=== PATIENT | male | born 1935 | race Caucasian/White ===

== ENCOUNTER 2016-10-26 09:30 | Inpatient (IN) | payer MEDICARE, OTHER ==
[~2016-10-26] VITALS: Ht 162.6 cm; Wt 92.2 kg
[2016-10-26 09:38] VITALS: BP 152/65; PULSE 76; RESP 17; TEMP 98.2; O2SAT 96
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
[2016-10-26] MEDS ORDERED: METF1000 PO (10:23)
[2016-10-26] MEDS ORDERED: LOSA100T PO (10:23)
[2016-10-26] MEDS ORDERED: PANT20TA2 PO (10:23)
[2016-10-26] MEDS ORDERED: TRAZ100T5 PO (10:23)
[2016-10-26] MEDS ORDERED: COUM3TAB PO (10:23)
[2016-10-26] MEDS ORDERED: SPIR25TA PO (10:23)
[2016-10-26] MEDS ORDERED: ISOS60TA PO (10:23)
[2016-10-26] MEDS ORDERED: THERTAB17 PO (10:23)
[2016-10-26] MEDS ORDERED: SIMV20TA PO (10:23)
[2016-10-26] MEDS ORDERED: FURO20TA PO (10:38)
[2016-10-26] MEDS ORDERED: [UNRECOGNIZED DRUG - CODE] TOPICAL (10:38)
[2016-10-26] MEDS ORDERED: FLOR250C PO (10:38)
[2016-10-26] MEDS ORDERED: SILV1CRE80 TOPICAL (10:38)
[2016-10-26 10:46] LABS: AUTOMATED NEUTROPHIL # 6.5 TH/MM3 (1.8-7.7); BASOPHIL # 0.1 TH/MM3 (0-0.2); BASOPHIL % 0.8 % (0.0-2.0); EOSINOPHIL # 0.4 TH/MM3 (0-0.4); EOSINOPHIL % 4.3 % (0.0-4.0); HEMATOCRIT 32.4 % (39.0-51.0); HEMO FLAGS DIFF FINAL; LYMPHOCYTE # 0.7 TH/MM3 (1.0-4.8); MEAN CELL VOLUME 87.7 FL (80.0-100.0); MEAN CORPUSCULAR HEMOGLOBIN 30.2 PG (27.0-34.0); MEAN CORPUSCULAR HGB CONC 34.5 % (32.0-36.0); MONO % 9.6 % (0.0-8.0); NEUT % 77.3 % (16.0-70.0); PLATELET COUNT 357 TH/MM3 (150-450); RED BLOOD COUNT 3.69 MIL/MM3 (4.50-5.90); RED CELL DISTRIBUTION WIDTH 14.8 % (11.6-17.2); WHITE BLOOD COUNT 8.5 TH/MM3 (4.0-11.0)
[2016-10-26 10:56] LABS: INTERNATIONAL NORMALIZED RATIO 1.9 RATIO; PROTHROMBIN TIME - PATIENT 21.9 SEC (9.8-11.6)
[2016-10-26 11:13] LABS: ANION GAP 7 MEQ/L (5-15); AST (GOT) 16 U/L (15-37); BICARBONATE 29.9 MEQ/L (21.0-32.0); BLOOD UREA NITROGEN 29 MG/DL (7-18); CHLORIDE 101 MEQ/L (98-107); GLOMERULAR FILTRATION RATE 65 ML/MIN (>89); POTASSIUM 4.3 MEQ/L (3.5-5.1); SODIUM (NA) 138 MEQ/L (136-145)
[2016-10-26 11:20] LABS: ALKALINE PHOSPHATASE 111 U/L (45-117); ALT (GPT) 16 U/L (12-78); TOTAL BILIRUBIN ADULT 0.7 MG/DL (0.2-1.0)
[2016-10-26] MEDS ORDERED: MAGNESIUM HYDROXIDE SUSP 30 ML CUP PO PRN (15:00)
[2016-10-26] MEDS ORDERED: ALUMINUM/MAGNESIUM/SIMETH 30 ML CUP PO PRN (15:00)
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
[2016-10-26] MEDS: INSULIN ASPART SUPPLEMENTAL SCALE SQ SCH ×2 (16:00→20:29)
[2016-10-26] MEDS: WARFARIN SOD 3 MG TAB PO SCH (16:00)
[2016-10-26 16:08] VITALS: BP 144/72; PULSE 53; RESP 16; TEMP 97.8; O2SAT 99
[2016-10-26] MEDS: FUROSEMIDE 20 MG TAB PO SCH (20:29)
[2016-10-26] MEDS: SPIRONOLACTONE 25 MG TAB PO SCH (20:29)
[2016-10-26] MEDS: traZODone HCL 50 MG TAB PO SCH (20:29)
[2016-10-26 20:31] VITALS: RESP 16
[2016-10-26] MEDS ORDERED: NON-FORMULARY DRUG (Saccharomyces Boulardii (Florastor) 250 MG) PO SCH (21:00)
[2016-10-26] MEDS: SILVER SULFADIAZINE 1% CR 50 GM JAR TOPICAL SCH (21:00)
[2016-10-26] MEDS ORDERED: [UNRECOGNIZED DRUG - MIXTURE] TOPICAL SCH (21:00)
[2016-10-27 05:33] VITALS: BP 140/61; PULSE 76; RESP 18; TEMP 98
[2016-10-27] MEDS: INSULIN ASPART SUPPLEMENTAL SCALE SQ SCH ×4 (06:18→21:00)
[2016-10-27] MEDS: FUROSEMIDE 20 MG TAB PO SCH ×2 (09:15→20:58)
[2016-10-27] MEDS: PANTOPRAZOLE SOD 20 MG DELAYED RELEASE TAB PO SCH (09:15)
[2016-10-27] MEDS: MULTIVITAMINS/MINERALS THERAPEUTIC TAB PO SCH (09:15)
[2016-10-27] MEDS: ISOSORBIDE MONONITRATE 60 MG TAB PO SCH (09:15)
[2016-10-27] MEDS: metFORMIN HCL 500 MG TAB PO SCH (09:15)
[2016-10-27] MEDS: SPIRONOLACTONE 25 MG TAB PO SCH ×2 (09:15→20:58)
[2016-10-27] MEDS: PRAVASTATIN SOD 40 MG TAB PO SCH (09:15)
[2016-10-27] MEDS: LOSARTAN 50 MG TAB PO SCH (09:16)
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
[2016-10-27] MEDS: WARFARIN SOD 3 MG TAB PO SCH (16:00)
--- NOTE | 2016-10-27 16:41 | HHI.PYPN ---
Subjective Remarks Patient seen in day room with nurse Lacho, patient continues somewhat intense silly and intrusive. Continues markedly refuse all 4 spheres. We'll add Seroquel 25 mg noon and 6 PM and this time Review of Systems Except as stated in HPI: all other systems reviewed are Neg Objective Alert: Yes [place]: Person Mood: Calm Affect: Euthymic, Labile Memory Intact: Comment Hallucinations: Other (denies) Delusions: No Delusion Type: Other (vigilant) Suicidal: Ideation (denies) Homicidal: Ideation (denial) Insight/Judgment Very poor Vitals/IOs Vital Signs Date Time Temp Pulse Resp B/P Pulse Ox O2 Delivery O2 Flow Rate FiO2 10/27/16 05:33 98.0 76 18 140/61 10/26/16 16:08 99 Intake and Output 10/26/16 10/26/16 10/27/16 08:00 16:00 00:00 Intake Total 240 ml Balance 240 ml Assessment & Plan Problem List: (1) Dementia of Alzheimer's type with behavioral disturbance ICD Code: G30.8 Assessment & Plan Estimated LOS: days patient continues demented confused while no significant prevertebral problems at this time after he very his behavior related to this hospitalization we will add Seroquel as mentioned above Justification for Cont. Inpt. At this time patient decompensate placed in a lower level of care Discharge Planning To be determined Request HC Surrog/Guard Advoc?: Yes Problem Qualifiers (1) Dementia of Alzheimer's type with behavioral disturbance: Qualified Code: G30.8 - Alzheimer's dementia with behavioral disturbance, unspecified timing of dementia onset Kam Ferrer MD October 27, 2016 16:41
[2016-10-27] MEDS: QUEtiapine FUMARATE 25 MG TAB PO SCH (17:50)
[2016-10-27 19:44] VITALS: BP 124/58; PULSE 80; RESP 18; TEMP 97; O2SAT 95
[2016-10-27] MEDS: traZODone HCL 50 MG TAB PO SCH (20:57)
[2016-10-27] MEDS: SILVER SULFADIAZINE 1% CR 50 GM JAR TOPICAL SCH (21:00)
[2016-10-28 05:15] VITALS: BP 140/65; PULSE 62; RESP 16; TEMP 98.9; O2SAT 85
[2016-10-28] MEDS: INSULIN ASPART SUPPLEMENTAL SCALE SQ SCH ×4 (06:35→21:00)
[2016-10-28 06:59] LABS: INTERNATIONAL NORMALIZED RATIO 1.7 RATIO; PROTHROMBIN TIME - PATIENT 19.8 SEC (9.8-11.6)
[2016-10-28] MEDS: MULTIVITAMINS/MINERALS THERAPEUTIC TAB PO SCH (08:41)
[2016-10-28] MEDS: metFORMIN HCL 500 MG TAB PO SCH (08:41)
[2016-10-28] MEDS: PANTOPRAZOLE SOD 20 MG DELAYED RELEASE TAB PO SCH (08:41)
[2016-10-28] MEDS: SPIRONOLACTONE 25 MG TAB PO SCH ×2 (08:41→21:12)
[2016-10-28] MEDS: LOSARTAN 50 MG TAB PO SCH (08:42)
[2016-10-28] MEDS: FUROSEMIDE 20 MG TAB PO SCH ×2 (08:42→21:11)
[2016-10-28] MEDS: PRAVASTATIN SOD 40 MG TAB PO SCH (08:42)
[2016-10-28] MEDS: ISOSORBIDE MONONITRATE 60 MG TAB PO SCH (08:42)
[2016-10-28] MEDS: QUEtiapine FUMARATE 25 MG TAB PO SCH ×2 (12:54→16:52)
--- NOTE | 2016-10-28 14:02 | HHI.PYPN ---
Subjective Remarks Patient seen in day room with floor staff, patient continues confused disoriented speaking Barbadian. Is somewhat intense with his affect. Though no significant behavioral problems. Compliant medications Review of Systems Except as stated in HPI: all other systems reviewed are Neg Objective Alert: Yes [place]: Person Mood: Calm Affect: Euthymic, Labile Memory Intact: Comment Hallucinations: Other (denies) Delusions: No Delusion Type: Other (vigilant) Suicidal: Ideation (denies) Homicidal: Ideation (denial) Insight/Judgment Poor Labs Test 10/28/16 06:12 Prothrombin Time 19.8 SEC Prothromb Time International 1.7 RATIO Ratio Vitals/IOs Vital Signs Date Time Temp Pulse Resp B/P Pulse Ox O2 Delivery O2 Flow Rate FiO2 10/28/16 05:15 98.9 62 16 140/65 85 Intake and Output 10/27/16 10/27/16 10/27/16 07:59 15:59 23:59 Intake Total 480 ml 2400 ml Balance 480 ml 2400 ml Assessment & Plan Problem List: (1) Dementia of Alzheimer's type with behavioral disturbance ICD Code: G30.8 Assessment & Plan Estimated LOS: days patient demented confused speaking in Barbadian. Compliant medication. For now continue treatment Justification for Cont. Inpt. At this time patient will decompensate the placed a lower level of care Discharge Planning To be determined Request HC Surrog/Guard Advoc?: Yes Problem Qualifiers (1) Dementia of Alzheimer's type with behavioral disturbance: Qualified Code: G30.8 - Alzheimer's dementia with behavioral disturbance, unspecified timing of dementia onset Kam Ferrer MD October 28, 2016 14:02
[2016-10-28] MEDS: WARFARIN SOD 3 MG TAB PO SCH (16:00)
[2016-10-28] MEDS ORDERED: WARFARIN SOD 1 MG TAB PO SCH (16:00)
[2016-10-28 19:37] VITALS: BP 86/51; PULSE 57; TEMP 96.8; O2SAT 99
[2016-10-28] MEDS: SILVER SULFADIAZINE 1% CR 50 GM JAR TOPICAL SCH (21:00)
[2016-10-28] MEDS: traZODone HCL 50 MG TAB PO SCH (21:11)
[2016-10-29 05:40] VITALS: BP 162/72; PULSE 62; RESP 16; TEMP 99; O2SAT 98
[2016-10-29] MEDS: INSULIN ASPART SUPPLEMENTAL SCALE SQ SCH ×4 (06:41→21:00)
[2016-10-29] MEDS: PANTOPRAZOLE SOD 20 MG DELAYED RELEASE TAB PO SCH (09:00)
[2016-10-29] MEDS: metFORMIN HCL 500 MG TAB PO SCH (09:51)
[2016-10-29] MEDS: FUROSEMIDE 20 MG TAB PO SCH ×2 (09:51→21:08)
[2016-10-29] MEDS: ISOSORBIDE MONONITRATE 60 MG TAB PO SCH (09:51)
[2016-10-29] MEDS: LOSARTAN 50 MG TAB PO SCH (09:52)
[2016-10-29] MEDS: MULTIVITAMINS/MINERALS THERAPEUTIC TAB PO SCH (09:52)
[2016-10-29] MEDS: PRAVASTATIN SOD 40 MG TAB PO SCH (09:52)
[2016-10-29] MEDS: SPIRONOLACTONE 25 MG TAB PO SCH ×2 (09:53→21:07)
--- NOTE | 2016-10-29 10:32 | HHI.PYPN ---
Subjective Remarks Patient seen in day room with floor staff, chart reviewed, patient calm pleasant with me continues diffusely confused, did not recognize me from yesterday. Compliant medication. No behavioral problems noted Review of Systems Except as stated in HPI: all other systems reviewed are Neg Objective Alert: Yes [place]: Person Mood: Calm Affect: Euthymic, Labile Memory Intact: Comment Hallucinations: Other (denies) Delusions: No Delusion Type: Other (vigilant) Suicidal: Ideation (denies) Homicidal: Ideation (denial) Insight/Judgment Very poor Vitals/IOs Vital Signs Date Time Temp Pulse Resp B/P Pulse Ox O2 Delivery O2 Flow Rate FiO2 10/29/16 05:40 99.0 62 16 162/72 98 Intake and Output 10/28/16 10/28/16 10/29/16 08:00 16:00 00:00 Intake Total 1080 ml Balance 1080 ml Assessment & Plan Problem List: (1) Dementia of Alzheimer's type with behavioral disturbance ICD Code: G30.8 Assessment & Plan Estimated LOS: days patient continues demented confused, his compliant medications. So far no significant behavioral problems noted Justification for Cont. Inpt. At this time patient decompensate placed on lower level of care Discharge Planning To be determined Request HC Surrog/Guard Advoc?: Yes Problem Qualifiers (1) Dementia of Alzheimer's type with behavioral disturbance: Qualified Code: G30.8 - Alzheimer's dementia with behavioral disturbance, unspecified timing of dementia onset Kam Ferrer MD October 29, 2016 10:32
[2016-10-29 11:22] LABS: INTERNATIONAL NORMALIZED RATIO 1.6 RATIO; PROTHROMBIN TIME - PATIENT 18.1 SEC (9.8-11.6)
[2016-10-29] MEDS: QUEtiapine FUMARATE 25 MG TAB PO SCH ×2 (13:24→17:10)
[2016-10-29 16:00] VITALS: BP 113/57; PULSE 55; RESP 16; TEMP 96.8; O2SAT 100
[2016-10-29] MEDS ORDERED: WARFARIN SOD 3 MG TAB PO SCH (16:00)
[2016-10-29] MEDS: WARFARIN SOD 3 MG TAB PO SCH (17:07)
[2016-10-29] MEDS: SILVER SULFADIAZINE 1% CR 50 GM JAR TOPICAL SCH (21:00)
[2016-10-29] MEDS: traZODone HCL 50 MG TAB PO SCH (21:07)
[2016-10-30 05:32] VITALS: BP 133/65; PULSE 63; RESP 18; TEMP 98.2
[2016-10-30] MEDS: INSULIN ASPART SUPPLEMENTAL SCALE SQ SCH ×4 (06:24→20:47)
[2016-10-30 07:22] LABS: INTERNATIONAL NORMALIZED RATIO 1.6 RATIO; PROTHROMBIN TIME - PATIENT 18.3 SEC (9.8-11.6)
[2016-10-30] MEDS: PRAVASTATIN SOD 40 MG TAB PO SCH (09:02)
[2016-10-30] MEDS: metFORMIN HCL 500 MG TAB PO SCH (09:02)
[2016-10-30] MEDS: LOSARTAN 50 MG TAB PO SCH (09:02)
[2016-10-30] MEDS: MULTIVITAMINS/MINERALS THERAPEUTIC TAB PO SCH (09:03)
[2016-10-30] MEDS: ISOSORBIDE MONONITRATE 60 MG TAB PO SCH (09:03)
[2016-10-30] MEDS: FUROSEMIDE 20 MG TAB PO SCH ×2 (09:03→20:42)
[2016-10-30] MEDS: SPIRONOLACTONE 25 MG TAB PO SCH ×2 (09:03→20:42)
[2016-10-30] MEDS: PANTOPRAZOLE SOD 20 MG DELAYED RELEASE TAB PO SCH (09:03)
--- NOTE | 2016-10-30 12:28 | HHI.PYPN ---
Subjective Remarks Patient seen in [place] retained by Yield Engineer Simin the daughter to be guardian advocate. Patient sat there quietly showing no behavioral issues. Continues confused and demented. Above this been no significant behavioral problems on the unit compliant medications Review of Systems Except as stated in HPI: all other systems reviewed are Neg Objective Alert: Yes [place]: Person Mood: Calm Affect: Euthymic, Labile Memory Intact: Comment Hallucinations: Other (denies) Delusions: No Delusion Type: Other (vigilant) Suicidal: Ideation (denies) Homicidal: Ideation (denial) Insight/Judgment Poor Labs Test 10/30/16 06:47 Prothrombin Time 18.3 SEC Prothromb Time International 1.6 RATIO Ratio Vitals/IOs Vital Signs Date Time Temp Pulse Resp B/P Pulse Ox O2 Delivery O2 Flow Rate FiO2 10/30/16 05:32 98.2 63 18 133/65 10/29/16 16:00 100 Intake and Output 10/29/16 10/29/16 10/30/16 08:00 16:00 00:00 Intake Total 360 ml Balance 360 ml Assessment & Plan Problem List: (1) Dementia of Alzheimer's type with behavioral disturbance ICD Code: G30.8 Assessment & Plan Estimated LOS: days patient continues demented and confused, no behavior problems at this time, compliant medications Justification for Cont. Inpt. At this time patient decompensate with placed a lower level of care Discharge Planning To be determined Request HC Surrog/Guard Advoc?: Yes Problem Qualifiers (1) Dementia of Alzheimer's type with behavioral disturbance: Qualified Code: G30.8 - Alzheimer's dementia with behavioral disturbance, unspecified timing of dementia onset Kam Ferrer MD October 30, 2016 12:28
[2016-10-30] MEDS: QUEtiapine FUMARATE 25 MG TAB PO SCH ×2 (12:59→18:14)
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
[2016-10-30] MEDS ORDERED: WARFARIN SOD 4 MG TAB PO SCH (16:00)
[2016-10-30 17:47] VITALS: BP 111/56; PULSE 62; RESP 18; TEMP 97; O2SAT 97
[2016-10-30] MEDS: WARFARIN SOD 3 MG TAB PO SCH (17:50)
[2016-10-30] MEDS: traZODone HCL 50 MG TAB PO SCH (20:42)
[2016-10-30] MEDS: SILVER SULFADIAZINE 1% CR 50 GM JAR TOPICAL SCH (20:52)
[2016-10-31 05:43] VITALS: BP 143/68; PULSE 55; RESP 16; TEMP 98.8; O2SAT 95
[2016-10-31] MEDS: INSULIN ASPART SUPPLEMENTAL SCALE SQ SCH ×4 (06:36→21:00)
[2016-10-31] MEDS: FUROSEMIDE 20 MG TAB PO SCH ×2 (10:13→21:00)
[2016-10-31] MEDS: metFORMIN HCL 500 MG TAB PO SCH (10:13)
[2016-10-31] MEDS: LOSARTAN 50 MG TAB PO SCH (10:13)
[2016-10-31] MEDS: MULTIVITAMINS/MINERALS THERAPEUTIC TAB PO SCH (10:15)
[2016-10-31] MEDS: SPIRONOLACTONE 25 MG TAB PO SCH ×2 (10:16→21:00)
[2016-10-31] MEDS: PRAVASTATIN SOD 40 MG TAB PO SCH (10:16)
[2016-10-31] MEDS: PANTOPRAZOLE SOD 20 MG DELAYED RELEASE TAB PO SCH (10:16)
--- NOTE | 2016-10-31 10:25 | HHI.PYPN ---
Subjective Remarks Patient day room with nurse Kelly, patient continues calm cooperative needing minimal redirections at this time. It is diffusely confused disoriented while speaking primarily Serbian appears to understand some Cypriot. Compliant medications. For now continue treatment Review of Systems Except as stated in HPI: all other systems reviewed are Neg Objective Alert: Yes [place]: Person Mood: Calm Affect: Euthymic, Labile Memory Intact: Comment Hallucinations: Other (denies) Delusions: No Delusion Type: Other (vigilant) Suicidal: Ideation (denies) Homicidal: Ideation (denial) Insight/Judgment Very poor Vitals/IOs Vital Signs Date Time Temp Pulse Resp B/P Pulse Ox O2 Delivery O2 Flow Rate FiO2 10/31/16 05:43 98.8 55 16 143/68 95 Intake and Output 10/30/16 10/30/16 10/31/16 08:00 16:00 00:00 Intake Total 240 ml 2760 ml Balance 240 ml 2760 ml Assessment & Plan Problem List: (1) Dementia of Alzheimer's type with behavioral disturbance ICD Code: G30.8 Assessment & Plan Estimated LOS: days patient continues confused demented, though no significant behavioral problems. For now continue treatment Justification for Cont. Inpt. This time patient will decompensate if placed in a lower level of care Discharge Planning To be determined Request HC Surrog/Guard Advoc?: Yes Problem Qualifiers (1) Dementia of Alzheimer's type with behavioral disturbance: Qualified Code: G30.8 - Alzheimer's dementia with behavioral disturbance, unspecified timing of dementia onset Kam Ferrer MD October 31, 2016 10:25
[2016-10-31 12:24] LABS: INTERNATIONAL NORMALIZED RATIO 1.9 RATIO; PROTHROMBIN TIME - PATIENT 21.4 SEC (9.8-11.6)
[2016-10-31] MEDS: ISOSORBIDE MONONITRATE 60 MG TAB PO SCH (13:38)
[2016-10-31] MEDS: QUEtiapine FUMARATE 25 MG TAB PO SCH ×2 (13:38→18:00)
[2016-10-31] MEDS: WARFARIN SOD 3 MG TAB PO SCH (16:29)
[2016-10-31 17:44] VITALS: BP 114/56; PULSE 68; RESP 16; TEMP 97.6; O2SAT 98
[2016-10-31] MEDS: traZODone HCL 50 MG TAB PO SCH (21:00)
[2016-10-31] MEDS: SILVER SULFADIAZINE 1% CR 50 GM JAR TOPICAL SCH (21:00)
[2016-11-01 05:26] VITALS: BP 137/63; PULSE 57; RESP 16; TEMP 98.4; O2SAT 96
[2016-11-01] MEDS: INSULIN ASPART SUPPLEMENTAL SCALE SQ SCH ×4 (06:39→20:20)
[2016-11-01 08:29] LABS: INTERNATIONAL NORMALIZED RATIO 2.1 RATIO; PROTHROMBIN TIME - PATIENT 23.5 SEC (9.8-11.6)
[2016-11-01] MEDS: PANTOPRAZOLE SOD 20 MG DELAYED RELEASE TAB PO SCH (09:05)
[2016-11-01] MEDS: ISOSORBIDE MONONITRATE 60 MG TAB PO SCH (09:05)
[2016-11-01] MEDS: LOSARTAN 50 MG TAB PO SCH (09:05)
[2016-11-01] MEDS: MULTIVITAMINS/MINERALS THERAPEUTIC TAB PO SCH (09:05)
[2016-11-01] MEDS: PRAVASTATIN SOD 40 MG TAB PO SCH (09:05)
[2016-11-01] MEDS: FUROSEMIDE 20 MG TAB PO SCH ×2 (09:05→21:02)
[2016-11-01] MEDS: SPIRONOLACTONE 25 MG TAB PO SCH ×2 (09:05→21:02)
[2016-11-01] MEDS: metFORMIN HCL 500 MG TAB PO SCH (09:05)
--- NOTE | 2016-11-01 11:42 | HHI.PYPN ---
Subjective Remarks A she was seen and case discussed with nursing. Patient is pleasant and cooperative with exam. He is behaving well on the unit and has not had any outbursts. He is alert and oriented 2. Able to speak Botswanan and Moroccan. Getting along with others and is compliant with his medications. Denies auditory visual hallucinations. Objective Alert: Yes [place]: Person, Place Mood: Calm Affect: Euthymic Memory Intact: Comment Hallucinations: Other (denies) Delusions: No Delusion Type: Other (vigilant) Suicidal: Ideation (denies) Homicidal: Ideation (denial) Insight/Judgment Poor Labs Test 10/31/16 11/01/16 12:02 07:11 Prothrombin Time 21.4 SEC 23.5 SEC Prothromb Time International 1.9 RATIO 2.1 RATIO Ratio Vitals/IOs Vital Signs Date Time Temp Pulse Resp B/P Pulse Ox O2 Delivery O2 Flow Rate FiO2 11/01/16 05:26 98.4 57 16 137/63 96 Intake and Output 10/31/16 10/31/16 11/01/16 08:00 16:00 00:00 Intake Total 360 ml 720 ml 1200 ml Balance 360 ml 720 ml 1200 ml Assessment & Plan Problem List: (1) Dementia of Alzheimer's type with behavioral disturbance ICD Code: G30.8 Assessment & Plan Continue current treatment plan Justification for Cont. Inpt. Patient will decompensate in a less restrictive setting Request HC Surrog/Guard Advoc?: Yes Problem Qualifiers (1) Dementia of Alzheimer's type with behavioral disturbance: Qualified Code: G30.8 - Alzheimer's dementia with behavioral disturbance, unspecified timing of dementia onset Ayad Garcia DO November 01, 2016 11:42
[2016-11-01] MEDS: QUEtiapine FUMARATE 25 MG TAB PO SCH ×2 (12:23→16:35)
[2016-11-01] MEDS: WARFARIN SOD 3 MG TAB PO SCH (16:35)
[2016-11-01 18:00] VITALS: BP 98/55; PULSE 63; TEMP 97.9; O2SAT 97
[2016-11-01] MEDS: traZODone HCL 50 MG TAB PO SCH (21:02)
[2016-11-01] MEDS: SILVER SULFADIAZINE 1% CR 50 GM JAR TOPICAL SCH (21:13)
[2016-11-02 05:56] VITALS: BP 144/65; PULSE 62; RESP 16; TEMP 97.8; O2SAT 97
[2016-11-02] MEDS: INSULIN ASPART SUPPLEMENTAL SCALE SQ SCH ×4 (06:42→21:00)
[2016-11-02] MEDS: MULTIVITAMINS/MINERALS THERAPEUTIC TAB PO SCH (09:02)
[2016-11-02] MEDS: PANTOPRAZOLE SOD 20 MG DELAYED RELEASE TAB PO SCH (09:02)
[2016-11-02] MEDS: ISOSORBIDE MONONITRATE 60 MG TAB PO SCH (09:02)
[2016-11-02] MEDS: SPIRONOLACTONE 25 MG TAB PO SCH ×2 (09:02→21:51)
[2016-11-02] MEDS: PRAVASTATIN SOD 40 MG TAB PO SCH (09:02)
[2016-11-02] MEDS: metFORMIN HCL 500 MG TAB PO SCH (09:02)
[2016-11-02] MEDS: FUROSEMIDE 20 MG TAB PO SCH ×2 (09:02→21:51)
[2016-11-02] MEDS: LOSARTAN 50 MG TAB PO SCH (09:02)
--- NOTE | 2016-11-02 12:03 | HHI.PYPN ---
Subjective Remarks Patient was seen and case discussed with nursing. Patient is pleasant and cooperative with exam. Behaving well on the unit per nursing. Productive visit from his family yesterday. We notice a bilateral rash on his legs patient says his been there for a year. Objective Alert: Yes [place]: Person, Place Mood: Calm Affect: Restricted Memory Intact: Comment (not assessed) Hallucinations: Other (denies) Delusions: No Delusion Type: Other (none elicited) Suicidal: Ideation (denies) Homicidal: Ideation (denial) Insight/Judgment Fair Vitals/IOs Vital Signs Date Time Temp Pulse Resp B/P Pulse Ox O2 Delivery O2 Flow Rate FiO2 11/02/16 05:56 97.8 62 16 144/65 97 Intake and Output 11/01/16 11/01/16 11/02/16 08:00 16:00 00:00 Intake Total 600 ml 600 ml Balance 600 ml 600 ml Assessment & Plan Problem List: (1) Dementia of Alzheimer's type with behavioral disturbance ICD Code: G30.8 Assessment & Plan Consult hospitalist to evaluate rash Justification for Cont. Inpt. Patient will decompensate in a less restrictive setting Request HC Surrog/Guard Advoc?: Yes Problem Qualifiers (1) Dementia of Alzheimer's type with behavioral disturbance: Qualified Code: G30.8 - Alzheimer's dementia with behavioral disturbance, unspecified timing of dementia onset Ayad Garcia DO November 02, 2016 12:03
[2016-11-02] MEDS: QUEtiapine FUMARATE 25 MG TAB PO SCH ×2 (12:14→17:31)
[2016-11-02] MEDS: CLINDAMYCIN 150 MG CAP PO SCH (17:31)
[2016-11-02] MEDS: WARFARIN SOD 3 MG TAB PO SCH (17:31)
--- NOTE | 2016-11-02 18:21 | HHI.PR ---
Subjective Remarks reconsulted for rash in legs Patient denies fevers or chills denies cp/sob states right leg is slightly tender to palpation vital signs are stable Objective Vitals Vital Signs Date Time Temp Pulse Resp B/P Pulse Ox O2 Delivery O2 Flow Rate FiO2 11/02/16 05:56 97.8 62 16 144/65 97 I/O 11/01/16 11/01/16 11/01/16 11/02/16 11/02/16 11/02/16 07:00 15:00 23:00 07:00 15:00 23:00 Intake Total 360 ml 240 ml 600 ml 0 ml 720 ml Balance 360 ml 240 ml 600 ml 0 ml 720 ml Intake Oral 360 ml 240 ml 600 ml 0 ml 720 ml # Voids 1 2 1 1 # Bowel Movements 0 Objective Remarks GENERAL: This is a well-nourished, well-developed [place] patient, in no apparent distress. SKIN: No rashes, ecchymoses. Cool and dry. Chronic venous stasis noted on lower extremities. HEAD: Atraumatic. Normocephalic. No temporal or scalp tenderness. EYES: Pupils equal round and reactive. Extraocular motions intact. No scleral icterus. No injection or drainage. ENT: Nose without bleeding, purulent drainage or septal hematoma. Throat without erythema, tonsillar hypertrophy or exudate. Uvula midline. Airway patent. NECK: Trachea midline. No JVD or lymphadenopathy. Supple, nontender, no meningeal signs. CARDIOVASCULAR: Regular rate and rhythm without murmurs, gallops, or rubs. RESPIRATORY: Clear to auscultation. Breath sounds equal bilaterally. No wheezes , rales, or rhonchi. GASTROINTESTINAL: Abdomen soft, non-tender, nondistended. No hepato-splenomegaly , or palpable masses. No guarding. MUSCULOSKELETAL: Extremities without clubbing, cyanosis. Bilateral, 1+ edema noted on his lower extremities. No joint tenderness or effusion noted. No calf tenderness. Negative Homans sign bilaterally. Lower extremities are dry and have a dark and erythematous discoloration especially in the right lower extremity which is also tender to palpation. NEUROLOGICAL: Awake and alert, oriented to self yet personal medical history was denied yet review of medication list indicated pt did not know his medical conditions. Cranial nerves II through XII intact. Motor and sensory grossly within normal limits. Five out of 5 muscle strength in all muscle groups. Speech was clear and fluent. Procedures None. Medications and IVs Current Medications Medications (Trade) Dose Ordered Sig/Siva Route Start Time Stop Time Status Last Admin (Benadryl) 50 mg HS PRN PO 10/26/16 15:00 (Tylenol) 650 mg Q4H PRN PO 10/26/16 15:00 (Milk Of Magnesia Liq) 30 ml DAILY PRN PO 10/26/16 15:00 (Mag-Al Plus Susp Liq) 30 ml Q6H PRN PO 10/26/16 15:00 (Atarax) 50 mg Q6H PRN PO 10/26/16 15:00 (Lasix) 20 mg BID PO 10/26/16 21:00 11/02/16 09:02 (Imdur) 60 mg DAILY PO 10/27/16 09:00 11/02/16 09:02 (Cozaar) 100 mg DAILY PO 10/27/16 09:00 11/02/16 09:02 (Glucophage) 1,000 mg DAILY PO 10/27/16 09:00 11/02/16 09:02 (Theragran M Tab) 1 tab DAILY PO 10/27/16 09:00 11/02/16 09:02 (Protonix) 20 mg DAILY PO 10/27/16 09:00 11/02/16 09:02 (Silvadene 1% Cream (50 Gm)) 1 applic HS TOPICAL 10/26/16 21:00 11/01/16 21:13 (Aldactone) 12.5 mg BID PO 10/26/16 21:00 11/02/16 09:02 (Coumadin) 3 mg DAILY@16 PO 10/26/16 16:00 11/02/16 17:31 (Pravachol) 40 mg DAILY PO 10/27/16 09:00 11/02/16 09:02 Trazodone HCl 50 mg 50 mg HS PO 10/26/16 21:00 11/01/16 21:02 (Coumadin Consult Pharmacy) 0 ml @ 0 mls/hr UNSCH OTHER 10/26/16 16:00 (Catapres) 0.1 mg Q6H PRN PO 10/26/16 16:00 (SEROquel) 25 mg DAILY@12,18 PO 10/27/16 18:00 11/02/16 17:31 (Aristocort 0.1% Oint) 1 applic Q12HR TOPICAL 11/02/16 21:00 (Cleocin) 300 mg Q6HR PO 11/02/16 18:00 11/02/16 17:31 Urinary Catheter: No A/P Problem List: (1) Dementia of Alzheimer's type with behavioral disturbance ICD Code: G30.8 Status: Acute (2) Diabetes mellitus type II, controlled, with no complications ICD Code: E11.9 Status: Chronic (3) Hypertension ICD Code: I10 Status: Chronic (4) GERD (gastroesophageal reflux disease) ICD Code: K21.9 Status: Chronic (5) Hyperlipidemia ICD Code: E78.5 Status: Chronic Assessment and Plan Dementia of Alzheimer's type with disturbance of behavior: To be addressed by psychiatric care team. Diabetes Mellitus: Labs personally reviewed, blood glucose is within reasonable range without significant elevations noted per fingersticks done upon unit. Continue metformin 1000 mg Daily. Continue sliding scale Atrial Fibrillation/Hypertension/Hyperlipidemia/Angina Continue home regimen of Imdur 60 mg daily, Cozaar 100 mg daily, Lasix 20 mg twice daily, Spironolactone 12.5 mg twice daily, Warfarin 3 mg daily, and Pravachol 40 mg daily. INR therapeutic at a level of 2.1 at 11/01. Pharmacy consulted to manage Warfarin. Continue clonidine PRN for elevated systolic BP greater than 160. Blood pressure seems to be stable. Bilateral lower extremity rash -Likely due to chronic venous stasis dermatitis with possible superimposed cellulitis. I will start the patient on steroid cream and oral clindamycin to be given for 7 days. Will monitor for clinical response. DVT prophylaxis: Pt is on Warfarin. Problem Qualifiers (1) Dementia of Alzheimer's type with behavioral disturbance: Qualified Code: G30.8 - Alzheimer's dementia with behavioral disturbance, unspecified timing of dementia onset (2) Diabetes mellitus type II, controlled, with no complications: Qualified Code: E11.9 - Controlled type 2 diabetes mellitus without complication, without long-term current use of insulin (3) Hypertension: Qualified Code: I10 - Essential hypertension (4) GERD (gastroesophageal reflux disease): Qualified Code: K21.9 - Gastroesophageal reflux disease, esophagitis presence not specified (5) Hyperlipidemia: Qualified Code: E78.5 - Hyperlipidemia, unspecified hyperlipidemia type Kiser Bender,Babak MD November 02, 2016 18:21
[2016-11-02 20:08] VITALS: BP 125/55; PULSE 56; RESP 18; TEMP 97; O2SAT 98
[2016-11-02] MEDS: TRIAMCINOLONE ACETONIDE 0.1% OINT 15 GM TUBE TOPICAL SCH (21:00)
[2016-11-02] MEDS: traZODone HCL 50 MG TAB PO SCH (21:51)
[2016-11-02] MEDS: SILVER SULFADIAZINE 1% CR 50 GM JAR TOPICAL SCH (21:52)
[2016-11-03] MEDS: CLINDAMYCIN 150 MG CAP PO SCH ×5 (05:41→22:29)
[2016-11-03] MEDS: INSULIN ASPART SUPPLEMENTAL SCALE SQ SCH ×4 (06:28→21:00)
[2016-11-03 06:40] VITALS: BP 142/69; PULSE 77; RESP 20; TEMP 98.1; O2SAT 98
[2016-11-03 08:10] LABS: INTERNATIONAL NORMALIZED RATIO 2.1 RATIO; PROTHROMBIN TIME - PATIENT 24.3 SEC (9.8-11.6)
[2016-11-03] MEDS: MULTIVITAMINS/MINERALS THERAPEUTIC TAB PO SCH (09:56)
[2016-11-03] MEDS: PRAVASTATIN SOD 40 MG TAB PO SCH (09:56)
[2016-11-03] MEDS: LOSARTAN 50 MG TAB PO SCH (09:57)
[2016-11-03] MEDS: FUROSEMIDE 20 MG TAB PO SCH ×2 (09:57→22:19)
[2016-11-03] MEDS: metFORMIN HCL 500 MG TAB PO SCH (09:57)
[2016-11-03] MEDS: SPIRONOLACTONE 25 MG TAB PO SCH ×2 (09:58→22:19)
[2016-11-03] MEDS: TRIAMCINOLONE ACETONIDE 0.1% OINT 15 GM TUBE TOPICAL SCH ×2 (09:59→22:19)
[2016-11-03] MEDS: PANTOPRAZOLE SOD 20 MG DELAYED RELEASE TAB PO SCH (10:00)
[2016-11-03] MEDS: ISOSORBIDE MONONITRATE 60 MG TAB PO SCH (10:02)
--- NOTE | 2016-11-03 12:42 | HHI.PYPN ---
Subjective Remarks Patient seen in day room with nurse Divina, chart reviewed. Patient calmly confused and pleasant. He shown no behavioral problems. Compliant medication. For now continue treatment Review of Systems Except as stated in HPI: all other systems reviewed are Neg Objective Alert: Yes [place]: Person, Place Mood: Calm Affect: Restricted Memory Intact: Comment (not assessed) Hallucinations: Other (denies) Delusions: No Delusion Type: Other (none elicited) Suicidal: Ideation (denies) Homicidal: Ideation (denial) Insight/Judgment Very poor Labs Test 11/03/16 07:44 Prothrombin Time 24.3 SEC Prothromb Time International 2.1 RATIO Ratio Vitals/IOs Vital Signs Date Time Temp Pulse Resp B/P Pulse Ox O2 Delivery O2 Flow Rate FiO2 11/03/16 06:40 98.1 77 20 142/69 98 Intake and Output 11/02/16 11/02/16 11/02/16 07:59 15:59 23:59 Intake Total 0 ml 720 ml 480 ml Balance 0 ml 720 ml 480 ml Assessment & Plan Problem List: (1) Dementia of Alzheimer's type with behavioral disturbance ICD Code: G30.8 Assessment & Plan Estimated LOS: days patient continues demented and psychotic, though no behavior problems. Compliant medications Justification for Cont. Inpt. At this time patient will decompensate the placed in a lower level of care Discharge Planning To be determined Request HC Surrog/Guard Advoc?: Yes Problem Qualifiers (1) Dementia of Alzheimer's type with behavioral disturbance: Qualified Code: G30.8 - Alzheimer's dementia with behavioral disturbance, unspecified timing of dementia onset Kam Ferrer MD November 03, 2016 12:41
[2016-11-03] MEDS: QUEtiapine FUMARATE 25 MG TAB PO SCH ×2 (13:26→17:26)
[2016-11-03 17:00] VITALS: BP 113/58; PULSE 52; RESP 18; TEMP 97.2
[2016-11-03] MEDS: WARFARIN SOD 3 MG TAB PO SCH (17:26)
--- NOTE | 2016-11-03 19:21 | HHI.PR ---
Subjective Remarks no complaints denies cp/sob denies rash, diarrhea denies nausea denies fevers or chills Objective Vitals Vital Signs Date Time Temp Pulse Resp B/P Pulse Ox O2 Delivery O2 Flow Rate FiO2 11/03/16 17:00 97.2 52 18 113/58 11/03/16 06:40 98.1 77 20 142/69 98 11/02/16 20:08 97.0 56 18 125/55 98 I/O 11/02/16 11/02/16 11/02/16 11/03/16 11/03/16 11/03/16 06:59 14:59 22:59 06:59 14:59 22:59 Intake Total 0 ml 720 ml 480 ml 840 ml 1080 ml Balance 0 ml 720 ml 480 ml 840 ml 1080 ml Intake Oral 0 ml 720 ml 480 ml 840 ml 1080 ml # Voids 1 1 3 3 Objective Remarks GENERAL: This is a well-nourished, well-developed [place] patient, in no apparent distress. SKIN: No rashes, ecchymoses. Cool and dry. Chronic venous stasis noted on lower extremities. HEAD: Atraumatic. Normocephalic. No temporal or scalp tenderness. EYES: Pupils equal round and reactive. Extraocular motions intact. No scleral icterus. No injection or drainage. ENT: Nose without bleeding, purulent drainage or septal hematoma. Throat without erythema, tonsillar hypertrophy or exudate. Uvula midline. Airway patent. NECK: Trachea midline. No JVD or lymphadenopathy. Supple, nontender, no meningeal signs. CARDIOVASCULAR: Regular rate and rhythm without murmurs, gallops, or rubs. RESPIRATORY: Clear to auscultation. Breath sounds equal bilaterally. No wheezes , rales, or rhonchi. GASTROINTESTINAL: Abdomen soft, non-tender, nondistended. No hepato-splenomegaly , or palpable masses. No guarding. MUSCULOSKELETAL: Extremities without clubbing, cyanosis. Bilateral, 1+ edema noted on his lower extremities. No joint tenderness or effusion noted. No calf tenderness. Negative Homans sign bilaterally. Lower extremities are dry and have a dark and erythematous discoloration especially in the right lower extremity which is also tender to palpation - seems improved from previous day. NEUROLOGICAL: Awake and alert, oriented to self yet personal medical history was denied yet review of medication list indicated pt did not know his medical conditions. Cranial nerves II through XII intact. Motor and sensory grossly within normal limits. Five out of 5 muscle strength in all muscle groups. Speech was clear and fluent. Procedures None. Medications and IVs Current Medications Medications (Trade) Dose Ordered Sig/Siva Route Start Time Stop Time Status Last Admin (Benadryl) 50 mg HS PRN PO 10/26/16 15:00 (Tylenol) 650 mg Q4H PRN PO 10/26/16 15:00 (Milk Of Magnesia Liq) 30 ml DAILY PRN PO 10/26/16 15:00 (Mag-Al Plus Susp Liq) 30 ml Q6H PRN PO 10/26/16 15:00 (Atarax) 50 mg Q6H PRN PO 10/26/16 15:00 (Lasix) 20 mg BID PO 10/26/16 21:00 11/03/16 09:57 (Imdur) 60 mg DAILY PO 10/27/16 09:00 11/03/16 10:02 (Cozaar) 100 mg DAILY PO 10/27/16 09:00 11/03/16 09:57 (Glucophage) 1,000 mg DAILY PO 10/27/16 09:00 11/03/16 09:57 (Theragran M Tab) 1 tab DAILY PO 10/27/16 09:00 11/03/16 09:56 (Protonix) 20 mg DAILY PO 10/27/16 09:00 11/03/16 10:00 (Silvadene 1% Cream (50 Gm)) 1 applic HS TOPICAL 10/26/16 21:00 11/02/16 21:52 (Aldactone) 12.5 mg BID PO 10/26/16 21:00 11/03/16 09:58 (Coumadin) 3 mg DAILY@16 PO 10/26/16 16:00 11/03/16 17:26 (Pravachol) 40 mg DAILY PO 10/27/16 09:00 11/03/16 09:56 Trazodone HCl 50 mg 50 mg HS PO 10/26/16 21:00 11/02/16 21:51 (Coumadin Consult Pharmacy) 0 ml @ 0 mls/hr UNSCH OTHER 10/26/16 16:00 (Catapres) 0.1 mg Q6H PRN PO 10/26/16 16:00 (SEROquel) 25 mg DAILY@12,18 PO 10/27/16 18:00 11/03/16 17:26 (Aristocort 0.1% Oint) 1 applic Q12HR TOPICAL 11/02/16 21:00 11/03/16 09:59 (Cleocin) 300 mg Q6HR PO 11/02/16 18:00 11/03/16 17:26 Urinary Catheter: No Vascular Central Line Catheter: No A/P Problem List: (1) Dementia of Alzheimer's type with behavioral disturbance ICD Code: G30.8 Status: Acute (2) Diabetes mellitus type II, controlled, with no complications ICD Code: E11.9 Status: Chronic (3) Hypertension ICD Code: I10 Status: Chronic (4) GERD (gastroesophageal reflux disease) ICD Code: K21.9 Status: Chronic (5) Hyperlipidemia ICD Code: E78.5 Status: Chronic Assessment and Plan Dementia of Alzheimer's type with disturbance of behavior: To be addressed by psychiatric care team. Diabetes Mellitus: Labs personally reviewed, blood glucose is within reasonable range without significant elevations noted per fingersticks done upon unit. Continue metformin 1000 mg Daily. Continue sliding scale Atrial Fibrillation/Hypertension/Hyperlipidemia/Angina Continue home regimen of Imdur 60 mg daily, Cozaar 100 mg daily, Lasix 20 mg twice daily, Spironolactone 12.5 mg twice daily, Warfarin 3 mg daily, and Pravachol 40 mg daily. INR therapeutic at a level of 2.1 at 11/01. Pharmacy consulted to manage Warfarin. Continue clonidine PRN for elevated systolic BP greater than 160. Blood pressure seems to be stable. Bilateral lower extremity rash -Likely due to chronic venous stasis dermatitis with possible superimposed cellulitis. - Seems to be improving - continue steroid cream bid and PO Clindamycin x 7 days. DVT prophylaxis: Pt is on Warfarin. Problem Qualifiers (1) Dementia of Alzheimer's type with behavioral disturbance: Qualified Code: G30.8 - Alzheimer's dementia with behavioral disturbance, unspecified timing of dementia onset (2) Diabetes mellitus type II, controlled, with no complications: Qualified Code: E11.9 - Controlled type 2 diabetes mellitus without complication, without long-term current use of insulin (3) Hypertension: Qualified Code: I10 - Essential hypertension (4) GERD (gastroesophageal reflux disease): Qualified Code: K21.9 - Gastroesophageal reflux disease, esophagitis presence not specified (5) Hyperlipidemia: Qualified Code: E78.5 - Hyperlipidemia, unspecified hyperlipidemia type Babak Banerjee MD November 03, 2016 19:21
[2016-11-03] MEDS: traZODone HCL 50 MG TAB PO SCH (22:19)
[2016-11-03] MEDS: SILVER SULFADIAZINE 1% CR 50 GM JAR TOPICAL SCH (22:21)
[2016-11-04] MEDS: CLINDAMYCIN 150 MG CAP PO SCH ×3 (05:21→17:28)
[2016-11-04] MEDS: INSULIN ASPART SUPPLEMENTAL SCALE SQ SCH ×4 (05:21→21:00)
[2016-11-04 06:00] VITALS: BP 121/50; PULSE 50; RESP 18; TEMP 98.1; O2SAT 97
[2016-11-04] MEDS: PRAVASTATIN SOD 40 MG TAB PO SCH (09:53)
[2016-11-04] MEDS: MULTIVITAMINS/MINERALS THERAPEUTIC TAB PO SCH (09:54)
[2016-11-04] MEDS: metFORMIN HCL 500 MG TAB PO SCH (09:54)
[2016-11-04] MEDS: SPIRONOLACTONE 25 MG TAB PO SCH ×2 (09:54→21:34)
[2016-11-04] MEDS: PANTOPRAZOLE SOD 20 MG DELAYED RELEASE TAB PO SCH (09:54)
[2016-11-04] MEDS: ISOSORBIDE MONONITRATE 60 MG TAB PO SCH (09:54)
[2016-11-04] MEDS: FUROSEMIDE 20 MG TAB PO SCH ×2 (09:55→21:34)
[2016-11-04] MEDS: LOSARTAN 50 MG TAB PO SCH (09:55)
[2016-11-04] MEDS: TRIAMCINOLONE ACETONIDE 0.1% OINT 15 GM TUBE TOPICAL SCH ×2 (10:25→21:39)
[2016-11-04] MEDS: QUEtiapine FUMARATE 25 MG TAB PO SCH ×2 (12:59→17:29)
[2016-11-04] MEDS: WARFARIN SOD 3 MG TAB PO SCH (16:00)
--- NOTE | 2016-11-04 16:16 | HHI.PYPN ---
Subjective Remarks Patient seen in day room with nurse Will, chart reviewed. Patient sitting calmly a table in day room he continues to [place] confused though he has been no behavioral problems. Compliant medications Review of Systems Except as stated in HPI: all other systems reviewed are Neg Objective Alert: Yes [place]: Person, Place Mood: Calm Affect: Restricted Memory Intact: Comment (not assessed) Hallucinations: Other (denies) Delusions: No Delusion Type: Other (none elicited) Suicidal: Ideation (denies) Homicidal: Ideation (denial) Insight/Judgment Poor Vitals/IOs Vital Signs Date Time Temp Pulse Resp B/P Pulse Ox O2 Delivery O2 Flow Rate FiO2 11/04/16 06:00 98.1 50 18 121/50 97 Intake and Output 11/03/16 11/03/16 11/03/16 07:59 15:59 23:59 Intake Total 1920 ml 420 ml Balance 1920 ml 420 ml Assessment & Plan Problem List: (1) Dementia of Alzheimer's type with behavioral disturbance ICD Code: G30.8 Assessment & Plan Estimated LOS: days patient continues dementia confused though no behavioral problems, compliant medication Justification for Cont. Inpt. At this time patient will decompensate placed in a lower level of care Discharge Planning To be determined Request HC Surrog/Guard Advoc?: Yes Problem Qualifiers (1) Dementia of Alzheimer's type with behavioral disturbance: Qualified Code: G30.8 - Alzheimer's dementia with behavioral disturbance, unspecified timing of dementia onset Kam Ferrer MD November 04, 2016 16:16
[2016-11-04 18:20] VITALS: BP 100/58; PULSE 71; RESP 16; TEMP 98.3; O2SAT 97
[2016-11-04] MEDS: SILVER SULFADIAZINE 1% CR 50 GM JAR TOPICAL SCH (21:00)
[2016-11-04] MEDS: traZODone HCL 50 MG TAB PO SCH (21:34)
[2016-11-05] MEDS: CLINDAMYCIN 150 MG CAP PO SCH ×5 (00:04→23:16)
[2016-11-05 05:31] VITALS: BP 135/60; PULSE 54; RESP 16; TEMP 99.1; O2SAT 92
[2016-11-05] MEDS: INSULIN ASPART SUPPLEMENTAL SCALE SQ SCH ×4 (06:00→21:00)
[2016-11-05 07:46] LABS: INTERNATIONAL NORMALIZED RATIO 2.4 RATIO; PROTHROMBIN TIME - PATIENT 27.4 SEC (9.8-11.6)
[2016-11-05] MEDS: ISOSORBIDE MONONITRATE 60 MG TAB PO SCH (08:47)
[2016-11-05] MEDS: metFORMIN HCL 500 MG TAB PO SCH (08:47)
[2016-11-05] MEDS: MULTIVITAMINS/MINERALS THERAPEUTIC TAB PO SCH (08:48)
[2016-11-05] MEDS: FUROSEMIDE 20 MG TAB PO SCH ×2 (08:48→21:39)
[2016-11-05] MEDS: PANTOPRAZOLE SOD 20 MG DELAYED RELEASE TAB PO SCH (08:48)
[2016-11-05] MEDS: SPIRONOLACTONE 25 MG TAB PO SCH ×2 (08:48→21:39)
[2016-11-05] MEDS: LOSARTAN 50 MG TAB PO SCH (08:48)
[2016-11-05] MEDS: TRIAMCINOLONE ACETONIDE 0.1% OINT 15 GM TUBE TOPICAL SCH ×2 (08:49→21:00)
[2016-11-05] MEDS: PRAVASTATIN SOD 40 MG TAB PO SCH (09:00)
--- NOTE | 2016-11-05 09:45 | HHI.PYPN ---
Subjective Remarks Patient seen in day room with nurse Marilu, chart reviewed. Patient calm pleasant. Continues confused and demented though no behavior problems but at this time. We'll discontinue Silvadene ointment Review of Systems Except as stated in HPI: all other systems reviewed are Neg Objective Alert: Yes [place]: Person, Place Mood: Calm Affect: Restricted Memory Intact: Comment (not assessed) Hallucinations: Other (denies) Delusions: No Delusion Type: Other (none elicited) Suicidal: Ideation (denies) Homicidal: Ideation (denial) Insight/Judgment Very poor Labs Test 11/05/16 06:45 Prothrombin Time 27.4 SEC Prothromb Time International 2.4 RATIO Ratio Vitals/IOs Vital Signs Date Time Temp Pulse Resp B/P Pulse Ox O2 Delivery O2 Flow Rate FiO2 11/05/16 05:31 99.1 54 16 135/60 92 Intake and Output 11/04/16 11/04/16 11/04/16 07:59 15:59 23:59 Intake Total 2400 ml 480 ml Balance 2400 ml 480 ml Assessment & Plan Problem List: (1) Dementia of Alzheimer's type with behavioral disturbance ICD Code: G30.8 Assessment & Plan Estimated LOS: days patient continues confused and demented, compliant medications, no significant behavioral problems at this time Justification for Cont. Inpt. At this time patient decompensate if placed in a lower level of care Discharge Planning To be determined Request HC Surrog/Guard Advoc?: Yes Problem Qualifiers (1) Dementia of Alzheimer's type with behavioral disturbance: Qualified Code: G30.8 - Alzheimer's dementia with behavioral disturbance, unspecified timing of dementia onset Kam Ferrer MD November 05, 2016 09:44
[2016-11-05] MEDS: QUEtiapine FUMARATE 25 MG TAB PO SCH ×2 (12:30→17:11)
[2016-11-05 16:00] VITALS: BP 103/60; PULSE 53; RESP 17; TEMP 97.4; O2SAT 98
[2016-11-05] MEDS: WARFARIN SOD 3 MG TAB PO SCH (17:11)
[2016-11-05] MEDS: traZODone HCL 50 MG TAB PO SCH (21:39)
[2016-11-06 05:30] VITALS: BP 109/54; PULSE 83; RESP 16; TEMP 98.4
[2016-11-06] MEDS: CLINDAMYCIN 150 MG CAP PO SCH ×4 (05:35→23:11)
[2016-11-06] MEDS: INSULIN ASPART SUPPLEMENTAL SCALE SQ SCH ×4 (06:10→21:00)
[2016-11-06] MEDS: PANTOPRAZOLE SOD 20 MG DELAYED RELEASE TAB PO SCH (08:40)
[2016-11-06] MEDS: metFORMIN HCL 500 MG TAB PO SCH (08:40)
[2016-11-06] MEDS: ISOSORBIDE MONONITRATE 60 MG TAB PO SCH (08:40)
[2016-11-06] MEDS: LOSARTAN 50 MG TAB PO SCH (08:41)
[2016-11-06] MEDS: MULTIVITAMINS/MINERALS THERAPEUTIC TAB PO SCH (08:41)
[2016-11-06] MEDS: FUROSEMIDE 20 MG TAB PO SCH ×2 (08:41→21:13)
[2016-11-06] MEDS: SPIRONOLACTONE 25 MG TAB PO SCH ×2 (08:41→21:13)
[2016-11-06] MEDS: TRIAMCINOLONE ACETONIDE 0.1% OINT 15 GM TUBE TOPICAL SCH ×3 (09:00→23:11)
[2016-11-06] MEDS: PRAVASTATIN SOD 40 MG TAB PO SCH (09:00)
[2016-11-06] MEDS: QUEtiapine FUMARATE 25 MG TAB PO SCH ×2 (13:23→17:34)
--- NOTE | 2016-11-06 15:19 | HHI.PYPN ---
Subjective Remarks Patient seen in day room with nurse Marilu, patient calm pleasant, continues pleasantly confused, patient showing no behavioral problems. Compliant medications Review of Systems Except as stated in HPI: all other systems reviewed are Neg Objective Alert: Yes [place]: Person, Place Mood: Calm Affect: Restricted Memory Intact: Comment (not assessed) Hallucinations: Other (denies) Delusions: No Delusion Type: Other (none elicited) Suicidal: Ideation (denies) Homicidal: Ideation (denial) Insight/Judgment Very poor Vitals/IOs Vital Signs Date Time Temp Pulse Resp B/P Pulse Ox O2 Delivery O2 Flow Rate FiO2 11/06/16 05:30 98.4 83 16 109/54 11/05/16 16:00 98 Intake and Output 11/05/16 11/05/16 11/06/16 08:00 16:00 00:00 Intake Total 480 ml 1440 ml 1470 ml Balance 480 ml 1440 ml 1470 ml Assessment & Plan Problem List: (1) Dementia of Alzheimer's type with behavioral disturbance ICD Code: G30.8 Assessment & Plan Estimated LOS: days patient continues T[place] and confused though no significant behavioral problems compliant medications. Justification for Cont. Inpt. At this time patient will decompensate and placed in a lower level of care Discharge Planning To be determined Request HC Surrog/Guard Advoc?: Yes Problem Qualifiers (1) Dementia of Alzheimer's type with behavioral disturbance: Qualified Code: G30.8 - Alzheimer's dementia with behavioral disturbance, unspecified timing of dementia onset Kam Ferrer MD November 06, 2016 15:19
[2016-11-06 17:34] VITALS: BP 101/57; PULSE 50; RESP 18; TEMP 98.3; O2SAT 100
[2016-11-06] MEDS: WARFARIN SOD 3 MG TAB PO SCH (17:34)
[2016-11-06] MEDS: ACETAMINOPHEN 325 MG TAB PO PRN (17:41)
[2016-11-06] MEDS: traZODone HCL 50 MG TAB PO SCH (21:13)
[2016-11-07] MEDS: CLINDAMYCIN 150 MG CAP PO SCH ×3 (05:35→18:00)
[2016-11-07] MEDS: INSULIN ASPART SUPPLEMENTAL SCALE SQ SCH ×4 (06:18→20:37)
[2016-11-07 06:42] VITALS: BP 137/61; PULSE 42; RESP 16; TEMP 97.8; O2SAT 99
[2016-11-07] MEDS: ISOSORBIDE MONONITRATE 60 MG TAB PO SCH (09:46)
[2016-11-07] MEDS: PRAVASTATIN SOD 40 MG TAB PO SCH (09:46)
[2016-11-07] MEDS: SPIRONOLACTONE 25 MG TAB PO SCH ×2 (09:47→20:36)
[2016-11-07] MEDS: LOSARTAN 50 MG TAB PO SCH (09:47)
[2016-11-07] MEDS: PANTOPRAZOLE SOD 20 MG DELAYED RELEASE TAB PO SCH (09:47)
[2016-11-07] MEDS: MULTIVITAMINS/MINERALS THERAPEUTIC TAB PO SCH (09:47)
[2016-11-07] MEDS: metFORMIN HCL 500 MG TAB PO SCH (09:47)
[2016-11-07] MEDS: FUROSEMIDE 20 MG TAB PO SCH ×2 (09:50→20:36)
[2016-11-07 11:08] LABS: INTERNATIONAL NORMALIZED RATIO 2.1 RATIO; PROTHROMBIN TIME - PATIENT 24.1 SEC (9.8-11.6)
[2016-11-07] MEDS: QUEtiapine FUMARATE 25 MG TAB PO SCH ×2 (12:00→18:00)
--- NOTE | 2016-11-07 12:39 | HHI.PYPN ---
Subjective Remarks Patient is seen in day room with nurse Sarah, patient calm pleasant. He continues markedly confused and demented. The most significant behavioral problems. Compliant medication Review of Systems Except as stated in HPI: all other systems reviewed are Neg Objective Alert: Yes [place]: Person, Place Mood: Calm Affect: Restricted Memory Intact: Comment (not assessed) Hallucinations: Other (denies) Delusions: No Delusion Type: Other (none elicited) Suicidal: Ideation (denies) Homicidal: Ideation (denial) Insight/Judgment Very poor Labs Test 11/07/16 10:02 Prothrombin Time 24.1 SEC Prothromb Time International 2.1 RATIO Ratio Vitals/IOs Vital Signs Date Time Temp Pulse Resp B/P Pulse Ox O2 Delivery O2 Flow Rate FiO2 11/07/16 06:42 97.8 42 16 137/61 99 Intake and Output 11/06/16 11/06/16 11/07/16 08:00 16:00 00:00 Intake Total 600 ml Balance 600 ml Assessment & Plan Problem List: (1) Dementia of Alzheimer's type with behavioral disturbance ICD Code: G30.8 Assessment & Plan Estimated LOS: days patient continues demented and confused, though no significant behavioral problems. Compliant medications. For now continue treatment Justification for Cont. Inpt. At this time patient will decompensate the placed in a lower level of care Discharge Planning To be determined Request HC Surrog/Guard Advoc?: Yes Problem Qualifiers (1) Dementia of Alzheimer's type with behavioral disturbance: Qualified Code: G30.8 - Alzheimer's dementia with behavioral disturbance, unspecified timing of dementia onset Kam Ferrer MD November 07, 2016 12:39
[2016-11-07] MEDS: WARFARIN SOD 3 MG TAB PO SCH (16:00)
[2016-11-07 17:47] VITALS: BP 108/56; PULSE 62; RESP 18; TEMP 97.1; O2SAT 100
[2016-11-07] MEDS: traZODone HCL 50 MG TAB PO SCH (20:36)
[2016-11-07] MEDS: TRIAMCINOLONE ACETONIDE 0.1% OINT 15 GM TUBE TOPICAL SCH (20:37)
[2016-11-08] MEDS: CLINDAMYCIN 150 MG CAP PO SCH ×4 (00:13→17:21)
[2016-11-08] MEDS: INSULIN ASPART SUPPLEMENTAL SCALE SQ SCH ×4 (05:59→21:00)
[2016-11-08 06:00] VITALS: BP 124/59; PULSE 88; RESP 16; TEMP 97.8
[2016-11-08] MEDS: ISOSORBIDE MONONITRATE 60 MG TAB PO SCH (08:49)
[2016-11-08] MEDS: MULTIVITAMINS/MINERALS THERAPEUTIC TAB PO SCH (08:50)
[2016-11-08] MEDS: SPIRONOLACTONE 25 MG TAB PO SCH ×2 (08:50→20:55)
[2016-11-08] MEDS: FUROSEMIDE 20 MG TAB PO SCH ×2 (08:50→20:55)
[2016-11-08] MEDS: PRAVASTATIN SOD 40 MG TAB PO SCH (08:50)
[2016-11-08] MEDS: LOSARTAN 50 MG TAB PO SCH (08:50)
[2016-11-08] MEDS: PANTOPRAZOLE SOD 20 MG DELAYED RELEASE TAB PO SCH (08:50)
[2016-11-08] MEDS: TRIAMCINOLONE ACETONIDE 0.1% OINT 15 GM TUBE TOPICAL SCH ×2 (08:51→20:56)
[2016-11-08] MEDS: metFORMIN HCL 500 MG TAB PO SCH (08:51)
[2016-11-08] MEDS: QUEtiapine FUMARATE 25 MG TAB PO SCH ×2 (10:48→17:21)
--- NOTE | 2016-11-08 11:30 | HHI.PYPN ---
Subjective Remarks Pt seen and discussed [facility] staff. He has been compliant with care. No medication side effects. He exhibits severe cognitive impairment. No agitation today. Objective Alert: Yes [place]: Person Mood: Calm Affect: Restricted Memory Intact: Comment (impaired) Hallucinations: Other (denies) Delusions: No Delusion Type: Other (none elicited) Suicidal: Ideation (denies) Homicidal: Ideation (denial) Insight/Judgment poor Vitals/IOs Vital Signs Date Time Temp Pulse Resp B/P Pulse Ox O2 Delivery O2 Flow Rate FiO2 11/08/16 06:00 97.8 88 16 124/59 11/07/16 17:47 100 Intake and Output 11/07/16 11/07/16 11/07/16 07:59 15:59 23:59 Intake Total 0 ml 720 ml 1080 ml Balance 0 ml 720 ml 1080 ml Assessment & Plan Problem List: (1) Dementia of Alzheimer's type with behavioral disturbance ICD Code: G30.8 Assessment & Plan Continue current tx plan. Estimated LOS: days Justification for Cont. Inpt. impairments in self care Request HC Surrog/Guard Advoc?: Yes Problem Qualifiers (1) Dementia of Alzheimer's type with behavioral disturbance: Qualified Code: G30.8 - Alzheimer's dementia with behavioral disturbance, unspecified timing of dementia onset Onelia Vergara MD November 08, 2016 11:30
[2016-11-08] MEDS: WARFARIN SOD 3 MG TAB PO SCH (17:22)
[2016-11-08 18:00] VITALS: BP 101/55; PULSE 55; RESP 16; TEMP 97.9; O2SAT 100
[2016-11-08] MEDS: traZODone HCL 50 MG TAB PO SCH (20:55)
[2016-11-09] MEDS: CLINDAMYCIN 150 MG CAP PO SCH ×3 (00:22→13:10)
[2016-11-09 06:08] VITALS: BP 120/62; PULSE 50; RESP 16; TEMP 97.6; O2SAT 96
[2016-11-09] MEDS: INSULIN ASPART SUPPLEMENTAL SCALE SQ SCH ×5 (06:12→20:56)
[2016-11-09] MEDS: PRAVASTATIN SOD 40 MG TAB PO SCH (09:00)
[2016-11-09] MEDS: SPIRONOLACTONE 25 MG TAB PO SCH ×2 (09:55→21:04)
[2016-11-09] MEDS: ISOSORBIDE MONONITRATE 60 MG TAB PO SCH (09:55)
[2016-11-09] MEDS: LOSARTAN 50 MG TAB PO SCH (09:55)
[2016-11-09] MEDS: MULTIVITAMINS/MINERALS THERAPEUTIC TAB PO SCH (09:56)
[2016-11-09] MEDS: metFORMIN HCL 500 MG TAB PO SCH (09:56)
[2016-11-09] MEDS: PANTOPRAZOLE SOD 20 MG DELAYED RELEASE TAB PO SCH (09:57)
[2016-11-09] MEDS: FUROSEMIDE 20 MG TAB PO SCH ×2 (09:57→21:04)
[2016-11-09] MEDS: TRIAMCINOLONE ACETONIDE 0.1% OINT 15 GM TUBE TOPICAL SCH ×2 (10:09→21:05)
[2016-11-09] MEDS: QUEtiapine FUMARATE 25 MG TAB PO SCH ×2 (12:00→18:04)
--- NOTE | 2016-11-09 13:16 | HHI.PYPN ---
Subjective Remarks Pt seen and discussed with staff. No behavioral problems on unit. Compliant with medications, but has been refusing labs. No medication side effects. He denies pain or discomfort. Objective Alert: Yes [place]: Person Mood: Calm Affect: Restricted Memory Intact: Comment (impaired) Hallucinations: Other (denies) Delusions: No Delusion Type: Other (none elicited) Suicidal: Ideation (none) Homicidal: Ideation (none) Insight/Judgment poor Vitals/IOs Vital Signs Date Time Temp Pulse Resp B/P Pulse Ox O2 Delivery O2 Flow Rate FiO2 11/09/16 06:08 97.6 50 16 120/62 96 Intake and Output 11/08/16 11/08/16 11/09/16 08:00 16:00 00:00 Intake Total 240 ml 120 ml 480 ml Balance 240 ml 120 ml 480 ml Assessment & Plan Problem List: (1) Dementia of Alzheimer's type with behavioral disturbance ICD Code: G30.8 Assessment & Plan Continue current tx plan. Estimated LOS: days Justification for Cont. Inpt. risk of decompensation Request HC Surrog/Guard Advoc?: Yes Problem Qualifiers (1) Dementia of Alzheimer's type with behavioral disturbance: Qualified Code: G30.8 - Alzheimer's dementia with behavioral disturbance, unspecified timing of dementia onset Onelia Vergara MD November 09, 2016 1:16 pm
[2016-11-09] MEDS: WARFARIN SOD 3 MG TAB PO SCH (15:46)
[2016-11-09 20:00] VITALS: BP 119/59; PULSE 53; RESP 18; TEMP 97; O2SAT 98
[2016-11-09] MEDS: traZODone HCL 50 MG TAB PO SCH (21:04)
[2016-11-10 05:40] VITALS: BP 132/65; PULSE 56; RESP 18; TEMP 98.3; O2SAT 95
[2016-11-10] MEDS: INSULIN ASPART SUPPLEMENTAL SCALE SQ SCH ×4 (06:32→21:00)
[2016-11-10 07:52] LABS: INTERNATIONAL NORMALIZED RATIO 2.3 RATIO; PROTHROMBIN TIME - PATIENT 26.8 SEC (9.8-11.6)
[2016-11-10] MEDS: FUROSEMIDE 20 MG TAB PO SCH ×2 (08:35→21:44)
[2016-11-10] MEDS: ISOSORBIDE MONONITRATE 60 MG TAB PO SCH (08:35)
[2016-11-10] MEDS: metFORMIN HCL 500 MG TAB PO SCH (08:35)
[2016-11-10] MEDS: MULTIVITAMINS/MINERALS THERAPEUTIC TAB PO SCH (08:35)
[2016-11-10] MEDS: SPIRONOLACTONE 25 MG TAB PO SCH ×2 (08:35→21:44)
[2016-11-10] MEDS: PANTOPRAZOLE SOD 20 MG DELAYED RELEASE TAB PO SCH (08:35)
[2016-11-10] MEDS: PRAVASTATIN SOD 40 MG TAB PO SCH (08:36)
[2016-11-10] MEDS: LOSARTAN 50 MG TAB PO SCH (08:36)
[2016-11-10] MEDS: TRIAMCINOLONE ACETONIDE 0.1% OINT 15 GM TUBE TOPICAL SCH ×2 (08:38→21:45)
--- NOTE | 2016-11-10 09:11 | HHI.PYPN ---
Subjective Remarks Patient seen in his room with floor staff. Chart review, Patient continues calm cooperative confused demented. However there is been no behavioral problems. Patient compliant with medication. For now continue treatment Review of Systems Except as stated in HPI: all other systems reviewed are Neg Objective Alert: Yes [place]: Person Mood: Calm Affect: Restricted Memory Intact: Comment (impaired) Hallucinations: Other (denies) Delusions: No Delusion Type: Other (none elicited) Suicidal: Ideation (none) Homicidal: Ideation (none) Insight/Judgment Poor Labs Test 11/10/16 06:43 Prothrombin Time 26.8 SEC Prothromb Time International 2.3 RATIO Ratio Vitals/IOs Vital Signs Date Time Temp Pulse Resp B/P Pulse Ox O2 Delivery O2 Flow Rate FiO2 11/10/16 05:40 98.3 56 18 132/65 95 Intake and Output 11/09/16 11/09/16 11/10/16 08:00 16:00 00:00 Intake Total 240 ml 840 ml 240 ml Balance 240 ml 840 ml 240 ml Assessment & Plan Problem List: (1) Dementia of Alzheimer's type with behavioral disturbance ICD Code: G30.8 Assessment & Plan Estimated LOS: days patient is demented and confused, though behavioral problems. Compliant medications. For now continue treatment Justification for Cont. Inpt. This time patient will decompensate if placed in a lower level of care Discharge Planning To be determined Request HC Surrog/Guard Advoc?: Yes Problem Qualifiers (1) Dementia of Alzheimer's type with behavioral disturbance: Qualified Code: G30.8 - Alzheimer's dementia with behavioral disturbance, unspecified timing of dementia onset Kam Ferrer MD November 10, 2016 09:11
[2016-11-10] MEDS: QUEtiapine FUMARATE 25 MG TAB PO SCH ×2 (12:00→17:04)
[2016-11-10] MEDS: WARFARIN SOD 3 MG TAB PO SCH (16:00)
[2016-11-10 18:18] VITALS: BP 132/73; PULSE 61; RESP 18; TEMP 97.7; O2SAT 97
[2016-11-10] MEDS: traZODone HCL 50 MG TAB PO SCH (21:43)
[2016-11-11 06:10] VITALS: BP 120/60; PULSE 52; RESP 18; TEMP 98.3; O2SAT 95
[2016-11-11] MEDS: INSULIN ASPART SUPPLEMENTAL SCALE SQ SCH ×4 (06:50→21:00)
[2016-11-11] MEDS: FUROSEMIDE 20 MG TAB PO SCH ×2 (08:42→21:57)
[2016-11-11] MEDS: SPIRONOLACTONE 25 MG TAB PO SCH ×2 (08:42→21:57)
[2016-11-11] MEDS: ISOSORBIDE MONONITRATE 60 MG TAB PO SCH (08:42)
[2016-11-11] MEDS: PANTOPRAZOLE SOD 20 MG DELAYED RELEASE TAB PO SCH (08:42)
[2016-11-11] MEDS: MULTIVITAMINS/MINERALS THERAPEUTIC TAB PO SCH (08:42)
[2016-11-11] MEDS: LOSARTAN 50 MG TAB PO SCH (08:43)
[2016-11-11] MEDS: PRAVASTATIN SOD 40 MG TAB PO SCH (08:43)
[2016-11-11] MEDS: metFORMIN HCL 500 MG TAB PO SCH (08:43)
[2016-11-11] MEDS: TRIAMCINOLONE ACETONIDE 0.1% OINT 15 GM TUBE TOPICAL SCH ×2 (09:00→21:00)
[2016-11-11] MEDS: QUEtiapine FUMARATE 25 MG TAB PO SCH ×2 (12:00→18:40)
--- NOTE | 2016-11-11 14:42 | HHI.PYPN ---
Subjective Remarks Patient seen in dayroom with floor staff, patient continues possibly confused, continues no significant behavioral problems. Compliant medications. For now continue treatment no change Review of Systems Except as stated in HPI: all other systems reviewed are Neg Objective Alert: Yes [place]: Person Mood: Calm Affect: Restricted Memory Intact: Comment (impaired) Hallucinations: Other (denies) Delusions: No Delusion Type: Other (none elicited) Suicidal: Ideation (none) Homicidal: Ideation (none) Insight/Judgment Very poor Vitals/IOs Vital Signs Date Time Temp Pulse Resp B/P Pulse Ox O2 Delivery O2 Flow Rate FiO2 11/11/16 06:10 98.3 52 18 120/60 95 Intake and Output 11/10/16 11/10/16 11/11/16 08:00 16:00 00:00 Intake Total 1080 ml 1230 ml Balance 1080 ml 1230 ml Assessment & Plan Problem List: (1) Dementia of Alzheimer's type with behavioral disturbance ICD Code: G30.8 Assessment & Plan Estimated LOS: days patient continues to mention confused pleasant on the unit , with no behavior problems noted. For now continue treatment Justification for Cont. Inpt. At this time patient will decompensate the placed in the lower level of care Discharge Planning To be determined Request HC Surrog/Guard Advoc?: Yes Problem Qualifiers (1) Dementia of Alzheimer's type with behavioral disturbance: Qualified Code: G30.8 - Alzheimer's dementia with behavioral disturbance, unspecified timing of dementia onset aKm Ferrer MD November 11, 2016 14:42
[2016-11-11] MEDS: WARFARIN SOD 3 MG TAB PO SCH (16:14)
[2016-11-11 17:18] VITALS: BP 110/53; PULSE 45; RESP 16; TEMP 96.5
[2016-11-11] MEDS: traZODone HCL 50 MG TAB PO SCH (21:57)
[2016-11-12 05:51] VITALS: BP 128/63; PULSE 45; RESP 18; TEMP 97.9; O2SAT 99
[2016-11-12] MEDS: INSULIN ASPART SUPPLEMENTAL SCALE SQ SCH ×4 (06:06→21:00)
[2016-11-12] MEDS: PRAVASTATIN SOD 40 MG TAB PO SCH (09:00)
[2016-11-12] MEDS: TRIAMCINOLONE ACETONIDE 0.1% OINT 15 GM TUBE TOPICAL SCH ×2 (09:00→21:00)
[2016-11-12] MEDS: ISOSORBIDE MONONITRATE 60 MG TAB PO SCH (09:34)
[2016-11-12] MEDS: PANTOPRAZOLE SOD 20 MG DELAYED RELEASE TAB PO SCH (09:35)
[2016-11-12] MEDS: MULTIVITAMINS/MINERALS THERAPEUTIC TAB PO SCH (09:35)
[2016-11-12] MEDS: LOSARTAN 50 MG TAB PO SCH (09:35)
[2016-11-12] MEDS: metFORMIN HCL 500 MG TAB PO SCH (09:35)
[2016-11-12] MEDS: SPIRONOLACTONE 25 MG TAB PO SCH ×2 (09:35→20:16)
[2016-11-12] MEDS: FUROSEMIDE 20 MG TAB PO SCH ×2 (09:35→20:16)
[2016-11-12] MEDS: QUEtiapine FUMARATE 25 MG TAB PO SCH ×2 (13:36→17:49)
--- NOTE | 2016-11-12 16:24 | HHI.PYPN ---
Subjective Remarks Patient seen in dayroom with floor staff, patient continues calm pleasant with me. Continues pleasantly confused and demented though no behavioral issues noted. Compliant medication Review of Systems Except as stated in HPI: all other systems reviewed are Neg Objective Alert: Yes [place]: Person Mood: Calm Affect: Restricted Memory Intact: Comment (impaired) Hallucinations: Other (denies) Delusions: No Delusion Type: Other (none elicited) Suicidal: Ideation (none) Homicidal: Ideation (none) Insight/Judgment Very poor Labs Test 11/12/16 07:33 Prothrombin Time 23.0 SEC Prothromb Time International 2.0 RATIO Ratio Vitals/IOs Vital Signs Date Time Temp Pulse Resp B/P Pulse Ox O2 Delivery O2 Flow Rate FiO2 11/12/16 05:51 97.9 45 18 128/63 99 Intake and Output 11/11/16 11/11/16 11/12/16 08:00 16:00 00:00 Intake Total 480 ml Balance 480 ml Assessment & Plan Problem List: (1) Dementia of Alzheimer's type with behavioral disturbance ICD Code: G30.8 Assessment & Plan Estimated LOS: days patient continues confused and demented, though no behavioral problems. For now continue treatment Justification for Cont. Inpt. At this time patient will decompensate if placed in the lower level of care Discharge Planning To be determined Request HC Surrog/Guard Advoc?: Yes Problem Qualifiers (1) Dementia of Alzheimer's type with behavioral disturbance: Qualified Code: G30.8 - Alzheimer's dementia with behavioral disturbance, unspecified timing of dementia onset Kam Ferrer MD November 12, 2016 16:24
[2016-11-12] MEDS: WARFARIN SOD 3 MG TAB PO SCH (16:38)
[2016-11-12 20:00] VITALS: BP 137/65; PULSE 54; RESP 18; TEMP 96.8
[2016-11-12] MEDS: traZODone HCL 50 MG TAB PO SCH (20:17)
[2016-11-13 05:14] VITALS: BP 168/68; PULSE 60; RESP 18; TEMP 97.9; O2SAT 98
[2016-11-13 08:01] LABS: INTERNATIONAL NORMALIZED RATIO 1.9 RATIO; PROTHROMBIN TIME - PATIENT 21.3 SEC (9.8-11.6)
--- NOTE | 2016-11-13 08:46 | HHI.PYPN ---
Subjective Remarks Patient seen in day room with floor staff, patient continues calm cooperative diffusely confused and disoriented. No behavioral problems have been noted. For now continue treatment Review of Systems Except as stated in HPI: all other systems reviewed are Neg Objective Alert: Yes [place]: Person Mood: Calm Affect: Restricted Memory Intact: Comment (impaired) Hallucinations: Other (denies) Delusions: No Delusion Type: Other (none elicited) Suicidal: Ideation (none) Homicidal: Ideation (none) Insight/Judgment Poor Labs Test 11/13/16 06:02 Prothrombin Time 21.3 SEC Prothromb Time International 1.9 RATIO Ratio Vitals/IOs Vital Signs Date Time Temp Pulse Resp B/P Pulse Ox O2 Delivery O2 Flow Rate FiO2 11/13/16 05:14 97.9 60 18 168/68 98 Intake and Output 11/12/16 11/12/16 11/12/16 07:59 15:59 23:59 Intake Total 1320 ml 1320 ml Balance 1320 ml 1320 ml Assessment & Plan Problem List: (1) Dementia of Alzheimer's type with behavioral disturbance ICD Code: G30.8 Assessment & Plan Estimated LOS: days patient continues confused and demented, though no behavioral problems. For now continue treatment Justification for Cont. Inpt. At this time patient will decompensate placed in the lower level of care Discharge Planning To be determined Request HC Surrog/Guard Advoc?: Yes Problem Qualifiers (1) Dementia of Alzheimer's type with behavioral disturbance: Qualified Code: G30.8 - Alzheimer's dementia with behavioral disturbance, unspecified timing of dementia onset Kam Ferrer MD Nov 13, 2016 08:46
[2016-11-13] MEDS: LOSARTAN 50 MG TAB PO SCH (09:56)
[2016-11-13] MEDS: PANTOPRAZOLE SOD 20 MG DELAYED RELEASE TAB PO SCH (09:56)
[2016-11-13] MEDS: PRAVASTATIN SOD 40 MG TAB PO SCH (09:56)
[2016-11-13] MEDS: ISOSORBIDE MONONITRATE 60 MG TAB PO SCH (09:56)
[2016-11-13] MEDS: SPIRONOLACTONE 25 MG TAB PO SCH ×2 (09:57→21:12)
[2016-11-13] MEDS: metFORMIN HCL 500 MG TAB PO SCH (09:57)
[2016-11-13] MEDS: FUROSEMIDE 20 MG TAB PO SCH ×2 (09:57→21:13)
[2016-11-13] MEDS: MULTIVITAMINS/MINERALS THERAPEUTIC TAB PO SCH (09:57)
[2016-11-13] MEDS: TRIAMCINOLONE ACETONIDE 0.1% OINT 15 GM TUBE TOPICAL SCH ×2 (09:58→21:13)
[2016-11-13] MEDS: INSULIN ASPART SUPPLEMENTAL SCALE SQ SCH ×3 (11:00→21:00)
[2016-11-13] MEDS: QUEtiapine FUMARATE 25 MG TAB PO SCH ×2 (13:28→16:59)
[2016-11-13] MEDS ORDERED: WARFARIN SOD 1 MG TAB PO SCH (16:00)
[2016-11-13] MEDS ORDERED: WARFARIN SOD 3 MG TAB PO SCH (16:00)
[2016-11-13] MEDS: WARFARIN SOD 3 MG TAB PO SCH (16:59)
[2016-11-13 18:00] VITALS: BP 139/64; PULSE 60; RESP 17; TEMP 96.6; O2SAT 98
[2016-11-13] MEDS: traZODone HCL 50 MG TAB PO SCH (21:13)
[2016-11-14 06:00] VITALS: BP 131/60; PULSE 45; RESP 16; TEMP 98.3
[2016-11-14] MEDS: INSULIN ASPART SUPPLEMENTAL SCALE SQ SCH ×4 (06:16→20:28)
[2016-11-14] MEDS: TRIAMCINOLONE ACETONIDE 0.1% OINT 15 GM TUBE TOPICAL SCH ×2 (09:00→21:53)
[2016-11-14] MEDS: MULTIVITAMINS/MINERALS THERAPEUTIC TAB PO SCH (09:38)
[2016-11-14] MEDS: FUROSEMIDE 20 MG TAB PO SCH ×2 (09:38→21:47)
[2016-11-14] MEDS: LOSARTAN 50 MG TAB PO SCH (09:38)
[2016-11-14] MEDS: metFORMIN HCL 500 MG TAB PO SCH (09:38)
[2016-11-14] MEDS: ISOSORBIDE MONONITRATE 60 MG TAB PO SCH (09:39)
[2016-11-14] MEDS: PANTOPRAZOLE SOD 20 MG DELAYED RELEASE TAB PO SCH (09:39)
[2016-11-14] MEDS: SPIRONOLACTONE 25 MG TAB PO SCH ×2 (09:39→21:47)
[2016-11-14] MEDS: PRAVASTATIN SOD 40 MG TAB PO SCH (09:39)
[2016-11-14] MEDS: QUEtiapine FUMARATE 25 MG TAB PO SCH ×2 (12:49→16:55)
--- NOTE | 2016-11-14 13:38 | HHI.PYPN ---
Subjective Remarks Patient seen in day room with floor staff, chart reviewed, patient compliant medications. Patient continues confused and demented, continue occasional redirection. But showing no behavioral issues. For now continue treatment Review of Systems Except as stated in HPI: all other systems reviewed are Neg Objective Alert: Yes [place]: Person Mood: Calm Affect: Restricted Memory Intact: Comment (impaired) Hallucinations: Other (denies) Delusions: No Delusion Type: Other (none elicited) Suicidal: Ideation (none) Homicidal: Ideation (none) Insight/Judgment Poor Vitals/IOs Vital Signs Date Time Temp Pulse Resp B/P Pulse Ox O2 Delivery O2 Flow Rate FiO2 11/14/16 06:00 98.3 45 16 131/60 11/13/16 18:00 98 Intake and Output 11/13/16 11/13/16 11/14/16 08:00 16:00 00:00 Intake Total 600 ml 1080 ml 960 ml Balance 600 ml 1080 ml 960 ml Assessment & Plan Problem List: (1) Dementia of Alzheimer's type with behavioral disturbance ICD Code: G30.8 Assessment & Plan Estimated LOS: days patient continues diffusely confused and demented, though no behavioral problems noted. Compliant medications. For now continue treatment Justification for Cont. Inpt. At this time patient will decompensate if placed in a lower level of care Discharge Planning To be determined Request HC Surrog/Guard Advoc?: Yes Problem Qualifiers (1) Dementia of Alzheimer's type with behavioral disturbance: Qualified Code: G30.8 - Alzheimer's dementia with behavioral disturbance, unspecified timing of dementia onset Kam Ferrer MD Nov 14, 2016 13:37
[2016-11-14] MEDS: WARFARIN SOD 3 MG TAB PO SCH (16:55)
[2016-11-14 19:29] VITALS: BP 96/50; PULSE 59; RESP 16; TEMP 97.1; O2SAT 98
[2016-11-14] MEDS: traZODone HCL 50 MG TAB PO SCH (21:47)
[2016-11-15 05:39] VITALS: BP 131/63; PULSE 51; RESP 18; TEMP 98; O2SAT 95
[2016-11-15] MEDS: INSULIN ASPART SUPPLEMENTAL SCALE SQ SCH ×4 (06:05→21:00)
[2016-11-15] MEDS: ISOSORBIDE MONONITRATE 60 MG TAB PO SCH (08:48)
[2016-11-15] MEDS: metFORMIN HCL 500 MG TAB PO SCH (08:48)
[2016-11-15] MEDS: LOSARTAN 50 MG TAB PO SCH (08:49)
[2016-11-15] MEDS: PRAVASTATIN SOD 40 MG TAB PO SCH (08:49)
[2016-11-15] MEDS: SPIRONOLACTONE 25 MG TAB PO SCH ×2 (08:49→21:09)
[2016-11-15] MEDS: PANTOPRAZOLE SOD 20 MG DELAYED RELEASE TAB PO SCH (08:49)
[2016-11-15] MEDS: MULTIVITAMINS/MINERALS THERAPEUTIC TAB PO SCH (08:49)
[2016-11-15] MEDS: TRIAMCINOLONE ACETONIDE 0.1% OINT 15 GM TUBE TOPICAL SCH ×2 (08:50→21:09)
[2016-11-15] MEDS: FUROSEMIDE 20 MG TAB PO SCH ×2 (08:50→21:09)
[2016-11-15 09:13] LABS: INTERNATIONAL NORMALIZED RATIO 1.9 RATIO; PROTHROMBIN TIME - PATIENT 21.2 SEC (9.8-11.6)
[2016-11-15] MEDS: QUEtiapine FUMARATE 25 MG TAB PO SCH ×2 (12:00→18:00)
--- NOTE | 2016-11-15 13:54 | HHI.PYPN ---
Subjective Remarks Pt seen and discussed with staff. He has been compliant and cooperative. No agitation or behavioral disturbance. He remains confused but is cooperative with redirection. No SI/HI Objective Alert: Yes [place]: Person Mood: Calm Affect: Restricted Memory Intact: Comment (impaired) Hallucinations: Other (denies) Delusions: No Delusion Type: Other (none elicited) Suicidal: Ideation (none) Homicidal: Ideation (none) Insight/Judgment poor Labs Test 11/15/16 08:15 Prothrombin Time 21.2 SEC Prothromb Time International 1.9 RATIO Ratio Vitals/IOs Vital Signs Date Time Temp Pulse Resp B/P Pulse Ox O2 Delivery O2 Flow Rate FiO2 11/15/16 05:39 98.0 51 18 131/63 95 Intake and Output 11/14/16 11/14/16 11/15/16 08:00 16:00 00:00 Intake Total 480 ml Balance 480 ml Assessment & Plan Problem List: (1) Dementia of Alzheimer's type with behavioral disturbance ICD Code: G30.8 Assessment & Plan continue current tx plan. Estimated LOS: days Justification for Cont. Inpt. risk of decompensation Request HC Surrog/Guard Advoc?: Yes Problem Qualifiers (1) Dementia of Alzheimer's type with behavioral disturbance: Qualified Code: G30.8 - Alzheimer's dementia with behavioral disturbance, unspecified timing of dementia onset Onelia Vergara MD Nov 15, 2016 13:54
[2016-11-15] MEDS ORDERED: WARFARIN SOD 4 MG TAB PO ONE (16:00)
[2016-11-15 18:00] VITALS: BP 135/63; PULSE 64; RESP 18; TEMP 96.9; O2SAT 96
[2016-11-15] MEDS: traZODone HCL 50 MG TAB PO SCH (21:09)
[2016-11-16 05:56] VITALS: BP 118/56; PULSE 45; RESP 19; TEMP 97.9; O2SAT 97
[2016-11-16] MEDS: INSULIN ASPART SUPPLEMENTAL SCALE SQ SCH ×4 (06:19→21:00)
[2016-11-16] MEDS: TRIAMCINOLONE ACETONIDE 0.1% OINT 15 GM TUBE TOPICAL SCH ×2 (09:00→21:51)
[2016-11-16] MEDS: PRAVASTATIN SOD 40 MG TAB PO SCH (09:34)
[2016-11-16] MEDS: FUROSEMIDE 20 MG TAB PO SCH ×2 (09:34→21:50)
[2016-11-16] MEDS: MULTIVITAMINS/MINERALS THERAPEUTIC TAB PO SCH (09:34)
[2016-11-16] MEDS: PANTOPRAZOLE SOD 20 MG DELAYED RELEASE TAB PO SCH (09:34)
[2016-11-16] MEDS: metFORMIN HCL 500 MG TAB PO SCH (09:34)
[2016-11-16] MEDS: SPIRONOLACTONE 25 MG TAB PO SCH ×2 (09:34→21:50)
[2016-11-16] MEDS: LOSARTAN 50 MG TAB PO SCH (09:35)
[2016-11-16] MEDS: ISOSORBIDE MONONITRATE 60 MG TAB PO SCH (10:53)
--- NOTE | 2016-11-16 12:04 | HHI.PYPN ---
Subjective Remarks Pt seen and discussed with staff. He refused afternoon blood glucose check but otherwise has been cooperative. Compliant with medications. No disruptive behavior. Objective Alert: Yes [place]: Person Mood: Calm Affect: Restricted Memory Intact: Comment (impaired) Hallucinations: Other (denies) Delusions: No Delusion Type: Other (none elicited) Suicidal: Ideation (none) Homicidal: Ideation (none) Insight/Judgment poor Vitals/IOs Vital Signs Date Time Temp Pulse Resp B/P Pulse Ox O2 Delivery O2 Flow Rate FiO2 11/16/16 05:56 97.9 45 19 118/56 97 Intake and Output 11/15/16 11/15/16 11/16/16 08:00 16:00 00:00 Intake Total 0 ml 720 ml 1350 ml Balance 0 ml 720 ml 1350 ml Assessment & Plan Problem List: (1) Dementia of Alzheimer's type with behavioral disturbance ICD Code: G30.8 Assessment & Plan Continue current tx plan. Estimated LOS: days Justification for Cont. Inpt. risk of decompensation Request HC Surrog/Guard Advoc?: Yes Problem Qualifiers (1) Dementia of Alzheimer's type with behavioral disturbance: Qualified Code: G30.8 - Alzheimer's dementia with behavioral disturbance, unspecified timing of dementia onset Onelia Vergara MD Nov 16, 2016 12:04
[2016-11-16] MEDS: QUEtiapine FUMARATE 25 MG TAB PO SCH ×2 (12:38→18:22)
[2016-11-16] MEDS: WARFARIN SOD 3 MG TAB PO SCH (16:00)
[2016-11-16 18:55] VITALS: BP 105/53; PULSE 46; RESP 17; TEMP 97.6
[2016-11-16] MEDS ORDERED: WARFARIN SOD 3 MG TAB PO ONE (21:00)
[2016-11-16] MEDS: traZODone HCL 50 MG TAB PO SCH (21:50)
[2016-11-17 06:03] VITALS: BP 159/71; PULSE 52; RESP 18; TEMP 97.9; O2SAT 98
[2016-11-17] MEDS: INSULIN ASPART SUPPLEMENTAL SCALE SQ SCH ×4 (07:00→21:00)
[2016-11-17] MEDS: ISOSORBIDE MONONITRATE 60 MG TAB PO SCH (09:58)
[2016-11-17] MEDS: MULTIVITAMINS/MINERALS THERAPEUTIC TAB PO SCH (09:58)
[2016-11-17] MEDS: PANTOPRAZOLE SOD 20 MG DELAYED RELEASE TAB PO SCH (09:58)
[2016-11-17] MEDS: LOSARTAN 50 MG TAB PO SCH (09:59)
[2016-11-17] MEDS: metFORMIN HCL 500 MG TAB PO SCH (09:59)
[2016-11-17] MEDS: FUROSEMIDE 20 MG TAB PO SCH ×2 (09:59→20:57)
[2016-11-17] MEDS: PRAVASTATIN SOD 40 MG TAB PO SCH (09:59)
[2016-11-17] MEDS: SPIRONOLACTONE 25 MG TAB PO SCH ×2 (10:00→20:58)
[2016-11-17] MEDS: TRIAMCINOLONE ACETONIDE 0.1% OINT 15 GM TUBE TOPICAL SCH ×2 (10:00→21:00)
[2016-11-17] MEDS: QUEtiapine FUMARATE 25 MG TAB PO SCH ×2 (12:33→18:17)
--- NOTE | 2016-11-17 15:30 | HHI.PYPN ---
Subjective Remarks Patient discussed with treatment team, patient seen on unit, chart reviewed. Patient compliant medication. Patient continues confused disoriented though no significant behavioral problems. At times today was somewhat flirty with a female staff but redirectable Review of Systems Except as stated in HPI: all other systems reviewed are Neg Objective Alert: Yes [place]: Person Mood: Calm Affect: Restricted Memory Intact: Comment (impaired) Hallucinations: Other (denies) Delusions: No Delusion Type: Other (none elicited) Suicidal: Ideation (none) Homicidal: Ideation (none) Insight/Judgment Very poor Vitals/IOs Vital Signs Date Time Temp Pulse Resp B/P Pulse Ox O2 Delivery O2 Flow Rate FiO2 11/17/16 06:03 97.9 52 18 159/71 98 Intake and Output 11/16/16 11/16/16 11/16/16 07:59 15:59 23:59 Intake Total 0 ml 1320 ml 480 ml Balance 0 ml 1320 ml 480 ml Assessment & Plan Problem List: (1) Dementia of Alzheimer's type with behavioral disturbance ICD Code: G30.8 Assessment & Plan Estimated LOS: days patient continues confused disoriented at times any some redirection but overall no behavioral problem Justification for Cont. Inpt. At this time patient decompensate if placed in a lower level of care Discharge Planning To be determined Request HC Surrog/Guard Advoc?: Yes Problem Qualifiers (1) Dementia of Alzheimer's type with behavioral disturbance: Qualified Code: G30.8 - Alzheimer's dementia with behavioral disturbance, unspecified timing of dementia onset Kam Ferrer MD Nov 17, 2016 15:30
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
[2016-11-17 18:00] VITALS: BP 126/61; PULSE 61; RESP 18; TEMP 96.7; O2SAT 98
[2016-11-17] MEDS: WARFARIN SOD 3 MG TAB PO SCH (18:53)
[2016-11-17] MEDS: traZODone HCL 50 MG TAB PO SCH (20:58)
[2016-11-18 05:46] VITALS: BP 105/56; PULSE 61; RESP 18; TEMP 98.2; O2SAT 98
[2016-11-18] MEDS: INSULIN ASPART SUPPLEMENTAL SCALE SQ SCH ×4 (06:55→20:18)
[2016-11-18 07:53] LABS: INTERNATIONAL NORMALIZED RATIO 2.1 RATIO; PROTHROMBIN TIME - PATIENT 23.5 SEC (9.8-11.6)
[2016-11-18] MEDS: SPIRONOLACTONE 25 MG TAB PO SCH ×2 (09:00→20:12)
[2016-11-18] MEDS: LOSARTAN 50 MG TAB PO SCH (09:00)
[2016-11-18] MEDS: ISOSORBIDE MONONITRATE 60 MG TAB PO SCH (09:00)
[2016-11-18] MEDS: FUROSEMIDE 20 MG TAB PO SCH ×2 (09:00→20:13)
[2016-11-18 09:34] VITALS: BP 113/54; PULSE 52
[2016-11-18] MEDS: metFORMIN HCL 500 MG TAB PO SCH (10:20)
[2016-11-18] MEDS: PRAVASTATIN SOD 40 MG TAB PO SCH (10:20)
[2016-11-18] MEDS: PANTOPRAZOLE SOD 20 MG DELAYED RELEASE TAB PO SCH (10:21)
[2016-11-18] MEDS: TRIAMCINOLONE ACETONIDE 0.1% OINT 15 GM TUBE TOPICAL SCH ×2 (10:21→20:13)
[2016-11-18] MEDS: MULTIVITAMINS/MINERALS THERAPEUTIC TAB PO SCH (10:21)
[2016-11-18] MEDS: QUEtiapine FUMARATE 25 MG TAB PO SCH ×2 (12:38→18:15)
--- NOTE | 2016-11-18 13:24 | HHI.PYPN ---
Subjective Remarks Patient seen in day room with nurse Will, chart reviewed, patient compliant medication. Patient continues no significant behavioral problems, compliant medications, is pleasant with me. There are times remains somewhat slurred she with female staff and clients but easily redirectable Review of Systems Except as stated in HPI: all other systems reviewed are Neg Objective Alert: Yes [place]: Person Mood: Calm Affect: Restricted Memory Intact: Comment (impaired) Hallucinations: Other (denies) Delusions: No Delusion Type: Other (none elicited) Suicidal: Ideation (none) Homicidal: Ideation (none) Insight/Judgment Very poor Labs Test 11/18/16 06:39 Prothrombin Time 23.5 SEC Prothromb Time International 2.1 RATIO Ratio Vitals/IOs Vital Signs Date Time Temp Pulse Resp B/P Pulse Ox O2 Delivery O2 Flow Rate FiO2 11/18/16 09:34 52 113/54 11/18/16 05:46 98.2 18 98 Intake and Output 11/17/16 11/17/16 11/18/16 08:00 16:00 00:00 Intake Total 0 ml 1080 ml 720 ml Balance 0 ml 1080 ml 720 ml Assessment & Plan Problem List: (1) Dementia of Alzheimer's type with behavioral disturbance ICD Code: G30.8 Assessment & Plan Estimated LOS: days patient continues demented confused but with no significant behavioral problems, compliant medications Justification for Cont. Inpt. At this time patient will decompensate in place to the lower level of care Discharge Planning To be determined Request HC Surrog/Guard Advoc?: Yes Problem Qualifiers (1) Dementia of Alzheimer's type with behavioral disturbance: Qualified Code: G30.8 - Alzheimer's dementia with behavioral disturbance, unspecified timing of dementia onset Kam Ferrer MD Nov 18, 2016 13:24
[2016-11-18] MEDS: WARFARIN SOD 3 MG TAB PO SCH (16:31)
[2016-11-18 18:00] VITALS: BP 122/53; PULSE 51; RESP 18; TEMP 98.2; O2SAT 99
[2016-11-18] MEDS: traZODone HCL 50 MG TAB PO SCH (20:13)
[2016-11-19 05:28] VITALS: BP 147/61; PULSE 81; RESP 18; TEMP 97.7; O2SAT 98
[2016-11-19] MEDS: INSULIN ASPART SUPPLEMENTAL SCALE SQ SCH ×4 (06:38→20:42)
[2016-11-19 08:58] LABS: INTERNATIONAL NORMALIZED RATIO 2.1 RATIO; PROTHROMBIN TIME - PATIENT 23.5 SEC (9.8-11.6)
[2016-11-19] MEDS: FUROSEMIDE 20 MG TAB PO SCH ×2 (09:00→20:41)
[2016-11-19] MEDS: MULTIVITAMINS/MINERALS THERAPEUTIC TAB PO SCH (09:00)
[2016-11-19] MEDS: PANTOPRAZOLE SOD 20 MG DELAYED RELEASE TAB PO SCH (09:00)
[2016-11-19] MEDS: metFORMIN HCL 500 MG TAB PO SCH (09:00)
[2016-11-19] MEDS: LOSARTAN 50 MG TAB PO SCH (09:00)
[2016-11-19] MEDS: ISOSORBIDE MONONITRATE 60 MG TAB PO SCH (09:00)
[2016-11-19] MEDS: TRIAMCINOLONE ACETONIDE 0.1% OINT 15 GM TUBE TOPICAL SCH ×2 (09:00→20:42)
[2016-11-19] MEDS: SPIRONOLACTONE 25 MG TAB PO SCH ×2 (09:00→20:42)
[2016-11-19] MEDS: PRAVASTATIN SOD 40 MG TAB PO SCH (09:00)
--- NOTE | 2016-11-19 09:42 | HHI.PYPN ---
Subjective Remarks Patient seen in day room with floor staff, chart review, patient compliant medication. Patient continues calm, pleasantly confused, with no behavioral problems. For now continue treatment Review of Systems Except as stated in HPI: all other systems reviewed are Neg Objective Alert: Yes [place]: Person Mood: Calm Affect: Restricted Memory Intact: Comment (impaired) Hallucinations: Other (denies) Delusions: No Delusion Type: Other (none elicited) Suicidal: Ideation (none) Homicidal: Ideation (none) Insight/Judgment Very poor Labs Test 11/19/16 07:50 Prothrombin Time 23.5 SEC Prothromb Time International 2.1 RATIO Ratio Vitals/IOs Vital Signs Date Time Temp Pulse Resp B/P Pulse Ox O2 Delivery O2 Flow Rate FiO2 11/19/16 05:28 97.7 81 18 147/61 98 Intake and Output 11/18/16 11/18/16 11/18/16 07:59 15:59 23:59 Intake Total 240 ml Balance 240 ml Assessment & Plan Problem List: (1) Dementia of Alzheimer's type with behavioral disturbance ICD Code: G30.8 Assessment & Plan Estimated LOS: days patient is demented confused, though no behavioral problems. Now continue treatment Justification for Cont. Inpt. At this time patient will decompensate with placed in the lower level of care Discharge Planning To be determined Request HC Surrog/Guard Advoc?: Yes Problem Qualifiers (1) Dementia of Alzheimer's type with behavioral disturbance: Qualified Code: G30.8 - Alzheimer's dementia with behavioral disturbance, unspecified timing of dementia onset Kam Ferrer MD Nov 19, 2016 09:42
[2016-11-19] MEDS: QUEtiapine FUMARATE 25 MG TAB PO SCH ×2 (13:06→18:25)
[2016-11-19] MEDS: WARFARIN SOD 3 MG TAB PO SCH (17:08)
[2016-11-19 19:44] VITALS: BP 96/53; PULSE 58; RESP 17; TEMP 98.1
[2016-11-19] MEDS: traZODone HCL 50 MG TAB PO SCH (20:41)
[2016-11-20 05:00] VITALS: BP 126/60; PULSE 49; RESP 16; TEMP 97.9
[2016-11-20] MEDS: INSULIN ASPART SUPPLEMENTAL SCALE SQ SCH ×4 (06:22→21:00)
[2016-11-20] MEDS: SPIRONOLACTONE 25 MG TAB PO SCH ×2 (09:00→21:00)
[2016-11-20] MEDS: ISOSORBIDE MONONITRATE 60 MG TAB PO SCH (09:04)
[2016-11-20] MEDS: FUROSEMIDE 20 MG TAB PO SCH ×2 (09:05→21:00)
[2016-11-20] MEDS: PRAVASTATIN SOD 40 MG TAB PO SCH (09:05)
[2016-11-20] MEDS: PANTOPRAZOLE SOD 20 MG DELAYED RELEASE TAB PO SCH (09:05)
[2016-11-20] MEDS: LOSARTAN 50 MG TAB PO SCH (09:05)
[2016-11-20] MEDS: MULTIVITAMINS/MINERALS THERAPEUTIC TAB PO SCH (09:06)
[2016-11-20] MEDS: metFORMIN HCL 500 MG TAB PO SCH (09:06)
[2016-11-20] MEDS: TRIAMCINOLONE ACETONIDE 0.1% OINT 15 GM TUBE TOPICAL SCH ×2 (09:08→21:00)
--- NOTE | 2016-11-20 11:09 | HHI.PYPN ---
Subjective Remarks Patient seen in day room with nurse Noni, chart reviewed, patient compliant medications. Patient calm pleasantly confused with me initial no significant behavioral issues. For now continue treatment Review of Systems Except as stated in HPI: all other systems reviewed are Neg Objective Alert: Yes [place]: Person Mood: Calm Affect: Restricted Memory Intact: Comment (impaired) Hallucinations: Other (denies) Delusions: No Delusion Type: Other (none elicited) Suicidal: Ideation (none) Homicidal: Ideation (none) Insight/Judgment Very poor Vitals/IOs Vital Signs Date Time Temp Pulse Resp B/P Pulse Ox O2 Delivery O2 Flow Rate FiO2 11/20/16 05:00 97.9 49 16 126/60 11/19/16 05:28 98 Intake and Output 11/19/16 11/19/16 11/20/16 08:00 16:00 00:00 Intake Total 960 ml 870 ml Balance 960 ml 870 ml Assessment & Plan Problem List: (1) Dementia of Alzheimer's type with behavioral disturbance ICD Code: G30.8 Assessment & Plan Estimated LOS: days patient is confused and demented, though no significant behavioral problems, compliant medication Justification for Cont. Inpt. At this time patient will decompensate if place to the lower level of care Discharge Planning To be determined Request HC Surrog/Guard Advoc?: Yes Problem Qualifiers (1) Dementia of Alzheimer's type with behavioral disturbance: Qualified Code: G30.8 - Alzheimer's dementia with behavioral disturbance, unspecified timing of dementia onset Kam Ferrer MD Nov 20, 2016 11:09
[2016-11-20] MEDS: QUEtiapine FUMARATE 25 MG TAB PO SCH ×2 (12:00→17:10)
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
[2016-11-20] MEDS: WARFARIN SOD 3 MG TAB PO SCH (16:00)
[2016-11-20 18:00] VITALS: BP 102/51; PULSE 50; RESP 16; TEMP 88; O2SAT 96
[2016-11-20] MEDS: traZODone HCL 50 MG TAB PO SCH (21:00)
[2016-11-21 05:00] VITALS: BP 168/67; PULSE 47; RESP 16; TEMP 97.1; O2SAT 98
[2016-11-21] MEDS: INSULIN ASPART SUPPLEMENTAL SCALE SQ SCH ×4 (06:02→21:00)
[2016-11-21 08:30] VITALS: PULSE 88
[2016-11-21] MEDS: ISOSORBIDE MONONITRATE 60 MG TAB PO SCH (08:54)
[2016-11-21] MEDS: LOSARTAN 50 MG TAB PO SCH (08:54)
[2016-11-21] MEDS: metFORMIN HCL 500 MG TAB PO SCH (08:54)
[2016-11-21] MEDS: PRAVASTATIN SOD 40 MG TAB PO SCH (08:55)
[2016-11-21] MEDS: SPIRONOLACTONE 25 MG TAB PO SCH ×2 (08:55→20:51)
[2016-11-21] MEDS: FUROSEMIDE 20 MG TAB PO SCH ×2 (08:55→20:50)
[2016-11-21] MEDS: PANTOPRAZOLE SOD 20 MG DELAYED RELEASE TAB PO SCH (08:55)
[2016-11-21] MEDS: MULTIVITAMINS/MINERALS THERAPEUTIC TAB PO SCH (08:55)
[2016-11-21] MEDS: TRIAMCINOLONE ACETONIDE 0.1% OINT 15 GM TUBE TOPICAL SCH ×2 (09:00→21:00)
[2016-11-21 09:56] LABS: PROTHROMBIN TIME - PATIENT 23.1 SEC (9.8-11.6)
--- NOTE | 2016-11-21 11:23 | HHI.PYPN ---
Subjective Remarks Patient seen in day room with nurse Thomas, patient sitting quietly at table is calm pleasant with me continues diffusely confused and disoriented. Patient has shown no significant behavioral issues. Staff has noted that patient patient having some odiferous urine. Stating also appears somewhat concentrated. We'll get UA to with CandS if indicated Review of Systems Except as stated in HPI: all other systems reviewed are Neg Objective Alert: Yes [place]: Person Mood: Calm Affect: Restricted Memory Intact: Comment (impaired) Hallucinations: Other (denies) Delusions: No Delusion Type: Other (none elicited) Suicidal: Ideation (none) Homicidal: Ideation (none) Insight/Judgment Very poor Labs Test 11/21/16 09:23 Prothrombin Time 23.1 SEC Prothromb Time International 2.0 RATIO Ratio Vitals/IOs Vital Signs Date Time Temp Pulse Resp B/P Pulse Ox O2 Delivery O2 Flow Rate FiO2 11/21/16 08:30 88 11/21/16 05:00 97.1 16 168/67 98 Intake and Output 11/20/16 11/20/16 11/21/16 08:00 16:00 00:00 Intake Total 480 ml 1160 ml 1190 ml Balance 480 ml 1160 ml 1190 ml Assessment & Plan Problem List: (1) Dementia of Alzheimer's type with behavioral disturbance ICD Code: G30.8 Assessment & Plan Estimated LOS: days patient continues demented and confused, though no significant behavioral problems, staff is noted some change in his urine, it being more odiferous and dark-colored. Will get urine with c/s if indicated Justification for Cont. Inpt. At this time patient will decompensate and placed in the lower level of care Discharge Planning To be determined Request HC Surrog/Guard Advoc?: Yes Problem Qualifiers (1) Dementia of Alzheimer's type with behavioral disturbance: Qualified Code: G30.8 - Alzheimer's dementia with behavioral disturbance, unspecified timing of dementia onset Kam Ferrer MD Nov 21, 2016 11:23
[2016-11-21] MEDS: QUEtiapine FUMARATE 25 MG TAB PO SCH ×2 (12:46→17:51)
[2016-11-21] MEDS: WARFARIN SOD 3 MG TAB PO SCH (16:19)
[2016-11-21 18:00] VITALS: BP 100/47; PULSE 50; RESP 18; TEMP 98; O2SAT 95
[2016-11-21] MEDS: diphenhydrAMINE HCL 50 MG CAP PO PRN (20:50)
[2016-11-21] MEDS: traZODone HCL 50 MG TAB PO SCH (20:50)
[2016-11-22 05:42] VITALS: BP 128/61; PULSE 53; RESP 16; TEMP 97.8; O2SAT 98
[2016-11-22] MEDS: INSULIN ASPART SUPPLEMENTAL SCALE SQ SCH ×4 (06:31→21:00)
[2016-11-22 08:24] LABS: PROTHROMBIN TIME - PATIENT 23.1 SEC (9.8-11.6)
[2016-11-22] MEDS: metFORMIN HCL 500 MG TAB PO SCH (09:42)
[2016-11-22] MEDS: LOSARTAN 50 MG TAB PO SCH (09:42)
[2016-11-22] MEDS: SPIRONOLACTONE 25 MG TAB PO SCH ×2 (09:43→20:18)
[2016-11-22] MEDS: MULTIVITAMINS/MINERALS THERAPEUTIC TAB PO SCH (09:43)
[2016-11-22] MEDS: PANTOPRAZOLE SOD 20 MG DELAYED RELEASE TAB PO SCH (09:44)
[2016-11-22] MEDS: FUROSEMIDE 20 MG TAB PO SCH ×2 (09:44→20:18)
[2016-11-22] MEDS: ISOSORBIDE MONONITRATE 60 MG TAB PO SCH (09:45)
[2016-11-22] MEDS: PRAVASTATIN SOD 40 MG TAB PO SCH (09:46)
[2016-11-22] MEDS: TRIAMCINOLONE ACETONIDE 0.1% OINT 15 GM TUBE TOPICAL SCH ×2 (09:47→21:00)
[2016-11-22] MEDS: QUEtiapine FUMARATE 25 MG TAB PO SCH ×2 (12:40→17:20)
--- NOTE | 2016-11-22 13:47 | HHI.PYPN ---
Subjective Remarks Patient was seen and case discussed with nursing. Patient is pleasant and cooperative with exam. Alert and oriented 1. Patient is making jokes when he cannot tell me who the president is today's date. Sexually inappropriate at times doing a dance when he is thrusting earlier in the day and flirting with the young techs. Compliant with his medications and behaving well on the unit Objective Alert: Yes [place]: Person Mood: Calm Affect: Blunted Memory Intact: Comment (impaired) Hallucinations: Other (denies) Delusions: No Delusion Type: Other (none elicited) Suicidal: Ideation (none) Homicidal: Ideation (none) Insight/Judgment Poor Labs Test 11/22/16 07:52 Prothrombin Time 23.1 SEC Prothromb Time International 2.0 RATIO Ratio Vitals/IOs Vital Signs Date Time Temp Pulse Resp B/P Pulse Ox O2 Delivery O2 Flow Rate FiO2 11/22/16 05:42 97.8 53 16 128/61 98 Intake and Output 11/21/16 11/21/16 11/22/16 08:00 16:00 00:00 Intake Total 480 ml 1440 ml 1560 ml Balance 480 ml 1440 ml 1560 ml Assessment & Plan Problem List: (1) Dementia of Alzheimer's type with behavioral disturbance ICD Code: G30.8 Assessment & Plan Continue current treatment plan Justification for Cont. Inpt. Patient will decompensate in a less restrictive setting Request HC Surrog/Guard Advoc?: Yes Problem Qualifiers (1) Dementia of Alzheimer's type with behavioral disturbance: Qualified Code: G30.8 - Alzheimer's dementia with behavioral disturbance, unspecified timing of dementia onset Ayad Garcia DO Nov 22, 2016 13:47
[2016-11-22] MEDS: WARFARIN SOD 3 MG TAB PO SCH (16:29)
[2016-11-22 18:00] VITALS: BP 125/58; PULSE 57; RESP 16; TEMP 97.5; O2SAT 98
[2016-11-22] MEDS: traZODone HCL 50 MG TAB PO SCH (20:18)
[2016-11-23 06:32] VITALS: BP 129/58; PULSE 50; RESP 16; TEMP 97.3; O2SAT 96
[2016-11-23] MEDS: INSULIN ASPART SUPPLEMENTAL SCALE SQ SCH ×4 (07:00→21:00)
[2016-11-23] MEDS: LOSARTAN 50 MG TAB PO SCH (09:00)
[2016-11-23] MEDS: SPIRONOLACTONE 25 MG TAB PO SCH (09:00)
[2016-11-23] MEDS: FUROSEMIDE 20 MG TAB PO SCH (09:00)
[2016-11-23] MEDS: ISOSORBIDE MONONITRATE 60 MG TAB PO SCH (09:00)
[2016-11-23] MEDS: PANTOPRAZOLE SOD 20 MG DELAYED RELEASE TAB PO SCH (10:17)
[2016-11-23] MEDS: MULTIVITAMINS/MINERALS THERAPEUTIC TAB PO SCH (10:18)
[2016-11-23] MEDS: metFORMIN HCL 500 MG TAB PO SCH (10:18)
[2016-11-23] MEDS: PRAVASTATIN SOD 40 MG TAB PO SCH (10:18)
[2016-11-23] MEDS: TRIAMCINOLONE ACETONIDE 0.1% OINT 15 GM TUBE TOPICAL SCH ×2 (10:20→21:00)
--- NOTE | 2016-11-23 12:36 | HHI.PYPN ---
Subjective Remarks Patient was seen and case discussed with nursing. Patient is pleasant and cooperative with exam. Alert and oriented 1. Behaving well on the unit. Nursing notices bradycardia on doing vitals and held his blood pressure medication. We will do vitals every 6 hours and getting EKG Objective Alert: Yes [place]: Person Mood: Calm Affect: Restricted Memory Intact: Comment (impaired) Hallucinations: Other (denies) Delusions: No Delusion Type: Other (none elicited) Suicidal: Ideation (none) Homicidal: Ideation (none) Insight/Judgment Poor Vitals/IOs Vital Signs Date Time Temp Pulse Resp B/P Pulse Ox O2 Delivery O2 Flow Rate FiO2 11/23/16 06:32 97.3 50 16 129/58 96 Intake and Output 11/22/16 11/22/16 11/23/16 08:00 16:00 00:00 Intake Total 0 ml 240 ml 1080 ml Balance 0 ml 240 ml 1080 ml Assessment & Plan Problem List: (1) Dementia of Alzheimer's type with behavioral disturbance ICD Code: G30.8 Assessment & Plan Continue current treatment plan Justification for Cont. Inpt. Patient will decompensate in a less restrictive setting Request HC Surrog/Guard Advoc?: Yes Problem Qualifiers (1) Dementia of Alzheimer's type with behavioral disturbance: Qualified Code: G30.8 - Alzheimer's dementia with behavioral disturbance, unspecified timing of dementia onset Ayad Garcia DO Nov 23, 2016 12:36
[2016-11-23 12:57] VITALS: BP 124/58; PULSE 50
[2016-11-23] MEDS: QUEtiapine FUMARATE 25 MG TAB PO SCH ×2 (12:59→17:53)
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
[2016-11-23 17:40] LABS: AUTOMATED NEUTROPHIL # 6.1 TH/MM3 (1.8-7.7); BASOPHIL # 0.1 TH/MM3 (0-0.2); BASOPHIL % 0.7 % (0.0-2.0); EOSINOPHIL # 0.4 TH/MM3 (0-0.4); HEMATOCRIT 32.9 % (39.0-51.0); HEMO FLAGS DIFF FINAL; LYMPH % 9.8 % (9.0-44.0); LYMPHOCYTE # 0.8 TH/MM3 (1.0-4.8); MEAN CELL VOLUME 89.6 FL (80.0-100.0); MEAN CORPUSCULAR HEMOGLOBIN 29.1 PG (27.0-34.0); MEAN CORPUSCULAR HGB CONC 32.5 % (32.0-36.0); MONO % 9.5 % (0.0-8.0); PLATELET COUNT 341 TH/MM3 (150-450); RED BLOOD COUNT 3.67 MIL/MM3 (4.50-5.90); WHITE BLOOD COUNT 8.1 TH/MM3 (4.0-11.0)
[2016-11-23 17:52] LABS: INTERNATIONAL NORMALIZED RATIO 1.8 RATIO; PROTHROMBIN TIME - PATIENT 20.1 SEC (9.8-11.6)
[2016-11-23 18:13] LABS: ANION GAP 7 MEQ/L (5-15); AST (GOT) 20 U/L (15-37); BLOOD UREA NITROGEN 43 MG/DL (7-18); CHLORIDE 97 MEQ/L (98-107); GLOMERULAR FILTRATION RATE 51 ML/MIN (>89); POTASSIUM 4.5 MEQ/L (3.5-5.1); SODIUM (NA) 134 MEQ/L (136-145)
[2016-11-23 18:14] LABS: ALT (GPT) 29 U/L (12-78)
[2016-11-23 18:16] LABS: ALKALINE PHOSPHATASE 113 U/L (45-117); TOTAL BILIRUBIN ADULT 0.5 MG/DL (0.2-1.0)
[2016-11-23] MEDS: WARFARIN SOD 3 MG TAB PO SCH (18:19)
[2016-11-23 19:29] LABS: MAGNESIUM 2.2 MG/DL (1.5-2.5)
[2016-11-23 20:00] VITALS: BP 141/65; PULSE 44; RESP 17; TEMP 97.8
[2016-11-23] MEDS: traZODone HCL 50 MG TAB PO SCH (21:00)
[2016-11-24 05:54] VITALS: BP 146/65; PULSE 45; RESP 16; TEMP 97.5; O2SAT 99
[2016-11-24] MEDS: INSULIN ASPART SUPPLEMENTAL SCALE SQ SCH ×4 (07:00→21:00)
[2016-11-24 07:30] LABS: INTERNATIONAL NORMALIZED RATIO 1.7 RATIO; PROTHROMBIN TIME - PATIENT 19.4 SEC (9.8-11.6)
[2016-11-24] MEDS: metFORMIN HCL 500 MG TAB PO SCH (09:00)
[2016-11-24] MEDS: PRAVASTATIN SOD 40 MG TAB PO SCH (09:00)
[2016-11-24] MEDS: PANTOPRAZOLE SOD 20 MG DELAYED RELEASE TAB PO SCH (09:10)
[2016-11-24] MEDS: MULTIVITAMINS/MINERALS THERAPEUTIC TAB PO SCH (09:10)
[2016-11-24] MEDS: TRIAMCINOLONE ACETONIDE 0.1% OINT 15 GM TUBE TOPICAL SCH ×2 (09:11→21:40)
--- NOTE | 2016-11-24 11:16 | EKG ---
Date Performed: 11/23/2016 Time Performed: 14:02:26 PTAGE: 81 years EKG: ATRIAL FIBRILLATION WITH SLOW VENTRICULAR RESPONSE MINIMAL ST DEPRESSION ABNORMAL RHYTHM EC G NO PREVIOUS TRACING DOCTOR: Sridhar Villa Interpretating Date/Time 11/24/2016 11:14:20
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
[2016-11-24] MEDS: QUEtiapine FUMARATE 25 MG TAB PO SCH ×2 (12:34→18:30)
--- NOTE | 2016-11-24 14:00 | HHI.PYPN ---
Subjective Remarks Patient seen in day room with nurse Aburto, chart reviewed, medicine services assessment of patient's cardiac status reviewed and agreed with and appreciated. Patient sitting in day room calm cooperative diffusely confused but no behavioral issues. Patient no complaints of chest pain palpitations shortness of breath. For now Continue treatment no change Review of Systems Except as stated in HPI: all other systems reviewed are Neg Objective Alert: Yes [place]: Person Mood: Calm Affect: Restricted Memory Intact: Comment (impaired) Hallucinations: Other (denies) Delusions: No Delusion Type: Other (none elicited) Suicidal: Ideation (none) Homicidal: Ideation (none) Insight/Judgment Very poor Labs Test 11/23/16 11/24/16 16:57 06:56 White Blood Count 8.1 TH/MM3 Red Blood Count 3.67 MIL/MM3 Hemoglobin 10.7 GM/DL Hematocrit 32.9 % Mean Corpuscular Volume 89.6 FL Mean Corpuscular Hemoglobin 29.1 PG Mean Corpuscular Hemoglobin 32.5 % Concent Red Cell Distribution Width 15.0 % Platelet Count 341 TH/MM3 Mean Platelet Volume 8.0 FL Neutrophils (%) (Auto) 75.0 % Lymphocytes (%) (Auto) 9.8 % Monocytes (%) (Auto) 9.5 % Eosinophils (%) (Auto) 5.0 % Basophils (%) (Auto) 0.7 % Neutrophils # (Auto) 6.1 TH/MM3 Lymphocytes # (Auto) 0.8 TH/MM3 Monocytes # (Auto) 0.8 TH/MM3 Eosinophils # (Auto) 0.4 TH/MM3 Basophils # (Auto) 0.1 TH/MM3 CBC Comment DIFF FINAL Differential Comment Prothrombin Time 20.1 SEC 19.4 SEC Prothromb Time International 1.8 RATIO 1.7 RATIO Ratio Sodium Level 134 MEQ/L Potassium Level 4.5 MEQ/L Chloride Level 97 MEQ/L Carbon Dioxide Level 30.0 MEQ/L Anion Gap 7 MEQ/L Blood Urea Nitrogen 43 MG/DL Creatinine 1.34 MG/DL Estimat Glomerular Filtration 51 ML/MIN Rate Random Glucose 98 MG/DL Calcium Level 8.6 MG/DL Magnesium Level 2.2 MG/DL Total Bilirubin 0.5 MG/DL Aspartate Amino Transf 20 U/L (AST/SGOT) Alanine Aminotransferase 29 U/L (ALT/SGPT) Alkaline Phosphatase 113 U/L Total Protein 7.8 GM/DL Albumin 3.3 GM/DL Vitals/IOs Vital Signs Date Time Temp Pulse Resp B/P Pulse Ox O2 Delivery O2 Flow Rate FiO2 11/24/16 05:54 97.5 45 16 146/65 99 Intake and Output 11/23/16 11/23/16 11/24/16 08:00 16:00 00:00 Intake Total 1920 ml 1080 ml Balance 1920 ml 1080 ml Assessment & Plan Problem List: (1) Dementia of Alzheimer's type with behavioral disturbance ICD Code: G30.8 Assessment & Plan Estimated LOS: days patient continues demented confused, though no behavioral problems. Compliant medications. Justification for Cont. Inpt. At this time patient will decompensate if placed in a lower level of care Discharge Planning To be determined Request HC Surrog/Guard Advoc?: Yes Problem Qualifiers (1) Dementia of Alzheimer's type with behavioral disturbance: Qualified Code: G30.8 - Alzheimer's dementia with behavioral disturbance, unspecified timing of dementia onset Kam Ferrer MD Nov 24, 2016 14:00
[2016-11-24] MEDS: WARFARIN SOD 3 MG TAB PO SCH (15:59)
[2016-11-24] MEDS ORDERED: WARFARIN SOD 1 MG TAB PO SCH (16:00)
[2016-11-24 18:10] VITALS: BP 144/70; PULSE 49; RESP 16; TEMP 97.6; O2SAT 98
[2016-11-24] MEDS: traZODone HCL 50 MG TAB PO SCH (21:40)
[2016-11-25 01:45] VITALS: BP 155/68; PULSE 42; RESP 18; TEMP 97.9; O2SAT 99
[2016-11-25 06:13] VITALS: BP 145/67; PULSE 46; RESP 16; TEMP 97.7; O2SAT 98
[2016-11-25] MEDS: INSULIN ASPART SUPPLEMENTAL SCALE SQ SCH ×4 (06:40→20:28)
[2016-11-25] MEDS: MULTIVITAMINS/MINERALS THERAPEUTIC TAB PO SCH (08:27)
[2016-11-25] MEDS: TRIAMCINOLONE ACETONIDE 0.1% OINT 15 GM TUBE TOPICAL SCH ×2 (08:28→20:28)
[2016-11-25] MEDS: metFORMIN HCL 500 MG TAB PO SCH (08:28)
[2016-11-25] MEDS: PRAVASTATIN SOD 40 MG TAB PO SCH (08:28)
[2016-11-25] MEDS: PANTOPRAZOLE SOD 20 MG DELAYED RELEASE TAB PO SCH (08:28)
[2016-11-25] MEDS: QUEtiapine FUMARATE 25 MG TAB PO SCH ×2 (12:02→17:09)
[2016-11-25 12:54] VITALS: BP 121/60; PULSE 51; RESP 16; TEMP 98.4; O2SAT 96
--- NOTE | 2016-11-25 14:26 | EKG ---
Date Performed: 11/24/2016 Time Performed: 09:25:38 PTAGE: 81 years EKG: ATRIAL FIBRILLATION WITH SLOW VENTRICULAR RESPONSE MODERATE ST DEPRESSION ABNORMAL ECG Comp ared to prior tracing no significant change PREVIOUS TRACING : 11/23/2016 14.02 DOCTOR: Sridhar Villa Interpretating Date/Time 11/25/2016 14:25:18
--- NOTE | 2016-11-25 14:35 | HHI.PYPN ---
Subjective Remarks Patient seen in day room with nurse Stephy, patient calm pleasantly confused no somatic complaints at this time. Hospitalist also seeing patient at this time we'll continue to monitor cardiac status Review of Systems Except as stated in HPI: all other systems reviewed are Neg Objective Alert: Yes [place]: Person Mood: Calm Affect: Restricted Memory Intact: Comment (impaired) Hallucinations: Other (denies) Delusions: No Delusion Type: Other (none elicited) Suicidal: Ideation (none) Homicidal: Ideation (none) Insight/Judgment Poor Vitals/IOs Vital Signs Date Time Temp Pulse Resp B/P Pulse Ox O2 Delivery O2 Flow Rate FiO2 11/25/16 12:54 98.4 51 16 121/60 96 Intake and Output 11/24/16 11/24/16 11/24/16 07:59 15:59 23:59 Intake Total 240 ml 1110 ml Balance 240 ml 1110 ml Assessment & Plan Problem List: (1) Dementia of Alzheimer's type with behavioral disturbance ICD Code: G30.8 Assessment & Plan Estimated LOS: days patient continues demented, but pleasant, no behavioral problems noted Justification for Cont. Inpt. At this time patient will decompensate if placed in a lower level of care Discharge Planning To be determined Request HC Surrog/Guard Advoc?: Yes Problem Qualifiers (1) Dementia of Alzheimer's type with behavioral disturbance: Qualified Code: G30.8 - Alzheimer's dementia with behavioral disturbance, unspecified timing of dementia onset Kam Ferrer MD Nov 25, 2016 14:35
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
[2016-11-25] MEDS: WARFARIN SOD 3 MG TAB PO SCH (17:09)
[2016-11-25 17:35] VITALS: BP 141/64; PULSE 40; RESP 16; TEMP 97.9; O2SAT 98
[2016-11-25] MEDS: traZODone HCL 50 MG TAB PO SCH (20:28)
[2016-11-25 22:14] LABS: BLOOD, URINE NEG (NEG); GLUCOSE,URINE NEG (NEG); KETONE, URINE NEG (NEG); MUCUS URINE FEW /lpf (OCC); NITRITE,URINE NEG (NEG); URINE COLOR YELLOW (YELLW/STRAW)
[2016-11-25 22:16] LABS: COMMENT (UR) CULT NOT INDICATED; CULTURE IF INDICATED CULT NOT INDICATED
--- NOTE | 2016-11-25 22:41 | RADRPT ---
EXAM DATE/TIME: 11/25/2016 22:02 [facility] COMPARISON: No previous studies available for comparison. INDICATIONS : Bilateral leg swelling. MEDICAL HISTORY : Gastroesophageal reflux disease. Chronic obstructive pulmonary disease. Congestive heart failure. Dem entia. Coronary artery disease. Hyperlipidemia. Afib. . Diabetes. SURGICAL HISTORY : None. ENCOUNTER: Initial ACUITY: 1 day PAIN SCORE: 3/10 LOCATION: Bilateral legs. TECHNIQUE: Venous ultrasound of the left and right leg was performed from the inguinal ligament to the proximal calf. Real-time, color Doppler and spectral tracing, compression and augmentation techniques were us ed. FINDINGS: RIGHT LEG: There is normal compressibility of the deep venous system from the inguinal region to the proximal ca lf. No echogenic clot is seen in the lumen of the common femoral, femoral, popliteal, and posterior tibial veins. There is a normal response of the venous system to proximal and distal augmentation an d respiration. LEFT LEG: There is normal compressibility of the deep venous system from the inguinal region to the proximal ca lf. No echogenic clot is seen in the lumen of the common femoral, femoral, popliteal, and posterior tibial veins. There is a normal response of the venous system to proximal and distal augmentation an d respiration. CONCLUSION: No DVT of either lower extremity. Kam Loving MD on November 25, 2016 at 22:39 Board Certified Radiologist. This report was verified electronically.
[2016-11-26 01:00] VITALS: BP 176/74; PULSE 50; RESP 18; TEMP 98.1; O2SAT 97
[2016-11-26 05:16] VITALS: BP 139/66; PULSE 50; RESP 16; TEMP 99; O2SAT 97
[2016-11-26] MEDS: INSULIN ASPART SUPPLEMENTAL SCALE SQ SCH ×4 (06:00→20:20)
[2016-11-26 08:23] VITALS: PULSE 64
[2016-11-26] MEDS: metFORMIN HCL 500 MG TAB PO SCH (08:47)
[2016-11-26] MEDS: PANTOPRAZOLE SOD 20 MG DELAYED RELEASE TAB PO SCH (08:47)
[2016-11-26] MEDS: MULTIVITAMINS/MINERALS THERAPEUTIC TAB PO SCH (08:47)
[2016-11-26] MEDS: PRAVASTATIN SOD 40 MG TAB PO SCH (08:47)
[2016-11-26] MEDS: TRIAMCINOLONE ACETONIDE 0.1% OINT 15 GM TUBE TOPICAL SCH ×2 (08:47→20:22)
[2016-11-26 11:40] LABS: INTERNATIONAL NORMALIZED RATIO 1.8 RATIO; PROTHROMBIN TIME - PATIENT 20.1 SEC (9.8-11.6)
[2016-11-26] MEDS: QUEtiapine FUMARATE 25 MG TAB PO SCH ×2 (11:54→16:53)
[2016-11-26] MEDS: WARFARIN SOD 3 MG TAB PO SCH (16:00)
[2016-11-26] MEDS ORDERED: WARFARIN SOD 2 MG TAB PO SCH (16:00)
--- NOTE | 2016-11-26 16:06 | HHI.PYPN ---
Subjective Remarks Patient seen in dayroom with floor staff. Chart reviewed., patient calm cooperative continues pleasantly confused and disoriented continue treatment Review of Systems Except as stated in HPI: all other systems reviewed are Neg Objective Alert: Yes [place]: Person Mood: Calm Affect: Restricted Memory Intact: Comment (impaired) Hallucinations: Other (denies) Delusions: No Delusion Type: Other (none elicited) Suicidal: Ideation (none) Homicidal: Ideation (none) Insight/Judgment Very poor Labs Test 11/25/16 11/26/16 21:00 10:46 Urine Color YELLOW Urine Turbidity CLEAR Urine pH 5.0 Urine Specific [place] 1.020 Urine Protein NEG mg/dL Urine Glucose (UA) NEG mg/dL Urine Ketones NEG mg/dL Urine Occult Blood NEG Urine Nitrite NEG Urine Bilirubin NEG Urine Urobilinogen LESS THAN 2.0 MG/DL Urine Leukocyte Esterase NEG Urine RBC 1 /hpf Urine WBC 1 /hpf Urine Mucus FEW /lpf Microscopic Urinalysis Comment CULT NOT INDICATED Prothrombin Time 20.1 SEC Prothromb Time International 1.8 RATIO Ratio Vitals/IOs Vital Signs Date Time Temp Pulse Resp B/P Pulse Ox O2 Delivery O2 Flow Rate FiO2 11/26/16 08:23 64 11/26/16 05:16 99.0 16 139/66 97 Intake and Output 11/25/16 11/25/16 11/26/16 08:00 16:00 00:00 Intake Total 1830 ml Balance 1830 ml Assessment & Plan Problem List: (1) Dementia of Alzheimer's type with behavioral disturbance ICD Code: G30.8 Assessment & Plan Estimated LOS: days patient continues confused and demented, though no behavioral problems. For now continue treatment Justification for Cont. Inpt. At this time patient will decompensate if placed in a lower level of care Discharge Planning To be determined Request HC Surrog/Guard Advoc?: Yes Problem Qualifiers (1) Dementia of Alzheimer's type with behavioral disturbance: Qualified Code: G30.8 - Alzheimer's dementia with behavioral disturbance, unspecified timing of dementia onset Kam Ferrer MD Nov 26, 2016 16:06
[2016-11-26 18:00] VITALS: BP 135/62; PULSE 55; RESP 17; TEMP 99.3; O2SAT 98
[2016-11-26] MEDS: traZODone HCL 50 MG TAB PO SCH (20:19)
[2016-11-26 21:00] VITALS: PULSE 56
[2016-11-27 05:51] VITALS: BP 174/72; PULSE 43; RESP 16; TEMP 98.5; O2SAT 98
[2016-11-27] MEDS: INSULIN ASPART SUPPLEMENTAL SCALE SQ SCH ×4 (06:45→21:00)
[2016-11-27 06:48] VITALS: PULSE 52
[2016-11-27 08:53] VITALS: PULSE 56
[2016-11-27] MEDS: metFORMIN HCL 500 MG TAB PO SCH (08:54)
[2016-11-27] MEDS: MULTIVITAMINS/MINERALS THERAPEUTIC TAB PO SCH (08:54)
[2016-11-27] MEDS: PANTOPRAZOLE SOD 20 MG DELAYED RELEASE TAB PO SCH (08:54)
[2016-11-27] MEDS: PRAVASTATIN SOD 40 MG TAB PO SCH (08:54)
[2016-11-27] MEDS: TRIAMCINOLONE ACETONIDE 0.1% OINT 15 GM TUBE TOPICAL SCH ×2 (08:56→21:00)
[2016-11-27 11:14] LABS: INTERNATIONAL NORMALIZED RATIO 5.6 RATIO; PROTHROMBIN TIME - PATIENT 66.4 SEC (9.8-11.6)
[2016-11-27] MEDS: QUEtiapine FUMARATE 25 MG TAB PO SCH ×2 (12:18→17:56)
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
[2016-11-27 14:24] VITALS: BP 112/54; PULSE 47; RESP 20; O2SAT 100
--- NOTE | 2016-11-27 15:38 | HHI.PYPN ---
Subjective Remarks Patient seen in day room with nurse Noni, chart review, patient compliant medications. Patient continues calm pleasantly confused and disoriented, there are no behavioral problems noted. For now continue treatment Review of Systems Except as stated in HPI: all other systems reviewed are Neg Objective Alert: Yes [place]: Person Mood: Calm Affect: Restricted Memory Intact: Comment (impaired) Hallucinations: Other (denies) Delusions: No Delusion Type: Other (none elicited) Suicidal: Ideation (none) Homicidal: Ideation (none) Insight/Judgment Very poor Labs Test 11/27/16 10:04 Prothrombin Time 66.4 SEC Prothromb Time International 5.6 RATIO Ratio Vitals/IOs Vital Signs Date Time Temp Pulse Resp B/P Pulse Ox O2 Delivery O2 Flow Rate FiO2 11/27/16 14:24 47 20 112/54 100 11/27/16 05:51 98.5 Intake and Output 11/26/16 11/26/16 11/27/16 08:00 16:00 00:00 Intake Total 360 ml 360 ml 1200 ml Balance 360 ml 360 ml 1200 ml Assessment & Plan Problem List: (1) Dementia of Alzheimer's type with behavioral disturbance ICD Code: G30.8 Assessment & Plan Estimated LOS: days patient continues demented and confused the no behavioral problems. Compliant medication. Justification for Cont. Inpt. At this time patient will decompensate placed in a lower level of care Discharge Planning To be determined Request HC Surrog/Guard Advoc?: Yes Problem Qualifiers (1) Dementia of Alzheimer's type with behavioral disturbance: Qualified Code: G30.8 - Alzheimer's dementia with behavioral disturbance, unspecified timing of dementia onset Kam Ferrer MD Nov 27, 2016 15:38
[2016-11-27 20:00] VITALS: BP 166/70; PULSE 49; RESP 20; TEMP 97.2; O2SAT 98
[2016-11-27] MEDS: traZODone HCL 50 MG TAB PO SCH (21:00)
[2016-11-28 05:45] VITALS: BP 120/64; PULSE 53; RESP 15; TEMP 98.7; O2SAT 97
[2016-11-28] MEDS: INSULIN ASPART SUPPLEMENTAL SCALE SQ SCH ×4 (07:00→21:00)
[2016-11-28] MEDS: PANTOPRAZOLE SOD 20 MG DELAYED RELEASE TAB PO SCH (09:07)
[2016-11-28] MEDS: metFORMIN HCL 500 MG TAB PO SCH (09:07)
[2016-11-28] MEDS: MULTIVITAMINS/MINERALS THERAPEUTIC TAB PO SCH (09:07)
[2016-11-28] MEDS: PRAVASTATIN SOD 40 MG TAB PO SCH (09:07)
[2016-11-28 10:15] LABS: INTERNATIONAL NORMALIZED RATIO 2.1 RATIO; PROTHROMBIN TIME - PATIENT 24.3 SEC (9.8-11.6)
[2016-11-28] MEDS: TRIAMCINOLONE ACETONIDE 0.1% OINT 15 GM TUBE TOPICAL SCH ×2 (10:58→21:08)
[2016-11-28] MEDS: QUEtiapine FUMARATE 25 MG TAB PO SCH ×2 (12:52→17:28)
--- NOTE | 2016-11-28 14:31 | HHI.PYPN ---
Subjective Remarks Patient seen in day room with floor staff nurse Rosa Maria, patient sitting quietly watching TV. Is calm cooperative continues diffusely confused. Patient showing no behavioral problems at this time Review of Systems Except as stated in HPI: all other systems reviewed are Neg Objective Alert: Yes [place]: Person Mood: Calm Affect: Restricted Memory Intact: Comment (impaired) Hallucinations: Other (denies) Delusions: No Delusion Type: Other (none elicited) Suicidal: Ideation (none) Homicidal: Ideation (none) Insight/Judgment Very poor Labs Test 11/28/16 08:09 Prothrombin Time 24.3 SEC Prothromb Time International 2.1 RATIO Ratio Vitals/IOs Vital Signs Date Time Temp Pulse Resp B/P Pulse Ox O2 Delivery O2 Flow Rate FiO2 11/28/16 05:45 98.7 53 15 120/64 97 Intake and Output 11/27/16 11/27/16 11/28/16 08:00 16:00 00:00 Intake Total 240 ml 120 ml 720 ml Balance 240 ml 120 ml 720 ml Assessment & Plan Problem List: (1) Dementia of Alzheimer's type with behavioral disturbance ICD Code: G30.8 Assessment & Plan Estimated LOS: days patient continues confused and demented, though this been no behavioral problems, compliant medications. For now continue treatment Justification for Cont. Inpt. At this time patient will decompensate to place to the lower level of care Discharge Planning To be determined Request HC Surrog/Guard Advoc?: Yes Problem Qualifiers (1) Dementia of Alzheimer's type with behavioral disturbance: Qualified Code: G30.8 - Alzheimer's dementia with behavioral disturbance, unspecified timing of dementia onset Kam Ferrer MD Nov 28, 2016 14:31
[2016-11-28] MEDS: WARFARIN SOD 2 MG TAB PO SCH (16:00)
[2016-11-28 18:05] VITALS: BP 146/63; PULSE 48; RESP 18; TEMP 97.7; O2SAT 95
[2016-11-28] MEDS: traZODone HCL 50 MG TAB PO SCH (21:08)
[2016-11-29 05:54] VITALS: BP 170/71; PULSE 52; RESP 16; TEMP 97.4; O2SAT 96
[2016-11-29] MEDS: INSULIN ASPART SUPPLEMENTAL SCALE SQ SCH ×4 (06:16→21:00)
[2016-11-29] MEDS: MULTIVITAMINS/MINERALS THERAPEUTIC TAB PO SCH (08:48)
[2016-11-29] MEDS: PRAVASTATIN SOD 40 MG TAB PO SCH (08:48)
[2016-11-29] MEDS: PANTOPRAZOLE SOD 20 MG DELAYED RELEASE TAB PO SCH (08:48)
[2016-11-29] MEDS: metFORMIN HCL 500 MG TAB PO SCH (08:49)
[2016-11-29] MEDS: TRIAMCINOLONE ACETONIDE 0.1% OINT 15 GM TUBE TOPICAL SCH ×2 (09:00→21:13)
[2016-11-29 09:36] LABS: INTERNATIONAL NORMALIZED RATIO 1.7 RATIO; PROTHROMBIN TIME - PATIENT 19.4 SEC (9.8-11.6)
[2016-11-29] MEDS: QUEtiapine FUMARATE 25 MG TAB PO SCH ×2 (12:00→18:00)
--- NOTE | 2016-11-29 13:19 | HHI.PYPN ---
Subjective Remarks Patient was seen and case discussed with nursing. Patient is pleasant and cooperative with exam. His behaving well on the unit. Continues to have poor insight into his mental health. He is bright and cheerful and is joking throughout the interview. Alert and oriented 2. Compliant with medications Objective Alert: Yes [place]: Person, Place Mood: Calm Affect: Euthymic Memory Intact: Comment (impaired) Hallucinations: Other (denies) Delusions: No Delusion Type: Other (none elicited) Suicidal: Ideation (none) Homicidal: Ideation (none) Insight/Judgment Improving Labs Test 11/29/16 08:55 Prothrombin Time 19.4 SEC Prothromb Time International 1.7 RATIO Ratio Vitals/IOs Vital Signs Date Time Temp Pulse Resp B/P Pulse Ox O2 Delivery O2 Flow Rate FiO2 11/29/16 05:54 97.4 52 16 170/71 96 Intake and Output 11/28/16 11/28/16 11/29/16 08:00 16:00 00:00 Intake Total 1200 ml 720 ml Balance 1200 ml 720 ml Assessment & Plan Problem List: (1) Dementia of Alzheimer's type with behavioral disturbance ICD Code: G30.8 Assessment & Plan Continue current treatment plan Justification for Cont. Inpt. Patient will decompensate in a less restrictive setting Request HC Surrog/Guard Advoc?: Yes Problem Qualifiers (1) Dementia of Alzheimer's type with behavioral disturbance: Qualified Code: G30.8 - Alzheimer's dementia with behavioral disturbance, unspecified timing of dementia onset Ayad Garcia DO Nov 29, 2016 13:19
[2016-11-29] MEDS: WARFARIN SOD 2 MG TAB PO SCH (16:00)
[2016-11-29] MEDS ORDERED: WARFARIN SOD 1 MG TAB PO ONE (16:00)
[2016-11-29 18:09] VITALS: BP 131/60; PULSE 55; RESP 16; TEMP 97.4; O2SAT 97
[2016-11-29] MEDS: traZODone HCL 50 MG TAB PO SCH (21:13)
[2016-11-30] MEDS: INSULIN ASPART SUPPLEMENTAL SCALE SQ SCH ×4 (06:00→21:00)
[2016-11-30 06:40] VITALS: BP 158/70; PULSE 61; RESP 16; TEMP 97.8; O2SAT 97
[2016-11-30] MEDS: PRAVASTATIN SOD 40 MG TAB PO SCH (08:32)
[2016-11-30] MEDS: MULTIVITAMINS/MINERALS THERAPEUTIC TAB PO SCH (08:32)
[2016-11-30] MEDS: PANTOPRAZOLE SOD 20 MG DELAYED RELEASE TAB PO SCH (08:33)
[2016-11-30] MEDS: metFORMIN HCL 500 MG TAB PO SCH (08:33)
[2016-11-30] MEDS: TRIAMCINOLONE ACETONIDE 0.1% OINT 15 GM TUBE TOPICAL SCH ×2 (08:33→21:12)
[2016-11-30 10:38] LABS: INTERNATIONAL NORMALIZED RATIO 1.5 RATIO; PROTHROMBIN TIME - PATIENT 16.9 SEC (9.8-11.6)
[2016-11-30 10:54] LABS: BICARBONATE 25.8 MEQ/L (21.0-32.0); POTASSIUM 4.1 MEQ/L (3.5-5.1)
[2016-11-30] MEDS: QUEtiapine FUMARATE 25 MG TAB PO SCH ×2 (12:00→17:00)
--- NOTE | 2016-11-30 13:16 | HHI.PYPN ---
Subjective Remarks This was seen and case discussed with nursing. Patient is alert and oriented 2. Pleasant and cooperative with exam. Compliant with his medications. Tells me that he is in [place]. Able to converse in German and Togolese. Joking during the interview Objective Alert: Yes [place]: Person, Place Mood: Calm Affect: Euthymic Memory Intact: Comment (impaired) Hallucinations: Other (denies) Delusions: No Delusion Type: Other (none elicited) Suicidal: Ideation (none) Homicidal: Ideation (none) Insight/Judgment Fair Labs Test 11/30/16 11/30/16 10:00 10:02 Sodium Level 139 MEQ/L Potassium Level 4.1 MEQ/L Chloride Level 103 MEQ/L Carbon Dioxide Level 25.8 MEQ/L Anion Gap 10 MEQ/L Blood Urea Nitrogen 30 MG/DL Creatinine 1.00 MG/DL Estimat Glomerular Filtration 72 ML/MIN Rate Random Glucose 83 MG/DL Calcium Level 9.0 MG/DL Prothrombin Time 16.9 SEC Prothromb Time International 1.5 RATIO Ratio Vitals/IOs Vital Signs Date Time Temp Pulse Resp B/P Pulse Ox O2 Delivery O2 Flow Rate FiO2 11/30/16 06:40 97.8 61 16 158/70 97 Intake and Output 11/29/16 11/29/16 11/30/16 08:00 16:00 00:00 Intake Total 360 ml 960 ml Balance 360 ml 960 ml Assessment & Plan Problem List: (1) Dementia of Alzheimer's type with behavioral disturbance ICD Code: G30.8 Assessment & Plan Continue current treatment plan Justification for Cont. Inpt. Pt would decompensate in a less restrictive setting Request HC Surrog/Guard Advoc?: Yes Problem Qualifiers (1) Dementia of Alzheimer's type with behavioral disturbance: Qualified Code: G30.8 - Alzheimer's dementia with behavioral disturbance, unspecified timing of dementia onset Ayad Garcia DO Nov 30, 2016 13:16
[2016-11-30] MEDS ORDERED: WARFARIN SOD 1 MG TAB PO ONE (16:00)
[2016-11-30] MEDS ORDERED: WARFARIN SOD 2.5 MG TAB PO ONE (16:00)
[2016-11-30 18:00] VITALS: BP 154/69; PULSE 55; RESP 18; TEMP 97.1; O2SAT 100
[2016-11-30] MEDS: traZODone HCL 50 MG TAB PO SCH (21:11)
[2016-12-01] MEDS: cloNIDine HCL 0.1 MG TAB PO PRN (05:34)
[2016-12-01] MEDS: INSULIN ASPART SUPPLEMENTAL SCALE SQ SCH ×4 (06:00→20:53)
[2016-12-01 06:14] VITALS: BP 187/83; PULSE 54; RESP 16; TEMP 96.8; O2SAT 97
[2016-12-01 06:34] VITALS: BP 130/57; PULSE 42; RESP 16
[2016-12-01 07:32] LABS: INTERNATIONAL NORMALIZED RATIO 1.6 RATIO; PROTHROMBIN TIME - PATIENT 18.1 SEC (9.8-11.6)
[2016-12-01] MEDS: PANTOPRAZOLE SOD 20 MG DELAYED RELEASE TAB PO SCH (08:59)
[2016-12-01] MEDS: metFORMIN HCL 500 MG TAB PO SCH (08:59)
[2016-12-01] MEDS: TRIAMCINOLONE ACETONIDE 0.1% OINT 15 GM TUBE TOPICAL SCH ×2 (09:00→20:54)
[2016-12-01] MEDS: PRAVASTATIN SOD 40 MG TAB PO SCH (09:00)
[2016-12-01] MEDS: MULTIVITAMINS/MINERALS THERAPEUTIC TAB PO SCH (09:00)
--- NOTE | 2016-12-01 10:51 | PD.TTN ---
Present for Treatment Team Treatment Team Staff: Provider (Dr. Ferrer), Nurse (Will), Psych Therapist ( Shila Avila), Occupational Therapist (Maribel) Patient Problems 1. Discharge planning 2. Medication compliance 3. Knowledge deficit 4. Lack of coping skills Progress Toward Goals Provider Input: Dr. Ferrer inquired regarding the patient's placement status. Nurse Input: Will reported the patient remains compliant with medications, treatment, and is in good behavioral control. Psych Therapist Input: Counselor reported the patient continues to be denied placement due to reports of aggressive behaviors at his previous nursing facility. Counsleor will continue to work to find appropriate placement. Patient continues to lack insight into his mental illness and is unable to recall the events leading up to this admission. Occupational Therapist Input: Patient does participate in therapeutic groups and activities. Documentation Scribe: NIRMAL Couch Date Resolved: Dec 01, 2016 Shila AvilaJocelyn Dec 01, 2016 10:51
[2016-12-01] MEDS: QUEtiapine FUMARATE 25 MG TAB PO SCH ×2 (11:18→17:21)
[2016-12-01 14:19] VITALS: BP 123/56; PULSE 40; O2SAT 99
[2016-12-01] MEDS ORDERED: WARFARIN SOD 1 MG TAB PO SCH (16:00)
[2016-12-01] MEDS: WARFARIN SOD 3 MG TAB PO SCH (16:34)
--- NOTE | 2016-12-01 16:48 | HHI.PYPN ---
Subjective Remarks Patient seen in day room with medical student Samy, chart review, patient compliant medications. Patient remains calm pleasantly confused. Patient showing no significant behavioral problems. For now continue treatment Review of Systems Except as stated in HPI: all other systems reviewed are Neg Objective Alert: Yes [place]: Person, Place Mood: Calm Affect: Euthymic Memory Intact: Comment (impaired) Hallucinations: Other (denies) Delusions: No Delusion Type: Other (none elicited) Suicidal: Ideation (none) Homicidal: Ideation (none) Insight/Judgment Very poor Labs Test 12/01/16 06:26 Prothrombin Time 18.1 SEC Prothromb Time International 1.6 RATIO Ratio Vitals/IOs Vital Signs Date Time Temp Pulse Resp B/P Pulse Ox O2 Delivery O2 Flow Rate FiO2 12/01/16 14:19 40 123/56 99 12/01/16 06:34 16 12/01/16 06:14 96.8 Intake and Output 11/30/16 11/30/16 12/01/16 08:00 16:00 00:00 Intake Total 2040 ml 870 ml Output Total 2 ml Balance 2038 ml 870 ml Assessment & Plan Problem List: (1) Dementia of Alzheimer's type with behavioral disturbance ICD Code: G30.8 Assessment & Plan Estimated LOS: days patient continues diffusely confused disoriented though no behavioral problem Justification for Cont. Inpt. At this time patient will decompensate and placed in a lower level of care Discharge Planning To be determined Request HC Surrog/Guard Advoc?: Yes Problem Qualifiers (1) Dementia of Alzheimer's type with behavioral disturbance: Qualified Code: G30.8 - Alzheimer's dementia with behavioral disturbance, unspecified timing of dementia onset Kam Ferrer MD Dec 01, 2016 16:48
[2016-12-01 19:00] VITALS: BP 151/70; PULSE 51; RESP 16; TEMP 97.2; O2SAT 97
[2016-12-01] MEDS: traZODone HCL 50 MG TAB PO SCH (20:53)
[2016-12-02] VITALS: BP 154/65; PULSE 43; RESP 20; TEMP 97.5; O2SAT 99
[2016-12-02 06:00] VITALS: BP 175/71; PULSE 50; RESP 18; TEMP 97
[2016-12-02] MEDS: INSULIN ASPART SUPPLEMENTAL SCALE SQ SCH ×4 (06:28→20:38)
[2016-12-02] MEDS: PANTOPRAZOLE SOD 20 MG DELAYED RELEASE TAB PO SCH (08:37)
[2016-12-02] MEDS: MULTIVITAMINS/MINERALS THERAPEUTIC TAB PO SCH (08:38)
[2016-12-02] MEDS: PRAVASTATIN SOD 40 MG TAB PO SCH (08:38)
[2016-12-02] MEDS: TRIAMCINOLONE ACETONIDE 0.1% OINT 15 GM TUBE TOPICAL SCH ×2 (08:38→23:00)
[2016-12-02] MEDS: metFORMIN HCL 500 MG TAB PO SCH (08:38)
[2016-12-02 10:05] LABS: INTERNATIONAL NORMALIZED RATIO 1.7 RATIO; PROTHROMBIN TIME - PATIENT 19.7 SEC (9.8-11.6)
[2016-12-02] MEDS: QUEtiapine FUMARATE 25 MG TAB PO SCH ×2 (12:12→17:12)
--- NOTE | 2016-12-02 14:47 | HHI.PYPN ---
Subjective Remarks Patient seen in day room with nurse Will and medical student Samy. Patient compliant medications no significant behavioral problems. Remains quite confused and disoriented needing occasional redirection and intervention Review of Systems Except as stated in HPI: all other systems reviewed are Neg Objective Alert: Yes [place]: Person, Place Mood: Calm Affect: Euthymic Memory Intact: Comment (impaired) Hallucinations: Other (denies) Delusions: No Delusion Type: Other (none elicited) Suicidal: Ideation (none) Homicidal: Ideation (none) Insight/Judgment Poor Labs Test 12/02/16 08:28 Prothrombin Time 19.7 SEC Prothromb Time International 1.7 RATIO Ratio Vitals/IOs Vital Signs Date Time Temp Pulse Resp B/P Pulse Ox O2 Delivery O2 Flow Rate FiO2 12/02/16 06:00 97.0 50 18 175/71 12/02/16 00:00 99 Intake and Output 12/01/16 12/01/16 12/02/16 08:00 16:00 00:00 Intake Total 1210 ml Balance 1210 ml Assessment & Plan Problem List: (1) Dementia of Alzheimer's type with behavioral disturbance ICD Code: G30.8 Assessment & Plan Patient continues confused disoriented though no significant behavioral problems. Compliant medication Justification for Cont. Inpt. At this time patient will decompensate place to the lower level of care Discharge Planning To be determined Request HC Surrog/Guard Advoc?: Yes Problem Qualifiers (1) Dementia of Alzheimer's type with behavioral disturbance: Qualified Code: G30.8 - Alzheimer's dementia with behavioral disturbance, unspecified timing of dementia onset Kam Ferrer MD Dec 02, 2016 14:47
[2016-12-02] MEDS: WARFARIN SOD 3 MG TAB PO SCH (16:00)
[2016-12-02] MEDS ORDERED: WARFARIN SOD 1 MG TAB PO SCH (16:00)
[2016-12-02 19:43] VITALS: BP 128/60; PULSE 46; RESP 20; TEMP 97.1
[2016-12-02] MEDS: traZODone HCL 50 MG TAB PO SCH (20:36)
[2016-12-03 05:54] VITALS: BP 184/78; PULSE 55; RESP 18; TEMP 97.6
[2016-12-03] MEDS: INSULIN ASPART SUPPLEMENTAL SCALE SQ SCH ×4 (06:25→22:31)
[2016-12-03] MEDS: cloNIDine HCL 0.1 MG TAB PO PRN (06:34)
[2016-12-03 07:46] VITALS: BP 150/68; PULSE 45
[2016-12-03 08:54] LABS: INTERNATIONAL NORMALIZED RATIO 1.9 RATIO; PROTHROMBIN TIME - PATIENT 21.4 SEC (9.8-11.6)
[2016-12-03] MEDS: TRIAMCINOLONE ACETONIDE 0.1% OINT 15 GM TUBE TOPICAL SCH ×2 (09:00→22:12)
[2016-12-03] MEDS: PRAVASTATIN SOD 40 MG TAB PO SCH (09:06)
[2016-12-03] MEDS: PANTOPRAZOLE SOD 20 MG DELAYED RELEASE TAB PO SCH (09:07)
[2016-12-03] MEDS: MULTIVITAMINS/MINERALS THERAPEUTIC TAB PO SCH (09:07)
[2016-12-03] MEDS: metFORMIN HCL 500 MG TAB PO SCH (09:07)
[2016-12-03] MEDS: QUEtiapine FUMARATE 25 MG TAB PO SCH ×2 (12:50→17:16)
--- NOTE | 2016-12-03 16:01 | HHI.PYPN ---
Subjective Remarks Patient seen in the day room the floor staff, chart review, patient compliant medication. Continues to show no significant behavioral problems on the unit. He has occasionally made some inappropriate sexual gestures though is easily redirectable and he is not intimidating in any way Review of Systems Except as stated in HPI: all other systems reviewed are Neg Objective Alert: Yes [place]: Person, Place Mood: Calm Affect: Euthymic Memory Intact: Comment (impaired) Hallucinations: Other (denies) Delusions: No Delusion Type: Other (none elicited) Suicidal: Ideation (none) Homicidal: Ideation (none) Insight/Judgment Very poor Labs Test 12/03/16 07:03 Prothrombin Time 21.4 SEC Prothromb Time International 1.9 RATIO Ratio Vitals/IOs Vital Signs Date Time Temp Pulse Resp B/P Pulse Ox O2 Delivery O2 Flow Rate FiO2 12/03/16 07:46 45 150/68 12/03/16 05:54 97.6 18 12/02/16 00:00 99 Intake and Output 12/02/16 12/02/16 12/03/16 08:00 16:00 00:00 Intake Total 240 ml Balance 240 ml Assessment & Plan Problem List: (1) Dementia of Alzheimer's type with behavioral disturbance ICD Code: G30.8 Assessment & Plan Estimated LOS: days patient continues to mentate confused though no significant behavior problems, compliant medication, for now continue treatment Justification for Cont. Inpt. With this time patient will decompensate if placed in a lower level of care Discharge Planning To be determined Request HC Surrog/Guard Advoc?: Yes Problem Qualifiers (1) Dementia of Alzheimer's type with behavioral disturbance: Qualified Code: G30.8 - Alzheimer's dementia with behavioral disturbance, unspecified timing of dementia onset Kam Ferrer MD Dec 03, 2016 16:01
[2016-12-03] MEDS: WARFARIN SOD 3 MG TAB PO SCH (17:16)
[2016-12-03 18:00] VITALS: BP 120/57; PULSE 51; RESP 16; TEMP 97.1; O2SAT 100
[2016-12-03] MEDS: traZODone HCL 50 MG TAB PO SCH (22:12)
[2016-12-04 05:11] VITALS: BP 136/64; PULSE 60; RESP 18; TEMP 99.9
[2016-12-04] MEDS: INSULIN ASPART SUPPLEMENTAL SCALE SQ SCH ×4 (06:35→20:51)
[2016-12-04 08:38] LABS: INTERNATIONAL NORMALIZED RATIO 2.1 RATIO; PROTHROMBIN TIME - PATIENT 23.9 SEC (9.8-11.6)
[2016-12-04] MEDS: TRIAMCINOLONE ACETONIDE 0.1% OINT 15 GM TUBE TOPICAL SCH ×2 (09:00→21:06)
[2016-12-04] MEDS: MULTIVITAMINS/MINERALS THERAPEUTIC TAB PO SCH (09:24)
[2016-12-04] MEDS: metFORMIN HCL 500 MG TAB PO SCH (09:24)
[2016-12-04] MEDS: PRAVASTATIN SOD 40 MG TAB PO SCH (09:25)
[2016-12-04] MEDS: PANTOPRAZOLE SOD 20 MG DELAYED RELEASE TAB PO SCH (09:25)
--- NOTE | 2016-12-04 10:57 | HHI.PYPN ---
Subjective Remarks Patient seen in day room with nurse Bertha and medical student Samy chart review, patient quite medication. Patient continues pleasantly confused though no behavioral problems except for some occasional mildly sexually inappropriate gestures Review of Systems Except as stated in HPI: all other systems reviewed are Neg Objective Alert: Yes [place]: Person, Place Mood: Calm Affect: Euthymic Memory Intact: Comment (impaired) Hallucinations: Other (denies) Delusions: No Delusion Type: Other (none elicited) Suicidal: Ideation (none) Homicidal: Ideation (none) Insight/Judgment Very poor Labs Test 12/04/16 08:03 Prothrombin Time 23.9 SEC Prothromb Time International 2.1 RATIO Ratio Vitals/IOs Vital Signs Date Time Temp Pulse Resp B/P Pulse Ox O2 Delivery O2 Flow Rate FiO2 12/04/16 05:11 99.9 60 18 136/64 12/03/16 18:00 100 Intake and Output 12/03/16 12/03/16 12/04/16 08:00 16:00 00:00 Intake Total 1200 ml 1320 ml Balance 1200 ml 1320 ml Assessment & Plan Problem List: (1) Dementia of Alzheimer's type with behavioral disturbance ICD Code: G30.8 Assessment & Plan Estimated LOS: days patient continues demented confused but no significant behavioral problems, compliant medications, for now continue treatment Justification for Cont. Inpt. At this time patient will decompensate if placed in the lower level of care Discharge Planning To be determined Request HC Surrog/Guard Advoc?: Yes Problem Qualifiers (1) Dementia of Alzheimer's type with behavioral disturbance: Qualified Code: G30.8 - Alzheimer's dementia with behavioral disturbance, unspecified timing of dementia onset Kam Ferrer MD Dec 04, 2016 10:57
[2016-12-04] MEDS: QUEtiapine FUMARATE 25 MG TAB PO SCH ×2 (12:21→17:17)
[2016-12-04] MEDS: WARFARIN SOD 3 MG TAB PO SCH (17:17)
[2016-12-04 18:00] VITALS: BP 134/65; PULSE 45; RESP 16; TEMP 98.1; O2SAT 99
[2016-12-04] MEDS: traZODone HCL 50 MG TAB PO SCH (21:06)
[2016-12-05 06:18] VITALS: BP 158/65; PULSE 62; RESP 16; TEMP 97.8; O2SAT 95
[2016-12-05] MEDS: INSULIN ASPART SUPPLEMENTAL SCALE SQ SCH ×4 (06:28→20:46)
[2016-12-05] MEDS: MULTIVITAMINS/MINERALS THERAPEUTIC TAB PO SCH (08:54)
[2016-12-05] MEDS: metFORMIN HCL 500 MG TAB PO SCH (08:55)
[2016-12-05] MEDS: TRIAMCINOLONE ACETONIDE 0.1% OINT 15 GM TUBE TOPICAL SCH ×2 (08:55→22:17)
[2016-12-05] MEDS: PANTOPRAZOLE SOD 20 MG DELAYED RELEASE TAB PO SCH (08:55)
[2016-12-05] MEDS: PRAVASTATIN SOD 40 MG TAB PO SCH (08:55)
[2016-12-05 09:20] LABS: PROTHROMBIN TIME - PATIENT 22.3 SEC (9.8-11.6)
--- NOTE | 2016-12-05 10:41 | HHI.PYPN ---
Subjective Remarks Patient seen in the day room with nurse Lacho and medical student Samy, chart reviewed, patient compliant medications. Patient continues confused disoriented with no significant behavior problems. At times somewhat inappropriate sexual gestures but easily redirectable Review of Systems Except as stated in HPI: all other systems reviewed are Neg Objective Alert: Yes [place]: Person, Place Mood: Calm Affect: Euthymic Memory Intact: Comment (impaired) Hallucinations: Other (denies) Delusions: No Delusion Type: Other (none elicited) Suicidal: Ideation (none) Homicidal: Ideation (none) Insight/Judgment Poor Labs Test 12/05/16 08:07 Prothrombin Time 22.3 SEC Prothromb Time International 2.0 RATIO Ratio Vitals/IOs Vital Signs Date Time Temp Pulse Resp B/P Pulse Ox O2 Delivery O2 Flow Rate FiO2 12/05/16 06:18 97.8 62 16 158/65 95 Intake and Output 12/04/16 12/04/16 12/05/16 08:00 16:00 00:00 Intake Total 820 ml 360 ml Balance 820 ml 360 ml Assessment & Plan Problem List: (1) Dementia of Alzheimer's type with behavioral disturbance ICD Code: G30.8 Assessment & Plan Estimated LOS: days she continues confused demented though no significant pain for problems. Compliant medications. Justification for Cont. Inpt. At this time patient will decompensate if placed in a lower level of care Discharge Planning To be determined Request HC Surrog/Guard Advoc?: Yes Problem Qualifiers (1) Dementia of Alzheimer's type with behavioral disturbance: Qualified Code: G30.8 - Alzheimer's dementia with behavioral disturbance, unspecified timing of dementia onset Kam Ferrer MD Dec 05, 2016 10:41
[2016-12-05] MEDS: QUEtiapine FUMARATE 25 MG TAB PO SCH ×2 (12:20→18:26)
[2016-12-05] MEDS: WARFARIN SOD 3 MG TAB PO SCH (16:10)
[2016-12-05 17:01] VITALS: BP 123/72; PULSE 76; RESP 17; TEMP 96.5; O2SAT 97
[2016-12-05] MEDS: traZODone HCL 50 MG TAB PO SCH (22:16)
[2016-12-06 06:00] VITALS: BP_SYST 128; BP_SYST 166; BP_DIAS 46; BP_DIAS 60; PULSE 47; PULSE 70; RESP 16; RESP 17; TEMP 96.5; TEMP 98.1; O2SAT 97
[2016-12-06] MEDS: INSULIN ASPART SUPPLEMENTAL SCALE SQ SCH ×4 (06:28→21:00)
[2016-12-06] MEDS: PANTOPRAZOLE SOD 20 MG DELAYED RELEASE TAB PO SCH (09:45)
[2016-12-06] MEDS: PRAVASTATIN SOD 40 MG TAB PO SCH (09:45)
[2016-12-06] MEDS: metFORMIN HCL 500 MG TAB PO SCH (09:45)
[2016-12-06] MEDS: MULTIVITAMINS/MINERALS THERAPEUTIC TAB PO SCH (09:45)
[2016-12-06] MEDS: TRIAMCINOLONE ACETONIDE 0.1% OINT 15 GM TUBE TOPICAL SCH ×2 (09:46→21:00)
[2016-12-06 10:38] LABS: INTERNATIONAL NORMALIZED RATIO 2.3 RATIO; PROTHROMBIN TIME - PATIENT 26.1 SEC (9.8-11.6)
[2016-12-06] MEDS: QUEtiapine FUMARATE 25 MG TAB PO SCH ×2 (12:26→18:19)
--- NOTE | 2016-12-06 12:42 | HHI.PYPN ---
Subjective Remarks Pt seen and discussed with staff. No aggressive or inappropriate behavior on unit today. Cooperative with medications and care. No SI/HI Objective Alert: Yes [place]: Person, Place Mood: Calm Affect: Euthymic Memory Intact: Comment (impaired) Hallucinations: Other (denies) Delusions: No Delusion Type: Other (none elicited) Suicidal: Ideation (none) Homicidal: Ideation (none) Insight/Judgment poor Labs Test 12/06/16 09:09 Prothrombin Time 26.1 SEC Prothromb Time International 2.3 RATIO Ratio Vitals/IOs Vital Signs Date Time Temp Pulse Resp B/P Pulse Ox O2 Delivery O2 Flow Rate FiO2 12/06/16 06:00 98.1 70 17 166/60 97 Intake and Output 12/05/16 12/05/16 12/06/16 08:00 16:00 00:00 Intake Total 480 ml 3040 ml Balance 480 ml 3040 ml Assessment & Plan Problem List: (1) Dementia of Alzheimer's type with behavioral disturbance ICD Code: G30.8 Assessment & Plan Continue current tx plan. Estimated LOS: days Justification for Cont. Inpt. risk of decompensation Request HC Surrog/Guard Advoc?: Yes Problem Qualifiers (1) Dementia of Alzheimer's type with behavioral disturbance: Qualified Code: G30.8 - Alzheimer's dementia with behavioral disturbance, unspecified timing of dementia onset Onelia Vergara MD Dec 06, 2016 12:42
[2016-12-06] MEDS: WARFARIN SOD 3 MG TAB PO SCH (16:41)
[2016-12-06 18:00] VITALS: BP 127/72; PULSE 64; TEMP 98; O2SAT 96
[2016-12-06] MEDS: traZODone HCL 50 MG TAB PO SCH (21:19)
[2016-12-06] MEDS: hydrOXYzine HCL 50 MG TAB PO PRN (21:19)
[2016-12-06] MEDS: diphenhydrAMINE HCL 50 MG CAP PO PRN (21:19)
[2016-12-07 05:39] VITALS: BP 175/79; PULSE 64; RESP 18; TEMP 97.9
[2016-12-07] MEDS: INSULIN ASPART SUPPLEMENTAL SCALE SQ SCH ×4 (06:52→21:00)
[2016-12-07] MEDS: TRIAMCINOLONE ACETONIDE 0.1% OINT 15 GM TUBE TOPICAL SCH ×2 (09:00→21:18)
[2016-12-07] MEDS: PRAVASTATIN SOD 40 MG TAB PO SCH (09:20)
[2016-12-07] MEDS: metFORMIN HCL 500 MG TAB PO SCH (09:20)
[2016-12-07] MEDS: PANTOPRAZOLE SOD 20 MG DELAYED RELEASE TAB PO SCH (09:20)
[2016-12-07] MEDS: MULTIVITAMINS/MINERALS THERAPEUTIC TAB PO SCH (09:20)
--- NOTE | 2016-12-07 11:23 | HHI.PYPN ---
Subjective Remarks Pt seen and discussed with staff. He has been quiet and seclusive to his room. No inappropriate behavior on unit. No SI/HI. He has spent most of morning napping. No SI/HI. Objective Alert: Yes [place]: Person, Place Mood: Calm Affect: Euthymic Memory Intact: Comment (impaired) Hallucinations: Other (denies) Delusions: No Delusion Type: Other (none elicited) Suicidal: Ideation (none) Homicidal: Ideation (none) Insight/Judgment poor Vitals/IOs Vital Signs Date Time Temp Pulse Resp B/P Pulse Ox O2 Delivery O2 Flow Rate FiO2 12/07/16 05:39 97.9 64 18 175/79 12/06/16 18:00 96 Intake and Output 12/06/16 12/06/16 12/07/16 08:00 16:00 00:00 Intake Total 360 ml 240 ml 1080 ml Balance 360 ml 240 ml 1080 ml Assessment & Plan Problem List: (1) Dementia of Alzheimer's type with behavioral disturbance ICD Code: G30.8 Assessment & Plan Continue current tx plan. Estimated LOS: days Justification for Cont. Inpt. risk of decompensation Request HC Surrog/Guard Advoc?: Yes Problem Qualifiers (1) Dementia of Alzheimer's type with behavioral disturbance: Qualified Code: G30.8 - Alzheimer's dementia with behavioral disturbance, unspecified timing of dementia onset Onelia Vergara MD Dec 07, 2016 11:23
[2016-12-07] MEDS: QUEtiapine FUMARATE 25 MG TAB PO SCH ×2 (12:46→17:35)
[2016-12-07] MEDS ORDERED: FUROSEMIDE 40 MG TAB PO ONE (16:00)
[2016-12-07 16:20] LABS: INTERNATIONAL NORMALIZED RATIO 2.6 RATIO
[2016-12-07 16:21] LABS: AUTOMATED NEUTROPHIL # 5.7 TH/MM3 (1.8-7.7); BASOPHIL % 0.5 % (0.0-2.0); EOSINOPHIL # 0.3 TH/MM3 (0-0.4); EOSINOPHIL % 4.1 % (0.0-4.0); HEMATOCRIT 29.4 % (39.0-51.0); HEMO FLAGS DIFF FINAL; LYMPH % 8.8 % (9.0-44.0); LYMPHOCYTE # 0.7 TH/MM3 (1.0-4.8); MEAN CELL VOLUME 89.4 FL (80.0-100.0); MEAN CORPUSCULAR HEMOGLOBIN 29.4 PG (27.0-34.0); MEAN CORPUSCULAR HGB CONC 32.9 % (32.0-36.0); MONO % 11.4 % (0.0-8.0); NEUT % 75.2 % (16.0-70.0); PLATELET COUNT 276 TH/MM3 (150-450); RED BLOOD COUNT 3.29 MIL/MM3 (4.50-5.90); RED CELL DISTRIBUTION WIDTH 15.5 % (11.6-17.2); WHITE BLOOD COUNT 7.6 TH/MM3 (4.0-11.0)
[2016-12-07] MEDS: WARFARIN SOD 3 MG TAB PO SCH (16:22)
--- NOTE | 2016-12-07 16:22 | HHI.PR ---
Subjective Remarks Reconsult for cellulitis right lower extremity. Patient seen and examined today. Patient complains of increased pain and swelling in the right leg. Reports the pain is not so bad that he needs to take any medication for it. He also has noticed increased redness. Denies any fever or chills. Denies any chest pain or shortness of breath. No N/V or abdominal pain. The pt didn't have any acute complaints. He did not like his legs being examined. Discussed with nursing. Objective Vitals Vital Signs Date Time Temp Pulse Resp B/P Pulse Ox O2 Delivery O2 Flow Rate FiO2 12/07/16 05:39 97.9 64 18 175/79 12/06/16 18:00 98.0 64 127/72 96 I/O 12/06/16 12/06/16 12/06/16 12/07/16 12/07/16 12/07/16 07:00 15:00 23:00 07:00 15:00 23:00 Intake Total 600 ml 1080 ml 840 ml Balance 600 ml 1080 ml 840 ml Intake Oral 360 ml 1080 ml 840 ml Oral Supplement 240 ml # Voids 2 2 2 2 # Bowel Movements 1 Imaging Last Impressions Lower Extremity Ultrasound 11/25/16 0000 Signed Impressions: Service Date/Time: Friday, November 25, 2016 22:02 - CONCLUSION: No DVT of either lower extremity. Kam Loving MD Objective Remarks GENERAL: Well-nourished, well-developed patient in NAD. Awake and alert. Sitting in the community room. SKIN: Warm and dry. (+)edema and erythema bilateral extremities right greater than left. Right lower leg tender to palpation. Several scattered oozing open sores noted with flaking off the skin/scabs. HEENT: Normocephalic. Atraumatic. EOMI. MMM. CARDIOVASCULAR: Regular rate and rhythm. S1, S2 noted. No murmur appreciated. RESPIRATORY: Clear to auscultation. Breath sounds equal bilaterally. GASTROINTESTINAL: Abdomen soft, non-tender, nondistended. Normoactive bowel sounds x4. MUSCULOSKELETAL: No obvious deformities. Extremities without clubbing, cyanosis , or edema. NEUROLOGICAL: Awake and alert. Able to move all extremities. Normal speech. PSYCHIATRIC: Appropriate mood and affect. Calm and cooperative. Resting in a chair. Breathing comfortably. Bilateral lower extremity edema, R > L. Venous stasis changes noted. Tender to palpation. Fluid blisters noted. Skin sloughing off. Mood is calm Procedures None. Medications and IVs Current Medications Medications (Trade) Dose Ordered Sig/Siva Route Start Time Stop Time Status Last Admin (Benadryl) 50 mg HS PRN PO 10/26/16 15:00 11/21/16 20:50 (Tylenol) 650 mg Q4H PRN PO 10/26/16 15:00 11/06/16 17:41 (Milk Of Magnesia Liq) 30 ml DAILY PRN PO 10/26/16 15:00 (Mag-Al Plus Susp Liq) 30 ml Q6H PRN PO 10/26/16 15:00 (Atarax) 50 mg Q6H PRN PO 10/26/16 15:00 12/06/16 21:19 (Lasix) 20 mg BID PO 10/26/16 21:00 Hold 11/22/16 20:18 (Imdur) 60 mg DAILY PO 10/27/16 09:00 Hold 11/22/16 09:45 (Cozaar) 100 mg DAILY PO 10/27/16 09:00 Hold 11/22/16 09:42 (Glucophage) 1,000 mg DAILY PO 10/27/16 09:00 12/07/16 09:20 (Theragran M Tab) 1 tab DAILY PO 10/27/16 09:00 12/07/16 09:20 (Protonix) 20 mg DAILY PO 10/27/16 09:00 12/07/16 09:20 (Aldactone) 12.5 mg BID PO 10/26/16 21:00 Hold 11/22/16 20:18 (Pravachol) 40 mg DAILY PO 10/27/16 09:00 12/07/16 09:20 Trazodone HCl 50 mg 50 mg HS PO 10/26/16 21:00 12/06/16 21:19 (Coumadin Consult Pharmacy) 0 ml @ 0 mls/hr UNSCH OTHER 10/26/16 16:00 (Catapres) 0.1 mg Q6H PRN PO 10/26/16 16:00 12/03/16 06:34 (SEROquel) 25 mg DAILY@12,18 PO 10/27/16 18:00 12/07/16 12:46 (Aristocort 0.1% Oint) 1 applic Q12HR TOPICAL 11/02/16 21:00 12/07/16 09:00 (Coumadin) 3 mg DAILY@1600 PO 12/01/16 16:00 12/06/16 16:41 (Lasix) 40 mg DAILY PO 12/08/16 09:00 A/P Problem List: (1) Dementia of Alzheimer's type with behavioral disturbance ICD Code: G30.8 Status: Acute (2) Diabetes mellitus type II, controlled, with no complications ICD Code: E11.9 Status: Chronic (3) Hypertension ICD Code: I10 Status: Chronic (4) GERD (gastroesophageal reflux disease) ICD Code: K21.9 Status: Chronic (5) Hyperlipidemia ICD Code: E78.5 Status: Chronic Assessment and Plan 81-year-old [place] male admitted to psychiatric unit with dementia. Hospitalist services reconsulted for concern for cellulitis in the right lower extremity. Dementia of Alzheimer's type with disturbance of behavior - Management per psychiatric team Bilateral lower extremity stasis R>L - Recently completed a course of clindamycin - Obtain CBC - Wound cultures and Gram stain - Bilateral lower extremity duplex scans to rule out DVT - Suspect some component of fluid overload given Lasix currently on hold. Resume Lasix at 40 mg by mouth QD - Follow-up on studies ordered and monitor for improvement Suspect erythema is s/t venous stasis. Legs are not symmetrical. Repeat LE US. Lasix. Keep legs elevated. Hold off on antibiotics for now. Atrial Fibrillation Hypertension Hyperlipidemia Angina - On Imdur 60 mg daily, Cozaar 100 mg daily, Lasix 20 mg twice daily, Spironolactone 12.5 mg twice daily -on hold for episode of bradycardia - Continue pravastatin - INR 2.3, on Coumadin. Today's labs pending. Pharmacy to dose. - HR 64 DVT prophylaxis - Patient on Coumadin Discussed with nursing staff, patient and Dr. Sage Attending Statement The exam, history, and the medical decision-making described in the above note were completed with the assistance of the mid-level provider. I reviewed and agree with the findings presented. I attest that I had a [id number] encounter with the patient on the same day, and personally performed and documented my assessment and findings in the medical record. Problem Qualifiers (1) Dementia of Alzheimer's type with behavioral disturbance: Qualified Code: G30.8 - Alzheimer's dementia with behavioral disturbance, unspecified timing of dementia onset (2) Diabetes mellitus type II, controlled, with no complications: Qualified Code: E11.9 - Controlled type 2 diabetes mellitus without complication, without long-term current use of insulin (3) Hypertension: Qualified Code: I10 - Essential hypertension (4) GERD (gastroesophageal reflux disease): Qualified Code: K21.9 - Gastroesophageal reflux disease, esophagitis presence not specified (5) Hyperlipidemia: Qualified Code: E78.5 - Hyperlipidemia, unspecified hyperlipidemia type Tish Hassan Dec 07, 2016 16:22 Jacinto Sage DO Dec 07, 2016 17:08
[2016-12-07] MEDS: hydrOXYzine HCL 50 MG TAB PO PRN (21:18)
[2016-12-07] MEDS: traZODone HCL 50 MG TAB PO SCH (21:18)
--- NOTE | 2016-12-08 00:22 | RADRPT ---
EXAM DATE/TIME: 12/07/2016 23:00 [facility] COMPARISON: US LEG BILATERAL VENOUS DOPPLER, November 25, 2016, 22:02. INDICATIONS : Bilateral leg swelling and redness. MEDICAL HISTORY : Dementia. CHF. CAD. Hyperlipidemia. Afib. COPD. GERD. Diabetic. SURGICAL HISTORY : None. ENCOUNTER: Subsequent ACUITY: 1 week PAIN SCORE: 6/10 LOCATION: Bilateral leg. TECHNIQUE: Venous ultrasound of the left and right leg was performed from the inguinal ligament to the proximal calf. Real-time, color Doppler and spectral tracing, compression and augmentation techniques were us ed. FINDINGS: RIGHT LEG: There is normal compressibility of the deep venous system from the inguinal region to the proximal ca lf. No echogenic clot is seen in the lumen of the common femoral, femoral, popliteal, and posterior tibial veins. There is a normal response of the venous system to proximal and distal augmentation an d respiration. LEFT LEG: There is normal compressibility of the deep venous system from the inguinal region to the proximal ca lf. No echogenic clot is seen in the lumen of the common femoral, femoral, popliteal, and posterior tibial veins. There is a normal response of the venous system to proximal and distal augmentation an d respiration. CONCLUSION: The study is negative for deep venous thrombosis bilateral lower extremity. Aníbal Vaughan MD on December 08, 2016 at 0:20 Board Certified Radiologist. This report was verified electronically.
[2016-12-08 05:27] VITALS: BP 185/94; PULSE 79; RESP 16; TEMP 97.8; O2SAT 97
[2016-12-08] MEDS: INSULIN ASPART SUPPLEMENTAL SCALE SQ SCH ×4 (06:18→21:00)
--- NOTE | 2016-12-08 08:41 | HHI.PYPN ---
Subjective Remarks Patient seen in day room with nurse Ale, chart reviewed. Patient no significant behavioral problems continues calm pleasant and confused. Medical progress note assessing peripheral edema right lower leg noted and appreciated and agreed with. Compliant medications Review of Systems Except as stated in HPI: all other systems reviewed are Neg Objective Alert: Yes [place]: Person, Place Mood: Calm Affect: Euthymic Memory Intact: Comment (impaired) Hallucinations: Other (denies) Delusions: No Delusion Type: Other (none elicited) Suicidal: Ideation (none) Homicidal: Ideation (none) Insight/Judgment Very poor Labs Test 12/07/16 15:53 White Blood Count 7.6 TH/MM3 Red Blood Count 3.29 MIL/MM3 Hemoglobin 9.7 GM/DL Hematocrit 29.4 % Mean Corpuscular Volume 89.4 FL Mean Corpuscular Hemoglobin 29.4 PG Mean Corpuscular Hemoglobin 32.9 % Concent Red Cell Distribution Width 15.5 % Platelet Count 276 TH/MM3 Mean Platelet Volume 7.8 FL Neutrophils (%) (Auto) 75.2 % Lymphocytes (%) (Auto) 8.8 % Monocytes (%) (Auto) 11.4 % Eosinophils (%) (Auto) 4.1 % Basophils (%) (Auto) 0.5 % Neutrophils # (Auto) 5.7 TH/MM3 Lymphocytes # (Auto) 0.7 TH/MM3 Monocytes # (Auto) 0.9 TH/MM3 Eosinophils # (Auto) 0.3 TH/MM3 Basophils # (Auto) 0.0 TH/MM3 CBC Comment DIFF FINAL Differential Comment Prothrombin Time 30.0 SEC Prothromb Time International 2.6 RATIO Ratio Date/Time Procedure Status Source Growth 12/07/16 23:30 Gram Stain Received Wound Leg Pending 12/07/16 23:30 Wound Culture Received Wound Leg Pending Vitals/IOs Vital Signs Date Time Temp Pulse Resp B/P Pulse Ox O2 Delivery O2 Flow Rate FiO2 12/08/16 05:27 97.8 79 16 185/94 97 Intake and Output 12/07/16 12/07/16 12/08/16 08:00 16:00 00:00 Intake Total 840 ml 720 ml Balance 840 ml 720 ml Assessment & Plan Problem List: (1) Dementia of Alzheimer's type with behavioral disturbance ICD Code: G30.8 Assessment & Plan Estimated LOS: days patient continues confused and demented, but no significant behavioral problems. Also medicine continues examination assessment of peripheral edema right lower leg. For now continue treatment Justification for Cont. Inpt. At this time patient will decompensate if placed in a lower level of care Discharge Planning To be determined Request HC Surrog/Guard Advoc?: Yes Problem Qualifiers (1) Dementia of Alzheimer's type with behavioral disturbance: Qualified Code: G30.8 - Alzheimer's dementia with behavioral disturbance, unspecified timing of dementia onset Kam Ferrer MD Dec 08, 2016 08:41
[2016-12-08] MEDS: TRIAMCINOLONE ACETONIDE 0.1% OINT 15 GM TUBE TOPICAL SCH (09:00)
[2016-12-08 09:18] LABS: INTERNATIONAL NORMALIZED RATIO 2.6 RATIO; PROTHROMBIN TIME - PATIENT 30.2 SEC (9.8-11.6)
[2016-12-08] MEDS: PANTOPRAZOLE SOD 20 MG DELAYED RELEASE TAB PO SCH (09:20)
[2016-12-08] MEDS: PRAVASTATIN SOD 40 MG TAB PO SCH (09:20)
[2016-12-08] MEDS: metFORMIN HCL 500 MG TAB PO SCH (09:20)
[2016-12-08] MEDS: MULTIVITAMINS/MINERALS THERAPEUTIC TAB PO SCH (09:20)
[2016-12-08] MEDS: FUROSEMIDE 40 MG TAB PO SCH (09:20)
[2016-12-08] MEDS: QUEtiapine FUMARATE 25 MG TAB PO SCH ×2 (11:47→17:30)
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
--- NOTE | 2016-12-08 12:45 | HHI.PR ---
Subjective Remarks Reconsult for cellulitis right lower extremity. Patient seen and examined today. Patient reports his right leg is feeling better. He denies any other complaints at this time. He denies any fever or chills. No nausea or vomiting. No chest pain or shortness of breath. Objective Vitals Vital Signs Date Time Temp Pulse Resp B/P Pulse Ox O2 Delivery O2 Flow Rate FiO2 12/08/16 05:27 97.8 79 16 185/94 97 I/O 12/07/16 12/07/16 12/07/16 12/08/16 12/08/16 12/08/16 07:00 15:00 23:00 07:00 15:00 23:00 Intake Total 1560 ml 0 ml 960 ml Balance 1560 ml 0 ml 960 ml Intake Oral 1560 ml 0 ml 960 ml # Voids 2 4 1 # Bowel Movements 0 0 Result Diagram: 12/07/16 1553 Imaging Last Impressions Lower Extremity Ultrasound 12/07/16 0000 Signed Impressions: Service Date/Time: Wednesday, December 07, 2016 23:00 - CONCLUSION: The study is negative for deep venous thrombosis bilateral lower extremity. Aníbal Vaughan MD Objective Remarks GENERAL: Well-nourished, well-developed patient in NAD. Awake and alert. Ambulating in the dayroom. SKIN: Warm and dry. (+)edema and erythema bilateral extremities right greater than left, edema in RLE appears slightly improved. Right lower leg tender to palpation. Several scattered oozing open sores noted with flaking off the skin/ scabs. HEENT: Normocephalic. Atraumatic. EOMI. MMM. CARDIOVASCULAR: Regular rate and rhythm. S1, S2 noted. No murmur appreciated. RESPIRATORY: Clear to auscultation. Breath sounds equal bilaterally. GASTROINTESTINAL: Abdomen soft, non-tender, nondistended. Normoactive bowel sounds x4. MUSCULOSKELETAL: No obvious deformities. Extremities without clubbing, cyanosis , or edema. NEUROLOGICAL: Awake and alert. Able to move all extremities. Normal speech. Procedures None. Medications and IVs Current Medications Medications (Trade) Dose Ordered Sig/Siva Route Start Time Stop Time Status Last Admin (Benadryl) 50 mg HS PRN PO 10/26/16 15:00 11/21/16 20:50 (Tylenol) 650 mg Q4H PRN PO 5/14/17 15:00 11/06/16 17:41 (Milk Of Magnesia Liq) 30 ml DAILY PRN PO 10/26/16 15:00 (Mag-Al Plus Susp Liq) 30 ml Q6H PRN PO 10/26/16 15:00 (Atarax) 50 mg Q6H PRN PO 10/26/16 15:00 12/07/16 21:18 (Imdur) 60 mg DAILY PO 10/27/16 09:00 Hold 11/22/16 09:45 (Cozaar) 100 mg DAILY PO 10/27/16 09:00 Hold 11/22/16 09:42 (Glucophage) 1,000 mg DAILY PO 10/27/16 09:00 12/08/16 09:20 (Theragran M Tab) 1 tab DAILY PO 10/27/16 09:00 12/08/16 09:20 (Protonix) 20 mg DAILY PO 10/27/16 09:00 12/08/16 09:20 (Aldactone) 12.5 mg BID PO 10/26/16 21:00 Hold 11/22/16 20:18 (Pravachol) 40 mg DAILY PO 10/27/16 09:00 12/08/16 09:20 Trazodone HCl 50 mg 50 mg HS PO 10/26/16 21:00 12/07/16 21:18 (Coumadin Consult Pharmacy) 0 ml @ 0 mls/hr UNSCH OTHER 10/26/16 16:00 (Catapres) 0.1 mg Q6H PRN PO 10/26/16 16:00 12/03/16 06:34 (SEROquel) 25 mg DAILY@12,18 PO 10/27/16 18:00 12/08/16 11:47 (Aristocort 0.1% Oint) 1 applic Q12HR TOPICAL 11/02/16 21:00 12/08/16 09:00 (Coumadin) 3 mg DAILY@1600 PO 12/01/16 16:00 12/07/16 16:22 (Lasix) 40 mg DAILY PO 12/08/16 09:00 12/08/16 09:20 A/P Problem List: (1) Dementia of Alzheimer's type with behavioral disturbance ICD Code: G30.8 Status: Acute (2) Diabetes mellitus type II, controlled, with no complications ICD Code: E11.9 Status: Chronic (3) Hypertension ICD Code: I10 Status: Chronic (4) GERD (gastroesophageal reflux disease) ICD Code: K21.9 Status: Chronic (5) Hyperlipidemia ICD Code: E78.5 Status: Chronic Assessment and Plan 81-year-old [place] male admitted to psychiatric unit with dementia. Hospitalist services reconsulted for concern for cellulitis in the right lower extremity. Dementia of Alzheimer's type with disturbance of behavior - Management per psychiatric team Bilateral lower extremity stasis R>L - Recently completed a course of clindamycin - white count normal - Wound cultures and Gram stain show heavy growth immature gram positive jr. D/C steroid. Start Mupirocin BID. - Bilateral lower extremity duplex scans negative for DVT - Continue Lasix at 40 mg by mouth QD. Check BMP in am to monitor electrolytes. Atrial Fibrillation, rate controlled Hypertension Hyperlipidemia Angina - On Imdur 60 mg daily, Cozaar 100 mg daily, Lasix 20 mg twice daily, Spironolactone 12.5 mg twice daily -on hold for episode of bradycardia - BP elevated, resume Cozaar - Continue pravastatin - INR 2.6, on Coumadin. Pharmacy to dose. Normochromic normocytic anemia - iron studies, B12, folate ordered - stool for hemoccult - Monitor DVT prophylaxis - Patient on Coumadin Discussed with nursing staff, patient and Dr. Sage Problem Qualifiers (1) Dementia of Alzheimer's type with behavioral disturbance: Qualified Code: G30.8 - Alzheimer's dementia with behavioral disturbance, unspecified timing of dementia onset (2) Diabetes mellitus type II, controlled, with no complications: Qualified Code: E11.9 - Controlled type 2 diabetes mellitus without complication, without long-term current use of insulin (3) Hypertension: Qualified Code: I10 - Essential hypertension (4) GERD (gastroesophageal reflux disease): Qualified Code: K21.9 - Gastroesophageal reflux disease, esophagitis presence not specified (5) Hyperlipidemia: Qualified Code: E78.5 - Hyperlipidemia, unspecified hyperlipidemia type Tish Hassan Dec 08, 2016 12:45
[2016-12-08] MEDS: MUPIROCIN 2% OINT 22 GM TUBE TOPICAL SCH ×2 (13:00→22:03)
[2016-12-08] MEDS: WARFARIN SOD 3 MG TAB PO SCH (15:48)
[2016-12-08 15:57] VITALS: BP 132/62; PULSE 54
[2016-12-08 18:00] VITALS: BP 152/67; PULSE 54; RESP 18; TEMP 99; O2SAT 98
[2016-12-08] MEDS: ACETAMINOPHEN 325 MG TAB PO PRN (22:03)
[2016-12-08] MEDS: traZODone HCL 50 MG TAB PO SCH (22:03)
[2016-12-09 01:00] VITALS: BP 157/72; PULSE 61; RESP 18; TEMP 97.6; O2SAT 95
[2016-12-09 06:00] VITALS: BP 166/74; PULSE 53; RESP 18; O2SAT 95
[2016-12-09] MEDS: INSULIN ASPART SUPPLEMENTAL SCALE SQ SCH ×4 (06:14→20:47)
[2016-12-09] MEDS: PRAVASTATIN SOD 40 MG TAB PO SCH (09:00)
[2016-12-09] MEDS: MUPIROCIN 2% OINT 22 GM TUBE TOPICAL SCH ×2 (09:00→20:55)
[2016-12-09] MEDS: FUROSEMIDE 40 MG TAB PO SCH (09:00)
[2016-12-09] MEDS: metFORMIN HCL 500 MG TAB PO SCH (09:00)
[2016-12-09] MEDS: LOSARTAN 50 MG TAB PO SCH (09:00)
[2016-12-09] MEDS: MULTIVITAMINS/MINERALS THERAPEUTIC TAB PO SCH (09:00)
[2016-12-09] MEDS: PANTOPRAZOLE SOD 20 MG DELAYED RELEASE TAB PO SCH (09:00)
[2016-12-09 09:09] LABS: INTERNATIONAL NORMALIZED RATIO 2.8 RATIO; PROTHROMBIN TIME - PATIENT 32.7 SEC (9.8-11.6)
[2016-12-09 09:56] LABS: BICARBONATE 32.2 MEQ/L (21.0-32.0)
[2016-12-09 10:11] LABS: FERRITIN 233 NG/ML (26-388); TRANSFERRIN IRON PROFILE 171 MG/DL (200-360)
[2016-12-09] MEDS: QUEtiapine FUMARATE 25 MG TAB PO SCH ×2 (12:00→16:49)
--- NOTE | 2016-12-09 12:15 | HHI.PYPN ---
Subjective Remarks Patient seen initially in dayroom with nurse Marilu, patient calm cooperative continues diffusely confused. However culture has returned from his right lower leg showing MRSA patient placed in isolation will await hospitalist recommendation for this gentleman compliant medications Review of Systems Except as stated in HPI: all other systems reviewed are Neg Objective Alert: Yes [place]: Person, Place Mood: Calm Affect: Euthymic Memory Intact: Comment (impaired) Hallucinations: Other (denies) Delusions: No Delusion Type: Other (none elicited) Suicidal: Ideation (none) Homicidal: Ideation (none) Insight/Judgment Very poor Labs Test 12/09/16 06:24 Prothrombin Time 32.7 SEC Prothromb Time International 2.8 RATIO Ratio Sodium Level 141 MEQ/L Potassium Level 4.0 MEQ/L Chloride Level 101 MEQ/L Carbon Dioxide Level 32.2 MEQ/L Anion Gap 8 MEQ/L Blood Urea Nitrogen 22 MG/DL Creatinine 1.17 MG/DL Estimat Glomerular Filtration 60 ML/MIN Rate Random Glucose 78 MG/DL Calcium Level 8.6 MG/DL Iron Level 53 MCG/DL Total Iron Binding Capacity 239 MCG/DL Percent Iron Saturation 22.1 % Ferritin 233 NG/ML Vitamin B12 Level 564 PG/ML Folate GREATER THAN 20.0 NG/ML Date/Time Procedure Status Source Growth 12/07/16 23:30 Gram Stain - Final Resulted Wound Leg 12/07/16 23:30 Wound Culture - Preliminary Resulted S. Aureus Mrsa Vitals/IOs Vital Signs Date Time Temp Pulse Resp B/P Pulse Ox O2 Delivery O2 Flow Rate FiO2 12/09/16 06:00 53 18 166/74 95 12/09/16 01:00 97.6 Intake and Output 12/08/16 12/08/16 12/09/16 08:00 16:00 00:00 Intake Total 0 ml 960 ml 1730 ml Output Total 3 ml Balance 0 ml 960 ml 1727 ml Assessment & Plan Problem List: (1) Dementia of Alzheimer's type with behavioral disturbance ICD Code: G30.8 Assessment & Plan Estimated LOS: days patient continues confused and demented, however now is cultured MRSA positive from his right lower leg swelling and drainage. Will defer to medicine for this patient placed in isolation Justification for Cont. Inpt. At this time patient will decompensate then placed in a lower level of care Discharge Planning To be determined Request HC Surrog/Guard Advoc?: Yes Problem Qualifiers (1) Dementia of Alzheimer's type with behavioral disturbance: Qualified Code: G30.8 - Alzheimer's dementia with behavioral disturbance, unspecified timing of dementia onset Kam Ferrer MD Dec 09, 2016 12:15
[2016-12-09] MEDS: WARFARIN SOD 2 MG TAB PO SCH (16:00)
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
[2016-12-09] MEDS: DOXYCYCLINE HYCLATE 100 MG CAP PO SCH (20:55)
[2016-12-09] MEDS: traZODone HCL 50 MG TAB PO SCH (20:55)
[2016-12-10 06:29] VITALS: BP 165/72; PULSE 75; RESP 18; TEMP 98.8; O2SAT 94
[2016-12-10] MEDS: INSULIN ASPART SUPPLEMENTAL SCALE SQ SCH ×4 (07:00→20:30)
[2016-12-10 08:59] LABS: INTERNATIONAL NORMALIZED RATIO 2.6 RATIO; PROTHROMBIN TIME - PATIENT 30.1 SEC (9.8-11.6)
[2016-12-10] MEDS: MUPIROCIN 2% OINT 22 GM TUBE TOPICAL SCH ×2 (09:00→20:27)
[2016-12-10] MEDS: FUROSEMIDE 40 MG TAB PO SCH (09:14)
[2016-12-10] MEDS: DOXYCYCLINE HYCLATE 100 MG CAP PO SCH ×2 (09:14→20:27)
[2016-12-10] MEDS: MULTIVITAMINS/MINERALS THERAPEUTIC TAB PO SCH (09:14)
[2016-12-10] MEDS: PANTOPRAZOLE SOD 20 MG DELAYED RELEASE TAB PO SCH (09:14)
[2016-12-10] MEDS: LOSARTAN 50 MG TAB PO SCH (09:14)
[2016-12-10] MEDS: PRAVASTATIN SOD 40 MG TAB PO SCH (09:14)
[2016-12-10] MEDS: amLODIPine BESYLATE 5 MG TAB PO SCH (09:15)
[2016-12-10] MEDS: metFORMIN HCL 500 MG TAB PO SCH (09:15)
[2016-12-10] MEDS: QUEtiapine FUMARATE 25 MG TAB PO SCH ×2 (11:10→17:57)
--- NOTE | 2016-12-10 11:22 | HHI.PYPN ---
Subjective Remarks Patient seen in his room with floor staff, patient coping with isolation related to his MRSA infection. Continues diffusely confused disoriented but pleasant, compliant medications Review of Systems Except as stated in HPI: all other systems reviewed are Neg Objective Alert: Yes [place]: Person, Place Mood: Calm Affect: Euthymic Memory Intact: Comment (impaired) Hallucinations: Other (denies) Delusions: No Delusion Type: Other (none elicited) Suicidal: Ideation (none) Homicidal: Ideation (none) Insight/Judgment Poor Labs Test 12/10/16 06:28 Prothrombin Time 30.1 SEC Prothromb Time International 2.6 RATIO Ratio Date/Time Procedure Status Source Growth 12/07/16 23:30 Gram Stain - Final Complete Wound Leg 12/07/16 23:30 Wound Culture - Final Complete S. Aureus Mrsa Vitals/IOs Vital Signs Date Time Temp Pulse Resp B/P Pulse Ox O2 Delivery O2 Flow Rate FiO2 12/10/16 06:29 98.8 75 18 165/72 94 Intake and Output 12/09/16 12/09/16 12/10/16 08:00 16:00 00:00 Intake Total 1200 ml 1800 ml Balance 1200 ml 1800 ml Assessment & Plan Problem List: (1) Dementia of Alzheimer's type with behavioral disturbance ICD Code: G30.8 Assessment & Plan Estimated LOS: days patient continues confused and demented the no behavior problems, coping with isolation related to his MRSA infection Justification for Cont. Inpt. At this time patient will decompensate if placed in a lower level of care Discharge Planning To be determined Request HC Surrog/Guard Advoc?: Yes Problem Qualifiers (1) Dementia of Alzheimer's type with behavioral disturbance: Qualified Code: G30.8 - Alzheimer's dementia with behavioral disturbance, unspecified timing of dementia onset Kam Ferrer MD Dec 10, 2016 11:22
[2016-12-10 13:00] VITALS: BP 125/58; PULSE 60; RESP 17; TEMP 97.6
[2016-12-10] MEDS: WARFARIN SOD 2 MG TAB PO SCH (16:26)
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
[2016-12-10 18:00] VITALS: BP 122/60; PULSE 57; RESP 17; TEMP 92.7; O2SAT 96
[2016-12-10] MEDS: traZODone HCL 50 MG TAB PO SCH (20:27)
[2016-12-10 21:26] LABS: HEMOGLOBIN A1a 1.2 %; HEMOGLOBIN A1b 0.9 %; HEMOGLOBIN Ao 83.4 %; HEMOGLOBIN F 1.5 %; HEMOGLOBIN P3 5.7 %
[2016-12-11] MEDS: INSULIN ASPART SUPPLEMENTAL SCALE SQ SCH ×4 (06:01→21:00)
[2016-12-11 06:06] VITALS: BP 132/57; PULSE 58; RESP 18; TEMP 98.5; O2SAT 98
[2016-12-11] MEDS: metFORMIN HCL 500 MG TAB PO SCH (09:59)
[2016-12-11] MEDS: amLODIPine BESYLATE 5 MG TAB PO SCH (09:59)
[2016-12-11] MEDS: LOSARTAN 50 MG TAB PO SCH (09:59)
[2016-12-11] MEDS: PRAVASTATIN SOD 40 MG TAB PO SCH (09:59)
[2016-12-11] MEDS: FUROSEMIDE 40 MG TAB PO SCH (09:59)
[2016-12-11] MEDS: DOXYCYCLINE HYCLATE 100 MG CAP PO SCH ×2 (09:59→21:36)
[2016-12-11] MEDS: MULTIVITAMINS/MINERALS THERAPEUTIC TAB PO SCH (09:59)
[2016-12-11] MEDS: PANTOPRAZOLE SOD 20 MG DELAYED RELEASE TAB PO SCH (09:59)
[2016-12-11] MEDS: MUPIROCIN 2% OINT 22 GM TUBE TOPICAL SCH ×2 (10:00→21:36)
--- NOTE | 2016-12-11 10:22 | HHI.PYPN ---
Subjective Remarks Patient seen in his room with medical student Samy, patient coping well with the isolation secondary to his MRSA infection. He continues calm pleasantly confused no behavioral issues. Compliant medication Review of Systems Except as stated in HPI: all other systems reviewed are Neg Objective Alert: Yes [place]: Person, Place Mood: Calm Affect: Euthymic Memory Intact: Comment (impaired) Hallucinations: Other (denies) Delusions: No Delusion Type: Other (none elicited) Suicidal: Ideation (none) Homicidal: Ideation (none) Insight/Judgment Very poor Labs Date/Time Procedure Status Source Growth 12/07/16 23:30 Gram Stain - Final Complete Wound Leg 12/07/16 23:30 Wound Culture - Final Complete S. Aureus Mrsa Vitals/IOs Vital Signs Date Time Temp Pulse Resp B/P Pulse Ox O2 Delivery O2 Flow Rate FiO2 12/11/16 06:06 98.5 58 18 132/57 98 Intake and Output 12/10/16 12/10/16 12/11/16 08:00 16:00 00:00 Intake Total 360 ml 360 ml 960 ml Balance 360 ml 360 ml 960 ml Assessment & Plan Problem List: (1) Dementia of Alzheimer's type with behavioral disturbance ICD Code: G30.8 Assessment & Plan Estimated LOS: days patient continues calm cooperative, pleasantly confused. Coping well with isolation secondary to MRSA Justification for Cont. Inpt. At this time patient will decompensate if placed in a lower level of care Discharge Planning To be determined Request HC Surrog/Guard Advoc?: Yes Problem Qualifiers (1) Dementia of Alzheimer's type with behavioral disturbance: Qualified Code: G30.8 - Alzheimer's dementia with behavioral disturbance, unspecified timing of dementia onset Kam Ferrer MD Dec 11, 2016 10:22
[2016-12-11 12:26] LABS: INTERNATIONAL NORMALIZED RATIO 2.2 RATIO; PROTHROMBIN TIME - PATIENT 25.2 SEC (9.8-11.6)
[2016-12-11] MEDS: QUEtiapine FUMARATE 25 MG TAB PO SCH ×2 (12:48→18:00)
[2016-12-11] MEDS: WARFARIN SOD 2 MG TAB PO SCH (16:57)
[2016-12-11 20:52] VITALS: BP 101/48; PULSE 64; RESP 20; TEMP 99.2; O2SAT 96
[2016-12-11] MEDS: traZODone HCL 50 MG TAB PO SCH (21:36)
[2016-12-12 04:43] VITALS: BP 139/66; PULSE 60; RESP 18; TEMP 97.9; O2SAT 95
[2016-12-12 06:10] VITALS: BP 139/66; PULSE 60; RESP 18; TEMP 97.9; O2SAT 95
[2016-12-12] MEDS: INSULIN ASPART SUPPLEMENTAL SCALE SQ SCH ×4 (06:26→20:51)
[2016-12-12] MEDS: CHLORHEXIDINE GLUCONATE 4% SOLN 120 ML BTL TOPICAL SCH (09:00)
[2016-12-12] MEDS: MUPIROCIN 2% OINT 22 GM TUBE TOPICAL SCH ×2 (09:00→22:44)
[2016-12-12] MEDS: DOXYCYCLINE HYCLATE 100 MG CAP PO SCH ×2 (09:31→22:44)
[2016-12-12] MEDS: FUROSEMIDE 40 MG TAB PO SCH (09:31)
[2016-12-12] MEDS: MULTIVITAMINS/MINERALS THERAPEUTIC TAB PO SCH (09:32)
[2016-12-12] MEDS: metFORMIN HCL 500 MG TAB PO SCH (09:32)
[2016-12-12] MEDS: amLODIPine BESYLATE 5 MG TAB PO SCH (09:32)
[2016-12-12] MEDS: PRAVASTATIN SOD 40 MG TAB PO SCH (09:32)
[2016-12-12] MEDS: PANTOPRAZOLE SOD 20 MG DELAYED RELEASE TAB PO SCH (09:32)
[2016-12-12] MEDS: LOSARTAN 50 MG TAB PO SCH (09:32)
[2016-12-12 11:27] LABS: HEMATOCRIT 27.8 % (39.0-51.0); MEAN CELL VOLUME 88.6 FL (80.0-100.0); MEAN CORPUSCULAR HGB CONC 32.8 % (32.0-36.0); PLATELET COUNT 277 TH/MM3 (150-450); RED BLOOD COUNT 3.13 MIL/MM3 (4.50-5.90); RED CELL DISTRIBUTION WIDTH 15.2 % (11.6-17.2); REVIEW FLAG FINAL; WHITE BLOOD COUNT 7.4 TH/MM3 (4.0-11.0)
[2016-12-12 11:35] LABS: INTERNATIONAL NORMALIZED RATIO 2.2 RATIO; PROTHROMBIN TIME - PATIENT 25.1 SEC (9.8-11.6)
[2016-12-12 11:46] LABS: BICARBONATE 27.6 MEQ/L (21.0-32.0); POTASSIUM 3.9 MEQ/L (3.5-5.1)
[2016-12-12] MEDS: QUEtiapine FUMARATE 25 MG TAB PO SCH ×2 (12:00→17:01)
--- NOTE | 2016-12-12 12:09 | HHI.PYPN ---
Subjective Remarks Patient seen in his room with nurse Della and medical student Samy. Patient is calm diffusely confused with no behavioral problems, coping well with the isolation related to MRSA. For now continue treatment Review of Systems Except as stated in HPI: all other systems reviewed are Neg Objective Alert: Yes [place]: Person, Place Mood: Calm Affect: Euthymic Memory Intact: Comment (impaired) Hallucinations: Other (denies) Delusions: No Delusion Type: Other (none elicited) Suicidal: Ideation (none) Homicidal: Ideation (none) Insight/Judgment Poor Labs Test 12/12/16 09:40 White Blood Count 7.4 TH/MM3 Red Blood Count 3.13 MIL/MM3 Hemoglobin 9.1 GM/DL Hematocrit 27.8 % Mean Corpuscular Volume 88.6 FL Mean Corpuscular Hemoglobin 29.0 PG Mean Corpuscular Hemoglobin 32.8 % Concent Red Cell Distribution Width 15.2 % Platelet Count 277 TH/MM3 Mean Platelet Volume 8.1 FL Prothrombin Time 25.1 SEC Prothromb Time International 2.2 RATIO Ratio Sodium Level 141 MEQ/L Potassium Level 3.9 MEQ/L Chloride Level 105 MEQ/L Carbon Dioxide Level 27.6 MEQ/L Anion Gap 8 MEQ/L Blood Urea Nitrogen 25 MG/DL Creatinine 1.12 MG/DL Estimat Glomerular Filtration 63 ML/MIN Rate Random Glucose 144 MG/DL Calcium Level 8.4 MG/DL Date/Time Procedure Status Source Growth 12/07/16 23:30 Gram Stain - Final Complete Wound Leg 12/07/16 23:30 Wound Culture - Final Complete S. Aureus Mrsa Vitals/IOs Vital Signs Date Time Temp Pulse Resp B/P Pulse Ox O2 Delivery O2 Flow Rate FiO2 12/12/16 06:10 97.9 60 18 139/66 95 Intake and Output 12/11/16 12/11/16 12/12/16 08:00 16:00 00:00 Intake Total 240 ml 360 ml 720 ml Balance 240 ml 360 ml 720 ml Assessment & Plan Problem List: (1) Dementia of Alzheimer's type with behavioral disturbance ICD Code: G30.8 Assessment & Plan Estimated LOS: days patient continues markedly diffusely confused, demented, compliant medications. Coping well with isolation secondary to his MRSA Justification for Cont. Inpt. At this time patient will decompensate if placed in the lower level of care Discharge Planning To be determined Request HC Surrog/Guard Advoc?: Yes Problem Qualifiers (1) Dementia of Alzheimer's type with behavioral disturbance: Qualified Code: G30.8 - Alzheimer's dementia with behavioral disturbance, unspecified timing of dementia onset Kam Ferrer MD Dec 12, 2016 12:09
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
[2016-12-12] MEDS: WARFARIN SOD 2 MG TAB PO SCH (16:00)
[2016-12-12 17:54] VITALS: BP 132/61; PULSE 52; RESP 16; TEMP 98.2; O2SAT 97
[2016-12-12] MEDS: traZODone HCL 50 MG TAB PO SCH (22:44)
[2016-12-13 05:57] VITALS: BP 155/69; PULSE 56; RESP 18; TEMP 97.7; O2SAT 96
[2016-12-13] MEDS: INSULIN ASPART SUPPLEMENTAL SCALE SQ SCH ×4 (06:14→20:15)
[2016-12-13] MEDS: PANTOPRAZOLE SOD 20 MG DELAYED RELEASE TAB PO SCH (09:00)
[2016-12-13] MEDS: CHLORHEXIDINE GLUCONATE 4% SOLN 120 ML BTL TOPICAL SCH (09:00)
[2016-12-13] MEDS: DOXYCYCLINE HYCLATE 100 MG CAP PO SCH ×2 (10:19→22:06)
[2016-12-13] MEDS: metFORMIN HCL 500 MG TAB PO SCH (10:20)
[2016-12-13] MEDS: MULTIVITAMINS/MINERALS THERAPEUTIC TAB PO SCH (10:20)
[2016-12-13] MEDS: LOSARTAN 50 MG TAB PO SCH (10:20)
[2016-12-13] MEDS: PRAVASTATIN SOD 40 MG TAB PO SCH (10:20)
[2016-12-13] MEDS: amLODIPine BESYLATE 5 MG TAB PO SCH (10:20)
[2016-12-13] MEDS: FUROSEMIDE 40 MG TAB PO SCH (10:20)
[2016-12-13] MEDS: MUPIROCIN 2% OINT 22 GM TUBE TOPICAL SCH ×2 (10:21→22:06)
--- NOTE | 2016-12-13 12:49 | HHI.PYPN ---
Subjective Remarks Patient was seen and case discussed with nursing. Patient is alert and oriented 2. Does not know the president or today's date. He remains in good spirits, joking throughout the interview. Was mildly confused earlier per nursing asking for breakfast 2 hours after he had it. Compliant with medications and tolerating it well Objective Alert: Yes [place]: Person, Place Mood: Calm Affect: Euthymic Memory Intact: Comment (impaired) Hallucinations: Other (denies) Delusions: No Delusion Type: Other (none elicited) Suicidal: Ideation (none) Homicidal: Ideation (none) Insight/Judgment Poor Vitals/IOs Vital Signs Date Time Temp Pulse Resp B/P Pulse Ox O2 Delivery O2 Flow Rate FiO2 12/13/16 05:57 97.7 56 18 155/69 96 Intake and Output 12/12/16 12/12/16 12/13/16 08:00 16:00 00:00 Intake Total 2160 ml 840 ml Balance 2160 ml 840 ml Assessment & Plan Problem List: (1) Dementia of Alzheimer's type with behavioral disturbance ICD Code: G30.8 Assessment & Plan Continue current treatment plan Justification for Cont. Inpt. Patient will decompensate in a less restrictive setting Request HC Surrog/Guard Advoc?: Yes Problem Qualifiers (1) Dementia of Alzheimer's type with behavioral disturbance: Qualified Code: G30.8 - Alzheimer's dementia with behavioral disturbance, unspecified timing of dementia onset Ayad Garcia DO Dec 13, 2016 12:49
[2016-12-13] MEDS: QUEtiapine FUMARATE 25 MG TAB PO SCH ×2 (13:06→17:18)
[2016-12-13] MEDS: WARFARIN SOD 2 MG TAB PO SCH (16:00)
[2016-12-13 18:30] VITALS: BP 134/58; PULSE 41; RESP 16; TEMP 97.1
[2016-12-13] MEDS: traZODone HCL 50 MG TAB PO SCH (22:06)
[2016-12-14 06:17] VITALS: BP 154/79; PULSE 54; RESP 16; TEMP 97.4; O2SAT 97
[2016-12-14] MEDS: INSULIN ASPART SUPPLEMENTAL SCALE SQ SCH ×4 (06:30→21:00)
[2016-12-14] MEDS: amLODIPine BESYLATE 5 MG TAB PO SCH (08:51)
[2016-12-14] MEDS: FUROSEMIDE 40 MG TAB PO SCH (08:51)
[2016-12-14] MEDS: metFORMIN HCL 500 MG TAB PO SCH (08:51)
[2016-12-14] MEDS: PANTOPRAZOLE SOD 20 MG DELAYED RELEASE TAB PO SCH (08:51)
[2016-12-14] MEDS: PRAVASTATIN SOD 40 MG TAB PO SCH (08:51)
[2016-12-14] MEDS: MULTIVITAMINS/MINERALS THERAPEUTIC TAB PO SCH (08:51)
[2016-12-14] MEDS: DOXYCYCLINE HYCLATE 100 MG CAP PO SCH ×2 (08:51→21:00)
[2016-12-14] MEDS: LOSARTAN 50 MG TAB PO SCH (08:51)
[2016-12-14] MEDS: MUPIROCIN 2% OINT 22 GM TUBE TOPICAL SCH ×2 (08:52→21:00)
[2016-12-14] MEDS: CHLORHEXIDINE GLUCONATE 4% SOLN 120 ML BTL TOPICAL SCH (08:52)
[2016-12-14 10:54] LABS: INTERNATIONAL NORMALIZED RATIO 1.7 RATIO; PROTHROMBIN TIME - PATIENT 19.4 SEC (9.8-11.6)
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
--- NOTE | 2016-12-14 12:52 | HHI.PYPN ---
Subjective Remarks Patient was seen and case discussed with nursing. Patient continues to be followed by the medical team for cellulitis. Patient is pleasant and cooperative with exam. Alert and oriented 2. Remains bright and cheerful. Compliant with his medications. No complaints today. Denies suicidal ideation intent or plan Objective Alert: Yes [place]: Person, Place Mood: Calm Affect: Euthymic Memory Intact: Comment (impaired) Hallucinations: Other (denies) Delusions: No Delusion Type: Other (none elicited) Suicidal: Ideation (none) Homicidal: Ideation (none) Insight/Judgment Fair Labs Test 12/14/16 10:13 Prothrombin Time 19.4 SEC Prothromb Time International 1.7 RATIO Ratio Vitals/IOs Vital Signs Date Time Temp Pulse Resp B/P Pulse Ox O2 Delivery O2 Flow Rate FiO2 12/14/16 06:17 97.4 54 16 154/79 97 Intake and Output 12/13/16 12/13/16 12/14/16 08:00 16:00 00:00 Intake Total 480 ml 960 ml Balance 480 ml 960 ml Assessment & Plan Problem List: (1) Dementia of Alzheimer's type with behavioral disturbance ICD Code: G30.8 Assessment & Plan Continue current treatment plan Justification for Cont. Inpt. Patient will decompensate in a less restrictive setting Request HC Surrog/Guard Advoc?: Yes Problem Qualifiers (1) Dementia of Alzheimer's type with behavioral disturbance: Qualified Code: G30.8 - Alzheimer's dementia with behavioral disturbance, unspecified timing of dementia onset Ayad Garcia DO Dec 14, 2016 12:52
[2016-12-14] MEDS: QUEtiapine FUMARATE 25 MG TAB PO SCH ×2 (13:38→17:19)
[2016-12-14] MEDS ORDERED: WARFARIN SOD 4 MG TAB PO ONE (16:00)
[2016-12-14 18:19] VITALS: BP 141/70; PULSE 60; RESP 17; TEMP 97.1; O2SAT 98
[2016-12-14] MEDS: traZODone HCL 50 MG TAB PO SCH (21:00)
[2016-12-14] MEDS: hydrOXYzine HCL 50 MG TAB PO PRN (22:00)
[2016-12-15 05:41] VITALS: BP 158/66; PULSE 60; RESP 18; TEMP 98; O2SAT 94
[2016-12-15] MEDS: INSULIN ASPART SUPPLEMENTAL SCALE SQ SCH ×4 (06:34→20:42)
[2016-12-15 08:25] LABS: INTERNATIONAL NORMALIZED RATIO 1.5 RATIO; PROTHROMBIN TIME - PATIENT 17.4 SEC (9.8-11.6)
--- NOTE | 2016-12-15 08:29 | HHI.PYPN ---
Subjective Remarks Patient seen in his room with nurse Divina, chart review, compliant medications. Patient coping well with isolation secondary to his MRSA infection. Medicine note noted and appreciated. Patient continues confused demented though coping well. For now continue treatment Review of Systems Except as stated in HPI: all other systems reviewed are Neg Objective Alert: Yes [place]: Person, Place Mood: Calm Affect: Euthymic Memory Intact: Comment (impaired) Hallucinations: Other (denies) Delusions: No Delusion Type: Other (none elicited) Suicidal: Ideation (none) Homicidal: Ideation (none) Insight/Judgment Very poor Labs Test 12/14/16 10:13 Prothrombin Time 19.4 SEC Prothromb Time International 1.7 RATIO Ratio Vitals/IOs Vital Signs Date Time Temp Pulse Resp B/P Pulse Ox O2 Delivery O2 Flow Rate FiO2 12/15/16 05:41 98.0 60 18 158/66 94 Intake and Output 12/14/16 12/14/16 12/15/16 08:00 16:00 00:00 Intake Total 0 ml 1800 ml Balance 0 ml 1800 ml Assessment & Plan Problem List: (1) Dementia of Alzheimer's type with behavioral disturbance ICD Code: G30.8 Assessment & Plan Estimated LOS: days patient continues on antibiotic for his MRSA, she is compliant with that and with his other medications. There are no behavior problems at this time. He remains confused and demented. For now continue treatment Justification for Cont. Inpt. This time patient will decompensate if placed in a lower level of care Discharge Planning To be determined Request HC Surrog/Guard Advoc?: Yes Problem Qualifiers (1) Dementia of Alzheimer's type with behavioral disturbance: Qualified Code: G30.8 - Alzheimer's dementia with behavioral disturbance, unspecified timing of dementia onset Kam Ferrer MD Dec 15, 2016 08:29
[2016-12-15] MEDS: CHLORHEXIDINE GLUCONATE 4% SOLN 120 ML BTL TOPICAL SCH (09:00)
[2016-12-15] MEDS: MULTIVITAMINS/MINERALS THERAPEUTIC TAB PO SCH (09:43)
[2016-12-15] MEDS: amLODIPine BESYLATE 5 MG TAB PO SCH (09:43)
[2016-12-15] MEDS: PANTOPRAZOLE SOD 20 MG DELAYED RELEASE TAB PO SCH (09:43)
[2016-12-15] MEDS: metFORMIN HCL 500 MG TAB PO SCH (09:43)
[2016-12-15] MEDS: DOXYCYCLINE HYCLATE 100 MG CAP PO SCH ×2 (09:43→20:45)
[2016-12-15] MEDS: FUROSEMIDE 40 MG TAB PO SCH (09:43)
[2016-12-15] MEDS: LOSARTAN 50 MG TAB PO SCH (09:43)
[2016-12-15] MEDS: PRAVASTATIN SOD 40 MG TAB PO SCH (09:44)
[2016-12-15] MEDS: QUEtiapine FUMARATE 25 MG TAB PO SCH ×2 (13:11→17:01)
[2016-12-15] MEDS ORDERED: WARFARIN SOD 2 MG TAB PO SCH (16:00)
[2016-12-15] MEDS: WARFARIN SOD 3 MG TAB PO SCH (17:01)
[2016-12-15] MEDS: MUPIROCIN 2% OINT 22 GM TUBE TOPICAL SCH ×2 (18:28→20:44)
[2016-12-15] MEDS: traZODone HCL 50 MG TAB PO SCH (20:44)
[2016-12-15 21:30] VITALS: BP 88/51; PULSE 60; RESP 14; O2SAT 97
[2016-12-16 05:49] VITALS: BP 151/67; PULSE 75; RESP 18; O2SAT 95
[2016-12-16] MEDS: INSULIN ASPART SUPPLEMENTAL SCALE SQ SCH ×4 (06:06→21:00)
[2016-12-16 07:05] LABS: INTERNATIONAL NORMALIZED RATIO 1.7 RATIO; PROTHROMBIN TIME - PATIENT 19.8 SEC (9.8-11.6)
--- NOTE | 2016-12-16 08:40 | HHI.PYPN ---
Subjective Remarks Patient seen in his room with nurse Divina and medical student Samy, patient compliant medications. Chart reviewed. Patient coping well with the isolation secondary to his MRSA infection. However we will order radioed to help entertain him somewhat also have activity staff supply him with that using's were games her other distractions Review of Systems Except as stated in HPI: all other systems reviewed are Neg Objective Alert: Yes [place]: Person, Place Mood: Calm Affect: Euthymic Memory Intact: Comment (impaired) Hallucinations: Other (denies) Delusions: No Delusion Type: Other (none elicited) Suicidal: Ideation (none) Homicidal: Ideation (none) Insight/Judgment Poor Labs Test 12/16/16 06:14 Prothrombin Time 19.8 SEC Prothromb Time International 1.7 RATIO Ratio Vitals/IOs Vital Signs Date Time Temp Pulse Resp B/P Pulse Ox O2 Delivery O2 Flow Rate FiO2 12/16/16 05:49 75 18 151/67 95 12/15/16 05:41 98.0 Intake and Output 12/15/16 12/15/16 12/16/16 08:00 16:00 00:00 Intake Total 480 ml 3120 ml Balance 480 ml 3120 ml Assessment & Plan Problem List: (1) Dementia of Alzheimer's type with behavioral disturbance ICD Code: G30.8 Assessment & Plan Estimated LOS: days patient continues to [place] confused the no behavior problems, coping well with the isolation. Will see if we can get him radio for some entertainment [employer] her word games Justification for Cont. Inpt. At this time patient will decompensate the placed in a lower level of care Discharge Planning To be determined Request HC Surrog/Guard Advoc?: Yes Problem Qualifiers (1) Dementia of Alzheimer's type with behavioral disturbance: Qualified Code: G30.8 - Alzheimer's dementia with behavioral disturbance, unspecified timing of dementia onset Kam Ferrer MD Dec 16, 2016 08:40
[2016-12-16] MEDS: CHLORHEXIDINE GLUCONATE 4% SOLN 120 ML BTL TOPICAL SCH (09:00)
[2016-12-16] MEDS: PRAVASTATIN SOD 40 MG TAB PO SCH (09:51)
[2016-12-16] MEDS: LOSARTAN 50 MG TAB PO SCH (09:51)
[2016-12-16] MEDS: PANTOPRAZOLE SOD 20 MG DELAYED RELEASE TAB PO SCH (09:51)
[2016-12-16] MEDS: metFORMIN HCL 500 MG TAB PO SCH (09:51)
[2016-12-16] MEDS: DOXYCYCLINE HYCLATE 100 MG CAP PO SCH ×2 (09:51→21:11)
[2016-12-16] MEDS: amLODIPine BESYLATE 5 MG TAB PO SCH (09:51)
[2016-12-16] MEDS: FUROSEMIDE 40 MG TAB PO SCH (09:52)
[2016-12-16] MEDS: MULTIVITAMINS/MINERALS THERAPEUTIC TAB PO SCH (09:52)
[2016-12-16] MEDS: MUPIROCIN 2% OINT 22 GM TUBE TOPICAL SCH ×2 (10:06→21:00)
[2016-12-16] MEDS: QUEtiapine FUMARATE 25 MG TAB PO SCH ×2 (13:44→18:00)
[2016-12-16] MEDS: WARFARIN SOD 3 MG TAB PO SCH (16:39)
[2016-12-16] MEDS: traZODone HCL 50 MG TAB PO SCH (21:11)
[2016-12-17 04:54] VITALS: BP 133/63; PULSE 51; RESP 17; TEMP 97.8; O2SAT 95
[2016-12-17] MEDS: INSULIN ASPART SUPPLEMENTAL SCALE SQ SCH (06:56)
[2016-12-17] MEDS: amLODIPine BESYLATE 5 MG TAB PO SCH (09:00)
[2016-12-17] MEDS: metFORMIN HCL 500 MG TAB PO SCH (09:00)
[2016-12-17] MEDS: LOSARTAN 50 MG TAB PO SCH (09:00)
[2016-12-17] MEDS: PRAVASTATIN SOD 40 MG TAB PO SCH (09:00)
[2016-12-17] MEDS: FUROSEMIDE 40 MG TAB PO SCH (09:00)
[2016-12-17] MEDS: CHLORHEXIDINE GLUCONATE 4% SOLN 120 ML BTL TOPICAL SCH (09:00)
[2016-12-17] MEDS: PANTOPRAZOLE SOD 20 MG DELAYED RELEASE TAB PO SCH (09:00)
[2016-12-17] MEDS: MULTIVITAMINS/MINERALS THERAPEUTIC TAB PO SCH (09:00)
[2016-12-17] MEDS: DOXYCYCLINE HYCLATE 100 MG CAP PO SCH ×2 (09:00→22:32)
[2016-12-17] MEDS: MUPIROCIN 2% OINT 22 GM TUBE TOPICAL SCH ×2 (09:00→22:32)
--- NOTE | 2016-12-17 10:23 | HHI.PYPN ---
Subjective Remarks Patient seen in his room, continues isolation related to his MRSA. Patient calm cooperative and pleasant related to this, continues pleasantly confused. For now continue treatment Review of Systems Except as stated in HPI: all other systems reviewed are Neg Objective Alert: Yes [place]: Person, Place Mood: Calm Affect: Euthymic Memory Intact: Comment (impaired) Hallucinations: Other (denies) Delusions: No Delusion Type: Other (none elicited) Suicidal: Ideation (none) Homicidal: Ideation (none) Insight/Judgment Very poor Vitals/IOs Vital Signs Date Time Temp Pulse Resp B/P Pulse Ox O2 Delivery O2 Flow Rate FiO2 12/17/16 04:54 97.8 51 17 133/63 95 Intake and Output 12/16/16 12/16/16 12/17/16 08:00 16:00 00:00 Intake Total 240 ml 1440 ml Balance 240 ml 1440 ml Assessment & Plan Problem List: (1) Dementia of Alzheimer's type with behavioral disturbance ICD Code: G30.8 Assessment & Plan Estimated LOS: days patient continues confused demented no behavioral problems , continues to cope well with MRSA isolation Justification for Cont. Inpt. At this time patient will decompensate placed in the lower level of care Discharge Planning To be determined Request HC Surrog/Guard Advoc?: Yes Problem Qualifiers (1) Dementia of Alzheimer's type with behavioral disturbance: Qualified Code: G30.8 - Alzheimer's dementia with behavioral disturbance, unspecified timing of dementia onset Kam Ferrer MD Dec 17, 2016 10:23
[2016-12-17] MEDS: hydrOXYzine HCL 50 MG TAB PO PRN (10:42)
[2016-12-17] MEDS: QUEtiapine FUMARATE 25 MG TAB PO SCH ×2 (12:00→18:00)
[2016-12-17] MEDS: WARFARIN SOD 3 MG TAB PO SCH (16:00)
[2016-12-17 18:00] VITALS: BP 150/65; PULSE 44; RESP 19; TEMP 97.5; O2SAT 92
[2016-12-17] MEDS: traZODone HCL 50 MG TAB PO SCH (22:32)
[2016-12-18 06:25] VITALS: BP 126/60; PULSE 69; RESP 18; TEMP 98; O2SAT 96
[2016-12-18] MEDS: MUPIROCIN 2% OINT 22 GM TUBE TOPICAL SCH ×2 (09:00→21:00)
[2016-12-18] MEDS: CHLORHEXIDINE GLUCONATE 4% SOLN 120 ML BTL TOPICAL SCH (09:00)
[2016-12-18] MEDS: DOXYCYCLINE HYCLATE 100 MG CAP PO SCH ×2 (09:13→21:46)
[2016-12-18] MEDS: metFORMIN HCL 500 MG TAB PO SCH (09:13)
[2016-12-18] MEDS: MULTIVITAMINS/MINERALS THERAPEUTIC TAB PO SCH (09:13)
[2016-12-18] MEDS: FUROSEMIDE 40 MG TAB PO SCH (09:14)
[2016-12-18] MEDS: LOSARTAN 50 MG TAB PO SCH (09:14)
[2016-12-18] MEDS: amLODIPine BESYLATE 5 MG TAB PO SCH (09:14)
[2016-12-18] MEDS: PRAVASTATIN SOD 40 MG TAB PO SCH (09:14)
[2016-12-18] MEDS: PANTOPRAZOLE SOD 20 MG DELAYED RELEASE TAB PO SCH (09:16)
[2016-12-18 09:25] LABS: INTERNATIONAL NORMALIZED RATIO 2.5 RATIO; PROTHROMBIN TIME - PATIENT 28.7 SEC (9.8-11.6)
--- NOTE | 2016-12-18 10:51 | HHI.PYPN ---
Subjective Remarks Patient seen in his room with nurse Gabe and medical student Samy, chart reviewed, patient compliant medications. She continues to cope well with isolation restrictions. However staff up notes it appears to be some bloodstains around his urethral meatus in his underwear. Patient is not complaining of anything. Will check UA with C&S if indicated. Otherwise continue treatment Review of Systems Except as stated in HPI: all other systems reviewed are Neg Objective Alert: Yes [place]: Person, Place Mood: Calm Affect: Euthymic Memory Intact: Comment (impaired) Hallucinations: Other (denies) Delusions: No Delusion Type: Other (none elicited) Suicidal: Ideation (none) Homicidal: Ideation (none) Insight/Judgment Poor Labs Test 12/18/16 08:49 Prothrombin Time 28.7 SEC Prothromb Time International 2.5 RATIO Ratio Vitals/IOs Vital Signs Date Time Temp Pulse Resp B/P Pulse Ox O2 Delivery O2 Flow Rate FiO2 12/18/16 06:25 98.0 69 18 126/60 96 Intake and Output 12/17/16 12/17/16 12/18/16 08:00 16:00 00:00 Intake Total 480 ml 840 ml Balance 480 ml 840 ml Assessment & Plan Problem List: (1) Dementia of Alzheimer's type with behavioral disturbance ICD Code: G30.8 Assessment & Plan Estimated LOS: days patient continues confused and demented, no behavioral problems. Staff has noted some blood stains in his underwear will recheck a urinalysis on him also Justification for Cont. Inpt. At this time patient will decompensate then placed in a lower level of care Discharge Planning To be determined Request HC Surrog/Guard Advoc?: Yes Problem Qualifiers (1) Dementia of Alzheimer's type with behavioral disturbance: Qualified Code: G30.8 - Alzheimer's dementia with behavioral disturbance, unspecified timing of dementia onset Kam Ferrer MD Dec 18, 2016 10:51
[2016-12-18] MEDS: QUEtiapine FUMARATE 25 MG TAB PO SCH ×2 (13:15→18:26)
[2016-12-18 13:16] VITALS: BP 102/65; PULSE 65; RESP 20; O2SAT 95
[2016-12-18] MEDS ORDERED: WARFARIN SOD 3 MG TAB PO SCH (16:00)
[2016-12-18 16:22] LABS: BLOOD, URINE NEG (NEG); COMMENT (UR) CULT NOT INDICATED; CULTURE IF INDICATED CULT NOT INDICATED; GLUCOSE,URINE NEG (NEG); HYALINE CAST, URINE 5 /lpf (RARE); KETONE, URINE NEG (NEG); MUCUS URINE FEW /lpf (OCC); NITRITE,URINE NEG (NEG); URINE COLOR YELLOW (YELLW/STRAW)
[2016-12-18 19:36] VITALS: BP 123/63; PULSE 54; RESP 19; TEMP 97.9; O2SAT 99
[2016-12-18] MEDS: traZODone HCL 50 MG TAB PO SCH (21:00)
[2016-12-19 04:00] VITALS: BP 172/72; PULSE 55; RESP 18; TEMP 98.7; O2SAT 96
[2016-12-19] MEDS: LOSARTAN 50 MG TAB PO SCH (08:36)
[2016-12-19] MEDS: metFORMIN HCL 500 MG TAB PO SCH (08:36)
[2016-12-19] MEDS: amLODIPine BESYLATE 5 MG TAB PO SCH (08:37)
[2016-12-19] MEDS: PANTOPRAZOLE SOD 20 MG DELAYED RELEASE TAB PO SCH (08:37)
[2016-12-19] MEDS: CHLORHEXIDINE GLUCONATE 4% SOLN 120 ML BTL TOPICAL SCH (08:37)
[2016-12-19] MEDS: FUROSEMIDE 40 MG TAB PO SCH (08:37)
[2016-12-19] MEDS: MUPIROCIN 2% OINT 22 GM TUBE TOPICAL SCH ×2 (08:37→21:40)
[2016-12-19] MEDS: DOXYCYCLINE HYCLATE 100 MG CAP PO SCH (08:37)
[2016-12-19] MEDS: MULTIVITAMINS/MINERALS THERAPEUTIC TAB PO SCH (08:37)
[2016-12-19] MEDS: PRAVASTATIN SOD 40 MG TAB PO SCH (08:37)
[2016-12-19] MEDS: QUEtiapine FUMARATE 25 MG TAB PO SCH ×2 (11:10→16:43)
[2016-12-19] MEDS ORDERED: WARFARIN SOD 3 MG TAB PO ONE (16:00)
--- NOTE | 2016-12-19 16:01 | HHI.PYPN ---
Subjective Remarks Patient seen in his room with nurse Isatu, chart review, patient compliant medications. Patient continues to cope with the isolation due to his MRSA infection. Continues confused disoriented to the no behavioral issues Review of Systems Except as stated in HPI: all other systems reviewed are Neg Objective Alert: Yes [place]: Person, Place Mood: Calm Affect: Euthymic Memory Intact: Comment (impaired) Hallucinations: Other (denies) Delusions: No Delusion Type: Other (none elicited) Suicidal: Ideation (none) Homicidal: Ideation (none) Insight/Judgment Very poor Vitals/IOs Vital Signs Date Time Temp Pulse Resp B/P Pulse Ox O2 Delivery O2 Flow Rate FiO2 12/19/16 04:00 98.7 55 18 172/72 96 Intake and Output 12/18/16 12/18/16 12/19/16 08:00 16:00 00:00 Intake Total 720 ml 720 ml Balance 720 ml 720 ml Assessment & Plan Problem List: (1) Dementia of Alzheimer's type with behavioral disturbance ICD Code: G30.8 Assessment & Plan Estimated LOS: days patient continues demented and confused, though no behavior problems. Compliant medication. Justification for Cont. Inpt. At this time patient will decompensate the placed in a lower level of care Discharge Planning To be determined Request HC Surrog/Guard Advoc?: Yes Problem Qualifiers (1) Dementia of Alzheimer's type with behavioral disturbance: Qualified Code: G30.8 - Alzheimer's dementia with behavioral disturbance, unspecified timing of dementia onset Kam Ferrer MD Dec 19, 2016 16:01
[2016-12-19 16:28] VITALS: BP 113/55; PULSE 42; RESP 18; TEMP 97.4; O2SAT 96
[2016-12-19] MEDS: traZODone HCL 50 MG TAB PO SCH (21:41)
[2016-12-20 04:00] VITALS: BP 136/80; PULSE 69; RESP 18; TEMP 98.9; O2SAT 93
[2016-12-20 08:17] LABS: INTERNATIONAL NORMALIZED RATIO 2.6 RATIO; PROTHROMBIN TIME - PATIENT 30.5 SEC (9.8-11.6)
[2016-12-20] MEDS: metFORMIN HCL 500 MG TAB PO SCH (08:59)
[2016-12-20] MEDS: FUROSEMIDE 40 MG TAB PO SCH (08:59)
[2016-12-20] MEDS: amLODIPine BESYLATE 5 MG TAB PO SCH (08:59)
[2016-12-20] MEDS: PRAVASTATIN SOD 40 MG TAB PO SCH (08:59)
[2016-12-20] MEDS: CHLORHEXIDINE GLUCONATE 4% SOLN 120 ML BTL TOPICAL SCH (09:00)
[2016-12-20] MEDS: MUPIROCIN 2% OINT 22 GM TUBE TOPICAL SCH ×2 (09:00→21:38)
[2016-12-20] MEDS: MULTIVITAMINS/MINERALS THERAPEUTIC TAB PO SCH (09:00)
[2016-12-20] MEDS: LOSARTAN 50 MG TAB PO SCH (09:00)
[2016-12-20] MEDS: PANTOPRAZOLE SOD 20 MG DELAYED RELEASE TAB PO SCH (09:00)
[2016-12-20] MEDS: QUEtiapine FUMARATE 25 MG TAB PO SCH ×2 (11:55→16:50)
[2016-12-20] MEDS ORDERED: WARFARIN SOD 2 MG TAB PO ONE (16:00)
--- NOTE | 2016-12-20 16:51 | HHI.PYPN ---
Subjective Remarks Pt seen and discussed with staff. He has been calm and cooperative with care. No behavioral problems or disturbances on unit. No SI/HI. Objective Alert: Yes [place]: Person, Place Mood: Calm Affect: Euthymic Memory Intact: Comment (impaired) Hallucinations: Other (denies) Delusions: No Delusion Type: Other (none elicited) Suicidal: Ideation (none) Homicidal: Ideation (none) Insight/Judgment poor Labs Test 12/20/16 06:16 Prothrombin Time 30.5 SEC Prothromb Time International 2.6 RATIO Ratio Vitals/IOs Vital Signs Date Time Temp Pulse Resp B/P Pulse Ox O2 Delivery O2 Flow Rate FiO2 12/20/16 04:00 98.9 69 18 136/80 93 Intake and Output 12/19/16 12/19/16 12/20/16 08:00 16:00 00:00 Intake Total 480 ml 240 ml 360 ml Balance 480 ml 240 ml 360 ml Assessment & Plan Problem List: (1) Dementia of Alzheimer's type with behavioral disturbance ICD Code: G30.8 Assessment & Plan Continue current tx plan. Estimated LOS: days Justification for Cont. Inpt. risk of decompensation Request HC Surrog/Guard Advoc?: Yes Problem Qualifiers (1) Dementia of Alzheimer's type with behavioral disturbance: Qualified Code: G30.8 - Alzheimer's dementia with behavioral disturbance, unspecified timing of dementia onset Onelia Vergara MD Dec 20, 2016 16:51
[2016-12-20 18:00] VITALS: BP 131/61; PULSE 64; RESP 18; TEMP 98.2; O2SAT 98
[2016-12-20] MEDS: traZODone HCL 50 MG TAB PO SCH (21:38)
[2016-12-21 06:07] VITALS: BP 176/76; PULSE 54; RESP 18; TEMP 98.3
[2016-12-21] MEDS: CHLORHEXIDINE GLUCONATE 4% SOLN 120 ML BTL TOPICAL SCH (09:00)
[2016-12-21] MEDS: MUPIROCIN 2% OINT 22 GM TUBE TOPICAL SCH ×2 (09:00→21:00)
[2016-12-21] MEDS: PANTOPRAZOLE SOD 20 MG DELAYED RELEASE TAB PO SCH (09:34)
[2016-12-21] MEDS: MULTIVITAMINS/MINERALS THERAPEUTIC TAB PO SCH (09:34)
[2016-12-21] MEDS: PRAVASTATIN SOD 40 MG TAB PO SCH (09:34)
[2016-12-21] MEDS: FUROSEMIDE 40 MG TAB PO SCH (09:34)
[2016-12-21] MEDS: LOSARTAN 50 MG TAB PO SCH (09:34)
[2016-12-21] MEDS: amLODIPine BESYLATE 5 MG TAB PO SCH (09:34)
[2016-12-21] MEDS: metFORMIN HCL 500 MG TAB PO SCH (09:35)
[2016-12-21] MEDS: QUEtiapine FUMARATE 25 MG TAB PO SCH ×2 (11:34→18:00)
--- NOTE | 2016-12-21 14:19 | HHI.PYPN ---
Subjective Remarks Pt seen and discussed with staff. He has been calm and cooperative. No behavioral disturbances. Compliant with medications. No SI/HI Objective Alert: Yes [place]: Person, Place Mood: Calm Affect: Euthymic Memory Intact: Comment (impaired) Hallucinations: Other (denies) Delusions: No Delusion Type: Other (none elicited) Suicidal: Ideation (none) Homicidal: Ideation (none) Insight/Judgment poor Vitals/IOs Vital Signs Date Time Temp Pulse Resp B/P Pulse Ox O2 Delivery O2 Flow Rate FiO2 12/21/16 06:07 98.3 54 18 176/76 12/20/16 18:00 98 Intake and Output 12/20/16 12/20/16 12/21/16 08:00 16:00 00:00 Intake Total 700 ml 600 ml Balance 700 ml 600 ml Assessment & Plan Problem List: (1) Dementia of Alzheimer's type with behavioral disturbance ICD Code: G30.8 Assessment & Plan Continue current tx plan. Estimated LOS: days Justification for Cont. Inpt. risk of decompensation Request HC Surrog/Guard Advoc?: Yes Problem Qualifiers (1) Dementia of Alzheimer's type with behavioral disturbance: Qualified Code: G30.8 - Alzheimer's dementia with behavioral disturbance, unspecified timing of dementia onset Onelia Vergara MD Dec 21, 2016 14:19
[2016-12-21] MEDS ORDERED: WARFARIN SOD 3 MG TAB PO ONE (16:00)
[2016-12-21] MEDS: traZODone HCL 50 MG TAB PO SCH (21:02)
[2016-12-21 21:37] LABS: INTERNATIONAL NORMALIZED RATIO 2.3 RATIO; PROTHROMBIN TIME - PATIENT 26.5 SEC (9.8-11.6)
[2016-12-22 06:26] VITALS: BP 185/77; PULSE 67; RESP 18; TEMP 97.6; O2SAT 95
[2016-12-22] MEDS: PRAVASTATIN SOD 40 MG TAB PO SCH (08:27)
[2016-12-22] MEDS: amLODIPine BESYLATE 5 MG TAB PO SCH (08:27)
[2016-12-22] MEDS: PANTOPRAZOLE SOD 20 MG DELAYED RELEASE TAB PO SCH (08:27)
[2016-12-22] MEDS: LOSARTAN 50 MG TAB PO SCH (08:27)
[2016-12-22] MEDS: CHLORHEXIDINE GLUCONATE 4% SOLN 120 ML BTL TOPICAL SCH (08:27)
[2016-12-22] MEDS: MULTIVITAMINS/MINERALS THERAPEUTIC TAB PO SCH (08:27)
[2016-12-22] MEDS: FUROSEMIDE 40 MG TAB PO SCH (08:27)
[2016-12-22] MEDS: MUPIROCIN 2% OINT 22 GM TUBE TOPICAL SCH ×2 (08:27→21:14)
[2016-12-22] MEDS: metFORMIN HCL 500 MG TAB PO SCH (08:27)
[2016-12-22] MEDS: QUEtiapine FUMARATE 25 MG TAB PO SCH ×2 (11:43→17:46)
--- NOTE | 2016-12-22 12:24 | PD.TTN ---
Present for Treatment Team Treatment Team Staff: Provider (Dr. Ferrer), Psych Therapist (NIRMAL Couch), Ancillary Staff (Rec. Jean-Pierre Calderon) Patient Problems 1. Discharge planning 2. Medication compliance 3. Knowledge deficit 4. Lack of coping skills Progress Toward Goals Provider Input: Dr. Ferrer reported there is no change in patient's mental status. Placement remains an issue due to patient's previous behaviors. Psych Therapist Input: Counselor reproted the patient remains compliant with medications, calm, cooperative, and in good behavioral control. Patient enjoys whislting at female staff when they walk by his door. Counselor received a Letter of Determination from [facility] stating the patient does ot require the services of a long-term facility. Counselor reported I will send patient's packet to [facility] in an effort to secure placement. Ancillary Staff Input: Yumiko reported the patient is selectively participating in recreational therapy groups. Documentation Scribe: NIRMAL Couch Date Resolved: Dec 22, 2016 Shila Avila Dec 22, 2016 12:24
--- NOTE | 2016-12-22 14:10 | HHI.PYPN ---
Subjective Remarks Patient discussed with treatment team, patient seen in [place] with nurse a she patient continues diffusely confused but quite pleasant and friendly. Continues to cope with isolation. Into his legs and slowly drying though still showing some blister formation and weeping. For now continue treatment Review of Systems Except as stated in HPI: all other systems reviewed are Neg Objective Alert: Yes [place]: Person, Place Mood: Calm Affect: Euthymic Memory Intact: Comment (impaired) Hallucinations: Other (denies) Delusions: No Delusion Type: Other (none elicited) Suicidal: Ideation (none) Homicidal: Ideation (none) Insight/Judgment Very poor Labs Test 12/21/16 20:59 Prothrombin Time 26.5 SEC Prothromb Time International 2.3 RATIO Ratio Vitals/IOs Vital Signs Date Time Temp Pulse Resp B/P Pulse Ox O2 Delivery O2 Flow Rate FiO2 12/22/16 06:26 97.6 67 18 185/77 95 Intake and Output 12/21/16 12/21/16 12/22/16 08:00 16:00 00:00 Intake Total 960 ml 240 ml Balance 960 ml 240 ml Assessment & Plan Problem List: (1) Dementia of Alzheimer's type with behavioral disturbance ICD Code: G30.8 Assessment & Plan Estimated LOS: days patient continues demented confused though no behavior problems, coping well with isolation secondary to his MRSA Justification for Cont. Inpt. At this time patient will decompensate if placed in a lower level of care Discharge Planning To be determined Request HC Surrog/Guard Advoc?: Yes Problem Qualifiers (1) Dementia of Alzheimer's type with behavioral disturbance: Qualified Code: G30.8 - Alzheimer's dementia with behavioral disturbance, unspecified timing of dementia onset Kam Ferrer MD Dec 22, 2016 14:10
[2016-12-22 20:00] VITALS: BP 145/66; PULSE 50; RESP 16; TEMP 97.4; O2SAT 96
[2016-12-22] MEDS: traZODone HCL 50 MG TAB PO SCH (21:14)
[2016-12-23 01:02] VITALS: BP 138/63; PULSE 42; RESP 20; TEMP 98.1; O2SAT 98
[2016-12-23 06:00] VITALS: BP 154/66; PULSE 59; RESP 18; TEMP 98.2; O2SAT 96
[2016-12-23 08:49] LABS: INTERNATIONAL NORMALIZED RATIO 1.9 RATIO; PROTHROMBIN TIME - PATIENT 21.7 SEC (9.8-11.6)
[2016-12-23] MEDS: CHLORHEXIDINE GLUCONATE 4% SOLN 120 ML BTL TOPICAL SCH (09:00)
[2016-12-23] MEDS: MUPIROCIN 2% OINT 22 GM TUBE TOPICAL SCH ×2 (09:00→22:30)
[2016-12-23] MEDS: PANTOPRAZOLE SOD 20 MG DELAYED RELEASE TAB PO SCH (09:06)
[2016-12-23] MEDS: MULTIVITAMINS/MINERALS THERAPEUTIC TAB PO SCH (09:06)
[2016-12-23] MEDS: PRAVASTATIN SOD 40 MG TAB PO SCH (09:06)
[2016-12-23] MEDS: metFORMIN HCL 500 MG TAB PO SCH (09:06)
[2016-12-23] MEDS: FUROSEMIDE 40 MG TAB PO SCH (09:06)
[2016-12-23] MEDS: amLODIPine BESYLATE 5 MG TAB PO SCH (09:06)
[2016-12-23] MEDS: LOSARTAN 50 MG TAB PO SCH (09:06)
--- NOTE | 2016-12-23 11:31 | HHI.PYPN ---
Subjective Remarks Patient seen in his room with nurse Bertha. Chart reviewed, patient compliant medication Patient sitting in chair watching movement in the hallway, continues to cooperate with the isolation procedures. He continues to be confused and demented but is been no behavioral problem Review of Systems Except as stated in HPI: all other systems reviewed are Neg Objective Alert: Yes [place]: Person, Place Mood: Calm Affect: Euthymic Memory Intact: Comment (impaired) Hallucinations: Other (denies) Delusions: No Delusion Type: Other (none elicited) Suicidal: Ideation (none) Homicidal: Ideation (none) Insight/Judgment Poor Labs Test 12/23/16 08:16 Prothrombin Time 21.7 SEC Prothromb Time International 1.9 RATIO Ratio Vitals/IOs Vital Signs Date Time Temp Pulse Resp B/P Pulse Ox O2 Delivery O2 Flow Rate FiO2 12/23/16 06:00 98.2 59 18 154/66 96 Intake and Output 12/22/16 12/22/16 12/23/16 08:00 16:00 00:00 Intake Total 360 ml 1440 ml 870 ml Balance 360 ml 1440 ml 870 ml Assessment & Plan Problem List: (1) Dementia of Alzheimer's type with behavioral disturbance ICD Code: G30.8 Assessment & Plan Estimated LOS: days patient refused mental confused and the behavioral problem. Coping with isolation secondary to MRSA Justification for Cont. Inpt. This time patient will decompensate and placed on lower level of care Discharge Planning To be determined Request HC Surrog/Guard Advoc?: Yes Problem Qualifiers (1) Dementia of Alzheimer's type with behavioral disturbance: Qualified Code: G30.8 - Alzheimer's dementia with behavioral disturbance, unspecified timing of dementia onset Kam Ferrer MD Dec 23, 2016 11:31
[2016-12-23] MEDS: QUEtiapine FUMARATE 25 MG TAB PO SCH ×2 (12:00→18:00)
[2016-12-23 16:08] VITALS: BP 119/59; PULSE 46; RESP 18; TEMP 97.5; O2SAT 95
[2016-12-23] MEDS: WARFARIN SOD 3 MG TAB PO SCH (16:46)
[2016-12-23] MEDS: traZODone HCL 50 MG TAB PO SCH (22:30)
[2016-12-24 01:00] VITALS: BP 161/69; PULSE 51; RESP 16; TEMP 97.1
[2016-12-24 06:59] VITALS: BP 152/65; PULSE 62; RESP 16; TEMP 97.3; O2SAT 95
[2016-12-24] MEDS: CHLORHEXIDINE GLUCONATE 4% SOLN 120 ML BTL TOPICAL SCH (09:00)
[2016-12-24] MEDS: MUPIROCIN 2% OINT 22 GM TUBE TOPICAL SCH ×2 (09:00→20:49)
[2016-12-24] MEDS: PANTOPRAZOLE SOD 20 MG DELAYED RELEASE TAB PO SCH (09:10)
[2016-12-24] MEDS: FUROSEMIDE 40 MG TAB PO SCH (09:10)
[2016-12-24] MEDS: PRAVASTATIN SOD 40 MG TAB PO SCH (09:11)
[2016-12-24] MEDS: MULTIVITAMINS/MINERALS THERAPEUTIC TAB PO SCH (09:11)
[2016-12-24] MEDS: LOSARTAN 50 MG TAB PO SCH (09:11)
[2016-12-24] MEDS: amLODIPine BESYLATE 5 MG TAB PO SCH (09:11)
[2016-12-24] MEDS: metFORMIN HCL 500 MG TAB PO SCH (09:11)
[2016-12-24] MEDS: QUEtiapine FUMARATE 25 MG TAB PO SCH ×2 (12:00→17:30)
--- NOTE | 2016-12-24 14:53 | HHI.PYPN ---
Subjective Remarks Patient seen with nurse Noni, chart review, patient compliant medications. Patient continues to cope well with the isolation protocols. Review of Systems Except as stated in HPI: all other systems reviewed are Neg Objective Alert: Yes [place]: Person, Place Mood: Calm Affect: Euthymic Memory Intact: Comment (impaired) Hallucinations: Other (denies) Delusions: No Delusion Type: Other (none elicited) Suicidal: Ideation (none) Homicidal: Ideation (none) Insight/Judgment Very poor Vitals/IOs Vital Signs Date Time Temp Pulse Resp B/P Pulse Ox O2 Delivery O2 Flow Rate FiO2 12/24/16 06:59 97.3 62 16 152/65 95 Intake and Output 12/23/16 12/23/16 12/24/16 08:00 16:00 00:00 Intake Total 480 ml 2430 ml Balance 480 ml 2430 ml Assessment & Plan Problem List: (1) Dementia of Alzheimer's type with behavioral disturbance ICD Code: G30.8 Assessment & Plan Estimated LOS: days patient has confusion dimension, the no behavioral problems , continue to keep isolated to his MRSA Justification for Cont. Inpt. At this time he would decompensate if place a lower level of care Discharge Planning To be determined Request HC Surrog/Guard Advoc?: Yes Problem Qualifiers (1) Dementia of Alzheimer's type with behavioral disturbance: Qualified Code: G30.8 - Alzheimer's dementia with behavioral disturbance, unspecified timing of dementia onset Kam Ferrer MD Dec 24, 2016 14:53
[2016-12-24] MEDS: WARFARIN SOD 3 MG TAB PO SCH (16:00)
[2016-12-24] MEDS ORDERED: WARFARIN SOD 2 MG TAB PO ONE (16:00)
[2016-12-24 18:00] VITALS: BP 119/57; PULSE 51; RESP 16; TEMP 97.1; O2SAT 98
[2016-12-24] MEDS: traZODone HCL 50 MG TAB PO SCH (20:49)
[2016-12-25 06:14] VITALS: BP 149/63; PULSE 49; RESP 17; TEMP 97.2; O2SAT 98
[2016-12-25] MEDS: CHLORHEXIDINE GLUCONATE 4% SOLN 120 ML BTL TOPICAL SCH (09:00)
[2016-12-25] MEDS: MUPIROCIN 2% OINT 22 GM TUBE TOPICAL SCH ×2 (09:00→20:31)
[2016-12-25] MEDS: metFORMIN HCL 500 MG TAB PO SCH (09:33)
[2016-12-25] MEDS: LOSARTAN 50 MG TAB PO SCH (09:33)
[2016-12-25] MEDS: PANTOPRAZOLE SOD 20 MG DELAYED RELEASE TAB PO SCH (09:33)
[2016-12-25] MEDS: FUROSEMIDE 40 MG TAB PO SCH (09:33)
[2016-12-25] MEDS: MULTIVITAMINS/MINERALS THERAPEUTIC TAB PO SCH (09:33)
[2016-12-25] MEDS: amLODIPine BESYLATE 5 MG TAB PO SCH (09:33)
[2016-12-25] MEDS: PRAVASTATIN SOD 40 MG TAB PO SCH (09:33)
--- NOTE | 2016-12-25 10:37 | HHI.PYPN ---
Subjective Remarks Patient seen in dayroom with floor staff, chart reviewed. Patient continues calm pleasant, pleasantly confused patient's MRSA with wounds are drying up at this time patient has been placed on modified isolation so he can be out in the milieu. Review of Systems Except as stated in HPI: all other systems reviewed are Neg Objective Alert: Yes [place]: Person, Place Mood: Calm Affect: Euthymic Memory Intact: Comment (impaired) Hallucinations: Other (denies) Delusions: No Delusion Type: Other (none elicited) Suicidal: Ideation (none) Homicidal: Ideation (none) Insight/Judgment Very poor Vitals/IOs Vital Signs Date Time Temp Pulse Resp B/P Pulse Ox O2 Delivery O2 Flow Rate FiO2 12/25/16 06:14 97.2 49 17 149/63 98 Intake and Output 12/24/16 12/24/16 12/25/16 08:00 16:00 00:00 Intake Total 1420 ml 960 ml Balance 1420 ml 960 ml Assessment & Plan Problem List: (1) Dementia of Alzheimer's type with behavioral disturbance ICD Code: G30.8 Assessment & Plan Estimated LOS: days patient continues dementia confused though pleasant in no behavioral problems, is now placed on modified isolation psychic ability" in the [facility] Justification for Cont. Inpt. At this time he would decompensate placed in a lower level of care Discharge Planning To be determined Request HC Surrog/Guard Advoc?: Yes Problem Qualifiers (1) Dementia of Alzheimer's type with behavioral disturbance: Qualified Code: G30.8 - Alzheimer's dementia with behavioral disturbance, unspecified timing of dementia onset Kam Ferrer MD Dec 25, 2016 10:37
[2016-12-25 12:25] LABS: INTERNATIONAL NORMALIZED RATIO 1.7 RATIO; PROTHROMBIN TIME - PATIENT 19.8 SEC (9.8-11.6)
[2016-12-25] MEDS: QUEtiapine FUMARATE 25 MG TAB PO SCH ×2 (12:31→17:27)
[2016-12-25] MEDS ORDERED: WARFARIN SOD 2 MG TAB PO ONE (16:00)
[2016-12-25] MEDS: WARFARIN SOD 3 MG TAB PO SCH (17:27)
[2016-12-25 18:00] VITALS: BP 141/63; PULSE 61; RESP 17; TEMP 97.3; O2SAT 98
[2016-12-25] MEDS: traZODone HCL 50 MG TAB PO SCH (20:31)
[2016-12-26 06:00] VITALS: BP 152/67; PULSE 55; RESP 18; TEMP 97.9
[2016-12-26] MEDS: PRAVASTATIN SOD 40 MG TAB PO SCH (09:00)
[2016-12-26] MEDS: MUPIROCIN 2% OINT 22 GM TUBE TOPICAL SCH ×2 (09:00→20:47)
[2016-12-26 09:36] LABS: INTERNATIONAL NORMALIZED RATIO 2.2 RATIO; PROTHROMBIN TIME - PATIENT 25.3 SEC (9.8-11.6)
[2016-12-26] MEDS: metFORMIN HCL 500 MG TAB PO SCH (09:37)
[2016-12-26] MEDS: MULTIVITAMINS/MINERALS THERAPEUTIC TAB PO SCH (09:37)
[2016-12-26] MEDS: LOSARTAN 50 MG TAB PO SCH (09:37)
[2016-12-26] MEDS: FUROSEMIDE 40 MG TAB PO SCH (09:38)
[2016-12-26] MEDS: PANTOPRAZOLE SOD 20 MG DELAYED RELEASE TAB PO SCH (09:38)
[2016-12-26] MEDS: amLODIPine BESYLATE 5 MG TAB PO SCH (09:38)
[2016-12-26] MEDS: QUEtiapine FUMARATE 25 MG TAB PO SCH ×2 (12:14→17:33)
--- NOTE | 2016-12-26 15:21 | HHI.PYPN ---
Subjective Remarks Patient seen in his room with nurse Will, patient continues to cope well with restrictions related to his MRSA. Patient continues diffusely disoriented and confused, the continues at times some mildly inappropriate sexual statements and behavior though easily redirected Review of Systems Except as stated in HPI: all other systems reviewed are Neg Objective Alert: Yes [place]: Person, Place Mood: Calm Affect: Euthymic Memory Intact: Comment (impaired) Hallucinations: Other (denies) Delusions: No Delusion Type: Other (none elicited) Suicidal: Ideation (none) Homicidal: Ideation (none) Insight/Judgment Very poor Labs Test 12/26/16 08:49 Prothrombin Time 25.3 SEC Prothromb Time International 2.2 RATIO Ratio Vitals/IOs Vital Signs Date Time Temp Pulse Resp B/P Pulse Ox O2 Delivery O2 Flow Rate FiO2 12/26/16 06:00 97.9 55 18 152/67 12/25/16 18:00 98 Intake and Output 12/25/16 12/25/16 12/25/16 07:59 15:59 23:59 Intake Total 0 ml 1920 ml 480 ml Balance 0 ml 1920 ml 480 ml Assessment & Plan Problem List: (1) Dementia of Alzheimer's type with behavioral disturbance ICD Code: G30.8 Assessment & Plan Patient continues confused and demented though coping well with MRSA protocol Justification for Cont. Inpt. At this time patient will decompensate the placed in a lower level of care Discharge Planning To be determined Request HC Surrog/Guard Advoc?: Yes Problem Qualifiers (1) Dementia of Alzheimer's type with behavioral disturbance: Qualified Code: G30.8 - Alzheimer's dementia with behavioral disturbance, unspecified timing of dementia onset Kam Ferrer MD Dec 26, 2016 15:21
[2016-12-26] MEDS: WARFARIN SOD 3 MG TAB PO SCH (17:33)
[2016-12-26 18:00] VITALS: BP 140/65; PULSE 46; RESP 17; TEMP 98.3; O2SAT 98
[2016-12-26] MEDS: traZODone HCL 50 MG TAB PO SCH (20:47)
[2016-12-27 05:49] VITALS: BP 144/67; PULSE 47; RESP 16; TEMP 98.3; O2SAT 97
[2016-12-27] MEDS: INSULIN ASPART SUPPLEMENTAL SCALE SQ SCH (06:00)
[2016-12-27] MEDS: PANTOPRAZOLE SOD 20 MG DELAYED RELEASE TAB PO SCH (09:13)
[2016-12-27] MEDS: MULTIVITAMINS/MINERALS THERAPEUTIC TAB PO SCH (09:13)
[2016-12-27] MEDS: amLODIPine BESYLATE 5 MG TAB PO SCH (09:13)
[2016-12-27] MEDS: LOSARTAN 50 MG TAB PO SCH (09:14)
[2016-12-27] MEDS: FUROSEMIDE 40 MG TAB PO SCH (09:14)
[2016-12-27] MEDS: metFORMIN HCL 500 MG TAB PO SCH (09:14)
[2016-12-27] MEDS: PRAVASTATIN SOD 40 MG TAB PO SCH (09:15)
[2016-12-27] MEDS: MUPIROCIN 2% OINT 22 GM TUBE TOPICAL SCH ×2 (09:15→21:00)
--- NOTE | 2016-12-27 09:47 | HHI.PYPN ---
Subjective Remarks She was seen and case discussed with nursing. Patient is pleasant and cooperative with exam. Mildly confused per nursing. He is alert and oriented times 2. Largely seclusive to self. Mood is "a little sad." Denies suicidal ideation intent or plan. Objective Alert: Yes [place]: Person, Place Mood: Calm Affect: Euthymic Memory Intact: Comment (impaired) Hallucinations: Other (denies) Delusions: No Delusion Type: Other (none elicited) Suicidal: Ideation (none) Homicidal: Ideation (none) Insight/Judgment Poor Vitals/IOs Vital Signs Date Time Temp Pulse Resp B/P Pulse Ox O2 Delivery O2 Flow Rate FiO2 12/27/16 05:49 98.3 47 16 144/67 97 Intake and Output 12/26/16 12/26/16 12/27/16 08:00 16:00 00:00 Intake Total 120 ml 840 ml 360 ml Balance 120 ml 840 ml 360 ml Assessment & Plan Problem List: (1) Dementia of Alzheimer's type with behavioral disturbance ICD Code: G30.8 Assessment & Plan Continue current treatment plan Justification for Cont. Inpt. Patient will decompensate in a less restrictive setting Request HC Surrog/Guard Advoc?: Yes Problem Qualifiers (1) Dementia of Alzheimer's type with behavioral disturbance: Qualified Code: G30.8 - Alzheimer's dementia with behavioral disturbance, unspecified timing of dementia onset Ayad Garcia DO Dec 27, 2016 09:47
[2016-12-27 10:28] LABS: INTERNATIONAL NORMALIZED RATIO 2.6 RATIO; PROTHROMBIN TIME - PATIENT 30.1 SEC (9.8-11.6)
[2016-12-27] MEDS: QUEtiapine FUMARATE 25 MG TAB PO SCH ×2 (12:16→17:05)
[2016-12-27] MEDS: WARFARIN SOD 3 MG TAB PO SCH (17:05)
[2016-12-27] MEDS: traZODone HCL 50 MG TAB PO SCH (21:20)
[2016-12-28 01:00] VITALS: BP 133/63; PULSE 44; RESP 16; TEMP 98.7
[2016-12-28 06:00] VITALS: BP 159/66; PULSE 117; RESP 17; TEMP 97.6; O2SAT 93
[2016-12-28] MEDS: INSULIN ASPART SUPPLEMENTAL SCALE SQ SCH (06:00)
[2016-12-28] MEDS: MUPIROCIN 2% OINT 22 GM TUBE TOPICAL SCH ×2 (09:36→21:13)
[2016-12-28] MEDS: MULTIVITAMINS/MINERALS THERAPEUTIC TAB PO SCH (09:36)
[2016-12-28] MEDS: PANTOPRAZOLE SOD 20 MG DELAYED RELEASE TAB PO SCH (09:36)
[2016-12-28] MEDS: metFORMIN HCL 500 MG TAB PO SCH (09:36)
[2016-12-28] MEDS: amLODIPine BESYLATE 5 MG TAB PO SCH (09:36)
[2016-12-28] MEDS: FUROSEMIDE 40 MG TAB PO SCH (09:36)
[2016-12-28] MEDS: LOSARTAN 50 MG TAB PO SCH (09:36)
[2016-12-28] MEDS: PRAVASTATIN SOD 40 MG TAB PO SCH (09:36)
[2016-12-28 10:54] VITALS: BP 125/61
[2016-12-28] MEDS: QUEtiapine FUMARATE 25 MG TAB PO SCH ×2 (13:11→17:59)
--- NOTE | 2016-12-28 13:37 | HHI.PYPN ---
Subjective Remarks Patient was seen and case discussed with nursing. Legs were examined and remain markedly erythematous and swollen. Patient remains pleasant and cooperative with exam. Alert and oriented times 2. Continues to deny psychotic symptoms. He denies suicidal ideation intent or plan Objective Alert: Yes [place]: Person, Place Mood: Calm Affect: Euthymic, Restricted Memory Intact: Comment (impaired) Hallucinations: Other (denies) Delusions: No Delusion Type: Other (none elicited) Suicidal: Ideation (none) Homicidal: Ideation (none) Insight/Judgment Poor Vitals/IOs Vital Signs Date Time Temp Pulse Resp B/P Pulse Ox O2 Delivery O2 Flow Rate FiO2 12/28/16 10:54 125/61 12/28/16 06:00 97.6 117 17 93 Intake and Output 12/27/16 12/27/16 12/27/16 07:59 15:59 23:59 Intake Total 240 ml 780 ml Balance 240 ml 780 ml Assessment & Plan Problem List: (1) Dementia of Alzheimer's type with behavioral disturbance ICD Code: G30.8 Assessment & Plan Consult medicine Justification for Cont. Inpt. Patient will decompensate in a less restrictive setting Request HC Surrog/Guard Advoc?: Yes Problem Qualifiers (1) Dementia of Alzheimer's type with behavioral disturbance: Qualified Code: G30.8 - Alzheimer's dementia with behavioral disturbance, unspecified timing of dementia onset Ayad Garcia DO Dec 28, 2016 13:37
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
[2016-12-28] MEDS: WARFARIN SOD 3 MG TAB PO SCH (16:00)
[2016-12-28] MEDS: traZODone HCL 50 MG TAB PO SCH (21:12)
[2016-12-28] MEDS: SULFAMETHOXAZOLE-TRIMETHOPRIM DS 800-160 MG TAB PO SCH (21:12)
[2016-12-29 01:00] VITALS: BP 134/64; PULSE 44; RESP 18; TEMP 99.2; O2SAT 95
[2016-12-29 05:20] VITALS: BP 128/59; PULSE 45; RESP 17; TEMP 98.2; O2SAT 97
[2016-12-29] MEDS: INSULIN ASPART SUPPLEMENTAL SCALE SQ SCH (06:00)
[2016-12-29] MEDS: metFORMIN HCL 500 MG TAB PO SCH (09:35)
[2016-12-29] MEDS: LOSARTAN 50 MG TAB PO SCH (09:35)
[2016-12-29] MEDS: PRAVASTATIN SOD 40 MG TAB PO SCH (09:35)
[2016-12-29] MEDS: SULFAMETHOXAZOLE-TRIMETHOPRIM DS 800-160 MG TAB PO SCH ×2 (09:35→20:34)
[2016-12-29] MEDS: amLODIPine BESYLATE 5 MG TAB PO SCH (09:35)
[2016-12-29] MEDS: MULTIVITAMINS/MINERALS THERAPEUTIC TAB PO SCH (09:35)
[2016-12-29] MEDS: FUROSEMIDE 40 MG TAB PO SCH (09:35)
[2016-12-29] MEDS: PANTOPRAZOLE SOD 20 MG DELAYED RELEASE TAB PO SCH (09:35)
[2016-12-29] MEDS: MUPIROCIN 2% OINT 22 GM TUBE TOPICAL SCH ×2 (09:39→20:34)
[2016-12-29] MEDS: QUEtiapine FUMARATE 25 MG TAB PO SCH ×2 (13:31→18:34)
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
--- NOTE | 2016-12-29 15:45 | HHI.PYPN ---
Subjective Remarks Patient seen in his room with floor staff, chart review, patient continues to cope well with MRSA protocols. Remains pleasantly confused. No behavioral problems. For now continue treatment Review of Systems Except as stated in HPI: all other systems reviewed are Neg Objective Alert: Yes [place]: Person, Place Mood: Calm Affect: Euthymic, Restricted Memory Intact: Comment (impaired) Hallucinations: Other (denies) Delusions: No Delusion Type: Other (none elicited) Suicidal: Ideation (none) Homicidal: Ideation (none) Insight/Judgment Very poor Vitals/IOs Vital Signs Date Time Temp Pulse Resp B/P Pulse Ox O2 Delivery O2 Flow Rate FiO2 12/29/16 05:20 98.2 45 17 128/59 97 Intake and Output 12/28/16 12/28/16 12/28/16 07:59 15:59 23:59 Intake Total 2790 ml Balance 2790 ml Assessment & Plan Problem List: (1) Dementia of Alzheimer's type with behavioral disturbance ICD Code: G30.8 Assessment & Plan Estimated LOS: days patient continues calm cooperative diffusely confused. At times making vague sexual remarks but nothing threatening or intimidating is easily redirected Justification for Cont. Inpt. At this time patient will decompensate if placed in a lower level of care Discharge Planning To be determined Request HC Surrog/Guard Advoc?: Yes Problem Qualifiers (1) Dementia of Alzheimer's type with behavioral disturbance: Qualified Code: G30.8 - Alzheimer's dementia with behavioral disturbance, unspecified timing of dementia onset Kam Ferrer MD Dec 29, 2016 15:45
[2016-12-29 16:48] VITALS: BP 113/53; PULSE 46; RESP 18; TEMP 98.6; O2SAT 95
[2016-12-29 18:59] LABS: MEAN CELL VOLUME 89.8 FL (80.0-100.0); MEAN CORPUSCULAR HEMOGLOBIN 30.7 PG (27.0-34.0); MEAN CORPUSCULAR HGB CONC 34.3 % (32.0-36.0); PLATELET COUNT 375 TH/MM3 (150-450); RED BLOOD COUNT 3.23 MIL/MM3 (4.50-5.90); RED CELL DISTRIBUTION WIDTH 15.4 % (11.6-17.2); REVIEW FLAG FINAL; WHITE BLOOD COUNT 7.3 TH/MM3 (4.0-11.0)
[2016-12-29 19:05] LABS: INTERNATIONAL NORMALIZED RATIO 2.1 RATIO; PROTHROMBIN TIME - PATIENT 23.6 SEC (9.8-11.6)
[2016-12-29] MEDS: WARFARIN SOD 3 MG TAB PO SCH (19:16)
[2016-12-29 19:36] LABS: BICARBONATE 26.4 MEQ/L (21.0-32.0); POTASSIUM 4.6 MEQ/L (3.5-5.1)
[2016-12-29] MEDS: traZODone HCL 50 MG TAB PO SCH (20:34)
[2016-12-30] MEDS: INSULIN ASPART SUPPLEMENTAL SCALE SQ SCH (05:43)
[2016-12-30 06:07] VITALS: BP 128/60; PULSE 66; RESP 18; TEMP 97.6; O2SAT 98
[2016-12-30 08:39] LABS: INTERNATIONAL NORMALIZED RATIO 2.2 RATIO; PROTHROMBIN TIME - PATIENT 24.9 SEC (9.8-11.6)
[2016-12-30] MEDS: MUPIROCIN 2% OINT 22 GM TUBE TOPICAL SCH ×2 (09:00→20:35)
--- NOTE | 2016-12-30 10:43 | HHI.PYPN ---
Subjective Remarks Patient seen in his room with nurse Divina, chart review, patient compliant medications. Patient continues pleasantly confused disoriented though no significant behavioral problems however lives in modification of his isolation so as long as his dressings are dry he can have some limited contact in the community. However staff states that yesterday afternoon he did some mild suggestive dancing but he was easily redirectable. The been no other significant behavioral problems Review of Systems Except as stated in HPI: all other systems reviewed are Neg Objective Alert: Yes [place]: Person, Place Mood: Calm Affect: Euthymic, Restricted Memory Intact: Comment (impaired) Hallucinations: Other (denies) Delusions: No Delusion Type: Other (none elicited) Suicidal: Ideation (none) Homicidal: Ideation (none) Insight/Judgment Poor Labs Test 12/29/16 12/30/16 18:30 07:19 White Blood Count 7.3 TH/MM3 Red Blood Count 3.23 MIL/MM3 Hemoglobin 9.9 GM/DL Hematocrit 29.0 % Mean Corpuscular Volume 89.8 FL Mean Corpuscular Hemoglobin 30.7 PG Mean Corpuscular Hemoglobin 34.3 % Concent Red Cell Distribution Width 15.4 % Platelet Count 375 TH/MM3 Mean Platelet Volume 8.0 FL Prothrombin Time 23.6 SEC 24.9 SEC Prothromb Time International 2.1 RATIO 2.2 RATIO Ratio Sodium Level 136 MEQ/L Potassium Level 4.6 MEQ/L Chloride Level 102 MEQ/L Carbon Dioxide Level 26.4 MEQ/L Anion Gap 8 MEQ/L Blood Urea Nitrogen 36 MG/DL Creatinine 1.57 MG/DL Estimat Glomerular Filtration 43 ML/MIN Rate Random Glucose 169 MG/DL Calcium Level 8.4 MG/DL Vitals/IOs Vital Signs Date Time Temp Pulse Resp B/P Pulse Ox O2 Delivery O2 Flow Rate FiO2 12/30/16 06:07 97.6 66 18 128/60 98 Intake and Output 12/29/16 12/29/16 12/29/16 07:59 15:59 23:59 Intake Total 1800 ml Balance 1800 ml Assessment & Plan Problem List: (1) Dementia of Alzheimer's type with behavioral disturbance ICD Code: G30.8 Assessment & Plan Estimated LOS: days patient remains demented and confused doing some mild sexualized behaviors. Though easily redirectable Justification for Cont. Inpt. At this time patient would decompensate if placed in lower level of care Discharge Planning To be determined Request HC Surrog/Guard Advoc?: Yes Problem Qualifiers (1) Dementia of Alzheimer's type with behavioral disturbance: Qualified Code: G30.8 - Alzheimer's dementia with behavioral disturbance, unspecified timing of dementia onset Kam Ferrer MD Dec 30, 2016 10:43
[2016-12-30] MEDS: SULFAMETHOXAZOLE-TRIMETHOPRIM DS 800-160 MG TAB PO SCH ×2 (10:44→20:35)
[2016-12-30] MEDS: FUROSEMIDE 40 MG TAB PO SCH (10:44)
[2016-12-30] MEDS: metFORMIN HCL 500 MG TAB PO SCH (10:44)
[2016-12-30] MEDS: PRAVASTATIN SOD 40 MG TAB PO SCH (10:44)
[2016-12-30] MEDS: PANTOPRAZOLE SOD 20 MG DELAYED RELEASE TAB PO SCH (10:44)
[2016-12-30] MEDS: MULTIVITAMINS/MINERALS THERAPEUTIC TAB PO SCH (10:44)
[2016-12-30] MEDS: LOSARTAN 50 MG TAB PO SCH (10:44)
[2016-12-30] MEDS: QUEtiapine FUMARATE 25 MG TAB PO SCH ×2 (12:59→17:00)
--- NOTE | 2016-12-30 13:31 | PD.TTN ---
Present for Treatment Team Treatment Team Staff: Provider (Dr. Ferrer), Nurse (Will), Psych Therapist ( Dylan Couch), Other Clinician (Yumiko, rec. therapy) Patient Problems 1. Discharge planning 2. Medication compliance 3. Knowledge deficit 4. Lack of coping skills Progress Toward Goals Provider Input: Dr. Ferrer requested an update regarding patient's placement, medication compliance, and behaviors on the unit. Nurse Input: Will reported the patient whistles at women on the unit and remains medication compliant. Psych Therapist Input: Counselor reported the patient remains a difficult placement due to his previous behaviors. Other Clinican Input: Yumiko reported the patient does participate in recreational therapy groups. Documentation Scribe: DYLAN Couch Date Resolved: Dec 29, 2016 Shila Avila Dec 30, 2016 13:30
[2016-12-30] MEDS: WARFARIN SOD 3 MG TAB PO SCH (16:57)
[2016-12-30 18:00] VITALS: BP 134/62; PULSE 52; RESP 18; TEMP 97.9; O2SAT 97
[2016-12-30] MEDS: traZODone HCL 50 MG TAB PO SCH (20:35)
[2016-12-31 06:00] VITALS: BP 139/77; PULSE 56; RESP 16; TEMP 98.4
[2016-12-31] MEDS: INSULIN ASPART SUPPLEMENTAL SCALE SQ SCH ×2 (06:00→21:00)
[2016-12-31 06:46] LABS: INTERNATIONAL NORMALIZED RATIO 2.3 RATIO; PROTHROMBIN TIME - PATIENT 26.6 SEC (9.8-11.6)
[2016-12-31] MEDS: MUPIROCIN 2% OINT 22 GM TUBE TOPICAL SCH ×2 (09:27→21:46)
[2016-12-31] MEDS: MULTIVITAMINS/MINERALS THERAPEUTIC TAB PO SCH (09:28)
[2016-12-31] MEDS: LOSARTAN 50 MG TAB PO SCH (09:28)
[2016-12-31] MEDS: metFORMIN HCL 500 MG TAB PO SCH (09:28)
[2016-12-31] MEDS: FUROSEMIDE 40 MG TAB PO SCH (09:28)
[2016-12-31] MEDS: SULFAMETHOXAZOLE-TRIMETHOPRIM DS 800-160 MG TAB PO SCH ×2 (09:28→21:46)
[2016-12-31] MEDS: PANTOPRAZOLE SOD 20 MG DELAYED RELEASE TAB PO SCH (09:28)
[2016-12-31] MEDS: PRAVASTATIN SOD 40 MG TAB PO SCH (09:33)
--- NOTE | 2016-12-31 11:00 | HHI.PYPN ---
Subjective Remarks Patient seen in his room with nurse Margarito, chart reviewed, patient compliant medications. Patient appreciative of this increased activity is allowed now with a slow resolution of his MRSA. Continues pleasantly confused. At times still has some vague sexualized behavior but it's easily redirectable and does not appear threatening in any way Review of Systems Except as stated in HPI: all other systems reviewed are Neg Objective Alert: Yes [place]: Person, Place Mood: Calm Affect: Euthymic, Restricted Memory Intact: Comment (impaired) Hallucinations: Other (denies) Delusions: No Delusion Type: Other (none elicited) Suicidal: Ideation (none) Homicidal: Ideation (none) Insight/Judgment Very poor Labs Test 12/31/16 06:13 Prothrombin Time 26.6 SEC Prothromb Time International 2.3 RATIO Ratio Vitals/IOs Vital Signs Date Time Temp Pulse Resp B/P Pulse Ox O2 Delivery O2 Flow Rate FiO2 12/31/16 06:00 98.4 56 16 139/77 12/30/16 18:00 97 Intake and Output 12/30/16 12/30/16 12/31/16 08:00 16:00 00:00 Intake Total 840 ml 480 ml Balance 840 ml 480 ml Assessment & Plan Problem List: (1) Dementia of Alzheimer's type with behavioral disturbance ICD Code: G30.8 Assessment & Plan Estimated LOS: days patient continues demented and confused though no significant behavioral problems, compliant medications Justification for Cont. Inpt. At this time patient may decompensate if not placed in an appropriate level of care Discharge Planning To be determined Request HC Surrog/Guard Advoc?: Yes Problem Qualifiers (1) Dementia of Alzheimer's type with behavioral disturbance: Qualified Code: G30.8 - Alzheimer's dementia with behavioral disturbance, unspecified timing of dementia onset Kam Ferrer MD Dec 31, 2016 11:00
[2016-12-31] MEDS: QUEtiapine FUMARATE 25 MG TAB PO SCH ×2 (12:26→18:17)
[2016-12-31] MEDS: WARFARIN SOD 3 MG TAB PO SCH (16:00)
[2016-12-31] MEDS ORDERED: DEXTROSE 50% IN WATER 50 ML VIAL(D50) IV PRN (17:15)
[2016-12-31] MEDS ORDERED: GLUCAGON 1 MG/ML VIAL OTHER PRN (17:15)
[2016-12-31 18:00] VITALS: BP 124/57; PULSE 50; RESP 18; TEMP 97.8; O2SAT 100
[2016-12-31] MEDS: traZODone HCL 50 MG TAB PO SCH (21:46)
[2017-01-01 05:59] VITALS: BP 137/69; PULSE 37; RESP 16; TEMP 97.5
[2017-01-01] MEDS: INSULIN ASPART SUPPLEMENTAL SCALE SQ SCH ×5 (06:00→20:34)
[2017-01-01 07:57] VITALS: PULSE 64
[2017-01-01] MEDS: MUPIROCIN 2% OINT 22 GM TUBE TOPICAL SCH ×2 (09:00→20:34)
[2017-01-01] MEDS: SULFAMETHOXAZOLE-TRIMETHOPRIM DS 800-160 MG TAB PO SCH (09:03)
[2017-01-01] MEDS: PRAVASTATIN SOD 40 MG TAB PO SCH (09:04)
[2017-01-01] MEDS: PANTOPRAZOLE SOD 20 MG DELAYED RELEASE TAB PO SCH (09:04)
[2017-01-01] MEDS: MULTIVITAMINS/MINERALS THERAPEUTIC TAB PO SCH (09:04)
[2017-01-01 10:05] LABS: INTERNATIONAL NORMALIZED RATIO 2.2 RATIO; PROTHROMBIN TIME - PATIENT 25.6 SEC (9.8-11.6)
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
--- NOTE | 2017-01-01 11:25 | HHI.PYPN ---
Subjective Remarks Patient seen in activities room with nurse Lamonte, chart reviewed, patient continues calm pleasant continues to cope with restrictions related to his MRSA. Though that appears to be resolving. Continues to [place] confused with no behavioral issues Review of Systems Except as stated in HPI: all other systems reviewed are Neg Objective Alert: Yes [place]: Person, Place Mood: Calm Affect: Euthymic, Restricted Memory Intact: Comment (impaired) Hallucinations: Other (denies) Delusions: No Delusion Type: Other (none elicited) Suicidal: Ideation (none) Homicidal: Ideation (none) Insight/Judgment Very poor Labs Test 01/01/17 08:42 Prothrombin Time 25.6 SEC Prothromb Time International 2.2 RATIO Ratio Vitals/IOs Vital Signs Date Time Temp Pulse Resp B/P Pulse Ox O2 Delivery O2 Flow Rate FiO2 01/01/17 07:57 64 01/01/17 05:59 97.5 16 137/69 12/31/16 18:00 100 Intake and Output 12/31/16 12/31/16 01/01/17 08:00 16:00 00:00 Intake Total 360 ml 360 ml 750 ml Balance 360 ml 360 ml 750 ml Assessment & Plan Problem List: (1) Dementia of Alzheimer's type with behavioral disturbance ICD Code: G30.8 (2) Dementia associated with other underlying disease with behavioral disturbance ICD Code: F02.81 Assessment & Plan Estimated LOS: days patient remains confused and demented though no behavior problems, is enjoying this somewhat relaxed restrictions related to his MRSA Justification for Cont. Inpt. At this time patient decompensated placed in a lower level of care Discharge Planning To be determined Request HC Surrog/Guard Advoc?: Yes Problem Qualifiers (1) Dementia of Alzheimer's type with behavioral disturbance: Qualified Code: G30.8 - Alzheimer's dementia with behavioral disturbance, unspecified timing of dementia onset Kam Ferrer MD Jan 01, 2017 11:25
[2017-01-01] MEDS: QUEtiapine FUMARATE 25 MG TAB PO SCH ×2 (12:16→17:44)
[2017-01-01] MEDS: WARFARIN SOD 3 MG TAB PO SCH (16:43)
[2017-01-01 17:47] VITALS: BP 116/56; PULSE 76; RESP 16; TEMP 97.8; O2SAT 97
[2017-01-01] MEDS: traZODone HCL 50 MG TAB PO SCH (20:32)
[2017-01-02] MEDS: INSULIN ASPART SUPPLEMENTAL SCALE SQ SCH ×5 (06:00→21:00)
[2017-01-02 07:09] VITALS: BP 136/64; PULSE 64; RESP 18; TEMP 97.7; O2SAT 95
[2017-01-02 08:29] LABS: INTERNATIONAL NORMALIZED RATIO 2.3 RATIO; PROTHROMBIN TIME - PATIENT 26.5 SEC (9.8-11.6)
[2017-01-02 08:42] LABS: POTASSIUM 4.7 MEQ/L (3.5-5.1)
[2017-01-02] MEDS: MULTIVITAMINS/MINERALS THERAPEUTIC TAB PO SCH (08:46)
[2017-01-02] MEDS: PANTOPRAZOLE SOD 20 MG DELAYED RELEASE TAB PO SCH (08:46)
[2017-01-02] MEDS: PRAVASTATIN SOD 40 MG TAB PO SCH (08:47)
[2017-01-02] MEDS: MUPIROCIN 2% OINT 22 GM TUBE TOPICAL SCH ×2 (09:00→21:35)
[2017-01-02] MEDS: QUEtiapine FUMARATE 25 MG TAB PO SCH ×2 (12:00→17:38)
--- NOTE | 2017-01-02 12:49 | HHI.PYPN ---
Subjective Remarks Patient seen in day room with nurse Aburto, chart review, patient compliant medications. Patient now able to be back in the milieu. He is calm cooperative and pleasant. He continues diffusely confused. Placement remains problematic Review of Systems Except as stated in HPI: all other systems reviewed are Neg Objective Alert: Yes [place]: Person, Place Mood: Calm Affect: Euthymic, Restricted Memory Intact: Comment (impaired) Hallucinations: Other (denies) Delusions: No Delusion Type: Other (none elicited) Suicidal: Ideation (none) Homicidal: Ideation (none) Insight/Judgment Very poor Labs Test 01/02/17 07:50 Prothrombin Time 26.5 SEC Prothromb Time International 2.3 RATIO Ratio Sodium Level 137 MEQ/L Potassium Level 4.7 MEQ/L Chloride Level 102 MEQ/L Carbon Dioxide Level 27.0 MEQ/L Anion Gap 8 MEQ/L Blood Urea Nitrogen 32 MG/DL Creatinine 1.57 MG/DL Estimat Glomerular Filtration 43 ML/MIN Rate Random Glucose 82 MG/DL Calcium Level 8.8 MG/DL Vitals/IOs Vital Signs Date Time Temp Pulse Resp B/P Pulse Ox O2 Delivery O2 Flow Rate FiO2 01/02/17 07:09 97.7 64 18 136/64 95 Intake and Output 01/01/17 01/01/17 01/02/17 08:00 16:00 00:00 Intake Total 240 ml 240 ml 720 ml Balance 240 ml 240 ml 720 ml Assessment & Plan Problem List: (1) Dementia of Alzheimer's type with behavioral disturbance ICD Code: G30.8 (2) Dementia associated with other underlying disease with behavioral disturbance ICD Code: F02.81 Assessment & Plan Estimated LOS: days patient calm cooperative no behavioral problems. Is not able to get back out into the milieu. Placement remains quite problematic Justification for Cont. Inpt. At this time patient may decompensate if not placed in an appropriate level of care Discharge Planning To be determined Request HC Surrog/Guard Advoc?: Yes Problem Qualifiers (1) Dementia of Alzheimer's type with behavioral disturbance: Qualified Code: G30.8 - Alzheimer's dementia with behavioral disturbance, unspecified timing of dementia onset Kam Ferrer MD Jan 02, 2017 12:49
[2017-01-02 12:52] VITALS: BP 113/56; PULSE 47; RESP 18; TEMP 98.1; O2SAT 98
[2017-01-02 16:16] VITALS: BP 124/58; PULSE 64; RESP 18; TEMP 98.2; O2SAT 95
[2017-01-02] MEDS: WARFARIN SOD 3 MG TAB PO SCH (16:36)
[2017-01-02] MEDS: traZODone HCL 50 MG TAB PO SCH (21:33)
[2017-01-03] MEDS: INSULIN ASPART SUPPLEMENTAL SCALE SQ SCH ×5 (06:00→22:33)
[2017-01-03 06:14] VITALS: BP 170/72; PULSE 58; RESP 17; TEMP 97.4; O2SAT 93
[2017-01-03 07:52] LABS: INTERNATIONAL NORMALIZED RATIO 2.4 RATIO; PROTHROMBIN TIME - PATIENT 27.7 SEC (9.8-11.6)
[2017-01-03] MEDS: PANTOPRAZOLE SOD 20 MG DELAYED RELEASE TAB PO SCH (10:25)
[2017-01-03] MEDS: MULTIVITAMINS/MINERALS THERAPEUTIC TAB PO SCH (10:25)
[2017-01-03] MEDS: PRAVASTATIN SOD 40 MG TAB PO SCH (10:25)
[2017-01-03] MEDS: MUPIROCIN 2% OINT 22 GM TUBE TOPICAL SCH ×2 (10:26→20:34)
--- NOTE | 2017-01-03 13:03 | HHI.PYPN ---
Subjective Remarks Patient was seen and case discussed with nursing. Patient is pleasant and cooperative with exam. Behaving well on the unit. Compliant with his medications. Objective Alert: Yes [place]: Person, Place Mood: Calm Affect: Restricted Memory Intact: Comment (impaired) Hallucinations: Other (denies) Delusions: No Delusion Type: Other (none elicited) Suicidal: Ideation (none) Homicidal: Ideation (none) Insight/Judgment Poor Labs Test 01/03/17 06:30 Prothrombin Time 27.7 SEC Prothromb Time International 2.4 RATIO Ratio Vitals/IOs Vital Signs Date Time Temp Pulse Resp B/P Pulse Ox O2 Delivery O2 Flow Rate FiO2 01/03/17 06:14 97.4 58 17 170/72 93 Intake and Output 01/02/17 01/02/17 01/03/17 08:00 16:00 00:00 Intake Total 480 ml 1320 ml Balance 480 ml 1320 ml Assessment & Plan Problem List: (1) Dementia of Alzheimer's type with behavioral disturbance ICD Code: G30.8 (2) Dementia associated with other underlying disease with behavioral disturbance ICD Code: F02.81 Assessment & Plan Continue current treatment plan Justification for Cont. Inpt. Patient will decompensate in a less restrictive setting Request HC Surrog/Guard Advoc?: Yes Problem Qualifiers (1) Dementia of Alzheimer's type with behavioral disturbance: Qualified Code: G30.8 - Alzheimer's dementia with behavioral disturbance, unspecified timing of dementia onset Ayad Garcia DO Jan 03, 2017 13:03
[2017-01-03] MEDS: QUEtiapine FUMARATE 25 MG TAB PO SCH ×2 (14:01→18:25)
[2017-01-03] MEDS: WARFARIN SOD 3 MG TAB PO SCH (16:31)
[2017-01-03] MEDS: traZODone HCL 50 MG TAB PO SCH (20:33)
[2017-01-04 06:00] VITALS: BP 163/70; PULSE 50; RESP 18; TEMP 97.4; O2SAT 97
[2017-01-04] MEDS: INSULIN ASPART SUPPLEMENTAL SCALE SQ SCH ×5 (06:00→20:39)
[2017-01-04] MEDS: MUPIROCIN 2% OINT 22 GM TUBE TOPICAL SCH ×2 (09:00→21:00)
[2017-01-04 09:43] LABS: BICARBONATE 28.5 MEQ/L (21.0-32.0); POTASSIUM 4.7 MEQ/L (3.5-5.1)
[2017-01-04 09:53] LABS: INTERNATIONAL NORMALIZED RATIO 2.5 RATIO; PROTHROMBIN TIME - PATIENT 28.8 SEC (9.8-11.6)
[2017-01-04] MEDS: PRAVASTATIN SOD 40 MG TAB PO SCH (10:09)
[2017-01-04] MEDS: MULTIVITAMINS/MINERALS THERAPEUTIC TAB PO SCH (10:09)
[2017-01-04] MEDS: PANTOPRAZOLE SOD 20 MG DELAYED RELEASE TAB PO SCH (10:10)
[2017-01-04] MEDS: QUEtiapine FUMARATE 25 MG TAB PO SCH ×2 (10:54→17:50)
--- NOTE | 2017-01-04 11:41 | HHI.PYPN ---
Subjective Remarks Patient was seen and case discussed with nursing. Patient is bright and cheerful during interview. No inappropriate behavior. Alert and oriented times to. Continues to get treatment for his legs. Denies auditory visual hallucinations Objective Alert: Yes [place]: Person, Place Mood: Calm Affect: Blunted Memory Intact: Comment (impaired) Hallucinations: Other (denies) Delusions: No Delusion Type: Other (none elicited) Suicidal: Ideation (none) Homicidal: Ideation (none) Insight/Judgment Poor Labs Test 01/04/17 08:15 Prothrombin Time 28.8 SEC Prothromb Time International 2.5 RATIO Ratio Sodium Level 138 MEQ/L Potassium Level 4.7 MEQ/L Chloride Level 103 MEQ/L Carbon Dioxide Level 28.5 MEQ/L Anion Gap 7 MEQ/L Blood Urea Nitrogen 29 MG/DL Creatinine 1.33 MG/DL Estimat Glomerular Filtration 52 ML/MIN Rate Random Glucose 79 MG/DL Calcium Level 8.6 MG/DL Vitals/IOs Vital Signs Date Time Temp Pulse Resp B/P Pulse Ox O2 Delivery O2 Flow Rate FiO2 01/04/17 06:00 97.4 50 18 163/70 97 Intake and Output 01/03/17 01/03/17 01/04/17 08:00 16:00 00:00 Intake Total 240 ml 360 ml 1200 ml Balance 240 ml 360 ml 1200 ml Assessment & Plan Problem List: (1) Dementia of Alzheimer's type with behavioral disturbance ICD Code: G30.8 (2) Dementia associated with other underlying disease with behavioral disturbance ICD Code: F02.81 Assessment & Plan Continue current treatment plan Justification for Cont. Inpt. Patient would decompensate in a less restrictive setting Request HC Surrog/Guard Advoc?: Yes Problem Qualifiers (1) Dementia of Alzheimer's type with behavioral disturbance: Qualified Code: G30.8 - Alzheimer's dementia with behavioral disturbance, unspecified timing of dementia onset Ayad Garcia DO Jan 04, 2017 11:41
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
[2017-01-04] MEDS: WARFARIN SOD 3 MG TAB PO SCH (16:20)
[2017-01-04 20:39] VITALS: BP 148/70; PULSE 61; RESP 17; TEMP 97; O2SAT 99
[2017-01-04] MEDS: traZODone HCL 50 MG TAB PO SCH (21:00)
[2017-01-05] MEDS: INSULIN ASPART SUPPLEMENTAL SCALE SQ SCH ×5 (05:58→21:00)
[2017-01-05 06:23] VITALS: BP 146/66; PULSE 57; RESP 15; TEMP 98.4; O2SAT 97
[2017-01-05] MEDS: MULTIVITAMINS/MINERALS THERAPEUTIC TAB PO SCH (08:02)
[2017-01-05] MEDS: PANTOPRAZOLE SOD 20 MG DELAYED RELEASE TAB PO SCH (08:02)
[2017-01-05] MEDS: MUPIROCIN 2% OINT 22 GM TUBE TOPICAL SCH ×2 (08:02→22:33)
[2017-01-05] MEDS: PRAVASTATIN SOD 40 MG TAB PO SCH (08:02)
[2017-01-05 11:40] LABS: INTERNATIONAL NORMALIZED RATIO 2.5 RATIO; PROTHROMBIN TIME - PATIENT 29.1 SEC (9.8-11.6)
[2017-01-05] MEDS: QUEtiapine FUMARATE 25 MG TAB PO SCH ×2 (11:50→16:25)
--- NOTE | 2017-01-05 12:17 | PD.TTN ---
Present for Treatment Team Treatment Team Staff: Provider (Dr. Ferrer), Nurse (Isatu), Psych Therapist ( NIRMAL Couch), Other Clinician (Yumiko, rec. therapy) Patient Problems 1. Discharge planning 2. Medication compliance 3. Knowledge deficit 4. Lack of coping skills Progress Toward Goals Provider Input: Dr. Ferrer requested an update regarding patient's progress, medication management, treatment plan, and discharge plan. Nurse Input: Isatu reported the patient remains in good behavioral control and compliant with medications. Psych Therapist Input: Counselor and Dr. Ferrer spoke to patient's daughter, Norma, and her in regards to patient placement, treatment plan, behaviors, and patient's history. Other Clinican Input: Yumiko reported the patient is participating in groups. Documentation Scribe: Shila Avila Date Resolved: Jan 05, 2017 Shila Avila Jan 05, 2017 12:17
[2017-01-05] MEDS: WARFARIN SOD 3 MG TAB PO SCH (16:25)
--- NOTE | 2017-01-05 17:17 | HHI.PYPN ---
Subjective Remarks Met with patient's daughter and son-in-law. Daughter now gives us permission to make patient a DNR. Her agreed to this also. Patient remains calm cooperative is pleasantly confused. At times somewhat sexually inappropriate and flirting but easily redirectable. The been no significant behavioral problems. Review of Systems Except as stated in HPI: all other systems reviewed are Neg Objective Alert: Yes [place]: Person, Place Mood: Calm Affect: Blunted Memory Intact: Comment (impaired) Hallucinations: Other (denies) Delusions: No Delusion Type: Other (none elicited) Suicidal: Ideation (none) Homicidal: Ideation (none) Insight/Judgment Very poor Labs Test 01/05/17 11:09 Prothrombin Time 29.1 SEC Prothromb Time International 2.5 RATIO Ratio Vitals/IOs Vital Signs Date Time Temp Pulse Resp B/P Pulse Ox O2 Delivery O2 Flow Rate FiO2 01/05/17 06:23 98.4 57 15 146/66 97 Intake and Output 01/04/17 01/04/17 01/05/17 08:00 16:00 00:00 Intake Total 240 ml 440 ml Balance 240 ml 440 ml Assessment & Plan Problem List: (1) Dementia of Alzheimer's type with behavioral disturbance ICD Code: G30.8 (2) Dementia associated with other underlying disease with behavioral disturbance ICD Code: F02.81 Assessment & Plan Estimated LOS: days patient continues confused demented though no significant behavioral problems Justification for Cont. Inpt. At this time patient will decompensate if place a lower level of care Discharge Planning To be determined Request HC Surrog/Guard Advoc?: Yes Problem Qualifiers (1) Dementia of Alzheimer's type with behavioral disturbance: Qualified Code: G30.8 - Alzheimer's dementia with behavioral disturbance, unspecified timing of dementia onset Kam Ferrer MD Jan 05, 2017 17:17
[2017-01-05 18:00] VITALS: BP 127/61; PULSE 50; RESP 16; TEMP 98.4; O2SAT 96
[2017-01-05] MEDS: traZODone HCL 50 MG TAB PO SCH (22:33)
[2017-01-06 06:00] VITALS: BP 173/72; PULSE 61; RESP 16; TEMP 97.5; O2SAT 96
[2017-01-06] MEDS: INSULIN ASPART SUPPLEMENTAL SCALE SQ SCH ×5 (06:00→20:52)
[2017-01-06] MEDS: MULTIVITAMINS/MINERALS THERAPEUTIC TAB PO SCH (09:02)
[2017-01-06] MEDS: PANTOPRAZOLE SOD 20 MG DELAYED RELEASE TAB PO SCH (09:02)
[2017-01-06] MEDS: PRAVASTATIN SOD 40 MG TAB PO SCH (09:03)
[2017-01-06] MEDS: MUPIROCIN 2% OINT 22 GM TUBE TOPICAL SCH ×2 (09:04→20:52)
--- NOTE | 2017-01-06 10:39 | HHI.PYPN ---
Subjective Remarks Patient seen in his room with nurse Marilu, chart review, patient compliant medications. She continues diffusely confused but pleasant, with no behavioral problems. Enjoying the relaxation of the restrictions due to his resolving MRSA infection. Placement remains quite problematic patient blood pressure his shots slight increase the need to have hospitalist reconsult us related to his multiple hypertensive medications Review of Systems Except as stated in HPI: all other systems reviewed are Neg Objective Alert: Yes [place]: Person, Place Mood: Calm Affect: Blunted Memory Intact: Comment (impaired) Hallucinations: Other (denies) Delusions: No Delusion Type: Other (none elicited) Suicidal: Ideation (none) Homicidal: Ideation (none) Insight/Judgment Poor Labs Test 01/05/17 11:09 Prothrombin Time 29.1 SEC Prothromb Time International 2.5 RATIO Ratio Vitals/IOs Vital Signs Date Time Temp Pulse Resp B/P Pulse Ox O2 Delivery O2 Flow Rate FiO2 01/06/17 06:00 97.5 61 16 173/72 96 Intake and Output 01/05/17 01/05/17 01/06/17 08:00 16:00 00:00 Intake Total 240 ml 360 ml 240 ml Balance 240 ml 360 ml 240 ml Assessment & Plan Problem List: (1) Dementia of Alzheimer's type with behavioral disturbance ICD Code: G30.8 (2) Dementia associated with other underlying disease with behavioral disturbance ICD Code: F02.81 Assessment & Plan Estimated LOS: days patient continues demented confused though no behavioral problems, still has some flirtatious behaviors towards female staff but easily redirected. Phosphorus reconsult us related to his hypertensive treatment Justification for Cont. Inpt. This time patient will decompensate if placed in the lower level of care Discharge Planning To be determined Request HC Surrog/Guard Advoc?: Yes Problem Qualifiers (1) Dementia of Alzheimer's type with behavioral disturbance: Qualified Code: G30.8 - Alzheimer's dementia with behavioral disturbance, unspecified timing of dementia onset Kam Ferrer MD Jan 06, 2017 10:39
[2017-01-06] MEDS: QUEtiapine FUMARATE 25 MG TAB PO SCH ×2 (12:00→17:58)
[2017-01-06] MEDS ORDERED: amLODIPine BESYLATE 5 MG TAB PO SCH (12:15)
[2017-01-06 12:32] VITALS: BP 128/59; PULSE 44
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
--- NOTE | 2017-01-06 15:40 | PD.WCN.NOT ---
Wound Consult Description: BLE venous stasis Communicated with: LUIS CARLOS Cadet and Ezra TOWNSEND Recommendation: Recommend to cleanse bilateral lower extremities with soap and water and pat dry.Apply mupirocin every 12 hours to open wound on L norman as ordered and cover with dry 4x4 gauze pad. Please apply Lac hydrin lotion to BLE BID and wrap BLE with SWATHI wraps from just behind toes to 2 inches below the knee until SHAKILA study is complete. If SHAKILA OK for UNNA boots, wound care nurse will apply every 7 days. Additional Information: Patient seen on 2500 psych unit for evaluation of BLE venous stasis. Patient assessed while laying bed. R lower extremity presents with dry scaly skin, hemosiderin staining and hard non pitting edema worse than on L leg. No open wounds are noted to RLE. L lower extremity presents with dry scaly skin, hemosiderin staining and hard non pitting edema. Small open wound measuring ~0.5 cm x ~0.5cm x <~0.1cm noted to anterior aspect of L norman. Wound is non draining and partial thickness with dry wound bed.Cleansed wound with normal saline and left open to air. Bilateral pedal pulses are palpable. Patient has a history of CHF. Lasix is currently on hold. Iona Clarke CRN Jan 06, 2017 15:40
[2017-01-06 15:49] VITALS: BP 141/63; PULSE 18; RESP 37; TEMP 98.3; O2SAT 100
[2017-01-06] MEDS: WARFARIN SOD 3 MG TAB PO SCH (16:20)
[2017-01-06] MEDS: traZODone HCL 50 MG TAB PO SCH (20:43)
[2017-01-06] MEDS: LACTIC ACID (AMMONIUM LACTATE) 12% LOTION 225 GM BTL TOPICAL SCH (20:52)
[2017-01-07 06:00] VITALS: BP 175/73; PULSE 54; RESP 18; TEMP 97.3; O2SAT 97
[2017-01-07] MEDS: INSULIN ASPART SUPPLEMENTAL SCALE SQ SCH ×5 (06:00→21:00)
[2017-01-07 08:50] LABS: HEMATOCRIT 30.1 % (39.0-51.0); MEAN CELL VOLUME 90.3 FL (80.0-100.0); MEAN CORPUSCULAR HEMOGLOBIN 29.8 PG (27.0-34.0); MEAN CORPUSCULAR HGB CONC 32.9 % (32.0-36.0); PLATELET COUNT 365 TH/MM3 (150-450); RED BLOOD COUNT 3.34 MIL/MM3 (4.50-5.90); RED CELL DISTRIBUTION WIDTH 15.3 % (11.6-17.2); REVIEW FLAG FINAL; WHITE BLOOD COUNT 6.7 TH/MM3 (4.0-11.0)
[2017-01-07] MEDS: MULTIVITAMINS/MINERALS THERAPEUTIC TAB PO SCH (08:53)
[2017-01-07] MEDS: PRAVASTATIN SOD 40 MG TAB PO SCH (08:54)
[2017-01-07] MEDS: PANTOPRAZOLE SOD 20 MG DELAYED RELEASE TAB PO SCH (08:54)
[2017-01-07 08:59] LABS: INTERNATIONAL NORMALIZED RATIO 2.5 RATIO; PROTHROMBIN TIME - PATIENT 28.9 SEC (9.8-11.6)
[2017-01-07 09:13] LABS: BICARBONATE 27.7 MEQ/L (21.0-32.0); POTASSIUM 4.4 MEQ/L (3.5-5.1)
[2017-01-07] MEDS: hydrALAZINE HCL 10 MG TAB PO SCH ×4 (09:34→21:53)
[2017-01-07] MEDS: MUPIROCIN 2% OINT 22 GM TUBE TOPICAL SCH ×2 (09:34→21:00)
[2017-01-07] MEDS: LACTIC ACID (AMMONIUM LACTATE) 12% LOTION 225 GM BTL TOPICAL SCH ×2 (09:34→21:00)
--- NOTE | 2017-01-07 10:00 | RADRPT ---
EXAM DATE/TIME: 01/06/2017 00:00 [facility] COMPARISON: No previous studies available for comparison. INDICATIONS : Venous Stasis and Cellulitis TECHNIQUE: Four-cuff ankle and brachial pressures were obtained. Pulse cuff waveform tracings of the ankles were recorded, and ankle-brachial indices were calculated. PRESSURES (mmHg): Brachial (arm): Right 122 Left 116 Ankle: Right 92 Left 92 SHAKILA: Right 0.75 Left 0.75 TBI: Right 0.44 Left 0.41 PULSED CUFF WAVEFORMS: Demonstrate decreased amplitude bilaterally. CONCLUSION: Moderate claudication range indices consistent with moderate peripheral vascular disease. Consider CT A or angiography for further evaluation. Сергей España MD on January 07, 2017 at 9:54 Board Certified Radiologist. This report was verified electronically.
--- NOTE | 2017-01-07 11:42 | PD.WCN.NOT ---
Wound Consult Description: BLE Communicated with: LUIS CARLOS Cadet and CARY Blackburn Recommendation: Recommend to cleanse bilateral lower extremities with soap and water and pat dry.Apply mupirocin every 12 hours to open wound on L norman as ordered and cover with dry 4x4 gauze pad. Please apply Lac hydrin lotion to BLE BID, and please DO NOT reapply SWATHI wraps on patient. Additional Information: Resulted TBI and SHAKILA.Patient has a history of diabetes. TBI is more reliable test than SHAKILA for presence of arterial disease in patient's with diabetes.TBI for RLE is 0.44. TBI for LLE is 0.41. Unna boots and any type of compression are contraindicated for these TBI values. CARY Blackburn to refer patient to vascular surgery. Neg Pressure Wound Therapy Wound Location [facility]: [facility] Jan 07, 2017 11:42
[2017-01-07] MEDS: QUEtiapine FUMARATE 25 MG TAB PO SCH ×2 (12:39→17:40)
--- NOTE | 2017-01-07 15:43 | HHI.PYPN ---
Subjective Remarks Patient seen in his room and floor staff, continues pleasantly confused disoriented to the no behavioral problems. Reviewed and agreed with workup being done concerning circulation in his lower extremities Review of Systems Except as stated in HPI: all other systems reviewed are Neg Objective Alert: Yes [place]: Person, Place Mood: Calm Affect: Blunted Memory Intact: Comment (impaired) Hallucinations: Other (denies) Delusions: No Delusion Type: Other (none elicited) Suicidal: Ideation (none) Homicidal: Ideation (none) Insight/Judgment Very poor Labs Test 01/07/17 06:24 White Blood Count 6.7 TH/MM3 Red Blood Count 3.34 MIL/MM3 Hemoglobin 9.9 GM/DL Hematocrit 30.1 % Mean Corpuscular Volume 90.3 FL Mean Corpuscular Hemoglobin 29.8 PG Mean Corpuscular Hemoglobin 32.9 % Concent Red Cell Distribution Width 15.3 % Platelet Count 365 TH/MM3 Mean Platelet Volume 7.9 FL Prothrombin Time 28.9 SEC Prothromb Time International 2.5 RATIO Ratio Sodium Level 136 MEQ/L Potassium Level 4.4 MEQ/L Chloride Level 102 MEQ/L Carbon Dioxide Level 27.7 MEQ/L Anion Gap 6 MEQ/L Blood Urea Nitrogen 31 MG/DL Creatinine 1.21 MG/DL Estimat Glomerular Filtration 58 ML/MIN Rate Random Glucose 82 MG/DL Calcium Level 8.9 MG/DL Vitals/IOs Vital Signs Date Time Temp Pulse Resp B/P Pulse Ox O2 Delivery O2 Flow Rate FiO2 01/07/17 06:00 97.3 54 18 175/73 97 Intake and Output 01/06/17 01/06/17 01/07/17 08:00 16:00 00:00 Intake Total 2400 ml Balance 2400 ml Assessment & Plan Problem List: (1) Dementia of Alzheimer's type with behavioral disturbance ICD Code: G30.8 (2) Dementia associated with other underlying disease with behavioral disturbance ICD Code: F02.81 Assessment & Plan Estimated LOS: days patient continues confused disoriented though no behavior problems. Compliant medications Justification for Cont. Inpt. At this time patient would decompensate and placed in a lower level of care Discharge Planning To be determined Request HC Surrog/Guard Advoc?: Yes Problem Qualifiers (1) Dementia of Alzheimer's type with behavioral disturbance: Qualified Code: G30.8 - Alzheimer's dementia with behavioral disturbance, unspecified timing of dementia onset Caliendo,Kam E. MD Jan 07, 2017 15:43
[2017-01-07] MEDS: WARFARIN SOD 3 MG TAB PO SCH (16:10)
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
[2017-01-07 18:00] VITALS: BP 142/65; PULSE 50; RESP 17; TEMP 97.5; O2SAT 96
[2017-01-07] MEDS: traZODone HCL 50 MG TAB PO SCH (20:46)
[2017-01-07 21:53] VITALS: PULSE 48
[2017-01-08 05:30] VITALS: BP 156/70; PULSE 49; RESP 16; TEMP 98; O2SAT 95
[2017-01-08] MEDS: hydrALAZINE HCL 10 MG TAB PO SCH ×3 (05:38→22:00)
[2017-01-08] MEDS: INSULIN ASPART SUPPLEMENTAL SCALE SQ SCH ×5 (06:00→21:00)
[2017-01-08] MEDS: MUPIROCIN 2% OINT 22 GM TUBE TOPICAL SCH ×2 (09:00→23:14)
[2017-01-08] MEDS: PRAVASTATIN SOD 40 MG TAB PO SCH (10:03)
[2017-01-08] MEDS: MULTIVITAMINS/MINERALS THERAPEUTIC TAB PO SCH (10:03)
[2017-01-08] MEDS: PANTOPRAZOLE SOD 20 MG DELAYED RELEASE TAB PO SCH (10:04)
[2017-01-08] MEDS: LACTIC ACID (AMMONIUM LACTATE) 12% LOTION 225 GM BTL TOPICAL SCH ×2 (10:05→23:15)
--- NOTE | 2017-01-08 10:32 | HHI.PYPN ---
Subjective Remarks She seen in his room the floor staff. Patient calm cooperative pleasant coping with further medical workup for peripheral circulation. Continues diffusely confused also. For now continue treatment Review of Systems Except as stated in HPI: all other systems reviewed are Neg Objective Alert: Yes [place]: Person, Place Mood: Calm Affect: Blunted Memory Intact: Comment (impaired) Hallucinations: Other (denies) Delusions: No Delusion Type: Other (none elicited) Suicidal: Ideation (none) Homicidal: Ideation (none) Insight/Judgment Poor Vitals/IOs Vital Signs Date Time Temp Pulse Resp B/P Pulse Ox O2 Delivery O2 Flow Rate FiO2 01/08/17 05:30 98.0 49 16 156/70 95 Intake and Output 01/07/17 01/07/17 01/07/17 07:59 15:59 23:59 Intake Total 240 ml 360 ml 1200 ml Balance 240 ml 360 ml 1200 ml Assessment & Plan Problem List: (1) Dementia of Alzheimer's type with behavioral disturbance ICD Code: G30.8 (2) Dementia associated with other underlying disease with behavioral disturbance ICD Code: F02.81 Assessment & Plan Estimated LOS: days patient continues dementing confused though no behavioral problems. For now continue treatment Justification for Cont. Inpt. This time patient decompensate the placed in a lower level of care Discharge Planning Be determined Request HC Surrog/Guard Advoc?: Yes Problem Qualifiers (1) Dementia of Alzheimer's type with behavioral disturbance: Qualified Code: G30.8 - Alzheimer's dementia with behavioral disturbance, unspecified timing of dementia onset Kam Ferrer MD Jan 08, 2017 10:32
[2017-01-08 12:02] LABS: INTERNATIONAL NORMALIZED RATIO 2.4 RATIO; PROTHROMBIN TIME - PATIENT 27.5 SEC (9.8-11.6)
[2017-01-08] MEDS: QUEtiapine FUMARATE 25 MG TAB PO SCH ×2 (12:12→18:00)
[2017-01-08] MEDS: WARFARIN SOD 3 MG TAB PO SCH (16:51)
[2017-01-08 17:53] VITALS: BP 128/59; PULSE 37; RESP 18; TEMP 98.3; O2SAT 100
[2017-01-08 20:30] VITALS: PULSE 44
[2017-01-08] MEDS ORDERED: IOHEXOL 350 MG/ML 10 ML VIAL (for RAD DIAG) IV ONE (20:49)
[2017-01-08] MEDS: traZODone HCL 50 MG TAB PO SCH (23:14)
[2017-01-09] MEDS: INSULIN ASPART SUPPLEMENTAL SCALE SQ SCH ×5 (06:00→21:00)
[2017-01-09 06:01] VITALS: BP 160/74; PULSE 52; RESP 18; TEMP 97.4; O2SAT 98
[2017-01-09] MEDS: hydrALAZINE HCL 10 MG TAB PO SCH ×3 (06:47→21:48)
--- NOTE | 2017-01-09 08:01 | RADRPT ---
EXAM DATE/TIME: 01/08/2017 17:18 [facility] COMPARISON: No previous studies available for comparison. INDICATIONS : Evaluate for peripheral vascular disease. IV CONTRAST: 80 cc Omnipaque 350 (iohexol) IV RADIATION DOSE: 5.34 CTDIvol (mGy) MEDICAL HISTORY : Cardiovascular disease. Diabetes mellitus type 1. Chronic obstructive pulmonary disease.A-fib SURGICAL HISTORY : None. ENCOUNTER: Initial ACUITY: 1 day PAIN SCALE: 5/10 LOCATION: Legs TECHNIQUE: Volumetric scanning was performed using a multi-row detector CT scanner. The data was post processed with a variety of visualization algorithms including full volume maximum intensity projection, multi -planar sliding thin slab reformation, curved planar reformation, and surface rendering techniques. Using automated exposure control and adjustment of the mA and/or kV according to patient size, radiat ion dose was kept as low as reasonably achievable to obtain optimal diagnostic quality images. DICO M format image data is available electronically for review and comparison. FINDINGS: The abdominal aorta is notable for dense intimal calcifications. There is mild distal ectasia without evidence of ortiz aneurysm. No aortic stenosis. 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 The celiac is satisfactory in appeara nce. Moderately severe right renal artery stenosis is present. The MARLENA is patent. In the pelvis cavit y iliacs are calcified without significant inflow stenosis. Hypogastrics are patent bilaterally. The common femoral arteries are relatively healthy. The profundas are patent bilaterally. There is moderate focal stenotic disease in the left SFA at the adductor hiatus level, less severe di sease in the right SFA. The popliteal arteries appear relatively healthy. Severe tibial disease is pr esent. The anterior tibials appear to be severely diseased and discontinuous. The peritoneal vessels are tiny. The posterior tibials appear to be patent with patchy moderate disease. Elsewhere on the exam, note is made of nodular areas of infiltrate in the right lung base which will need to be followed. There are benign-appearing calcifications in the right lobe of the liver. Nonobs tructing renal calculi. Renal cysts. CONCLUSION: No significant aortoiliac inflow stenosis. Moderate distal SFA disease, left worse than right. Tenuous calf runoff. Nodular infiltrates in the right lung base will need to be further evaluated and/or followed. Kam Burnett MD on January 09, 2017 at 7:30 Board Certified Radiologist. This report was verified electronically.
[2017-01-09] MEDS: PRAVASTATIN SOD 40 MG TAB PO SCH (09:27)
[2017-01-09] MEDS: PANTOPRAZOLE SOD 20 MG DELAYED RELEASE TAB PO SCH (09:27)
[2017-01-09] MEDS: MULTIVITAMINS/MINERALS THERAPEUTIC TAB PO SCH (09:27)
[2017-01-09] MEDS: LACTIC ACID (AMMONIUM LACTATE) 12% LOTION 225 GM BTL TOPICAL SCH ×2 (09:28→21:46)
[2017-01-09] MEDS: MUPIROCIN 2% OINT 22 GM TUBE TOPICAL SCH ×2 (09:28→21:46)
[2017-01-09 13:17] VITALS: BP_SYST 109; BP_DIAS 52; BP_DIAS 55; PULSE 57
[2017-01-09] MEDS: QUEtiapine FUMARATE 25 MG TAB PO SCH ×2 (13:20→18:39)
--- NOTE | 2017-01-09 15:27 | HHI.PYPN ---
Subjective Remarks Patient seen in day room with floor staff, patient is calm pleasant pleasantly confused but no behavioral problems. Compliant medications. For now continue treatment Review of Systems Except as stated in HPI: all other systems reviewed are Neg Objective Alert: Yes [place]: Person, Place Mood: Calm Affect: Blunted Memory Intact: Comment (impaired) Hallucinations: Other (denies) Delusions: No Delusion Type: Other (none elicited) Suicidal: Ideation (none) Homicidal: Ideation (none) Insight/Judgment Very poor Vitals/IOs Vital Signs Date Time Temp Pulse Resp B/P Pulse Ox O2 Delivery O2 Flow Rate FiO2 01/09/17 13:17 57 109/52 01/09/17 06:01 97.4 18 98 Intake and Output 01/08/17 01/08/17 01/09/17 08:00 16:00 00:00 Intake Total 240 ml 240 ml 240 ml Balance 240 ml 240 ml 240 ml Assessment & Plan Problem List: (1) Dementia of Alzheimer's type with behavioral disturbance ICD Code: G30.8 (2) Dementia associated with other underlying disease with behavioral disturbance ICD Code: F02.81 Assessment & Plan Estimated LOS: days patient continues confused and demented, though no behavior problems. For now continue treatment Justification for Cont. Inpt. At this time patient may decompensate if not placed an appropriate level of care Discharge Planning To be determined Request HC Surrog/Guard Advoc?: Yes Problem Qualifiers (1) Dementia of Alzheimer's type with behavioral disturbance: Qualified Code: G30.8 - Alzheimer's dementia with behavioral disturbance, unspecified timing of dementia onset Kam Ferrer MD Jan 09, 2017 15:27
[2017-01-09] MEDS: WARFARIN SOD 3 MG TAB PO SCH (16:30)
[2017-01-09 17:30] VITALS: BP 136/63; PULSE 45; RESP 16; TEMP 97.3; O2SAT 99
[2017-01-09] MEDS: traZODone HCL 50 MG TAB PO SCH (21:45)
[2017-01-10] MEDS: INSULIN ASPART SUPPLEMENTAL SCALE SQ SCH ×5 (06:00→20:28)
[2017-01-10] MEDS: hydrALAZINE HCL 10 MG TAB PO SCH ×3 (06:06→22:00)
[2017-01-10 07:01] VITALS: BP 162/72; PULSE 53; RESP 18; TEMP 97.6; O2SAT 96
[2017-01-10] MEDS: PRAVASTATIN SOD 40 MG TAB PO SCH (09:22)
[2017-01-10] MEDS: MULTIVITAMINS/MINERALS THERAPEUTIC TAB PO SCH (09:22)
[2017-01-10] MEDS: PANTOPRAZOLE SOD 20 MG DELAYED RELEASE TAB PO SCH (09:22)
[2017-01-10] MEDS: LACTIC ACID (AMMONIUM LACTATE) 12% LOTION 225 GM BTL TOPICAL SCH ×2 (09:23→21:57)
[2017-01-10] MEDS: MUPIROCIN 2% OINT 22 GM TUBE TOPICAL SCH ×2 (09:23→21:57)
[2017-01-10 11:05] LABS: INTERNATIONAL NORMALIZED RATIO 2.1 RATIO; PROTHROMBIN TIME - PATIENT 24.4 SEC (9.8-11.6)
[2017-01-10] MEDS: QUEtiapine FUMARATE 25 MG TAB PO SCH ×2 (11:54→11:56)
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
--- NOTE | 2017-01-10 15:07 | HHI.PYPN ---
Subjective Remarks Pt seen and discussed with staff. He has been cooperative with care and medications. No behavioral problems on unit. Mood is euthymic. Objective Alert: Yes [place]: Person, Place Mood: Calm Affect: Euthymic, Blunted Memory Intact: Comment (impaired) Hallucinations: Other (denies) Delusions: No Delusion Type: Other (none elicited) Suicidal: Ideation (none) Homicidal: Ideation (none) Insight/Judgment poor Labs Test 01/10/17 09:46 Prothrombin Time 24.4 SEC Prothromb Time International 2.1 RATIO Ratio Vitals/IOs Vital Signs Date Time Temp Pulse Resp B/P Pulse Ox O2 Delivery O2 Flow Rate FiO2 01/10/17 07:01 97.6 53 18 162/72 96 Intake and Output 01/09/17 01/09/17 01/10/17 08:00 16:00 00:00 Intake Total 480 ml 1440 ml 1320 ml Balance 480 ml 1440 ml 1320 ml Assessment & Plan Problem List: (1) Dementia of Alzheimer's type with behavioral disturbance ICD Code: G30.8 (2) Dementia associated with other underlying disease with behavioral disturbance ICD Code: F02.81 Assessment & Plan Continue current tx plan. Estimated LOS: days Justification for Cont. Inpt. decompensation at lower level of care Request HC Surrog/Guard Advoc?: Yes Problem Qualifiers (1) Dementia of Alzheimer's type with behavioral disturbance: Qualified Code: G30.8 - Alzheimer's dementia with behavioral disturbance, unspecified timing of dementia onset Onelia Vergara MD Jan 10, 2017 15:07
[2017-01-10] MEDS ORDERED: WARFARIN SOD 1 MG TAB PO ONE (16:00)
[2017-01-10] MEDS: WARFARIN SOD 3 MG TAB PO SCH (16:50)
[2017-01-10 18:00] VITALS: BP 134/63; PULSE 44; RESP 18; TEMP 98.1; O2SAT 98
[2017-01-10] MEDS: traZODone HCL 50 MG TAB PO SCH (21:57)
[2017-01-11 06:00] VITALS: BP 111/58; PULSE 58; RESP 18; TEMP 97.3; O2SAT 96
[2017-01-11] MEDS: INSULIN ASPART SUPPLEMENTAL SCALE SQ SCH ×5 (06:00→21:00)
[2017-01-11] MEDS: hydrALAZINE HCL 10 MG TAB PO SCH ×3 (06:20→22:00)
[2017-01-11] MEDS: PRAVASTATIN SOD 40 MG TAB PO SCH (08:49)
[2017-01-11] MEDS: FUROSEMIDE 40 MG TAB PO SCH (08:49)
[2017-01-11] MEDS: MULTIVITAMINS/MINERALS THERAPEUTIC TAB PO SCH (08:50)
[2017-01-11] MEDS: PANTOPRAZOLE SOD 20 MG DELAYED RELEASE TAB PO SCH (08:50)
[2017-01-11] MEDS: MUPIROCIN 2% OINT 22 GM TUBE TOPICAL SCH ×2 (08:51→21:50)
[2017-01-11] MEDS: LACTIC ACID (AMMONIUM LACTATE) 12% LOTION 225 GM BTL TOPICAL SCH ×2 (08:51→21:50)
[2017-01-11] MEDS: QUEtiapine FUMARATE 25 MG TAB PO SCH ×2 (12:03→17:32)
[2017-01-11] MEDS: WARFARIN SOD 3 MG TAB PO SCH (16:33)
--- NOTE | 2017-01-11 16:43 | HHI.PYPN ---
Subjective Remarks Pt seen and discussed with staff. No behavioral problems. He has been cooperative with care. Mood is euthymic and he is often observed dancing happily while listening to music. No SI/HI Objective Alert: Yes [place]: Person, Place Mood: Calm Affect: Euthymic, Blunted Memory Intact: Comment (impaired) Hallucinations: Other (denies) Delusions: No Delusion Type: Other (none elicited) Suicidal: Ideation (none) Homicidal: Ideation (none) Insight/Judgment poor Vitals/IOs Vital Signs Date Time Temp Pulse Resp B/P Pulse Ox O2 Delivery O2 Flow Rate FiO2 01/11/17 06:00 97.3 58 18 111/58 96 Intake and Output 01/10/17 01/10/17 01/11/17 08:00 16:00 00:00 Intake Total 240 ml 960 ml Balance 240 ml 960 ml Assessment & Plan Problem List: (1) Dementia of Alzheimer's type with behavioral disturbance ICD Code: G30.8 (2) Dementia associated with other underlying disease with behavioral disturbance ICD Code: F02.81 Assessment & Plan Continue current tx plan. Estimated LOS: days Justification for Cont. Inpt. risk of decompensaiton Request HC Surrog/Guard Advoc?: Yes Problem Qualifiers (1) Dementia of Alzheimer's type with behavioral disturbance: Qualified Code: G30.8 - Alzheimer's dementia with behavioral disturbance, unspecified timing of dementia onset Onelia Vergara MD Jan 11, 2017 16:43
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
[2017-01-11 18:38] VITALS: BP 140/63; PULSE 43; RESP 17; TEMP 97.6; O2SAT 99
[2017-01-11] MEDS: traZODone HCL 50 MG TAB PO SCH (21:44)
[2017-01-12] MEDS: INSULIN ASPART SUPPLEMENTAL SCALE SQ SCH ×5 (06:00→20:59)
[2017-01-12] MEDS: hydrALAZINE HCL 10 MG TAB PO SCH ×3 (06:56→21:38)
[2017-01-12 07:10] VITALS: BP 139/64; PULSE 58; RESP 18; TEMP 97.5; O2SAT 94
[2017-01-12 08:05] LABS: INTERNATIONAL NORMALIZED RATIO 2.2 RATIO; PROTHROMBIN TIME - PATIENT 25.4 SEC (9.8-11.6)
[2017-01-12 08:30] LABS: BICARBONATE 27.1 MEQ/L (21.0-32.0); POTASSIUM 4.1 MEQ/L (3.5-5.1)
[2017-01-12] MEDS: MULTIVITAMINS/MINERALS THERAPEUTIC TAB PO SCH (08:42)
[2017-01-12] MEDS: PANTOPRAZOLE SOD 20 MG DELAYED RELEASE TAB PO SCH (08:42)
[2017-01-12] MEDS: MUPIROCIN 2% OINT 22 GM TUBE TOPICAL SCH ×2 (08:42→21:06)
[2017-01-12] MEDS: FUROSEMIDE 40 MG TAB PO SCH (08:42)
[2017-01-12] MEDS: PRAVASTATIN SOD 40 MG TAB PO SCH (08:42)
[2017-01-12] MEDS: LACTIC ACID (AMMONIUM LACTATE) 12% LOTION 225 GM BTL TOPICAL SCH ×2 (08:42→21:06)
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
[2017-01-12] MEDS: QUEtiapine FUMARATE 25 MG TAB PO SCH ×2 (13:00→17:03)
[2017-01-12 13:06] VITALS: BP 119/56; PULSE 50
--- NOTE | 2017-01-12 15:00 | HHI.PYPN ---
Subjective Remarks Patient seen in day room with nurse Will and medical student Tia, chart review, patient compliant medication. Patient is diffusely confused disoriented though no significant behavioral problems. He also continues to cope with restrictions placed on him with his MRSA infection Review of Systems Except as stated in HPI: all other systems reviewed are Neg Objective Alert: Yes [place]: Person, Place Mood: Calm Affect: Euthymic, Blunted Memory Intact: Comment (impaired) Hallucinations: Other (denies) Delusions: No Delusion Type: Other (none elicited) Suicidal: Ideation (none) Homicidal: Ideation (none) Insight/Judgment Very poor Labs Test 01/12/17 05:56 Prothrombin Time 25.4 SEC Prothromb Time International 2.2 RATIO Ratio Sodium Level 138 MEQ/L Potassium Level 4.1 MEQ/L Chloride Level 101 MEQ/L Carbon Dioxide Level 27.1 MEQ/L Anion Gap 10 MEQ/L Blood Urea Nitrogen 30 MG/DL Creatinine 1.11 MG/DL Estimat Glomerular Filtration 64 ML/MIN Rate Random Glucose 87 MG/DL Calcium Level 9.0 MG/DL Vitals/IOs Vital Signs Date Time Temp Pulse Resp B/P Pulse Ox O2 Delivery O2 Flow Rate FiO2 01/12/17 13:06 50 119/56 01/12/17 07:10 97.5 18 94 Intake and Output 01/11/17 01/11/17 01/11/17 07:59 15:59 23:59 Intake Total 480 ml 1440 ml Balance 480 ml 1440 ml Assessment & Plan Problem List: (1) Dementia of Alzheimer's type with behavioral disturbance ICD Code: G30.8 (2) Dementia associated with other underlying disease with behavioral disturbance ICD Code: F02.81 Assessment & Plan Estimated LOS: days patient continues diffusely confused disoriented the no behavior problems. For now continue treatment Justification for Cont. Inpt. At this time patient may decompensate if not placed in an appropriate level of care Discharge Planning To be determined Request HC Surrog/Guard Advoc?: Yes Problem Qualifiers (1) Dementia of Alzheimer's type with behavioral disturbance: Qualified Code: G30.8 - Alzheimer's dementia with behavioral disturbance, unspecified timing of dementia onset Kam Ferrer MD Jan 12, 2017 15:00
[2017-01-12] MEDS: WARFARIN SOD 3 MG TAB PO SCH (16:00)
[2017-01-12 18:33] VITALS: BP 124/58; PULSE 50; RESP 19; TEMP 98.5; O2SAT 95
[2017-01-12] MEDS: traZODone HCL 50 MG TAB PO SCH (21:05)
[2017-01-13 05:39] VITALS: BP 160/69; PULSE 70; RESP 19; TEMP 97.8; O2SAT 98
[2017-01-13] MEDS: INSULIN ASPART SUPPLEMENTAL SCALE SQ SCH ×5 (06:00→21:00)
[2017-01-13] MEDS: hydrALAZINE HCL 10 MG TAB PO SCH ×3 (06:23→21:31)
[2017-01-13] MEDS: LACTIC ACID (AMMONIUM LACTATE) 12% LOTION 225 GM BTL TOPICAL SCH ×2 (09:00→21:00)
[2017-01-13] MEDS: MUPIROCIN 2% OINT 22 GM TUBE TOPICAL SCH ×2 (09:00→21:00)
[2017-01-13 09:43] LABS: INTERNATIONAL NORMALIZED RATIO 2.3 RATIO; PROTHROMBIN TIME - PATIENT 26.8 SEC (9.8-11.6)
[2017-01-13] MEDS: PRAVASTATIN SOD 40 MG TAB PO SCH (09:43)
[2017-01-13] MEDS: MULTIVITAMINS/MINERALS THERAPEUTIC TAB PO SCH (09:43)
[2017-01-13] MEDS: FUROSEMIDE 40 MG TAB PO SCH (09:43)
[2017-01-13] MEDS: PANTOPRAZOLE SOD 20 MG DELAYED RELEASE TAB PO SCH (09:43)
[2017-01-13] MEDS: QUEtiapine FUMARATE 25 MG TAB PO SCH ×2 (11:30→18:00)
--- NOTE | 2017-01-13 11:52 | HHI.PYPN ---
Subjective Remarks Patient seen in his room with medical student Judit, chart reviewed, patient compliant medication. Patient continues no behavioral problems is calm and pleasant with me confused pleasantly confused. Also continues to cope with the restrictions placed on him due to his MRSA Review of Systems Except as stated in HPI: all other systems reviewed are Neg Objective Alert: Yes [place]: Person, Place Mood: Calm Affect: Euthymic, Blunted Memory Intact: Comment (impaired) Hallucinations: Other (denies) Delusions: No Delusion Type: Other (none elicited) Suicidal: Ideation (none) Homicidal: Ideation (none) Insight/Judgment Very poor Labs Test 01/13/17 08:51 Prothrombin Time 26.8 SEC Prothromb Time International 2.3 RATIO Ratio Vitals/IOs Vital Signs Date Time Temp Pulse Resp B/P Pulse Ox O2 Delivery O2 Flow Rate FiO2 01/13/17 05:39 97.8 70 19 160/69 98 Intake and Output 01/12/17 01/12/17 01/12/17 07:59 15:59 23:59 Intake Total 720 ml 1440 ml Balance 720 ml 1440 ml Assessment & Plan Problem List: (1) Dementia of Alzheimer's type with behavioral disturbance ICD Code: G30.8 (2) Dementia associated with other underlying disease with behavioral disturbance ICD Code: F02.81 Assessment & Plan Estimated LOS: days patient continues confused demented though no behavioral problems. For now continue treatment Justification for Cont. Inpt. At this time patient may decompensate if not placed in an appropriate level of care Discharge Planning To be determined Request HC Surrog/Guard Advoc?: Yes Problem Qualifiers (1) Dementia of Alzheimer's type with behavioral disturbance: Qualified Code: G30.8 - Alzheimer's dementia with behavioral disturbance, unspecified timing of dementia onset Kam Ferrer MD Jan 13, 2017 11:52
[2017-01-13] MEDS: WARFARIN SOD 3 MG TAB PO SCH (16:00)
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
[2017-01-13 19:50] VITALS: BP 148/66; PULSE 53; RESP 18; TEMP 97.9; O2SAT 98
[2017-01-13] MEDS: traZODone HCL 50 MG TAB PO SCH (21:00)
[2017-01-14 05:00] VITALS: BP 150/65; PULSE 59; RESP 18; TEMP 98.5; O2SAT 94
[2017-01-14] MEDS: INSULIN ASPART SUPPLEMENTAL SCALE SQ SCH ×5 (06:00→21:00)
[2017-01-14] MEDS: hydrALAZINE HCL 10 MG TAB PO SCH ×3 (06:00→21:34)
[2017-01-14] MEDS: MULTIVITAMINS/MINERALS THERAPEUTIC TAB PO SCH (09:30)
[2017-01-14] MEDS: FUROSEMIDE 40 MG TAB PO SCH (09:30)
[2017-01-14] MEDS: PRAVASTATIN SOD 40 MG TAB PO SCH (09:30)
[2017-01-14] MEDS: PANTOPRAZOLE SOD 20 MG DELAYED RELEASE TAB PO SCH (09:31)
[2017-01-14] MEDS: MUPIROCIN 2% OINT 22 GM TUBE TOPICAL SCH ×2 (09:33→21:41)
[2017-01-14] MEDS: LACTIC ACID (AMMONIUM LACTATE) 12% LOTION 225 GM BTL TOPICAL SCH ×2 (09:33→21:40)
[2017-01-14 10:52] LABS: INTERNATIONAL NORMALIZED RATIO 2.5 RATIO; PROTHROMBIN TIME - PATIENT 29.2 SEC (9.8-11.6)
[2017-01-14] MEDS: QUEtiapine FUMARATE 25 MG TAB PO SCH ×2 (12:09→18:10)
[2017-01-14] MEDS: WARFARIN SOD 3 MG TAB PO SCH (16:04)
--- NOTE | 2017-01-14 16:06 | HHI.PYPN ---
Subjective Remarks Patient seen in room with floor staff, patient is calm cooperative pleasant, pleasantly confused. Tolerating the various medical workup some procedures and progress Review of Systems Except as stated in HPI: all other systems reviewed are Neg Objective Alert: Yes [place]: Person, Place Mood: Calm Affect: Euthymic, Blunted Memory Intact: Comment (impaired) Hallucinations: Other (denies) Delusions: No Delusion Type: Other (none elicited) Suicidal: Ideation (none) Homicidal: Ideation (none) Insight/Judgment Very poor Labs Test 01/14/17 08:54 Prothrombin Time 29.2 SEC Prothromb Time International 2.5 RATIO Ratio Vitals/IOs Vital Signs Date Time Temp Pulse Resp B/P Pulse Ox O2 Delivery O2 Flow Rate FiO2 01/14/17 05:00 98.5 59 18 150/65 94 Intake and Output 01/13/17 01/13/17 01/14/17 08:00 16:00 00:00 Intake Total 720 ml 1560 ml Balance 720 ml 1560 ml Assessment & Plan Problem List: (1) Dementia of Alzheimer's type with behavioral disturbance ICD Code: G30.8 (2) Dementia associated with other underlying disease with behavioral disturbance ICD Code: F02.81 Assessment & Plan Estimated LOS: days patient continues confused delusional though most significant behavioral problems, coping well with a procedures she is been ordered Justification for Cont. Inpt. This time patient will decompensate placed in a lower level of care Discharge Planning To be determined Request HC Surrog/Guard Advoc?: Yes Problem Qualifiers (1) Dementia of Alzheimer's type with behavioral disturbance: Qualified Code: G30.8 - Alzheimer's dementia with behavioral disturbance, unspecified timing of dementia onset Kam Ferrer MD Jan 14, 2017 16:06
[2017-01-14 18:00] VITALS: BP 148/70; PULSE 70; RESP 18; TEMP 97.6; O2SAT 98
[2017-01-14] MEDS: traZODone HCL 50 MG TAB PO SCH (21:34)
[2017-01-15] MEDS: hydrALAZINE HCL 10 MG TAB PO SCH ×3 (05:33→21:37)
[2017-01-15 06:00] VITALS: BP 143/67; PULSE 73; RESP 17; TEMP 98.3; O2SAT 96
[2017-01-15] MEDS: INSULIN ASPART SUPPLEMENTAL SCALE SQ SCH ×5 (06:00→20:11)
[2017-01-15] MEDS: PRAVASTATIN SOD 40 MG TAB PO SCH (10:08)
[2017-01-15] MEDS: FUROSEMIDE 40 MG TAB PO SCH (10:08)
[2017-01-15] MEDS: PANTOPRAZOLE SOD 20 MG DELAYED RELEASE TAB PO SCH (10:08)
[2017-01-15] MEDS: MULTIVITAMINS/MINERALS THERAPEUTIC TAB PO SCH (10:08)
[2017-01-15] MEDS: LACTIC ACID (AMMONIUM LACTATE) 12% LOTION 225 GM BTL TOPICAL SCH ×2 (10:09→22:15)
[2017-01-15] MEDS: MUPIROCIN 2% OINT 22 GM TUBE TOPICAL SCH ×2 (10:10→22:15)
[2017-01-15 10:22] LABS: INTERNATIONAL NORMALIZED RATIO 2.2 RATIO; PROTHROMBIN TIME - PATIENT 25.3 SEC (9.8-11.6)
[2017-01-15 10:43] LABS: BICARBONATE 27.8 MEQ/L (21.0-32.0); POTASSIUM 4.3 MEQ/L (3.5-5.1)
--- NOTE | 2017-01-15 11:08 | HHI.PYPN ---
Subjective Remarks Patient seen in room with nurse Stephy, chart review, patient compliant medications. CT use calm pleasantly confused and disoriented though no behavior problems. Continues coping with his peripheral circulation workup and examinations. Review of Systems Except as stated in HPI: all other systems reviewed are Neg Objective Alert: Yes [place]: Person, Place Mood: Calm Affect: Euthymic, Blunted Memory Intact: Comment (impaired) Hallucinations: Other (denies) Delusions: No Delusion Type: Other (none elicited) Suicidal: Ideation (none) Homicidal: Ideation (none) Insight/Judgment Very poor Labs Test 01/15/17 01/15/17 08:44 08:46 Sodium Level 136 MEQ/L Potassium Level 4.3 MEQ/L Chloride Level 100 MEQ/L Carbon Dioxide Level 27.8 MEQ/L Anion Gap 8 MEQ/L Blood Urea Nitrogen 36 MG/DL Creatinine 1.16 MG/DL Estimat Glomerular Filtration 61 ML/MIN Rate Random Glucose 159 MG/DL Calcium Level 8.5 MG/DL Prothrombin Time 25.3 SEC Prothromb Time International 2.2 RATIO Ratio Vitals/IOs Vital Signs Date Time Temp Pulse Resp B/P Pulse Ox O2 Delivery O2 Flow Rate FiO2 01/15/17 06:00 98.3 73 17 143/67 96 Intake and Output 01/14/17 01/14/17 01/15/17 08:00 16:00 00:00 Intake Total 240 ml 240 ml 720 ml Balance 240 ml 240 ml 720 ml Assessment & Plan Problem List: (1) Dementia of Alzheimer's type with behavioral disturbance ICD Code: G30.8 (2) Dementia associated with other underlying disease with behavioral disturbance ICD Code: F02.81 Assessment & Plan Estimated LOS: days patient continues confused and demented though no significant behavioral problems for now continue treatment Justification for Cont. Inpt. At this time patient may decompensate is not placed at an appropriate level of care Discharge Planning To be determined Request HC Surrog/Guard Advoc?: Yes Problem Qualifiers (1) Dementia of Alzheimer's type with behavioral disturbance: Qualified Code: G30.8 - Alzheimer's dementia with behavioral disturbance, unspecified timing of dementia onset Kam Ferrer MD Jan 15, 2017 11:08
[2017-01-15] MEDS ORDERED: IOHEXOL 350 MG/ML 10 ML VIAL (for RAD DIAG) IV ONE (11:20)
[2017-01-15] MEDS: QUEtiapine FUMARATE 25 MG TAB PO SCH ×2 (12:23→20:20)
--- NOTE | 2017-01-15 13:22 | PD.VS.CON ---
History of Present Illness Chief Complaint: Questionable. Consult Requested by: History of Present Illness Patient standing in doorway. When asked if he has leg pain he says he does not have any now. DId not appear to want to be examined now. Seemed somewhat anxious. Past/Family/Social History Home Medications Reported Medications Silver Sulfadiazine Topical 1 % Cream1 Applic TOPICAL HS Ref 0 10/26/16 Lidocaine-Benzalkonium Topical (A+D Cracked Skin Relief Topical)2-0.13 % Cream1 Applic TOPICAL HS 10/26/16 Furosemide 20 Mg Tab20 Mg PO BID #60 TAB Ref 0 10/26/16 Saccharomyces Boulardii (Florastor)250 Mg [id number] Mg PO BID Ref 0 10/26/16 Spironolactone 25 Mg Tab12.5 Mg PO BID #15 TAB Ref 0 10/26/16 Trazodone HCl 100 Mg Tab50 Mg PO HS 10/26/16 Multiple Vitamins W/ Minerals (Thera-M)1 Tab1 Tab PO DAILT Ref 0 10/26/16 Simvastatin 20 Mg Tab20 Mg PO DAILY #30 TAB Ref 0 10/26/16 Pantoprazole 20 Mg Tab20 Mg PO DAILY #30 TAB Ref 0 10/26/16 Metformin 1,000 Mg Tab1,000 Mg PO DAILY #30 TAB Ref 0 With a meal 10/26/16 Losartan 100 Mg Srr820 Mg PO DAILY #30 TAB Ref 0 10/26/16 Isosorbide Mononitrate ER 60 Mg Tab60 Mg PO DAILY #30 TAB Ref 0 10/26/16 Warfarin (Coumadin)3 Mg Tab3 Mg PO DAILY #30 TAB Ref 0 10/26/16 Coded Allergies: *MDRO Multi-Drug Resistant Organism (Verified Adverse Reaction, Unknown, MRSA, 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 Physical Exam Vitals/I&O Date Time Temp Pulse Resp B/P Pulse Ox O2 Delivery O2 Flow Rate FiO2 01/15/17 06:00 98.3 73 17 143/67 96 01/14/17 18:00 97.6 70 18 148/70 98 01/15/17 01/15/17 01/15/17 07:00 15:00 23:00 Intake Total 240 ml Balance 240 ml Laboratory Tests Test 01/15/17 01/15/17 08:44 08:46 Sodium Level 136 Potassium Level 4.3 Chloride Level 100 Carbon Dioxide Level 27.8 Anion Gap 8 Blood Urea Nitrogen 36 Creatinine 1.16 Estimat Glomerular Filtration 61 Rate Random Glucose 159 Calcium Level 8.5 Prothrombin Time 25.3 Prothromb Time International 2.2 Ratio Assessment and Plan Plan Patient with findings of outflow and runoff PAD on CTA. ABIs 0.75 Hx of dementia/confusion? so makes conversation about PAD difficult but denies any current leg pain. Would have patient follow with me up as an outpatient. Does not appear to have critical limb ischemia at this time to necessitate inpatient consult.. Based on my review of studies and history. 1. PAD Recommend medical management with an anitplatelet and statin for mild to moderate PAD. 2. Leg swelling (negative DVT by duplex US) Would need outpatient duplex US to rule out venous reflux (office based exam), Ady Best DO, Ady Cheng DO Jan 15, 2017 13:21
--- NOTE | 2017-01-15 14:03 | RADRPT ---
EXAM DATE/TIME: 01/15/2017 11:11 [facility] COMPARISON: No previous studies available for comparison. INDICATIONS : Nodular infiltrate right lung. IV CONTRAST: 75 cc Omnipaque 350 (iohexol) IV RADIATION DOSE: 9.38 CTDIvol (mGy) MEDICAL HISTORY : Cardiovascular disease. Congestive heart failure. Chronic obstructive pulmonary disease.Diabetes SURGICAL HISTORY : None. ENCOUNTER: Initial ACUITY: 1 day PAIN SCALE: 0/10 LOCATION: Right chest TECHNIQUE: Volumetric scanning of the chest was performed. Using automated exposure control and adjustment of t he mA and/or kV according to patient size, radiation dose was kept as low as reasonably achievable to obtain optimal diagnostic quality images. DICOM format image data is available electronically for review and comparison. Follow-up recommendations for incidentally detected pulmonary nodules are based at a minimum on nodul e size and patient risk factors according to Fleischner Society Guidelines. FINDINGS: There is patchy airspace consolidation of right lung base involving predominantly the lateral segment right middle lobe and lateral basilar segment right lower lobe. No significant change compared with prior CT on January 08. This does not have the typical appearance of malignancy and is probably related to infection or aspiration. There is also minimal airspace disease posterior segment right upper lobe . Left lung is clear. No significant effusion. Cardiomegaly. Moderate to severe coronary calcificatio ns. No acute findings in the upper abdomen. CONCLUSION: 1. Patchy consolidation right lung base involving right middle lobe and right lower lobe. Primary dif ferential diagnosis is aspiration changes or bronchopneumonia although other etiologies are not exclu ded. No significant change from January 08. Continued followup is recommended to ensure resolution. This may be able to be followed on chest radiograph. Amador Saba MD on January 15, 2017 at 13:53 Board Certified Radiologist. This report was verified electronically.
--- NOTE | 2017-01-15 15:01 | EKG ---
Date Performed: 01/14/2017 Time Performed: 16:26:22 PTAGE: 81 years EKG: ATRIAL FIBRILLATION WITH SLOW VENTRICULAR RESPONSE MINIMAL ST DEPRESSION PROLONGED QT INTER ROSS ABNORMAL ECG PREVIOUS TRACING : 11/24/2016 09.25 Since previous tracing, no significant change noted DOCTOR: Jodie Solis Interpretating Date/Time 01/15/2017 15:00:40
[2017-01-15] MEDS: WARFARIN SOD 3 MG TAB PO SCH (16:13)
--- NOTE | 2017-01-15 17:31 | MB ---
cc: MENDES,TOÑO DATE OF CONSULTATION 01/15/17 HISTORY OF PRESENT ILLNESS This is an 81-year-old gentleman whom we have been asked to see and evaluate for evaluation for prolonged QT interval. He has been admitted to the psychiatric unit because of problems with dementia and behavioral problems. This started on a combination of a small dose of Seroquel at 25 mg daily as well as trazodone at night. An electrocardiogram was done which has revealed a QTC of 490 seconds. The patient is demented and is not oriented to place or time, although does have a good memory for his past. 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 No prior history of heart disease has been present. Denies any problems with chest pain, palpitations, lightheadedness or dizziness. He has been on his current medical regimen essentially since his admission to the hospital in October and apparently is somewhat of a placement problem at this point in time. He has been evaluated for peripheral vascular disease and ABIs have demonstrated some mild PVD. No apparent episodes of heart disease has been present. MEDICATIONS In addition to trazodone and Seroquel 1. Furosemide 20 mg twice a day, 2. Pantoprazole 20 mg daily, 3. Simvastatin 20 mg daily, 4. Metformin 1000 mg daily, 5. Losartan 100 daily, 6. Isosorbide 60 mg daily 7. Warfarin on a daily basis PHYSICAL EXAMINATION GENERAL: He is awake and alert. He is in no acute distress. VITAL SIGNS: Blood pressure is 140/60, pulse is 70 and regular. NECK: There is no neck vein distension. Carotids are normal. LUNGS: Clear. CARDIOVASCULAR: Regular rate and rhythm. There is no murmur. No gallop is noted. EXTREMITIES: Reveal +1 pedal edema. LABORATORY DATA Normal potassium. He has mild renal insufficiency with a creatinine of 1.16 and an estimated GFR of 61. His INR is therapeutic at 2.2. ASSESSMENT The patient has moderately elevated QTC at 490 seconds. He has not had any problems with chest pain or evidence for congestive failure and, at this point time, probably would continue his medications as is. He has at increased risk for arrhythmias, but it would appear that the benefit that he achieves from the combination of Seroquel and trazodone probably outweigh that risk at this point in time. All SSRIs have potential to increase his QTC and, therefore, probably would continue his medications as is. At this point in time, I have little else to offer and we will be happy to see on a p.r.n. basis. MD VÍCTOR Trinidad/ /4:08 PM /5:18 PM
[2017-01-15 17:35] VITALS: BP 139/63; PULSE 43; RESP 16; TEMP 97.4; O2SAT 96
[2017-01-15] MEDS: traZODone HCL 50 MG TAB PO SCH (22:15)
[2017-01-15] MEDS: LACTOBACILLUS ACIDOPHILUS TAB PO SCH (22:15)
[2017-01-15] MEDS: AMOXICILLIN/CLAVULANATE K 875 MG TAB PO SCH (23:09)
[2017-01-16] MEDS: INSULIN ASPART SUPPLEMENTAL SCALE SQ SCH ×5 (05:46→21:00)
[2017-01-16 06:00] VITALS: BP 154/81; PULSE 54; RESP 17; TEMP 97.4; O2SAT 96
[2017-01-16] MEDS: hydrALAZINE HCL 10 MG TAB PO SCH ×3 (06:33→21:50)
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
[2017-01-16] MEDS: MUPIROCIN 2% OINT 22 GM TUBE TOPICAL SCH ×2 (09:00→21:50)
[2017-01-16] MEDS: PANTOPRAZOLE SOD 20 MG DELAYED RELEASE TAB PO SCH (09:44)
[2017-01-16] MEDS: LACTOBACILLUS ACIDOPHILUS TAB PO SCH ×2 (09:44→21:50)
[2017-01-16] MEDS: PRAVASTATIN SOD 40 MG TAB PO SCH (09:44)
[2017-01-16] MEDS: AMOXICILLIN/CLAVULANATE K 875 MG TAB PO SCH ×2 (09:44→21:50)
[2017-01-16] MEDS: FUROSEMIDE 20 MG TAB PO SCH (09:44)
[2017-01-16] MEDS: MULTIVITAMINS/MINERALS THERAPEUTIC TAB PO SCH (09:44)
[2017-01-16] MEDS: LACTIC ACID (AMMONIUM LACTATE) 12% LOTION 225 GM BTL TOPICAL SCH ×2 (09:45→21:50)
--- NOTE | 2017-01-16 11:25 | HHI.PYPN ---
Subjective Remarks Patient seen in his room with floor staff. Chart reviewed. Patient compliant medications. Patient continues pleasantly confused and disoriented though no behavioral problems. Placement remains problematic. For now continue treatment Review of Systems Except as stated in HPI: all other systems reviewed are Neg Objective Alert: Yes [place]: Person, Place Mood: Calm Affect: Euthymic, Blunted Memory Intact: Comment (impaired) Hallucinations: Other (denies) Delusions: No Delusion Type: Other (none elicited) Suicidal: Ideation (none) Homicidal: Ideation (none) Insight/Judgment Poor Vitals/IOs Vital Signs Date Time Temp Pulse Resp B/P Pulse Ox O2 Delivery O2 Flow Rate FiO2 01/16/17 06:00 97.4 54 17 154/81 96 Intake and Output 01/15/17 01/15/17 01/15/17 07:59 15:59 23:59 Intake Total 480 ml 720 ml Balance 480 ml 720 ml Assessment & Plan Problem List: (1) Dementia of Alzheimer's type with behavioral disturbance ICD Code: G30.8 (2) Dementia associated with other underlying disease with behavioral disturbance ICD Code: F02.81 Assessment & Plan Estimated LOS: days patient continues to measure confused though no behavioral problems. For now continue treatment Justification for Cont. Inpt. At this time patient may decompensate if not placed in an appropriate level of care Discharge Planning To be determined Request HC Surrog/Guard Advoc?: Yes Problem Qualifiers (1) Dementia of Alzheimer's type with behavioral disturbance: Qualified Code: G30.8 - Alzheimer's dementia with behavioral disturbance, unspecified timing of dementia onset Kam Ferrer MD Jan 16, 2017 11:25
[2017-01-16] MEDS: QUEtiapine FUMARATE 25 MG TAB PO SCH ×2 (12:00→16:32)
[2017-01-16 13:12] LABS: AUTOMATED NEUTROPHIL # 5.8 TH/MM3 (1.8-7.7); BASOPHIL % 0.6 % (0.0-2.0); EOSINOPHIL # 0.4 TH/MM3 (0-0.4); EOSINOPHIL % 5.2 % (0.0-4.0); HEMO FLAGS DIFF FINAL; LYMPH % 10.2 % (9.0-44.0); LYMPHOCYTE # 0.8 TH/MM3 (1.0-4.8); MEAN CORPUSCULAR HGB CONC 32.6 % (32.0-36.0); MONO % 8.3 % (0.0-8.0); NEUT % 75.7 % (16.0-70.0); PLATELET COUNT 343 TH/MM3 (150-450); RED BLOOD COUNT 3.59 MIL/MM3 (4.50-5.90); RED CELL DISTRIBUTION WIDTH 15.3 % (11.6-17.2); WHITE BLOOD COUNT 7.7 TH/MM3 (4.0-11.0)
[2017-01-16 13:20] LABS: INTERNATIONAL NORMALIZED RATIO 2.4 RATIO; PROTHROMBIN TIME - PATIENT 27.3 SEC (9.8-11.6)
[2017-01-16] MEDS: WARFARIN SOD 3 MG TAB PO SCH (16:00)
[2017-01-16 17:25] VITALS: BP 129/64; PULSE 53; RESP 18; TEMP 97.9; O2SAT 96
[2017-01-16] MEDS: traZODone HCL 50 MG TAB PO SCH (21:51)
[2017-01-17] MEDS: INSULIN ASPART SUPPLEMENTAL SCALE SQ SCH ×5 (06:00→21:00)
[2017-01-17] MEDS: hydrALAZINE HCL 10 MG TAB PO SCH ×3 (06:00→20:10)
[2017-01-17 06:23] VITALS: BP 194/78; PULSE 50; RESP 18; TEMP 96.4; O2SAT 99
[2017-01-17] MEDS: MUPIROCIN 2% OINT 22 GM TUBE TOPICAL SCH ×2 (09:00→20:09)
[2017-01-17] MEDS: FUROSEMIDE 20 MG TAB PO SCH (09:00)
[2017-01-17] MEDS ORDERED: SPIRONOLACTONE 25 MG TAB PO SCH (09:00)
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
[2017-01-17] MEDS ORDERED: PILL SPLITTER OTHER PRN (09:30)
[2017-01-17 09:48] VITALS: BP 140/52; PULSE 47; PULSE 50
[2017-01-17] MEDS: LACTOBACILLUS ACIDOPHILUS TAB PO SCH ×2 (10:04→20:11)
[2017-01-17] MEDS: PANTOPRAZOLE SOD 20 MG DELAYED RELEASE TAB PO SCH (10:04)
[2017-01-17] MEDS: AMOXICILLIN/CLAVULANATE K 875 MG TAB PO SCH ×2 (10:04→20:08)
[2017-01-17] MEDS: PRAVASTATIN SOD 40 MG TAB PO SCH (10:04)
[2017-01-17] MEDS: MULTIVITAMINS/MINERALS THERAPEUTIC TAB PO SCH (10:05)
[2017-01-17] MEDS: LACTIC ACID (AMMONIUM LACTATE) 12% LOTION 225 GM BTL TOPICAL SCH ×2 (10:07→20:08)
[2017-01-17] MEDS: QUEtiapine FUMARATE 25 MG TAB PO SCH ×2 (12:23→17:12)
--- NOTE | 2017-01-17 13:20 | HHI.PYPN ---
Subjective Remarks Patient was seen and case discussed with nursing. Patient is pleasant and cooperative with exam. Alert and oriented 2. Behaving well on the unit. Denies suicidal ideation intent or plan Objective Alert: Yes [place]: Person, Place Mood: Calm Affect: Euthymic, Restricted Memory Intact: Comment (impaired) Hallucinations: Other (denies) Delusions: No Delusion Type: Other (none elicited) Suicidal: Ideation (none) Homicidal: Ideation (none) Insight/Judgment Poor Vitals/IOs Vital Signs Date Time Temp Pulse Resp B/P Pulse Ox O2 Delivery O2 Flow Rate FiO2 01/17/17 09:48 50 140/52 01/17/17 06:23 96.4 18 99 Intake and Output 01/16/17 01/16/17 01/16/17 07:59 15:59 23:59 Intake Total 240 ml 1200 ml Balance 240 ml 1200 ml Assessment & Plan Problem List: (1) Dementia of Alzheimer's type with behavioral disturbance ICD Code: G30.8 (2) Dementia associated with other underlying disease with behavioral disturbance ICD Code: F02.81 Assessment & Plan Continue current treatment plan Justification for Cont. Inpt. Patient will decompensate in a less restrictive setting Request HC Surrog/Guard Advoc?: Yes Problem Qualifiers (1) Dementia of Alzheimer's type with behavioral disturbance: Qualified Code: G30.8 - Alzheimer's dementia with behavioral disturbance, unspecified timing of dementia onset Ayad Garcia DO Jan 17, 2017 13:20
[2017-01-17 17:11] VITALS: BP 158/68
[2017-01-17] MEDS: WARFARIN SOD 3 MG TAB PO SCH (17:12)
[2017-01-17] MEDS: SPIRONOLACTONE 25 MG TAB PO SCH (17:12)
[2017-01-17 20:00] VITALS: BP_SYST 158; BP_SYST 98; BP_DIAS 56; BP_DIAS 68; PULSE 45; PULSE 90; RESP 18; TEMP 98; O2SAT 96; O2SAT 99
[2017-01-17] MEDS: traZODone HCL 50 MG TAB PO SCH (20:10)
[2017-01-18] MEDS: INSULIN ASPART SUPPLEMENTAL SCALE SQ SCH ×5 (05:35→21:00)
[2017-01-18 05:58] VITALS: BP 165/70; PULSE 47; RESP 20; TEMP 97.6; O2SAT 98
[2017-01-18] MEDS: hydrALAZINE HCL 10 MG TAB PO SCH ×3 (06:27→22:00)
[2017-01-18] MEDS: FUROSEMIDE 20 MG TAB PO SCH (09:00)
[2017-01-18] MEDS: MUPIROCIN 2% OINT 22 GM TUBE TOPICAL SCH ×2 (09:00→21:33)
[2017-01-18] MEDS: LACTIC ACID (AMMONIUM LACTATE) 12% LOTION 225 GM BTL TOPICAL SCH ×2 (09:00→21:33)
[2017-01-18] MEDS: MULTIVITAMINS/MINERALS THERAPEUTIC TAB PO SCH (09:41)
[2017-01-18] MEDS: AMOXICILLIN/CLAVULANATE K 875 MG TAB PO SCH ×2 (09:42→21:34)
[2017-01-18] MEDS: PRAVASTATIN SOD 40 MG TAB PO SCH (09:42)
[2017-01-18] MEDS: SPIRONOLACTONE 25 MG TAB PO SCH ×2 (09:42→18:41)
[2017-01-18] MEDS: LACTOBACILLUS ACIDOPHILUS TAB PO SCH ×2 (09:42→21:34)
[2017-01-18] MEDS: PANTOPRAZOLE SOD 20 MG DELAYED RELEASE TAB PO SCH (09:42)
--- NOTE | 2017-01-18 11:31 | HHI.PYPN ---
Subjective Remarks Patient was seen and case discussed with nursing. Patient is bright and cheerful during the exam. No complaints today. Behaving well per nursing. Alert and oriented 2. Denies suicidal ideation intent or plan. No psychotic symptoms elicited Objective Alert: Yes [place]: Person, Place Mood: Calm Affect: Restricted Memory Intact: Comment (impaired) Hallucinations: Other (denies) Delusions: No Delusion Type: Other (none elicited) Suicidal: Ideation (none) Homicidal: Ideation (none) Insight/Judgment Poor Vitals/IOs Vital Signs Date Time Temp Pulse Resp B/P Pulse Ox O2 Delivery O2 Flow Rate FiO2 01/18/17 05:58 97.6 47 20 165/70 98 Intake and Output 01/17/17 01/17/17 01/18/17 08:00 16:00 00:00 Intake Total 480 ml 480 ml 1440 ml Balance 480 ml 480 ml 1440 ml Assessment & Plan Problem List: (1) Dementia of Alzheimer's type with behavioral disturbance ICD Code: G30.8 (2) Dementia associated with other underlying disease with behavioral disturbance ICD Code: F02.81 Assessment & Plan Continue current treatment plan Justification for Cont. Inpt. Patient will decompensate in a less restrictive setting Request HC Surrog/Guard Advoc?: Yes Problem Qualifiers (1) Dementia of Alzheimer's type with behavioral disturbance: Qualified Code: G30.8 - Alzheimer's dementia with behavioral disturbance, unspecified timing of dementia onset Ayad Garcia DO Jan 18, 2017 11:31
[2017-01-18] MEDS: QUEtiapine FUMARATE 25 MG TAB PO SCH ×2 (12:49→17:23)
[2017-01-18 13:51] LABS: AUTOMATED NEUTROPHIL # 5.6 TH/MM3 (1.8-7.7); BASOPHIL # 0.1 TH/MM3 (0-0.2); BASOPHIL % 0.7 % (0.0-2.0); EOSINOPHIL # 0.3 TH/MM3 (0-0.4); EOSINOPHIL % 4.4 % (0.0-4.0); HEMATOCRIT 32.6 % (39.0-51.0); HEMO FLAGS DIFF FINAL; LYMPH % 10.3 % (9.0-44.0); LYMPHOCYTE # 0.7 TH/MM3 (1.0-4.8); MEAN CORPUSCULAR HEMOGLOBIN 30.1 PG (27.0-34.0); MEAN CORPUSCULAR HGB CONC 32.7 % (32.0-36.0); NEUT % 76.6 % (16.0-70.0); PLATELET COUNT 345 TH/MM3 (150-450); RED BLOOD COUNT 3.54 MIL/MM3 (4.50-5.90); WHITE BLOOD COUNT 7.3 TH/MM3 (4.0-11.0)
[2017-01-18 13:58] LABS: PROTHROMBIN TIME - PATIENT 22.6 SEC (9.8-11.6)
[2017-01-18 14:27] LABS: BICARBONATE 28.7 MEQ/L (21.0-32.0); MAGNESIUM 2.3 MG/DL (1.5-2.5); POTASSIUM 4.1 MEQ/L (3.5-5.1)
[2017-01-18 16:43] VITALS: BP 180/79
[2017-01-18] MEDS: WARFARIN SOD 3 MG TAB PO SCH (17:23)
[2017-01-18] MEDS: LOSARTAN 50 MG TAB PO SCH (17:23)
[2017-01-18 18:06] VITALS: BP 160/67; PULSE 47; TEMP 97.8; O2SAT 99
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
[2017-01-18] MEDS: traZODone HCL 50 MG TAB PO SCH (21:34)
[2017-01-18 22:13] VITALS: BP 145/66; PULSE 47
[2017-01-19 05:27] VITALS: BP 149/70; PULSE 55; RESP 19; TEMP 97.6; O2SAT 95
[2017-01-19] MEDS: INSULIN ASPART SUPPLEMENTAL SCALE SQ SCH ×5 (05:55→20:55)
[2017-01-19] MEDS: hydrALAZINE HCL 10 MG TAB PO SCH ×3 (05:55→20:49)
[2017-01-19] MEDS: AMOXICILLIN/CLAVULANATE K 875 MG TAB PO SCH ×2 (08:30→20:45)
[2017-01-19] MEDS: MULTIVITAMINS/MINERALS THERAPEUTIC TAB PO SCH (08:30)
[2017-01-19] MEDS: FUROSEMIDE 20 MG TAB PO SCH (08:30)
[2017-01-19] MEDS: SPIRONOLACTONE 25 MG TAB PO SCH ×2 (08:31→16:42)
[2017-01-19] MEDS: LACTOBACILLUS ACIDOPHILUS TAB PO SCH ×2 (08:31→20:45)
[2017-01-19] MEDS: MUPIROCIN 2% OINT 22 GM TUBE TOPICAL SCH ×2 (08:31→20:55)
[2017-01-19] MEDS: PANTOPRAZOLE SOD 20 MG DELAYED RELEASE TAB PO SCH (08:31)
[2017-01-19] MEDS: LACTIC ACID (AMMONIUM LACTATE) 12% LOTION 225 GM BTL TOPICAL SCH ×2 (08:31→20:54)
[2017-01-19] MEDS: LOSARTAN 50 MG TAB PO SCH (08:31)
[2017-01-19] MEDS: PRAVASTATIN SOD 40 MG TAB PO SCH (08:31)
[2017-01-19 10:29] LABS: INTERNATIONAL NORMALIZED RATIO 1.9 RATIO; PROTHROMBIN TIME - PATIENT 21.9 SEC (9.8-11.6)
[2017-01-19] MEDS: QUEtiapine FUMARATE 25 MG TAB PO SCH ×2 (12:00→16:42)
--- NOTE | 2017-01-19 13:49 | HHI.PYPN ---
Subjective Remarks Patient discussed with treatment team Patient seen in his room with nurse Chichi and medical students Alisa and Judit chart review. Patient compliant medication. Patient continues confused though pleasant with no behavioral problems. For now continue treatment Review of Systems Except as stated in HPI: all other systems reviewed are Neg Objective Alert: Yes [place]: Person, Place Mood: Calm Affect: Restricted Memory Intact: Comment (impaired) Hallucinations: Other (denies) Delusions: No Delusion Type: Other (none elicited) Suicidal: Ideation (none) Homicidal: Ideation (none) Insight/Judgment Very poor Labs Test 01/19/17 09:19 Prothrombin Time 21.9 SEC Prothromb Time International 1.9 RATIO Ratio Vitals/IOs Vital Signs Date Time Temp Pulse Resp B/P Pulse Ox O2 Delivery O2 Flow Rate FiO2 01/19/17 05:27 97.6 55 19 149/70 95 Intake and Output 01/18/17 01/18/17 01/18/17 07:59 15:59 23:59 Intake Total 480 ml 1680 ml Balance 480 ml 1680 ml Assessment & Plan Problem List: (1) Dementia of Alzheimer's type with behavioral disturbance ICD Code: G30.8 (2) Dementia associated with other underlying disease with behavioral disturbance ICD Code: F02.81 Assessment & Plan Estimated LOS: days patient continues demented and confused, though no significant behavioral problem Justification for Cont. Inpt. At this time patient may decompensate if not placed in an appropriate level of care Discharge Planning To be determined Request HC Surrog/Guard Advoc?: Yes Problem Qualifiers (1) Dementia of Alzheimer's type with behavioral disturbance: Qualified Code: G30.8 - Alzheimer's dementia with behavioral disturbance, unspecified timing of dementia onset Kam Ferrer MD Jan 19, 2017 13:49
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
[2017-01-19] MEDS ORDERED: WARFARIN SOD 1 MG TAB PO SCH (16:00)
[2017-01-19] MEDS: WARFARIN SOD 3 MG TAB PO SCH (16:00)
[2017-01-19] MEDS: hydrOXYzine HCL 50 MG TAB PO PRN (20:45)
[2017-01-19] MEDS: traZODone HCL 50 MG TAB PO SCH (20:45)
[2017-01-20 05:30] VITALS: BP 154/72; PULSE 50; RESP 18; TEMP 97.4; O2SAT 99
[2017-01-20] MEDS: INSULIN ASPART SUPPLEMENTAL SCALE SQ SCH ×5 (06:00→21:00)
[2017-01-20] MEDS: hydrALAZINE HCL 10 MG TAB PO SCH ×3 (06:23→21:43)
[2017-01-20 08:13] LABS: INTERNATIONAL NORMALIZED RATIO 1.9 RATIO; PROTHROMBIN TIME - PATIENT 21.1 SEC (9.8-11.6)
[2017-01-20 08:34] LABS: BICARBONATE 29.2 MEQ/L (21.0-32.0); POTASSIUM 4.5 MEQ/L (3.5-5.1)
[2017-01-20] MEDS: LACTOBACILLUS ACIDOPHILUS TAB PO SCH ×2 (08:49→21:10)
[2017-01-20] MEDS: AMOXICILLIN/CLAVULANATE K 875 MG TAB PO SCH ×2 (08:49→21:10)
[2017-01-20] MEDS: PRAVASTATIN SOD 40 MG TAB PO SCH (08:50)
[2017-01-20] MEDS: SPIRONOLACTONE 25 MG TAB PO SCH ×2 (08:50→17:01)
[2017-01-20] MEDS: LOSARTAN 50 MG TAB PO SCH (08:50)
[2017-01-20] MEDS: PANTOPRAZOLE SOD 20 MG DELAYED RELEASE TAB PO SCH (08:50)
[2017-01-20] MEDS: MUPIROCIN 2% OINT 22 GM TUBE TOPICAL SCH ×2 (08:51→21:00)
[2017-01-20] MEDS: FUROSEMIDE 20 MG TAB PO SCH (08:51)
[2017-01-20] MEDS: MULTIVITAMINS/MINERALS THERAPEUTIC TAB PO SCH (08:51)
[2017-01-20] MEDS: LACTIC ACID (AMMONIUM LACTATE) 12% LOTION 225 GM BTL TOPICAL SCH ×2 (09:04→21:00)
[2017-01-20] MEDS: QUEtiapine FUMARATE 25 MG TAB PO SCH ×2 (12:08→17:01)
--- NOTE | 2017-01-20 15:34 | HHI.PYPN ---
Subjective Remarks Patient seen in dayroom with nurse Marilu and medical student Tia, patient continues calm pleasantly confused no behavior problem. Placement remains problematic. For now continue treatment Review of Systems Except as stated in HPI: all other systems reviewed are Neg Objective Alert: Yes [place]: Person, Place Mood: Calm Affect: Restricted Memory Intact: Comment (impaired) Hallucinations: Other (denies) Delusions: No Delusion Type: Other (none elicited) Suicidal: Ideation (none) Homicidal: Ideation (none) Insight/Judgment Very poor Labs Test 01/20/17 06:36 Prothrombin Time 21.1 SEC Prothromb Time International 1.9 RATIO Ratio Sodium Level 137 MEQ/L Potassium Level 4.5 MEQ/L Chloride Level 102 MEQ/L Carbon Dioxide Level 29.2 MEQ/L Anion Gap 6 MEQ/L Blood Urea Nitrogen 24 MG/DL Creatinine 1.14 MG/DL Estimat Glomerular Filtration 62 ML/MIN Rate Random Glucose 97 MG/DL Calcium Level 8.8 MG/DL Vitals/IOs Vital Signs Date Time Temp Pulse Resp B/P Pulse Ox O2 Delivery O2 Flow Rate FiO2 01/20/17 05:30 97.4 50 18 154/72 99 Intake and Output 01/19/17 01/19/17 01/19/17 07:59 15:59 23:59 Intake Total 600 ml 1560 ml 1320 ml Balance 600 ml 1560 ml 1320 ml Assessment & Plan Problem List: (1) Dementia of Alzheimer's type with behavioral disturbance ICD Code: G30.8 (2) Dementia associated with other underlying disease with behavioral disturbance ICD Code: F02.81 Assessment & Plan Estimated LOS: days patient continues confused demented though no behavioral problems. Placement remains problematic Justification for Cont. Inpt. This time patient will decompensate if not placed in an appropriate level of care Discharge Planning To be determined Request HC Surrog/Guard Advoc?: Yes Problem Qualifiers (1) Dementia of Alzheimer's type with behavioral disturbance: Qualified Code: G30.8 - Alzheimer's dementia with behavioral disturbance, unspecified timing of dementia onset Kam Ferrer MD Jan 20, 2017 15:34
[2017-01-20 16:01] VITALS: BP 141/61; PULSE 39; RESP 18; TEMP 98.3; O2SAT 97
[2017-01-20] MEDS: WARFARIN SOD 3 MG TAB PO SCH (17:01)
[2017-01-20] MEDS: traZODone HCL 50 MG TAB PO SCH (21:11)
[2017-01-20 21:40] VITALS: PULSE 42
[2017-01-21 05:10] VITALS: BP 147/67; PULSE 61; RESP 14; TEMP 97.5; O2SAT 97
[2017-01-21] MEDS: INSULIN ASPART SUPPLEMENTAL SCALE SQ SCH ×5 (06:00→20:39)
[2017-01-21] MEDS: hydrALAZINE HCL 10 MG TAB PO SCH ×3 (06:00→20:40)
[2017-01-21 08:36] LABS: INTERNATIONAL NORMALIZED RATIO 1.8 RATIO; PROTHROMBIN TIME - PATIENT 20.3 SEC (9.8-11.6)
[2017-01-21] MEDS: LACTOBACILLUS ACIDOPHILUS TAB PO SCH ×2 (09:04→20:41)
[2017-01-21] MEDS: AMOXICILLIN/CLAVULANATE K 875 MG TAB PO SCH ×2 (09:04→20:41)
[2017-01-21] MEDS: SPIRONOLACTONE 25 MG TAB PO SCH ×2 (09:04→18:00)
[2017-01-21] MEDS: PRAVASTATIN SOD 40 MG TAB PO SCH (09:05)
[2017-01-21] MEDS: MULTIVITAMINS/MINERALS THERAPEUTIC TAB PO SCH (09:05)
[2017-01-21] MEDS: PANTOPRAZOLE SOD 20 MG DELAYED RELEASE TAB PO SCH (09:05)
[2017-01-21] MEDS: FUROSEMIDE 20 MG TAB PO SCH (09:05)
[2017-01-21] MEDS: LACTIC ACID (AMMONIUM LACTATE) 12% LOTION 225 GM BTL TOPICAL SCH ×2 (09:06→20:41)
[2017-01-21] MEDS: MUPIROCIN 2% OINT 22 GM TUBE TOPICAL SCH ×2 (09:06→20:41)
[2017-01-21] MEDS: LOSARTAN 50 MG TAB PO SCH (09:06)
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
[2017-01-21] MEDS: QUEtiapine FUMARATE 25 MG TAB PO SCH ×2 (12:11→18:00)
[2017-01-21] MEDS: WARFARIN SOD 4 MG TAB PO SCH (16:36)
[2017-01-21] MEDS: traZODone HCL 50 MG TAB PO SCH (20:41)
[2017-01-21 21:49] VITALS: BP 183/74; PULSE 87; RESP 16; TEMP 97.5; O2SAT 96
[2017-01-22] MEDS: hydrALAZINE HCL 10 MG TAB PO SCH ×3 (05:43→21:06)
[2017-01-22 05:58] VITALS: BP 176/70; PULSE 51; RESP 19; TEMP 98.1; O2SAT 95
[2017-01-22 06:00] VITALS: RESP 18
[2017-01-22] MEDS: INSULIN ASPART SUPPLEMENTAL SCALE SQ SCH ×4 (06:29→21:00)
[2017-01-22 08:47] LABS: INTERNATIONAL NORMALIZED RATIO 1.8 RATIO
[2017-01-22] MEDS: MUPIROCIN 2% OINT 22 GM TUBE TOPICAL SCH ×2 (09:00→21:07)
--- NOTE | 2017-01-22 09:43 | HHI.PYPN ---
Subjective Remarks Patient seen in his room with counselor Megan, chart review, patient compliant medications. Patient continues no significant behavioral problems. Placement remains problematic Review of Systems Except as stated in HPI: all other systems reviewed are Neg Objective Alert: Yes [place]: Person, Place Mood: Calm Affect: Restricted Memory Intact: Comment (impaired) Hallucinations: Other (denies) Delusions: No Delusion Type: Other (none elicited) Suicidal: Ideation (none) Homicidal: Ideation (none) Insight/Judgment Poor Labs Test 01/22/17 07:50 Prothrombin Time 20.0 SEC Prothromb Time International 1.8 RATIO Ratio Vitals/IOs Vital Signs Date Time Temp Pulse Resp B/P Pulse Ox O2 Delivery O2 Flow Rate FiO2 01/22/17 06:00 18 01/22/17 05:58 98.1 51 176/70 95 Intake and Output 01/21/17 01/21/17 01/22/17 08:00 16:00 00:00 Intake Total 480 ml 1200 ml Balance 480 ml 1200 ml Assessment & Plan Problem List: (1) Dementia of Alzheimer's type with behavioral disturbance ICD Code: G30.8 (2) Dementia associated with other underlying disease with behavioral disturbance ICD Code: F02.81 Assessment & Plan Estimated LOS: days patient continues demented confused little behavior problems. Placement remains problematic Justification for Cont. Inpt. At this time patient may decompensate is not placed in an appropriate level of care Discharge Planning To be determined Request HC Surrog/Guard Advoc?: Yes Problem Qualifiers (1) Dementia of Alzheimer's type with behavioral disturbance: Qualified Code: G30.8 - Alzheimer's dementia with behavioral disturbance, unspecified timing of dementia onset Kam Ferrer MD Jan 22, 2017 09:43
[2017-01-22] MEDS: MULTIVITAMINS/MINERALS THERAPEUTIC TAB PO SCH (09:58)
[2017-01-22] MEDS: LACTOBACILLUS ACIDOPHILUS TAB PO SCH ×2 (09:58→21:06)
[2017-01-22] MEDS: PRAVASTATIN SOD 40 MG TAB PO SCH (09:58)
[2017-01-22] MEDS: AMOXICILLIN/CLAVULANATE K 875 MG TAB PO SCH (09:58)
[2017-01-22] MEDS: FUROSEMIDE 20 MG TAB PO SCH (09:59)
[2017-01-22] MEDS: PANTOPRAZOLE SOD 20 MG DELAYED RELEASE TAB PO SCH (09:59)
[2017-01-22] MEDS: SPIRONOLACTONE 25 MG TAB PO SCH ×2 (09:59→17:45)
[2017-01-22] MEDS: LOSARTAN 50 MG TAB PO SCH (09:59)
[2017-01-22] MEDS: LACTIC ACID (AMMONIUM LACTATE) 12% LOTION 225 GM BTL TOPICAL SCH ×2 (10:01→21:06)
[2017-01-22] MEDS: QUEtiapine FUMARATE 25 MG TAB PO SCH ×2 (12:47→17:44)
[2017-01-22 14:02] VITALS: BP 167/73; PULSE 53
[2017-01-22 15:08] VITALS: PULSE 48
[2017-01-22] MEDS: WARFARIN SOD 4 MG TAB PO SCH (17:46)
[2017-01-22 19:27] VITALS: BP 159/69; PULSE 81; RESP 18; TEMP 97.7; O2SAT 96
[2017-01-22] MEDS: traZODone HCL 50 MG TAB PO SCH (21:06)
[2017-01-23] MEDS: hydrALAZINE HCL 10 MG TAB PO SCH ×3 (06:00→22:00)
[2017-01-23 06:05] VITALS: BP 152/67; PULSE 41; RESP 15; TEMP 98; O2SAT 99
[2017-01-23] MEDS: INSULIN ASPART SUPPLEMENTAL SCALE SQ SCH ×4 (06:09→20:40)
[2017-01-23] MEDS: MUPIROCIN 2% OINT 22 GM TUBE TOPICAL SCH ×2 (09:00→21:00)
[2017-01-23 09:28] VITALS: PULSE 54
[2017-01-23] MEDS: PRAVASTATIN SOD 40 MG TAB PO SCH (09:29)
[2017-01-23] MEDS: LACTOBACILLUS ACIDOPHILUS TAB PO SCH ×2 (09:29→21:52)
[2017-01-23] MEDS: FUROSEMIDE 20 MG TAB PO SCH (09:29)
[2017-01-23] MEDS: MULTIVITAMINS/MINERALS THERAPEUTIC TAB PO SCH (09:29)
[2017-01-23] MEDS: PANTOPRAZOLE SOD 20 MG DELAYED RELEASE TAB PO SCH (09:29)
[2017-01-23] MEDS: LOSARTAN 50 MG TAB PO SCH (09:30)
[2017-01-23] MEDS: SPIRONOLACTONE 25 MG TAB PO SCH ×2 (09:32→17:24)
[2017-01-23] MEDS: LACTIC ACID (AMMONIUM LACTATE) 12% LOTION 225 GM BTL TOPICAL SCH ×2 (09:34→21:54)
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
[2017-01-23] MEDS: QUEtiapine FUMARATE 25 MG TAB PO SCH ×2 (13:26→17:23)
[2017-01-23 15:02] VITALS: BP 158/70; PULSE 49
--- NOTE | 2017-01-23 15:09 | HHI.PYPN ---
Subjective Remarks Patient seen in his room with medical student Tia. Chart reviewed. Patient compliant medication. Patient continues calm pleasant diffusely confused but no behavioral problems. Placement continues to be problematic Review of Systems Except as stated in HPI: all other systems reviewed are Neg Objective Alert: Yes [place]: Person, Place Mood: Calm Affect: Restricted Memory Intact: Comment (impaired) Hallucinations: Other (denies) Delusions: No Delusion Type: Other (none elicited) Suicidal: Ideation (none) Homicidal: Ideation (none) Insight/Judgment Poor Vitals/IOs Vital Signs Date Time Temp Pulse Resp B/P Pulse Ox O2 Delivery O2 Flow Rate FiO2 01/23/17 15:02 49 158/70 01/23/17 06:05 98.0 15 99 Intake and Output 01/22/17 01/22/17 01/23/17 08:00 16:00 00:00 Intake Total 240 ml 480 ml 480 ml Balance 240 ml 480 ml 480 ml Assessment & Plan Problem List: (1) Dementia of Alzheimer's type with behavioral disturbance ICD Code: G30.8 (2) Dementia associated with other underlying disease with behavioral disturbance ICD Code: F02.81 Assessment & Plan Estimated LOS: days patient is confused demented though no behavior problems, compliant medication. Justification for Cont. Inpt. At this time patient may decompensate if not placed in an appropriate level of care Discharge Planning To be determined Request HC Surrog/Guard Advoc?: Yes Problem Qualifiers (1) Dementia of Alzheimer's type with behavioral disturbance: Qualified Code: G30.8 - Alzheimer's dementia with behavioral disturbance, unspecified timing of dementia onset Kam Ferrer MD Jan 23, 2017 15:09
[2017-01-23 15:27] LABS: INTERNATIONAL NORMALIZED RATIO 1.9 RATIO
[2017-01-23 16:25] VITALS: BP 13/68; PULSE 36; RESP 16; TEMP 97.9; O2SAT 98
[2017-01-23] MEDS: WARFARIN SOD 4 MG TAB PO SCH (17:04)
[2017-01-23 18:33] VITALS: PULSE 48
[2017-01-23] MEDS: traZODone HCL 50 MG TAB PO SCH (21:52)
[2017-01-24 06:00] VITALS: BP 140/67; PULSE 45; RESP 17; TEMP 97.9; O2SAT 95
[2017-01-24] MEDS: hydrALAZINE HCL 10 MG TAB PO SCH ×3 (06:00→20:43)
[2017-01-24] MEDS: INSULIN ASPART SUPPLEMENTAL SCALE SQ SCH ×4 (06:48→20:44)
[2017-01-24] MEDS: MUPIROCIN 2% OINT 22 GM TUBE TOPICAL SCH ×2 (09:00→21:00)
[2017-01-24] MEDS: SPIRONOLACTONE 25 MG TAB PO SCH ×2 (09:00→17:44)
[2017-01-24] MEDS: LACTIC ACID (AMMONIUM LACTATE) 12% LOTION 225 GM BTL TOPICAL SCH ×2 (09:00→23:34)
[2017-01-24 09:02] VITALS: PULSE 64
[2017-01-24 09:39] LABS: INTERNATIONAL NORMALIZED RATIO 1.9 RATIO; PROTHROMBIN TIME - PATIENT 22.1 SEC (9.8-11.6)
[2017-01-24] MEDS: LACTOBACILLUS ACIDOPHILUS TAB PO SCH ×2 (09:53→20:43)
[2017-01-24] MEDS: MULTIVITAMINS/MINERALS THERAPEUTIC TAB PO SCH (09:54)
[2017-01-24] MEDS: PANTOPRAZOLE SOD 20 MG DELAYED RELEASE TAB PO SCH (09:54)
[2017-01-24] MEDS: PRAVASTATIN SOD 40 MG TAB PO SCH (09:54)
[2017-01-24] MEDS: LOSARTAN 50 MG TAB PO SCH (09:54)
[2017-01-24] MEDS: FUROSEMIDE 40 MG TAB PO SCH (09:54)
[2017-01-24] MEDS: QUEtiapine FUMARATE 25 MG TAB PO SCH ×2 (12:24→17:44)
[2017-01-24 14:00] VITALS: BP 146/65; PULSE 63
[2017-01-24] MEDS: WARFARIN SOD 5 MG TAB PO SCH (16:13)
--- NOTE | 2017-01-24 20:38 | HHI.PYPN ---
Subjective Remarks Pt seen and discussed with staff. No behavioral problems on unit. Pt is cooperative with care. No SI/HI. Compliant with medications. Objective Alert: Yes [place]: Person, Place Mood: Calm Affect: Restricted Memory Intact: Comment (impaired) Hallucinations: Other (denies) Delusions: No Delusion Type: Other (none elicited) Suicidal: Ideation (none) Homicidal: Ideation (none) Insight/Judgment poor Labs Test 01/24/17 08:04 Prothrombin Time 22.1 SEC Prothromb Time International 1.9 RATIO Ratio Vitals/IOs Vital Signs Date Time Temp Pulse Resp B/P Pulse Ox O2 Delivery O2 Flow Rate FiO2 01/24/17 14:00 63 146/65 01/24/17 06:00 97.9 17 95 Intake and Output 01/23/17 01/23/17 01/23/17 07:59 15:59 23:59 Intake Total 480 ml 1440 ml 720 ml Balance 480 ml 1440 ml 720 ml Assessment & Plan Problem List: (1) Dementia of Alzheimer's type with behavioral disturbance ICD Code: G30.8 (2) Dementia associated with other underlying disease with behavioral disturbance ICD Code: F02.81 Assessment & Plan Continue current tx plan. Estimated LOS: days Justification for Cont. Inpt. risk of decompensating Request HC Surrog/Guard Advoc?: Yes Problem Qualifiers (1) Dementia of Alzheimer's type with behavioral disturbance: Qualified Code: G30.8 - Alzheimer's dementia with behavioral disturbance, unspecified timing of dementia onset Onelia Vergara MD Jan 24, 2017 20:38
[2017-01-24] MEDS: traZODone HCL 50 MG TAB PO SCH (20:43)
[2017-01-25 06:00] VITALS: BP 147/66; PULSE 60; RESP 19; TEMP 98.1; O2SAT 96
[2017-01-25] MEDS: hydrALAZINE HCL 10 MG TAB PO SCH ×3 (06:15→22:00)
[2017-01-25] MEDS: INSULIN ASPART SUPPLEMENTAL SCALE SQ SCH ×4 (06:43→20:59)
[2017-01-25] MEDS: LOSARTAN 50 MG TAB PO SCH (08:48)
[2017-01-25] MEDS: SPIRONOLACTONE 25 MG TAB PO SCH ×2 (08:48→18:00)
[2017-01-25] MEDS: MULTIVITAMINS/MINERALS THERAPEUTIC TAB PO SCH (08:48)
[2017-01-25] MEDS: FUROSEMIDE 40 MG TAB PO SCH (08:49)
[2017-01-25] MEDS: PRAVASTATIN SOD 40 MG TAB PO SCH (08:49)
[2017-01-25] MEDS: PANTOPRAZOLE SOD 20 MG DELAYED RELEASE TAB PO SCH (08:49)
[2017-01-25] MEDS: LACTOBACILLUS ACIDOPHILUS TAB PO SCH ×2 (08:49→21:00)
[2017-01-25] MEDS: MUPIROCIN 2% OINT 22 GM TUBE TOPICAL SCH ×2 (08:52→20:59)
[2017-01-25] MEDS: LACTIC ACID (AMMONIUM LACTATE) 12% LOTION 225 GM BTL TOPICAL SCH ×2 (09:00→21:00)
[2017-01-25] MEDS: QUEtiapine FUMARATE 25 MG TAB PO SCH ×2 (11:23→18:22)
[2017-01-25 12:23] LABS: INTERNATIONAL NORMALIZED RATIO 2.2 RATIO; PROTHROMBIN TIME - PATIENT 25.6 SEC (9.8-11.6)
[2017-01-25] MEDS: WARFARIN SOD 5 MG TAB PO SCH (16:07)
--- NOTE | 2017-01-25 16:17 | HHI.PYPN ---
Subjective Remarks Pt seeen and discussed with staff. He is seclusive to his room but did come out and socialize with peers earlier today. No behavioral problems. No SI/HI Objective Alert: Yes [place]: Person, Place Mood: Calm Affect: Restricted Memory Intact: Comment (impaired) Hallucinations: Other (denies) Delusions: No Delusion Type: Other (none elicited) Suicidal: Ideation (none) Homicidal: Ideation (none) Insight/Judgment poor Labs Test 01/25/17 10:15 Prothrombin Time 25.6 SEC Prothromb Time International 2.2 RATIO Ratio Vitals/IOs Vital Signs Date Time Temp Pulse Resp B/P Pulse Ox O2 Delivery O2 Flow Rate FiO2 01/25/17 06:00 98.1 60 19 147/66 96 Intake and Output 01/24/17 01/24/17 01/25/17 08:00 16:00 00:00 Intake Total 1440 ml Balance 1440 ml Assessment & Plan Problem List: (1) Dementia of Alzheimer's type with behavioral disturbance ICD Code: G30.8 (2) Dementia associated with other underlying disease with behavioral disturbance ICD Code: F02.81 Assessment & Plan Continue current tx plan. Estimated LOS: days Justification for Cont. Inpt. risk of decompensation Request HC Surrog/Guard Advoc?: Yes Problem Qualifiers (1) Dementia of Alzheimer's type with behavioral disturbance: Qualified Code: G30.8 - Alzheimer's dementia with behavioral disturbance, unspecified timing of dementia onset Onelia Vergara MD Jan 25, 2017 16:17
[2017-01-25 18:54] VITALS: BP 105/70; PULSE 80; RESP 18; TEMP 99.1; O2SAT 99
[2017-01-25 20:00] VITALS: BP 115/54; PULSE 45
[2017-01-25] MEDS: traZODone HCL 50 MG TAB PO SCH (21:00)
[2017-01-26 05:42] VITALS: PULSE 45
[2017-01-26] MEDS: INSULIN ASPART SUPPLEMENTAL SCALE SQ SCH ×4 (05:42→20:26)
[2017-01-26] MEDS: hydrALAZINE HCL 10 MG TAB PO SCH ×3 (05:42→22:00)
[2017-01-26 05:45] VITALS: BP 146/65; PULSE 48; RESP 16; TEMP 97.8
[2017-01-26] MEDS: FUROSEMIDE 40 MG TAB PO SCH (09:00)
[2017-01-26] MEDS: MUPIROCIN 2% OINT 22 GM TUBE TOPICAL SCH ×2 (09:00→21:00)
[2017-01-26] MEDS: LACTIC ACID (AMMONIUM LACTATE) 12% LOTION 225 GM BTL TOPICAL SCH ×2 (09:00→21:00)
[2017-01-26] MEDS: PANTOPRAZOLE SOD 20 MG DELAYED RELEASE TAB PO SCH (09:40)
[2017-01-26] MEDS: LOSARTAN 50 MG TAB PO SCH (09:40)
[2017-01-26] MEDS: PRAVASTATIN SOD 40 MG TAB PO SCH (09:40)
[2017-01-26] MEDS: MULTIVITAMINS/MINERALS THERAPEUTIC TAB PO SCH (09:40)
[2017-01-26] MEDS: SPIRONOLACTONE 25 MG TAB PO SCH ×3 (09:40→18:00)
[2017-01-26] MEDS: LACTOBACILLUS ACIDOPHILUS TAB PO SCH ×2 (09:41→20:25)
--- NOTE | 2017-01-26 09:41 | HHI.PYPN ---
Subjective Remarks Patient seen in his room with nurse Divina, chart reviewed, patient compliant medication. Patient continues calm pleasant no behavioral problems. Continues diffusely confused and disoriented. Placement remains problematic Review of Systems Except as stated in HPI: all other systems reviewed are Neg Objective Alert: Yes [place]: Person, Place Mood: Calm Affect: Restricted Memory Intact: Comment (impaired) Hallucinations: Other (denies) Delusions: No Delusion Type: Other (none elicited) Suicidal: Ideation (none) Homicidal: Ideation (none) Insight/Judgment Very poor Labs Test 01/25/17 10:15 Prothrombin Time 25.6 SEC Prothromb Time International 2.2 RATIO Ratio Vitals/IOs Vital Signs Date Time Temp Pulse Resp B/P Pulse Ox O2 Delivery O2 Flow Rate FiO2 01/26/17 05:45 97.8 48 16 146/65 01/25/17 18:54 99 Intake and Output 01/25/17 01/25/17 01/25/17 07:59 15:59 23:59 Intake Total 1320 ml Balance 1320 ml Assessment & Plan Problem List: (1) Dementia of Alzheimer's type with behavioral disturbance ICD Code: G30.8 (2) Dementia associated with other underlying disease with behavioral disturbance ICD Code: F02.81 Assessment & Plan Estimated LOS: days patient remains calm no behavioral problems. Continues to remain diffusely confused disoriented. Justification for Cont. Inpt. At this time patient may decompensate if not placed in the appropriate level of care Discharge Planning To be determined Request HC Surrog/Guard Advoc?: Yes Problem Qualifiers (1) Dementia of Alzheimer's type with behavioral disturbance: Qualified Code: G30.8 - Alzheimer's dementia with behavioral disturbance, unspecified timing of dementia onset Kam Ferrer MD Jan 26, 2017 09:40
[2017-01-26 12:18] LABS: INTERNATIONAL NORMALIZED RATIO 2.5 RATIO; PROTHROMBIN TIME - PATIENT 28.4 SEC (9.8-11.6)
[2017-01-26] MEDS: QUEtiapine FUMARATE 25 MG TAB PO SCH ×2 (14:03→18:06)
--- NOTE | 2017-01-26 15:49 | PD.TTN ---
Present for Treatment Team Treatment Team Staff: Provider (Dr Ferrer ), Nurse (divina), Psych Therapist ( Diamond ), Occupational Therapist (Gladys ) Patient Problems 1. Discharge planning 2. Medication compliance 3. Knowledge deficit 4. Lack of coping skills Progress Toward Goals Provider Input: Doctor wanted to know if any progress on placement Nurse Input: Divina no issues same overall Psych Therapist Input: pt is in need for placement has been here extensive time get volunteer refax packets to 10 facilities today Occupational Therapist Input: Pt comes to some groups Diamond Parada [employer]LECT[employer]CH[employer] ENGINE[employer] Jan 26, 2017 15:49
[2017-01-26] MEDS: WARFARIN SOD 5 MG TAB PO SCH (16:30)
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
[2017-01-26 18:06] VITALS: BP 152/57; PULSE 40; RESP 16; TEMP 97.6; O2SAT 98
[2017-01-26] MEDS: metFORMIN HCL 500 MG TAB PO SCH (18:06)
[2017-01-26 18:26] VITALS: PULSE 49
[2017-01-26] MEDS: traZODone HCL 50 MG TAB PO SCH (20:25)
[2017-01-27 05:37] VITALS: BP 135/62; PULSE 52; RESP 16; TEMP 98.8; O2SAT 96
[2017-01-27] MEDS: hydrALAZINE HCL 10 MG TAB PO SCH ×3 (06:00→21:38)
[2017-01-27] MEDS: INSULIN ASPART SUPPLEMENTAL SCALE SQ SCH ×4 (06:46→21:00)
[2017-01-27 07:50] LABS: INTERNATIONAL NORMALIZED RATIO 2.5 RATIO; PROTHROMBIN TIME - PATIENT 29.2 SEC (9.8-11.6)
[2017-01-27] MEDS: FUROSEMIDE 40 MG TAB PO SCH (09:00)
[2017-01-27] MEDS: MUPIROCIN 2% OINT 22 GM TUBE TOPICAL SCH ×2 (09:00→21:00)
[2017-01-27] MEDS: metFORMIN HCL 500 MG TAB PO SCH ×2 (09:31→18:05)
[2017-01-27] MEDS: MULTIVITAMINS/MINERALS THERAPEUTIC TAB PO SCH (09:31)
[2017-01-27] MEDS: PANTOPRAZOLE SOD 20 MG DELAYED RELEASE TAB PO SCH (09:31)
[2017-01-27] MEDS: SPIRONOLACTONE 25 MG TAB PO SCH ×2 (09:31→18:05)
[2017-01-27] MEDS: LACTOBACILLUS ACIDOPHILUS TAB PO SCH ×2 (09:32→21:35)
[2017-01-27] MEDS: LOSARTAN 50 MG TAB PO SCH (09:32)
[2017-01-27] MEDS: PRAVASTATIN SOD 40 MG TAB PO SCH (09:32)
--- NOTE | 2017-01-27 10:06 | HHI.PYPN ---
Subjective Remarks Patient seen in [place] with nurse Della medical student Tia. Patient continues calm cooperative pleasantly confused. Compliant medications. With no behavioral problems. Placement remains problematic Review of Systems Except as stated in HPI: all other systems reviewed are Neg Objective Alert: Yes [place]: Person, Place Mood: Calm Affect: Restricted Memory Intact: Comment (impaired) Hallucinations: Other (denies) Delusions: No Delusion Type: Other (none elicited) Suicidal: Ideation (none) Homicidal: Ideation (none) Insight/Judgment Poor Labs Test 01/26/17 01/27/17 10:34 06:51 Prothrombin Time 28.4 SEC 29.2 SEC Prothromb Time International 2.5 RATIO 2.5 RATIO Ratio Vitals/IOs Vital Signs Date Time Temp Pulse Resp B/P Pulse Ox O2 Delivery O2 Flow Rate FiO2 01/27/17 05:37 98.8 52 16 135/62 96 Intake and Output 01/26/17 01/26/17 01/27/17 08:00 16:00 00:00 Intake Total 240 ml 480 ml 3600 ml Output Total 3 ml Balance 237 ml 480 ml 3600 ml Assessment & Plan Problem List: (1) Dementia of Alzheimer's type with behavioral disturbance ICD Code: G30.8 (2) Dementia associated with other underlying disease with behavioral disturbance ICD Code: F02.81 Assessment & Plan Estimated LOS: days patient history me markedly confused disoriented demented, though compliant medications and no behavioral problems Justification for Cont. Inpt. At this time patient may decompensate if not placed in an appropriate level of care Discharge Planning To be determined Request HC Surrog/Guard Advoc?: Yes Problem Qualifiers (1) Dementia of Alzheimer's type with behavioral disturbance: Qualified Code: G30.8 - Alzheimer's dementia with behavioral disturbance, unspecified timing of dementia onset Kam Ferrer MD Jan 27, 2017 10:06
[2017-01-27] MEDS: QUEtiapine FUMARATE 25 MG TAB PO SCH ×2 (12:50→18:05)
[2017-01-27] MEDS: LACTIC ACID (AMMONIUM LACTATE) 12% LOTION 225 GM BTL TOPICAL SCH ×2 (12:50→21:00)
[2017-01-27] MEDS: WARFARIN SOD 5 MG TAB PO SCH (16:19)
[2017-01-27 17:24] VITALS: PULSE 52
[2017-01-27 18:38] VITALS: BP 147/63; RESP 18; TEMP 97.1; O2SAT 99
[2017-01-27] MEDS: traZODone HCL 50 MG TAB PO SCH (21:36)
[2017-01-28] MEDS: hydrALAZINE HCL 10 MG TAB PO SCH ×3 (05:21→20:20)
[2017-01-28] MEDS: INSULIN ASPART SUPPLEMENTAL SCALE SQ SCH ×4 (05:21→21:00)
[2017-01-28 05:45] VITALS: BP 159/71; PULSE 47; RESP 18; TEMP 97.9
[2017-01-28 06:32] VITALS: BP 159/71; PULSE 47; RESP 18; TEMP 97.9; O2SAT 96
[2017-01-28] MEDS: MUPIROCIN 2% OINT 22 GM TUBE TOPICAL SCH (09:00)
[2017-01-28] MEDS: metFORMIN HCL 500 MG TAB PO SCH ×2 (09:12→17:54)
[2017-01-28] MEDS: MULTIVITAMINS/MINERALS THERAPEUTIC TAB PO SCH (09:12)
[2017-01-28] MEDS: LACTOBACILLUS ACIDOPHILUS TAB PO SCH ×2 (09:13→21:39)
[2017-01-28] MEDS: FUROSEMIDE 40 MG TAB PO SCH (09:13)
[2017-01-28] MEDS: PANTOPRAZOLE SOD 20 MG DELAYED RELEASE TAB PO SCH (09:13)
[2017-01-28] MEDS: PRAVASTATIN SOD 40 MG TAB PO SCH (09:13)
[2017-01-28] MEDS: SPIRONOLACTONE 25 MG TAB PO SCH ×2 (09:14→17:54)
[2017-01-28] MEDS: LOSARTAN 50 MG TAB PO SCH (09:14)
[2017-01-28] MEDS: LACTIC ACID (AMMONIUM LACTATE) 12% LOTION 225 GM BTL TOPICAL SCH ×2 (09:18→21:48)
[2017-01-28] MEDS: QUEtiapine FUMARATE 25 MG TAB PO SCH ×2 (11:13→17:54)
--- NOTE | 2017-01-28 14:37 | HHI.PYPN ---
Subjective Remarks Patient seen in [place], continues calm cooperative diffusely confused but no behavioral problems. Appears patient with those legs are healing well status post is been no drainage noted. Will discontinue ointment Review of Systems Except as stated in HPI: all other systems reviewed are Neg Objective Alert: Yes [place]: Person, Place Mood: Calm Affect: Restricted Memory Intact: Comment (impaired) Hallucinations: Other (denies) Delusions: No Delusion Type: Other (none elicited) Suicidal: Ideation (none) Homicidal: Ideation (none) Insight/Judgment Very poor Vitals/IOs Vital Signs Date Time Temp Pulse Resp B/P Pulse Ox O2 Delivery O2 Flow Rate FiO2 01/28/17 06:32 97.9 47 18 159/71 96 Intake and Output 01/27/17 01/27/17 01/27/17 07:59 15:59 23:59 Intake Total 240 ml 720 ml 1200 ml Balance 240 ml 720 ml 1200 ml Assessment & Plan Problem List: (1) Dementia of Alzheimer's type with behavioral disturbance ICD Code: G30.8 (2) Dementia associated with other underlying disease with behavioral disturbance ICD Code: F02.81 Assessment & Plan Estimated LOS: days patient continues confused demented though no significant pedal problems. For now continue treatment Justification for Cont. Inpt. At this time patient will decompensate if not placed in an appropriate level of care Discharge Planning To be determined Request HC Surrog/Guard Advoc?: Yes Problem Qualifiers (1) Dementia of Alzheimer's type with behavioral disturbance: Qualified Code: G30.8 - Alzheimer's dementia with behavioral disturbance, unspecified timing of dementia onset Kam Ferrer MD Jan 28, 2017 14:37
[2017-01-28] MEDS: WARFARIN SOD 5 MG TAB PO SCH (16:35)
[2017-01-28 18:00] VITALS: BP 103/59; PULSE 75; TEMP 91.4; TEMP 91.8; O2SAT 99
[2017-01-28 19:02] LABS: INTERNATIONAL NORMALIZED RATIO 3.2 RATIO; PROTHROMBIN TIME - PATIENT 37.5 SEC (9.8-11.6)
[2017-01-28 20:15] VITALS: BP 127/60; PULSE 43
[2017-01-28] MEDS: traZODone HCL 50 MG TAB PO SCH (21:39)
[2017-01-29] MEDS: hydrALAZINE HCL 10 MG TAB PO SCH ×3 (05:51→21:15)
[2017-01-29 06:00] VITALS: BP 143/65; PULSE 62; RESP 20; TEMP 98.3
[2017-01-29] MEDS: INSULIN ASPART SUPPLEMENTAL SCALE SQ SCH ×4 (06:09→20:54)
[2017-01-29] MEDS: LACTOBACILLUS ACIDOPHILUS TAB PO SCH ×2 (08:32→20:57)
[2017-01-29] MEDS: LOSARTAN 50 MG TAB PO SCH (08:32)
[2017-01-29] MEDS: PANTOPRAZOLE SOD 20 MG DELAYED RELEASE TAB PO SCH (08:32)
[2017-01-29] MEDS: metFORMIN HCL 500 MG TAB PO SCH ×2 (08:32→17:48)
[2017-01-29] MEDS: PRAVASTATIN SOD 40 MG TAB PO SCH (08:32)
[2017-01-29] MEDS: MULTIVITAMINS/MINERALS THERAPEUTIC TAB PO SCH (08:32)
[2017-01-29] MEDS: SPIRONOLACTONE 25 MG TAB PO SCH ×2 (08:33→17:48)
[2017-01-29] MEDS: FUROSEMIDE 40 MG TAB PO SCH (08:33)
[2017-01-29] MEDS: LACTIC ACID (AMMONIUM LACTATE) 12% LOTION 225 GM BTL TOPICAL SCH ×2 (08:37→21:00)
[2017-01-29] MEDS: QUEtiapine FUMARATE 25 MG TAB PO SCH ×2 (12:01→17:48)
--- NOTE | 2017-01-29 13:21 | HHI.PYPN ---
Subjective Remarks Patient seen in day room with her staff. Chart reviewed. Patient compliant medications Patient continues confused. He did refuses lab tests this morning encouragement for compliance tomorrow for now continue treatment Review of Systems Except as stated in HPI: all other systems reviewed are Neg Objective Alert: Yes [place]: Person, Place Mood: Calm Affect: Restricted Memory Intact: Comment (impaired) Hallucinations: Other (denies) Delusions: No Delusion Type: Other (none elicited) Suicidal: Ideation (none) Homicidal: Ideation (none) Insight/Judgment Very poor Labs Test 01/28/17 17:25 Prothrombin Time 37.5 SEC Prothromb Time International 3.2 RATIO Ratio Vitals/IOs Vital Signs Date Time Temp Pulse Resp B/P Pulse Ox O2 Delivery O2 Flow Rate FiO2 01/29/17 06:00 98.3 62 20 143/65 01/28/17 18:00 99 Intake and Output 01/28/17 01/28/17 01/29/17 08:00 16:00 00:00 Intake Total 240 ml 720 ml Output Total 960 ml 400 ml Balance -720 ml 320 ml Assessment & Plan Problem List: (1) Dementia of Alzheimer's type with behavioral disturbance ICD Code: G30.8 (2) Dementia associated with other underlying disease with behavioral disturbance ICD Code: F02.81 Assessment & Plan Estimated LOS: days patient is confused and demented, no behavior problems. For now continue treatment Justification for Cont. Inpt. At this time patient made decompensate if not placed in an appropriate level of care Discharge Planning To be determined Request HC Surrog/Guard Advoc?: Yes Problem Qualifiers (1) Dementia of Alzheimer's type with behavioral disturbance: Qualified Code: G30.8 - Alzheimer's dementia with behavioral disturbance, unspecified timing of dementia onset Kam Ferrer MD Jan 29, 2017 13:21
[2017-01-29 17:05] VITALS: BP 114/55; PULSE 50; RESP 18; TEMP 97.6; O2SAT 96
[2017-01-29] MEDS: traZODone HCL 50 MG TAB PO SCH (20:57)
[2017-01-29 21:14] VITALS: PULSE 46
[2017-01-30] MEDS: hydrALAZINE HCL 10 MG TAB PO SCH ×3 (05:54→21:26)
[2017-01-30 06:08] VITALS: BP 135/61; PULSE 62; RESP 19; TEMP 98.2; O2SAT 94
[2017-01-30] MEDS: INSULIN ASPART SUPPLEMENTAL SCALE SQ SCH ×4 (07:00→21:00)
[2017-01-30] MEDS: LACTIC ACID (AMMONIUM LACTATE) 12% LOTION 225 GM BTL TOPICAL SCH ×2 (09:00→21:50)
[2017-01-30] MEDS: LOSARTAN 50 MG TAB PO SCH (09:42)
[2017-01-30] MEDS: FUROSEMIDE 40 MG TAB PO SCH (09:42)
[2017-01-30] MEDS: PRAVASTATIN SOD 40 MG TAB PO SCH (09:43)
[2017-01-30] MEDS: SPIRONOLACTONE 25 MG TAB PO SCH ×2 (09:43→18:10)
[2017-01-30] MEDS: LACTOBACILLUS ACIDOPHILUS TAB PO SCH ×2 (09:43→21:26)
[2017-01-30] MEDS: MULTIVITAMINS/MINERALS THERAPEUTIC TAB PO SCH (09:43)
[2017-01-30] MEDS: PANTOPRAZOLE SOD 20 MG DELAYED RELEASE TAB PO SCH (09:43)
[2017-01-30] MEDS: metFORMIN HCL 500 MG TAB PO SCH ×2 (09:43→18:10)
[2017-01-30 11:06] LABS: INTERNATIONAL NORMALIZED RATIO 3.1 RATIO; PROTHROMBIN TIME - PATIENT 35.5 SEC (9.8-11.6)
[2017-01-30 11:07] LABS: PROTHROMBIN TIME - PATIENT 35.4 SEC (9.8-11.6)
[2017-01-30] MEDS: QUEtiapine FUMARATE 25 MG TAB PO SCH ×2 (12:00→18:10)
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
[2017-01-30 17:31] VITALS: BP 100/51; PULSE 68; RESP 18; TEMP 98.1; O2SAT 95
[2017-01-30] MEDS: traZODone HCL 50 MG TAB PO SCH (21:26)
[2017-01-31] MEDS: hydrALAZINE HCL 10 MG TAB PO SCH ×3 (05:26→22:00)
[2017-01-31 05:57] VITALS: BP 141/67; PULSE 52; RESP 15; TEMP 98.2; O2SAT 98
[2017-01-31] MEDS: INSULIN ASPART SUPPLEMENTAL SCALE SQ SCH ×4 (06:08→20:26)
[2017-01-31] MEDS: PRAVASTATIN SOD 40 MG TAB PO SCH (08:38)
[2017-01-31] MEDS: SPIRONOLACTONE 25 MG TAB PO SCH ×2 (08:38→18:10)
[2017-01-31] MEDS: FUROSEMIDE 40 MG TAB PO SCH (08:38)
[2017-01-31] MEDS: PANTOPRAZOLE SOD 20 MG DELAYED RELEASE TAB PO SCH (08:38)
[2017-01-31] MEDS: metFORMIN HCL 500 MG TAB PO SCH ×2 (08:39→18:08)
[2017-01-31] MEDS: MULTIVITAMINS/MINERALS THERAPEUTIC TAB PO SCH (08:39)
[2017-01-31] MEDS: LACTOBACILLUS ACIDOPHILUS TAB PO SCH ×2 (08:39→20:25)
[2017-01-31] MEDS: LACTIC ACID (AMMONIUM LACTATE) 12% LOTION 225 GM BTL TOPICAL SCH ×2 (09:00→20:26)
[2017-01-31] MEDS: LOSARTAN 50 MG TAB PO SCH (10:38)
[2017-01-31 12:16] LABS: INTERNATIONAL NORMALIZED RATIO 2.4 RATIO; PROTHROMBIN TIME - PATIENT 27.6 SEC (9.8-11.6)
--- NOTE | 2017-01-31 12:35 | HHI.PYPN ---
Subjective Remarks Patient was seen and case discussed with nursing. Patient is pleasant and cooperative with exam. Compliant with his medications. Behaving well on the unit. Eating and sleeping well. Objective Alert: Yes [place]: Person, Place Mood: Calm Affect: Blunted Memory Intact: Comment (impaired) Hallucinations: Other (denies) Delusions: No Delusion Type: Other (none elicited) Suicidal: Ideation (none) Homicidal: Ideation (none) Insight/Judgment Poor Labs Test 01/31/17 10:30 Prothrombin Time 27.6 SEC Prothromb Time International 2.4 RATIO Ratio Vitals/IOs Vital Signs Date Time Temp Pulse Resp B/P Pulse Ox O2 Delivery O2 Flow Rate FiO2 01/31/17 05:57 98.2 52 15 141/67 98 Intake and Output 01/30/17 01/30/17 01/31/17 08:00 16:00 00:00 Intake Total 120 ml 580 ml Balance 120 ml 580 ml Assessment & Plan Problem List: (1) Dementia of Alzheimer's type with behavioral disturbance ICD Code: G30.8 (2) Dementia associated with other underlying disease with behavioral disturbance ICD Code: F02.81 Assessment & Plan Continue current treatment plan Justification for Cont. Inpt. Patient will decompensate in a less restrictive setting Request HC Surrog/Guard Advoc?: Yes Problem Qualifiers (1) Dementia of Alzheimer's type with behavioral disturbance: Qualified Code: G30.8 - Alzheimer's dementia with behavioral disturbance, unspecified timing of dementia onset Ayad Garcia DO Jan 31, 2017 12:35
[2017-01-31] MEDS: QUEtiapine FUMARATE 25 MG TAB PO SCH ×2 (13:41→18:10)
[2017-01-31] MEDS: WARFARIN SOD 4 MG TAB PO SCH (17:03)
[2017-01-31] MEDS: traZODone HCL 50 MG TAB PO SCH (20:25)
[2017-02-01] MEDS: hydrALAZINE HCL 10 MG TAB PO SCH ×3 (06:00→22:00)
[2017-02-01 06:13] VITALS: BP 133/60; PULSE 49; RESP 16; TEMP 98; O2SAT 97
[2017-02-01] MEDS: INSULIN ASPART SUPPLEMENTAL SCALE SQ SCH ×4 (07:00→20:40)
[2017-02-01] MEDS: PRAVASTATIN SOD 40 MG TAB PO SCH (09:00)
[2017-02-01] MEDS: SPIRONOLACTONE 25 MG TAB PO SCH ×2 (09:00→18:02)
[2017-02-01] MEDS: LACTIC ACID (AMMONIUM LACTATE) 12% LOTION 225 GM BTL TOPICAL SCH ×2 (09:00→20:42)
[2017-02-01] MEDS: LACTOBACILLUS ACIDOPHILUS TAB PO SCH ×2 (09:00→20:40)
[2017-02-01] MEDS: MULTIVITAMINS/MINERALS THERAPEUTIC TAB PO SCH (09:00)
[2017-02-01] MEDS: PANTOPRAZOLE SOD 20 MG DELAYED RELEASE TAB PO SCH (09:00)
[2017-02-01] MEDS: LOSARTAN 50 MG TAB PO SCH (09:00)
[2017-02-01] MEDS: metFORMIN HCL 500 MG TAB PO SCH ×2 (09:00→18:02)
[2017-02-01] MEDS: FUROSEMIDE 40 MG TAB PO SCH (09:00)
[2017-02-01] MEDS: QUEtiapine FUMARATE 25 MG TAB PO SCH ×2 (12:00→18:01)
--- NOTE | 2017-02-01 15:01 | HHI.PYPN ---
Subjective Remarks Patient was seen and case discussed with nursing. Patient is pleasant and cooperative with exam. Behaving well on the unit. Spontaneously asked to take a shower. Alert and oriented 2. Denies any psychotic symptoms. Objective Alert: Yes [place]: Person, Place Mood: Calm Affect: Restricted Memory Intact: Comment (impaired) Hallucinations: Other (denies) Delusions: No Delusion Type: Other (none elicited) Suicidal: Ideation (none) Homicidal: Ideation (none) Insight/Judgment Poor Labs Date/Time Source Procedure Growth Status 12/07/16 23:30 Wound Leg Gram Stain - Final Complete 12/07/16 23:30 Wound Culture - Final S. Aureus Mrsa Complete Vitals/IOs Vital Signs Date Time Temp Pulse Resp B/P (MAP) Pulse Ox O2 Delivery O2 Flow Rate FiO2 02/01/17 06:13 98.0 49 16 133/60 (84) 97 Intake and Output 02/01/17 02/01/17 02/02/17 08:00 16:00 00:00 Intake Total 120 ml 360 ml Balance 120 ml 360 ml Assessment & Plan Problem List: (1) Dementia of Alzheimer's type with behavioral disturbance ICD Codes: G30.8 - Other Alzheimer's disease; F02.81 - Dementia in other diseases classified elsewhere with behavioral disturbance Status: Acute (2) Dementia associated with other underlying disease with behavioral disturbance ICD Codes: F02.81 - Dementia in other diseases classified elsewhere with behavioral disturbance Status: Acute Assessment & Plan Continue current treatment plan Justification for Cont. Inpt. Patient would decompensate in a less restrictive setting Request HC Surrog/Guard Advoc?: Yes Problem Qualifiers (1) Dementia of Alzheimer's type with behavioral disturbance: Ayad Garcia DO Feb 01, 2017 15:01
[2017-02-01] MEDS: WARFARIN SOD 4 MG TAB PO SCH (16:36)
[2017-02-01 18:08] VITALS: BP 134/48; PULSE 60; RESP 17; TEMP 98.1; O2SAT 99
[2017-02-01] MEDS: traZODone HCL 50 MG TAB PO SCH (20:40)
[2017-02-02] MEDS: hydrALAZINE HCL 10 MG TAB PO SCH ×3 (06:00→21:08)
[2017-02-02 06:22] VITALS: BP 135/59; PULSE 51; RESP 17; TEMP 99.4
[2017-02-02] MEDS: INSULIN ASPART SUPPLEMENTAL SCALE SQ SCH ×4 (06:33→20:35)
[2017-02-02 08:15] LABS: INTERNATIONAL NORMALIZED RATIO 2.4 RATIO
[2017-02-02] MEDS: LACTIC ACID (AMMONIUM LACTATE) 12% LOTION 225 GM BTL TOPICAL SCH ×2 (09:00→21:09)
[2017-02-02] MEDS: LACTOBACILLUS ACIDOPHILUS TAB PO SCH ×2 (09:02→21:08)
[2017-02-02] MEDS: metFORMIN HCL 500 MG TAB PO SCH ×2 (09:02→17:08)
[2017-02-02] MEDS: PANTOPRAZOLE SOD 20 MG DELAYED RELEASE TAB PO SCH (09:02)
[2017-02-02] MEDS: FUROSEMIDE 40 MG TAB PO SCH (09:03)
[2017-02-02] MEDS: MULTIVITAMINS/MINERALS THERAPEUTIC TAB PO SCH (09:03)
[2017-02-02] MEDS: PRAVASTATIN SOD 40 MG TAB PO SCH (09:03)
[2017-02-02] MEDS: LOSARTAN 50 MG TAB PO SCH (09:04)
[2017-02-02] MEDS: SPIRONOLACTONE 25 MG TAB PO SCH ×2 (09:04→17:08)
--- NOTE | 2017-02-02 10:53 | HHI.PYPN ---
Subjective Remarks Patient seen in day room with nurse Ute, chart review, patient compliant medications. She continues to show no behavioral issues she is calm pleasant, pleasantly confused. His MRSA issues appear to be resolved Review of Systems Except as stated in HPI: all other systems reviewed are Neg Objective Alert: Yes [place]: Person, Place Mood: Calm Affect: Restricted Memory Intact: Comment (impaired) Hallucinations: Other (denies) Delusions: No Delusion Type: Other (none elicited) Suicidal: Ideation (none) Homicidal: Ideation (none) Insight/Judgment Poor Labs Test 02/02/17 07:07 Prothrombin Time 28.0 SEC Prothromb Time International Ratio 2.4 RATIO Date/Time Source Procedure Growth Status 12/07/16 23:30 Wound Leg Gram Stain - Final Complete 12/07/16 23:30 Wound Culture - Final S. Aureus Mrsa Complete Vitals/IOs Vital Signs Date Time Temp Pulse Resp B/P (MAP) Pulse Ox O2 Delivery O2 Flow Rate FiO2 02/02/17 06:22 99.4 51 17 135/59 (84) 02/01/17 18:08 99 Assessment & Plan Problem List: (1) Dementia of Alzheimer's type with behavioral disturbance ICD Codes: G30.8 - Other Alzheimer's disease; F02.81 - Dementia in other diseases classified elsewhere with behavioral disturbance Status: Acute (2) Dementia associated with other underlying disease with behavioral disturbance ICD Codes: F02.81 - Dementia in other diseases classified elsewhere with behavioral disturbance Status: Acute Assessment & Plan Estimated LOS: days patient continues confused and demented, but no behavior problems. Justification for Cont. Inpt. At this time patient may decompensate if not placed in an appropriate level of care Request HC Surrog/Guard Advoc?: Yes Problem Qualifiers (1) Dementia of Alzheimer's type with behavioral disturbance: Kam Ferrer MD Feb 02, 2017 10:53
[2017-02-02] MEDS: QUEtiapine FUMARATE 25 MG TAB PO SCH ×2 (12:27→17:08)
[2017-02-02 14:28] VITALS: BP 110/53; PULSE 45
[2017-02-02] MEDS: WARFARIN SOD 4 MG TAB PO SCH (16:30)
[2017-02-02 18:11] VITALS: BP 128/61; PULSE 57; RESP 18; TEMP 97.2; O2SAT 98
[2017-02-02] MEDS: traZODone HCL 50 MG TAB PO SCH (21:08)
[2017-02-03 06:17] VITALS: BP 114/56; PULSE 50; RESP 18; TEMP 97.6; O2SAT 97
[2017-02-03] MEDS: hydrALAZINE HCL 10 MG TAB PO SCH ×4 (06:21→22:00)
[2017-02-03] MEDS: INSULIN ASPART SUPPLEMENTAL SCALE SQ SCH ×4 (06:22→20:56)
[2017-02-03] MEDS: LACTOBACILLUS ACIDOPHILUS TAB PO SCH ×2 (09:28→20:56)
[2017-02-03] MEDS: LOSARTAN 50 MG TAB PO SCH (09:28)
[2017-02-03] MEDS: metFORMIN HCL 500 MG TAB PO SCH ×2 (09:29→17:31)
[2017-02-03] MEDS: FUROSEMIDE 40 MG TAB PO SCH (09:29)
[2017-02-03] MEDS: MULTIVITAMINS/MINERALS THERAPEUTIC TAB PO SCH (09:29)
[2017-02-03] MEDS: PANTOPRAZOLE SOD 20 MG DELAYED RELEASE TAB PO SCH (09:29)
[2017-02-03] MEDS: PRAVASTATIN SOD 40 MG TAB PO SCH (09:29)
[2017-02-03] MEDS: SPIRONOLACTONE 25 MG TAB PO SCH ×2 (09:29→17:31)
[2017-02-03] MEDS: LACTIC ACID (AMMONIUM LACTATE) 12% LOTION 225 GM BTL TOPICAL SCH ×3 (09:32→21:00)
[2017-02-03 09:34] LABS: INTERNATIONAL NORMALIZED RATIO 2.7 RATIO; PROTHROMBIN TIME - PATIENT 31.5 SEC (9.8-11.6)
[2017-02-03] MEDS: QUEtiapine FUMARATE 25 MG TAB PO SCH ×2 (11:57→17:31)
--- NOTE | 2017-02-03 12:28 | HHI.PYPN ---
Subjective Remarks Patient seen in [place] with nurse Aburto, chart review patient compliant medication. Patient calm pleasant, pleasantly confused patient no behavioral problems. Placement continues to remain problematic Review of Systems Except as stated in HPI: all other systems reviewed are Neg Objective Alert: Yes [place]: Person, Place Mood: Calm Affect: Restricted Memory Intact: Comment (impaired) Hallucinations: Other (denies) Delusions: No Delusion Type: Other (none elicited) Suicidal: Ideation (none) Homicidal: Ideation (none) Insight/Judgment Very poor Labs Test 02/03/17 08:50 Prothrombin Time 31.5 SEC Prothromb Time International Ratio 2.7 RATIO Date/Time Source Procedure Growth Status 12/07/16 23:30 Wound Leg Gram Stain - Final Complete 12/07/16 23:30 Wound Culture - Final S. Aureus Mrsa Complete Vitals/IOs Vital Signs Date Time Temp Pulse Resp B/P (MAP) Pulse Ox O2 Delivery O2 Flow Rate FiO2 02/03/17 06:17 97.6 50 18 114/56 (75) 97 Intake and Output 02/03/17 02/03/17 02/04/17 08:00 16:00 00:00 Intake Total 480 ml Balance 480 ml Assessment & Plan Problem List: (1) Dementia of Alzheimer's type with behavioral disturbance ICD Codes: G30.8 - Other Alzheimer's disease; F02.81 - Dementia in other diseases classified elsewhere with behavioral disturbance Status: Acute (2) Dementia associated with other underlying disease with behavioral disturbance ICD Codes: F02.81 - Dementia in other diseases classified elsewhere with behavioral disturbance Status: Acute Assessment & Plan Estimated LOS: days patient continues demented and confused with no behavioral problem. For now continue treatment placement remains problematic Justification for Cont. Inpt. Distant patient may decompensate now placed in an appropriate level of care Discharge Planning To be determined Request HC Surrog/Guard Advoc?: Yes Problem Qualifiers (1) Dementia of Alzheimer's type with behavioral disturbance: Kam Ferrer MD Feb 03, 2017 12:28
[2017-02-03] MEDS ORDERED: WARFARIN SOD 3 MG TAB PO ONE (16:00)
[2017-02-03 17:01] VITALS: BP 126/60; PULSE 46; RESP 20; TEMP 97.9; O2SAT 96
[2017-02-03] MEDS: traZODone HCL 50 MG TAB PO SCH (20:56)
[2017-02-04] MEDS: hydrALAZINE HCL 10 MG TAB PO SCH ×3 (05:15→21:38)
[2017-02-04 05:53] VITALS: BP 107/55; PULSE 57; RESP 15; TEMP 98.2; O2SAT 96
[2017-02-04] MEDS: INSULIN ASPART SUPPLEMENTAL SCALE SQ SCH ×4 (06:17→21:00)
[2017-02-04] MEDS: SPIRONOLACTONE 25 MG TAB PO SCH ×2 (08:43→18:02)
[2017-02-04] MEDS: PANTOPRAZOLE SOD 20 MG DELAYED RELEASE TAB PO SCH (08:43)
[2017-02-04] MEDS: LACTOBACILLUS ACIDOPHILUS TAB PO SCH ×2 (08:43→20:20)
[2017-02-04] MEDS: FUROSEMIDE 40 MG TAB PO SCH (08:43)
[2017-02-04] MEDS: metFORMIN HCL 500 MG TAB PO SCH ×2 (08:44→18:03)
[2017-02-04] MEDS: MULTIVITAMINS/MINERALS THERAPEUTIC TAB PO SCH (08:44)
[2017-02-04] MEDS: LOSARTAN 50 MG TAB PO SCH (08:44)
[2017-02-04] MEDS: PRAVASTATIN SOD 40 MG TAB PO SCH (08:44)
[2017-02-04] MEDS: LACTIC ACID (AMMONIUM LACTATE) 12% LOTION 225 GM BTL TOPICAL SCH ×2 (08:45→21:00)
--- NOTE | 2017-02-04 11:11 | HHI.PYPN ---
Subjective Remarks Patient seen in [place] with floor staff, patient continues calm pleasant with me with good eye contact, continues also pleasantly confused. Compliant medications. Patient no behavioral problems. Review of Systems Except as stated in HPI: all other systems reviewed are Neg Objective Alert: Yes [place]: Person, Place Mood: Calm Affect: Restricted Memory Intact: Comment (impaired) Hallucinations: Other (denies) Delusions: No Delusion Type: Other (none elicited) Suicidal: Ideation (none) Homicidal: Ideation (none) Insight/Judgment Very poor Labs Date/Time Source Procedure Growth Status 12/07/16 23:30 Wound Leg Gram Stain - Final Complete 12/07/16 23:30 Wound Culture - Final S. Aureus Mrsa Complete Vitals/IOs Vital Signs Date Time Temp Pulse Resp B/P (MAP) Pulse Ox O2 Delivery O2 Flow Rate FiO2 02/04/17 05:53 98.2 57 15 107/55 (72) 96 Manual Cuff/Auscultation Intake and Output 02/04/17 02/04/17 02/05/17 08:00 16:00 00:00 Intake Total 240 ml Balance 240 ml Assessment & Plan Problem List: (1) Dementia of Alzheimer's type with behavioral disturbance ICD Codes: G30.8 - Other Alzheimer's disease; F02.81 - Dementia in other diseases classified elsewhere with behavioral disturbance Status: Acute (2) Dementia associated with other underlying disease with behavioral disturbance ICD Codes: F02.81 - Dementia in other diseases classified elsewhere with behavioral disturbance Status: Acute Assessment & Plan Estimated LOS: days patient continues pleasantly confused and disoriented the no behavioral problems. Placement remain problematic Justification for Cont. Inpt. At this time patient will decompensate if not placed in an appropriate level of care Discharge Planning To be determined Request HC Surrog/Guard Advoc?: Yes Problem Qualifiers (1) Dementia of Alzheimer's type with behavioral disturbance: Kam Ferrer MD Feb 04, 2017 11:11
[2017-02-04] MEDS: QUEtiapine FUMARATE 25 MG TAB PO SCH ×2 (11:51→18:02)
[2017-02-04 17:51] VITALS: BP 135/69; PULSE 97; RESP 17; TEMP 98.3; O2SAT 94
[2017-02-04] MEDS: traZODone HCL 50 MG TAB PO SCH (20:20)
[2017-02-05 05:50] VITALS: BP 123/58; PULSE 56; RESP 19; TEMP 98.2; O2SAT 96
[2017-02-05] MEDS: hydrALAZINE HCL 10 MG TAB PO SCH ×3 (06:00→21:48)
[2017-02-05] MEDS: INSULIN ASPART SUPPLEMENTAL SCALE SQ SCH ×4 (06:29→21:00)
[2017-02-05 09:43] LABS: INTERNATIONAL NORMALIZED RATIO 2.8 RATIO; PROTHROMBIN TIME - PATIENT 32.6 SEC (9.8-11.6)
[2017-02-05] MEDS: metFORMIN HCL 500 MG TAB PO SCH ×2 (09:53→18:18)
[2017-02-05] MEDS: SPIRONOLACTONE 25 MG TAB PO SCH ×2 (09:54→18:19)
[2017-02-05] MEDS: MULTIVITAMINS/MINERALS THERAPEUTIC TAB PO SCH (09:54)
[2017-02-05] MEDS: LACTOBACILLUS ACIDOPHILUS TAB PO SCH ×2 (09:54→21:05)
[2017-02-05] MEDS: PRAVASTATIN SOD 40 MG TAB PO SCH (09:54)
[2017-02-05] MEDS: LOSARTAN 50 MG TAB PO SCH (09:54)
[2017-02-05] MEDS: PANTOPRAZOLE SOD 20 MG DELAYED RELEASE TAB PO SCH (09:54)
[2017-02-05] MEDS: FUROSEMIDE 40 MG TAB PO SCH (09:54)
[2017-02-05] MEDS: LACTIC ACID (AMMONIUM LACTATE) 12% LOTION 225 GM BTL TOPICAL SCH ×2 (09:55→21:00)
[2017-02-05] MEDS: QUEtiapine FUMARATE 25 MG TAB PO SCH ×2 (13:00→18:18)
--- NOTE | 2017-02-05 13:57 | HHI.PYPN ---
Subjective Remarks Patient seen in his room with floor staff, patient continues calm cooperative pleasantly confused. There are no behavioral problems noted. He is compliant with his medication continue to work on placement issues Review of Systems Except as stated in HPI: all other systems reviewed are Neg Objective Alert: Yes [place]: Person, Place Mood: Calm Affect: Restricted Memory Intact: Comment (impaired) Hallucinations: Other (denies) Delusions: No Delusion Type: Other (none elicited) Suicidal: Ideation (none) Homicidal: Ideation (none) Insight/Judgment Poor Labs Test 02/05/17 09:02 Prothrombin Time 32.6 SEC Prothromb Time International Ratio 2.8 RATIO Date/Time Source Procedure Growth Status 12/07/16 23:30 Wound Leg Gram Stain - Final Complete 12/07/16 23:30 Wound Culture - Final S. Aureus Mrsa Complete Vitals/IOs Vital Signs Date Time Temp Pulse Resp B/P (MAP) Pulse Ox O2 Delivery O2 Flow Rate FiO2 02/05/17 05:50 98.2 56 19 123/58 (79) 96 Intake and Output 02/05/17 02/05/17 02/06/17 08:00 16:00 00:00 Intake Total 120 ml Balance 120 ml Assessment & Plan Problem List: (1) Dementia of Alzheimer's type with behavioral disturbance ICD Codes: G30.8 - Other Alzheimer's disease; F02.81 - Dementia in other diseases classified elsewhere with behavioral disturbance Status: Acute (2) Dementia associated with other underlying disease with behavioral disturbance ICD Codes: F02.81 - Dementia in other diseases classified elsewhere with behavioral disturbance Status: Acute Assessment & Plan Estimated LOS: days patient continues calm, pleasantly confused, no behavioral issues. Justification for Cont. Inpt. At this time patient may decompensate if not placed in an appropriate level of care Discharge Planning To be determined Request HC Surrog/Guard Advoc?: Yes Problem Qualifiers (1) Dementia of Alzheimer's type with behavioral disturbance: Kam Ferrer MD Feb 05, 2017 13:56
[2017-02-05] MEDS: traZODone HCL 50 MG TAB PO SCH (21:05)
[2017-02-06 05:39] VITALS: BP 118/59; PULSE 49; RESP 17; TEMP 98
[2017-02-06] MEDS: hydrALAZINE HCL 10 MG TAB PO SCH ×3 (06:00→22:00)
[2017-02-06] MEDS: INSULIN ASPART SUPPLEMENTAL SCALE SQ SCH ×4 (06:44→20:50)
[2017-02-06] MEDS: FUROSEMIDE 40 MG TAB PO SCH (09:00)
[2017-02-06] MEDS: LACTIC ACID (AMMONIUM LACTATE) 12% LOTION 225 GM BTL TOPICAL SCH ×2 (09:00→20:52)
[2017-02-06] MEDS: SPIRONOLACTONE 25 MG TAB PO SCH ×2 (09:27→18:19)
[2017-02-06] MEDS: PRAVASTATIN SOD 40 MG TAB PO SCH (09:27)
[2017-02-06] MEDS: PANTOPRAZOLE SOD 20 MG DELAYED RELEASE TAB PO SCH (09:27)
[2017-02-06] MEDS: MULTIVITAMINS/MINERALS THERAPEUTIC TAB PO SCH (09:27)
[2017-02-06] MEDS: metFORMIN HCL 500 MG TAB PO SCH ×2 (09:27→18:19)
[2017-02-06] MEDS: LACTOBACILLUS ACIDOPHILUS TAB PO SCH ×2 (09:27→20:48)
[2017-02-06] MEDS: LOSARTAN 50 MG TAB PO SCH (09:27)
[2017-02-06 10:19] LABS: INTERNATIONAL NORMALIZED RATIO 1.9 RATIO; PROTHROMBIN TIME - PATIENT 21.4 SEC (9.8-11.6)
--- NOTE | 2017-02-06 14:06 | HHI.PYPN ---
Subjective Remarks Patient seen in his room with floor staff, chart reviewed. Patient continues calm pleasantly confused and disoriented. No behavioral problems. For now continue treatment Review of Systems Except as stated in HPI: all other systems reviewed are Neg Objective Alert: Yes [place]: Person, Place Mood: Calm Affect: Restricted Memory Intact: Comment (impaired) Hallucinations: Other (denies) Delusions: No Delusion Type: Other (none elicited) Suicidal: Ideation (none) Homicidal: Ideation (none) Insight/Judgment Very poor Labs Test 02/06/17 09:40 Prothrombin Time 21.4 SEC Prothromb Time International Ratio 1.9 RATIO Date/Time Source Procedure Growth Status 12/07/16 23:30 Wound Leg Gram Stain - Final Complete 12/07/16 23:30 Wound Culture - Final S. Aureus Mrsa Complete Vitals/IOs Vital Signs Date Time Temp Pulse Resp B/P (MAP) Pulse Ox O2 Delivery O2 Flow Rate FiO2 02/06/17 05:39 98.0 49 17 118/59 (78) 02/05/17 05:50 96 Intake and Output 02/06/17 02/06/17 02/07/17 08:00 16:00 00:00 Intake Total 1320 ml Balance 1320 ml Assessment & Plan Problem List: (1) Dementia of Alzheimer's type with behavioral disturbance ICD Codes: G30.8 - Other Alzheimer's disease; F02.81 - Dementia in other diseases classified elsewhere with behavioral disturbance Status: Acute (2) Dementia associated with other underlying disease with behavioral disturbance ICD Codes: F02.81 - Dementia in other diseases classified elsewhere with behavioral disturbance Status: Acute Assessment & Plan Estimated LOS: days patient continues confused demented though no behavior problems. Placement remains problematic Justification for Cont. Inpt. At the present time patient may decompensate if not Place of an appropriate level of care Discharge Planning To be determined Request HC Surrog/Guard Advoc?: Yes Problem Qualifiers (1) Dementia of Alzheimer's type with behavioral disturbance: Kam Ferrer MD Feb 06, 2017 14:06
[2017-02-06] MEDS: QUEtiapine FUMARATE 25 MG TAB PO SCH ×2 (14:13→18:19)
[2017-02-06] MEDS ORDERED: WARFARIN SOD 3 MG TAB PO SCH (16:00)
[2017-02-06 17:55] VITALS: BP 115/56; PULSE 55; RESP 17; TEMP 98.7; O2SAT 97
[2017-02-06] MEDS: traZODone HCL 50 MG TAB PO SCH (20:48)
[2017-02-07 06:42] VITALS: BP 162/65; PULSE 52; RESP 16; TEMP 97.2; O2SAT 94
[2017-02-07] MEDS: hydrALAZINE HCL 10 MG TAB PO SCH ×3 (06:47→20:49)
[2017-02-07] MEDS: INSULIN ASPART SUPPLEMENTAL SCALE SQ SCH ×4 (07:00→21:00)
[2017-02-07 08:51] LABS: INTERNATIONAL NORMALIZED RATIO 1.6 RATIO; PROTHROMBIN TIME - PATIENT 18.4 SEC (9.8-11.6)
[2017-02-07] MEDS: LACTIC ACID (AMMONIUM LACTATE) 12% LOTION 225 GM BTL TOPICAL SCH ×2 (09:00→20:47)
[2017-02-07] MEDS: LACTOBACILLUS ACIDOPHILUS TAB PO SCH ×2 (09:10→20:46)
[2017-02-07] MEDS: PANTOPRAZOLE SOD 20 MG DELAYED RELEASE TAB PO SCH (09:10)
[2017-02-07] MEDS: MULTIVITAMINS/MINERALS THERAPEUTIC TAB PO SCH (09:10)
[2017-02-07] MEDS: PRAVASTATIN SOD 40 MG TAB PO SCH (09:10)
[2017-02-07] MEDS: LOSARTAN 50 MG TAB PO SCH (09:10)
[2017-02-07] MEDS: FUROSEMIDE 40 MG TAB PO SCH (09:11)
[2017-02-07] MEDS: SPIRONOLACTONE 25 MG TAB PO SCH ×2 (09:11→18:00)
[2017-02-07] MEDS: metFORMIN HCL 500 MG TAB PO SCH ×2 (09:14→18:24)
[2017-02-07] MEDS: QUEtiapine FUMARATE 25 MG TAB PO SCH ×2 (12:04→18:23)
[2017-02-07 13:40] VITALS: BP 111/53; PULSE 55; RESP 17; O2SAT 98
[2017-02-07] MEDS: WARFARIN SOD 4 MG TAB PO SCH (16:15)
--- NOTE | 2017-02-07 16:45 | HHI.PYPN ---
Subjective Remarks Pt seen and discussed with staff. No behavioral problems. Compliant with medications. No SI/HI. Objective Alert: Yes [place]: Person, Place Mood: Calm Affect: Restricted Memory Intact: Comment (impaired) Hallucinations: Other (denies) Delusions: No Delusion Type: Other (none elicited) Suicidal: Ideation (none) Homicidal: Ideation (none) Insight/Judgment poor Labs Test 02/07/17 08:16 Prothrombin Time 18.4 SEC Prothromb Time International Ratio 1.6 RATIO Date/Time Source Procedure Growth Status 12/07/16 23:30 Wound Leg Gram Stain - Final Complete 12/07/16 23:30 Wound Culture - Final S. Aureus Mrsa Complete Vitals/IOs Vital Signs Date Time Temp Pulse Resp B/P (MAP) Pulse Ox O2 Delivery O2 Flow Rate FiO2 02/07/17 13:40 55 17 111/53 (72) 98 02/07/17 06:42 97.2 Intake and Output 02/07/17 02/07/17 02/08/17 08:00 16:00 00:00 Intake Total 480 ml Balance 480 ml Assessment & Plan Problem List: (1) Dementia of Alzheimer's type with behavioral disturbance ICD Codes: G30.8 - Other Alzheimer's disease; F02.81 - Dementia in other diseases classified elsewhere with behavioral disturbance Status: Acute (2) Dementia associated with other underlying disease with behavioral disturbance ICD Codes: F02.81 - Dementia in other diseases classified elsewhere with behavioral disturbance Status: Acute Assessment & Plan Continue current tx plan. Estimated LOS: days Justification for Cont. Inpt. risk of decompensation Request HC Surrog/Guard Advoc?: Yes Problem Qualifiers (1) Dementia of Alzheimer's type with behavioral disturbance: Onelia Vergara MD Feb 07, 2017 16:45
[2017-02-07 18:21] VITALS: BP 108/54; PULSE 63; RESP 18; TEMP 97.4; O2SAT 98
[2017-02-07] MEDS: traZODone HCL 50 MG TAB PO SCH (20:46)
[2017-02-08] MEDS: hydrALAZINE HCL 10 MG TAB PO SCH ×3 (06:00→22:00)
[2017-02-08 06:23] VITALS: BP 138/64; PULSE 44; RESP 18; TEMP 97.6; O2SAT 98
[2017-02-08] MEDS: INSULIN ASPART SUPPLEMENTAL SCALE SQ SCH ×4 (07:00→20:07)
[2017-02-08] MEDS: MULTIVITAMINS/MINERALS THERAPEUTIC TAB PO SCH (08:28)
[2017-02-08] MEDS: LACTOBACILLUS ACIDOPHILUS TAB PO SCH ×2 (08:28→20:06)
[2017-02-08] MEDS: PRAVASTATIN SOD 40 MG TAB PO SCH (08:28)
[2017-02-08] MEDS: FUROSEMIDE 40 MG TAB PO SCH (08:28)
[2017-02-08] MEDS: metFORMIN HCL 500 MG TAB PO SCH ×2 (08:28→17:37)
[2017-02-08] MEDS: SPIRONOLACTONE 25 MG TAB PO SCH ×2 (08:29→17:37)
[2017-02-08] MEDS: LOSARTAN 50 MG TAB PO SCH (08:29)
[2017-02-08] MEDS: PANTOPRAZOLE SOD 20 MG DELAYED RELEASE TAB PO SCH (08:29)
[2017-02-08] MEDS: LACTIC ACID (AMMONIUM LACTATE) 12% LOTION 225 GM BTL TOPICAL SCH ×2 (08:30→20:07)
[2017-02-08 11:49] LABS: INTERNATIONAL NORMALIZED RATIO 1.7 RATIO; PROTHROMBIN TIME - PATIENT 19.7 SEC (9.8-11.6)
[2017-02-08] MEDS: QUEtiapine FUMARATE 25 MG TAB PO SCH ×2 (12:25→17:37)
--- NOTE | 2017-02-08 13:53 | HHI.PYPN ---
Subjective Remarks Pt seen and discussed with staff. He has been withdrawn and quiet today, staying mostly in his room. No behavioral problems on unit. He is cooperative with care. No SI/HI Objective Alert: Yes [place]: Person, Place (vaguely) Mood: Calm Affect: Restricted Memory Intact: Comment (impaired) Hallucinations: Other (denies) Delusions: No Delusion Type: Other (none elicited) Suicidal: Ideation (none) Homicidal: Ideation (none) Insight/Judgment poor Labs Test 02/08/17 10:54 Prothrombin Time 19.7 SEC Prothromb Time International Ratio 1.7 RATIO Date/Time Source Procedure Growth Status 12/07/16 23:30 Wound Leg Gram Stain - Final Complete 12/07/16 23:30 Wound Culture - Final S. Aureus Mrsa Complete Vitals/IOs Vital Signs Date Time Temp Pulse Resp B/P (MAP) Pulse Ox O2 Delivery O2 Flow Rate FiO2 02/08/17 06:23 97.6 44 18 138/64 (88) 98 Intake and Output 02/08/17 02/08/17 02/09/17 08:00 16:00 00:00 Intake Total 480 ml Balance 480 ml Assessment & Plan Problem List: (1) Dementia of Alzheimer's type with behavioral disturbance ICD Codes: G30.8 - Other Alzheimer's disease; F02.81 - Dementia in other diseases classified elsewhere with behavioral disturbance Status: Acute (2) Dementia associated with other underlying disease with behavioral disturbance ICD Codes: F02.81 - Dementia in other diseases classified elsewhere with behavioral disturbance Status: Acute Assessment & Plan Continue current tx plan Estimated LOS: days Justification for Cont. Inpt. risk of decompensation Request HC Surrog/Guard Advoc?: Yes Problem Qualifiers (1) Dementia of Alzheimer's type with behavioral disturbance: Onelia Vergara MD Feb 08, 2017 13:53
[2017-02-08] MEDS: WARFARIN SOD 4 MG TAB PO SCH (17:37)
[2017-02-08 19:02] VITALS: BP 108/62; PULSE 122; RESP 20; TEMP 97.5; O2SAT 98
[2017-02-08] MEDS: traZODone HCL 50 MG TAB PO SCH (20:06)
[2017-02-08] MEDS: hydrOXYzine HCL 50 MG TAB PO PRN (20:07)
[2017-02-09] MEDS: hydrALAZINE HCL 10 MG TAB PO SCH ×3 (05:39→22:00)
[2017-02-09 06:00] VITALS: BP 149/67; PULSE 58; RESP 19; TEMP 97.9; O2SAT 97
[2017-02-09] MEDS: INSULIN ASPART SUPPLEMENTAL SCALE SQ SCH ×4 (06:01→20:55)
[2017-02-09 08:23] LABS: INTERNATIONAL NORMALIZED RATIO 1.9 RATIO; PROTHROMBIN TIME - PATIENT 21.4 SEC (9.8-11.6)
[2017-02-09] MEDS: LACTOBACILLUS ACIDOPHILUS TAB PO SCH ×2 (09:00→20:55)
[2017-02-09] MEDS: LACTIC ACID (AMMONIUM LACTATE) 12% LOTION 225 GM BTL TOPICAL SCH ×2 (09:00→20:56)
[2017-02-09] MEDS: SPIRONOLACTONE 25 MG TAB PO SCH ×2 (09:27→18:33)
[2017-02-09] MEDS: PRAVASTATIN SOD 40 MG TAB PO SCH (09:27)
[2017-02-09] MEDS: PANTOPRAZOLE SOD 20 MG DELAYED RELEASE TAB PO SCH (09:27)
[2017-02-09] MEDS: FUROSEMIDE 40 MG TAB PO SCH (09:27)
[2017-02-09] MEDS: LOSARTAN 50 MG TAB PO SCH (09:27)
[2017-02-09] MEDS: metFORMIN HCL 500 MG TAB PO SCH ×2 (09:27→18:33)
[2017-02-09] MEDS: MULTIVITAMINS/MINERALS THERAPEUTIC TAB PO SCH (09:27)
[2017-02-09] MEDS: QUEtiapine FUMARATE 25 MG TAB PO SCH ×2 (11:22→18:33)
--- NOTE | 2017-02-09 12:39 | HHI.PYPN ---
Subjective Remarks Patient seen in [place] with floor staff, chart reviewed, patient continues calm cooperative and pleasant no significant behavioral problems. Continues confused also. Review of Systems Except as stated in HPI: all other systems reviewed are Neg Objective Alert: Yes [place]: Person, Place (vaguely) Mood: Calm Affect: Restricted Memory Intact: Comment (impaired) Hallucinations: Other (denies) Delusions: No Delusion Type: Other (none elicited) Suicidal: Ideation (none) Homicidal: Ideation (none) Insight/Judgment Very poor Labs Test 02/09/17 07:54 Prothrombin Time 21.4 SEC Prothromb Time International Ratio 1.9 RATIO Date/Time Source Procedure Growth Status 12/07/16 23:30 Wound Leg Gram Stain - Final Complete 12/07/16 23:30 Wound Culture - Final S. Aureus Mrsa Complete Vitals/IOs Vital Signs Date Time Temp Pulse Resp B/P (MAP) Pulse Ox O2 Delivery O2 Flow Rate FiO2 02/09/17 06:00 97.9 58 19 149/67 (94) 97 Intake and Output 02/09/17 02/09/17 02/10/17 08:00 16:00 00:00 Intake Total 360 ml 240 ml Balance 360 ml 240 ml Assessment & Plan Problem List: (1) Dementia of Alzheimer's type with behavioral disturbance ICD Codes: G30.8 - Other Alzheimer's disease; F02.81 - Dementia in other diseases classified elsewhere with behavioral disturbance Status: Acute (2) Dementia associated with other underlying disease with behavioral disturbance ICD Codes: F02.81 - Dementia in other diseases classified elsewhere with behavioral disturbance Status: Acute Assessment & Plan Estimated LOS: days patient continues confused demented the most of her behavioral problems. Placement remains problematic Justification for Cont. Inpt. At this time patient may decompensate, placed in an appropriate level of care Discharge Planning To be determined Request HC Surrog/Guard Advoc?: Yes Problem Qualifiers (1) Dementia of Alzheimer's type with behavioral disturbance: Kam Ferrer MD Feb 09, 2017 12:39
[2017-02-09] MEDS: WARFARIN SOD 4 MG TAB PO SCH (16:31)
[2017-02-09 18:00] VITALS: BP 113/57; PULSE 67; RESP 18; TEMP 97.9; O2SAT 100
[2017-02-09] MEDS: traZODone HCL 50 MG TAB PO SCH (20:55)
[2017-02-10 05:36] VITALS: BP 125/91; PULSE 52; RESP 19; TEMP 98.1; O2SAT 97
[2017-02-10] MEDS: hydrALAZINE HCL 10 MG TAB PO SCH ×3 (06:00→22:00)
[2017-02-10] MEDS: INSULIN ASPART SUPPLEMENTAL SCALE SQ SCH ×3 (06:33→16:00)
[2017-02-10] MEDS: LOSARTAN 50 MG TAB PO SCH (08:51)
[2017-02-10] MEDS: MULTIVITAMINS/MINERALS THERAPEUTIC TAB PO SCH (08:51)
[2017-02-10] MEDS: metFORMIN HCL 500 MG TAB PO SCH ×2 (08:52→17:20)
[2017-02-10] MEDS: FUROSEMIDE 40 MG TAB PO SCH (08:52)
[2017-02-10] MEDS: PRAVASTATIN SOD 40 MG TAB PO SCH (08:52)
[2017-02-10] MEDS: LACTOBACILLUS ACIDOPHILUS TAB PO SCH ×2 (08:52→20:00)
[2017-02-10] MEDS: PANTOPRAZOLE SOD 20 MG DELAYED RELEASE TAB PO SCH (08:52)
[2017-02-10] MEDS: SPIRONOLACTONE 25 MG TAB PO SCH ×2 (08:52→17:20)
[2017-02-10] MEDS: LACTIC ACID (AMMONIUM LACTATE) 12% LOTION 225 GM BTL TOPICAL SCH ×2 (08:54→20:00)
[2017-02-10] MEDS: QUEtiapine FUMARATE 25 MG TAB PO SCH ×2 (12:13→17:20)
--- NOTE | 2017-02-10 12:45 | HHI.PYPN ---
Subjective Remarks Patient seen in day room with floor staff, chart review, patient compliant medications. Patient continues pleasantly confused, no significant behavioral problems. For now continue treatment Review of Systems Except as stated in HPI: all other systems reviewed are Neg Objective Alert: Yes [place]: Person, Place (vaguely) Mood: Calm Affect: Restricted Memory Intact: Comment (impaired) Hallucinations: Other (denies) Delusions: No Delusion Type: Other (none elicited) Suicidal: Ideation (none) Homicidal: Ideation (none) Insight/Judgment Poor Labs Test 02/10/17 11:51 Date/Time Source Procedure Growth Status 12/07/16 23:30 Wound Leg Gram Stain - Final Complete 12/07/16 23:30 Wound Culture - Final S. Aureus Mrsa Complete Vitals/IOs Vital Signs Date Time Temp Pulse Resp B/P (MAP) Pulse Ox O2 Delivery O2 Flow Rate FiO2 02/10/17 05:36 98.1 52 19 125/91 (102) 97 Assessment & Plan Problem List: (1) Dementia of Alzheimer's type with behavioral disturbance ICD Codes: G30.8 - Other Alzheimer's disease; F02.81 - Dementia in other diseases classified elsewhere with behavioral disturbance Status: Acute (2) Dementia associated with other underlying disease with behavioral disturbance ICD Codes: F02.81 - Dementia in other diseases classified elsewhere with behavioral disturbance Status: Acute Assessment & Plan Estimated LOS: days patient continues demented confused though no behavioral problems, at times is somewhat flirty with the staff but easily redirected Justification for Cont. Inpt. At this time patient will decompensate if not placed in an appropriate level of care Discharge Planning To be determined Request HC Surrog/Guard Advoc?: Yes Problem Qualifiers (1) Dementia of Alzheimer's type with behavioral disturbance: Kam Ferrer MD Feb 10, 2017 12:45
[2017-02-10 12:52] LABS: INTERNATIONAL NORMALIZED RATIO 2.4 RATIO; PROTHROMBIN TIME - PATIENT 27.3 SEC (9.8-11.6)
[2017-02-10] MEDS: WARFARIN SOD 4 MG TAB PO SCH (17:06)
[2017-02-10 19:00] VITALS: BP 101/51; PULSE 49; RESP 18; TEMP 97.8; O2SAT 100
[2017-02-10] MEDS: traZODone HCL 50 MG TAB PO SCH (20:00)
[2017-02-11] MEDS: hydrALAZINE HCL 10 MG TAB PO SCH ×3 (06:00→22:14)
[2017-02-11] MEDS: INSULIN ASPART SUPPLEMENTAL SCALE SQ SCH ×2 (06:00→16:13)
[2017-02-11 06:12] VITALS: BP 161/71; PULSE 54; RESP 19; TEMP 97.6; O2SAT 97
[2017-02-11] MEDS: LACTOBACILLUS ACIDOPHILUS TAB PO SCH ×2 (09:49→22:14)
[2017-02-11] MEDS: FUROSEMIDE 40 MG TAB PO SCH (09:49)
[2017-02-11] MEDS: metFORMIN HCL 500 MG TAB PO SCH ×2 (09:50→16:16)
[2017-02-11] MEDS: PANTOPRAZOLE SOD 20 MG DELAYED RELEASE TAB PO SCH (09:50)
[2017-02-11] MEDS: PRAVASTATIN SOD 40 MG TAB PO SCH (09:50)
[2017-02-11] MEDS: SPIRONOLACTONE 25 MG TAB PO SCH ×2 (09:50→16:16)
[2017-02-11] MEDS: LOSARTAN 50 MG TAB PO SCH (09:50)
[2017-02-11] MEDS: MULTIVITAMINS/MINERALS THERAPEUTIC TAB PO SCH (09:50)
[2017-02-11] MEDS: LACTIC ACID (AMMONIUM LACTATE) 12% LOTION 225 GM BTL TOPICAL SCH ×2 (09:53→22:14)
[2017-02-11] MEDS: QUEtiapine FUMARATE 25 MG TAB PO SCH ×2 (12:51→16:16)
--- NOTE | 2017-02-11 13:20 | HHI.PYPN ---
Subjective Remarks Patient seen in day room and floor staff. Chart reviewed. Patient continues calm cooperative, pleasantly confused. No behavioral problems. Review of Systems Except as stated in HPI: all other systems reviewed are Neg Objective Alert: Yes [place]: Person, Place (vaguely) Mood: Calm Affect: Restricted Memory Intact: Comment (impaired) Hallucinations: Other (denies) Delusions: No Delusion Type: Other (none elicited) Suicidal: Ideation (none) Homicidal: Ideation (none) Insight/Judgment Poor Labs Date/Time Source Procedure Growth Status 12/07/16 23:30 Wound Leg Gram Stain - Final Complete 12/07/16 23:30 Wound Culture - Final S. Aureus Mrsa Complete Vitals/IOs Vital Signs Date Time Temp Pulse Resp B/P (MAP) Pulse Ox O2 Delivery O2 Flow Rate FiO2 02/11/17 06:12 97.6 54 19 161/71 (101) 97 Intake and Output 02/11/17 02/11/17 02/11/17 07:59 15:59 23:59 Intake Total 240 ml 360 ml Balance 240 ml 360 ml Assessment & Plan Problem List: (1) Dementia of Alzheimer's type with behavioral disturbance ICD Codes: G30.8 - Other Alzheimer's disease; F02.81 - Dementia in other diseases classified elsewhere with behavioral disturbance Status: Acute (2) Dementia associated with other underlying disease with behavioral disturbance ICD Codes: F02.81 - Dementia in other diseases classified elsewhere with behavioral disturbance Status: Acute Assessment & Plan Estimated LOS: days patient continues confused demented but no behavior problems Justification for Cont. Inpt. At this time patient decompensate if placed in an inappropriate level of care Discharge Planning To be determined Request HC Surrog/Guard Advoc?: Yes Problem Qualifiers (1) Dementia of Alzheimer's type with behavioral disturbance: Kam Ferrer MD Feb 11, 2017 13:20
[2017-02-11] MEDS ORDERED: LACT12LO4 TOPICAL (14:10)
[2017-02-11] MEDS ORDERED: SPIR25 PO (14:10)
[2017-02-11] MEDS ORDERED: FURO40TA PO (14:10)
[2017-02-11] MEDS ORDERED: HYDR-3798 PO (14:10)
[2017-02-11] MEDS ORDERED: PRAV40TA PO (14:10)
[2017-02-11] MEDS ORDERED: COZA50TA PO (14:10)
[2017-02-11] MEDS ORDERED: THERM PO (14:10)
[2017-02-11] MEDS ORDERED: COUM4TAB PO (14:10)
[2017-02-11] MEDS ORDERED: ISOS60TA PO (14:10)
[2017-02-11] MEDS ORDERED: QUET1TAB7 PO (14:10)
[2017-02-11] MEDS ORDERED: PANT20 PO (14:10)
[2017-02-11] MEDS ORDERED: METF500 PO (14:10)
[2017-02-11] MEDS ORDERED: LACT PO (14:10)
[2017-02-11] MEDS ORDERED: TRAZ50TA12 PO (14:10)
[2017-02-11] MEDS ORDERED: WARFARIN SOD 3 MG TAB PO SCH (16:00)
[2017-02-11 16:30] VITALS: BP 131/63; PULSE 54; RESP 17; TEMP 97; O2SAT 95
[2017-02-11] MEDS: traZODone HCL 50 MG TAB PO SCH (22:14)
[2017-02-12 05:30] VITALS: BP 147/67; PULSE 61; RESP 16; TEMP 98.6; O2SAT 98
[2017-02-12] MEDS: hydrALAZINE HCL 10 MG TAB PO SCH (05:59)
[2017-02-12] MEDS: INSULIN ASPART SUPPLEMENTAL SCALE SQ SCH (06:00)
[2017-02-12] MEDS: PRAVASTATIN SOD 40 MG TAB PO SCH (08:39)
[2017-02-12] MEDS: LACTOBACILLUS ACIDOPHILUS TAB PO SCH (08:40)
[2017-02-12] MEDS: FUROSEMIDE 40 MG TAB PO SCH (08:41)
[2017-02-12] MEDS: MULTIVITAMINS/MINERALS THERAPEUTIC TAB PO SCH (08:41)
[2017-02-12] MEDS: PANTOPRAZOLE SOD 20 MG DELAYED RELEASE TAB PO SCH (08:41)
[2017-02-12] MEDS: metFORMIN HCL 500 MG TAB PO SCH (08:41)
[2017-02-12] MEDS: SPIRONOLACTONE 25 MG TAB PO SCH (08:42)
[2017-02-12] MEDS: LOSARTAN 50 MG TAB PO SCH (08:42)
[2017-02-12] MEDS: LACTIC ACID (AMMONIUM LACTATE) 12% LOTION 225 GM BTL TOPICAL SCH (08:43)
--- NOTE | 2017-02-12 10:09 | PD.WCN.NOT ---
Wound Consult Description: Received reconsult for wound management to BLE venous stasis Communicated with: LUIS CARLOS Keyes in patient psych unit 2500 Recommendation: Recommend to continue to cleanse bilateral lower extremities with soap and water and pat dry. Please apply Lac hydrin lotion to BLE BID Additional Information: Patient seen on 2500 inpatient psych unit for reconsult of bilateral venous stasis. 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 TBIs are more reliable in patient's with diabetes. No compression is recommended for TBIs in 0.44 RLE and 0.41 LLE.Patient is noted with slight BLE edema today that is non pitting. Skin on BLE has improved in appearance compared to previous assessment. BLE erythema is still noted.Please continue with current recommendations Neg Pressure Wound Therapy Wound Location Wound Location: Iona Clarke [facility] Feb 12, 2017 10:09
[2017-02-12 10:27] LABS: INTERNATIONAL NORMALIZED RATIO 2.9 RATIO
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
[2017-02-12] MEDS: QUEtiapine FUMARATE 25 MG TAB PO SCH (11:55)
== END 2017-02-12 14:12 | DRG 57 ==
LOC: NEPD 09:30 → NEDA 15:01 → H250 15:43
PROVIDERS: ADMIT Psychiatry & Neurology Psychiatry; ATTEND Psychiatry & Neurology Psychiatry
DX: G30.9 Alzheimer's disease, unspecified (principal); N17.9 Acute kidney failure, unspecified; F02.81 Dementia in other diseases classified elsewhere, unspecified severity, with behavioral disturbance; I13.0 Hypertensive heart and chronic kidney disease with heart failure and stage 1 through stage 4 chronic kidney disease, or unspecified chronic kidney disease; L03.115 Cellulitis of right lower limb; I48.2 Chronic atrial fibrillation; R00.1 Bradycardia, unspecified; I50.9 Heart failure, unspecified; E11.22 Type 2 diabetes mellitus with diabetic chronic kidney disease; L03.116 Cellulitis of left lower limb; L97.819 Non-pressure chronic ulcer of other part of right lower leg with unspecified severity; I20.9 Angina pectoris, unspecified; N18.9 Chronic kidney disease, unspecified; I87.2 Venous insufficiency (chronic) (peripheral); I73.9 Peripheral vascular disease, unspecified; E78.5 Hyperlipidemia, unspecified; I87.8 Other specified disorders of veins; I83.018 Varicose veins of right lower extremity with ulcer other part of lower leg; D64.9 Anemia, unspecified; K21.9 Gastro-esophageal reflux disease without esophagitis; B95.62 Methicillin resistant Staphylococcus aureus infection as the cause of diseases classified elsewhere; Z66 Do not resuscitate; Z79.84 Long term (current) use of oral hypoglycemic drugs; Z79.01 Long term (current) use of anticoagulants; Z79.899 Other long term (current) drug therapy; Z91.14 Patient's other noncompliance with medication regimen; Z91.19 Patient's noncompliance with other medical treatment and regimen; Z87.891 Personal history of nicotine dependence
CPT/HCPCS: 71260; 75635; 76937; 80048; 80053; 80307; 81001; 82607; 82728; 82746; 82948; 83036; 83540; 83550; 83735; 85025; 85027; 85610; 86403; 87070; 87147; 87186; 87205; 93005; 93922; 93970; 99285; J1815; Q0163; Q9967

== ENCOUNTER 2017-07-31 03:21 | Inpatient (IN) | payer MEDICARE, OTHER ==
[2017-07-31] VITALS (12 sets, daily range): BP systolic 134–174; BP diastolic 57–80; PULSE 59–85; RESP 14–24; TEMP 96.1–98.9; O2SAT 94–100
[~2017-07-31] VITALS: Ht 180.3 cm; Wt 83.3 kg
[~2017-07-31 03:21] MED LIST: COUM3TAB PO; COUM4TAB PO; COZA50TA PO; FLOR250C PO; FURO20TA PO; FURO40TA PO; HYDR-3798 PO; ISOS60TA PO; LACT PO; LACT12LO4 TOPICAL; LOSA100T PO; METF1000 PO; METF500 PO; PANT20 PO; PRAV40TA PO; QUET1TAB7 PO; SILV1CRE80 TOPICAL; SPIR25 PO; SPIR25TA PO; THERM PO; TRAZ50TA12 PO; [UNRECOGNIZED DRUG - CODE] TOPICAL
[2017-07-31] MEDS ORDERED: RESP: ALBUTEROL 2.5 MG/IPRATROPIUM 0.5 MG NEB (SCH) INH ONE (04:00)
[2017-07-31] MEDS ORDERED: SODIUM CHLORIDE 0.9% FLUSH 10 ML FLUSH IVF PRN (04:00)
--- NOTE | 2017-07-31 04:19 | PD ---
HPI Chief Complaint: Respiratory Distress Time Seen by Provider: 03:57 Travel History International Travel<30 days: No Contact w/Intl Traveler<30days: No Traveled to known affect area: No History of Present Illness HPI 82-year-old male with history of dementia hypertension dyslipidemia diabetes obstructive sleep apnea CAD prior angioplasty pneumonia CHF with 20% ejection fraction atrial fibrillation chronic kidney disease chronic pressure ulcers of the lower extremities and recent pneumonia with hypoxemia presents to the emergency department from [facility] by EMS transport for evaluation of low O2 saturations and dyspnea. According to process consultant report according to halfway staff patient was found with low room air O2 saturations of 87-84% was placed on 2 L/min nasal cannula and O2 saturations improved slightly on 3 L O2 saturations increased to 96% and upon EMS arrival patient's O2 saturations were 96% patient was not in any respiratory distress and not demonstrating any work of breathing was given Solu-Medrol 125 mg IV 1 dose and 1 DuoNeb updraft. Patient presents with DuoNeb updraft in place voicing no complaints. Patient is afebrile. No report of productive cough. Patient does take Coumadin and lasix with as needed supplemental oxygen. Not currently on an antibiotic. No report of recent fever. PFSH Past Medical History Atrial Fibrillation: Yes Cancer: No Cardiovascular Problems: Yes Chest Pain: Yes Congestive Heart Failure: Yes COPD: Yes Coronary Artery Disease: Yes Dementia: Yes Diabetes: Yes Diminished Hearing: No GERD: Yes Headaches: No Insomnia: Yes Psychiatric: Yes (per patient's daughter, depression) Integumentary: Yes (BLE SKIN WOUNDS) Seizures: No Triglycerides - High: Yes Social History Alcohol Use: No Tobacco Use: No Substance Use: No Allergies-Medications (Allergen,Severity, Reaction): Coded Allergies: *MDRO Multi-Drug Resistant Organism (Verified Adverse Reaction, Unknown, MRSA, 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) 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 Reported Meds & Prescriptions Reported Meds & Active Scripts Active Protonix (Pantoprazole Sodium) 20 Mg Tab 20 Mg PO DAILY Coumadin (Warfarin) 4 Mg Tab 4 Mg PO DAILY@1600 Quetiapine (Quetiapine Fumarate) 25 Mg Tab 25 Mg PO DAILY@12,18 Pravachol (Pravastatin) 40 Mg Tab 40 Mg PO DAILY Thera M Plus (Multivitamins/Minerals Therapeutic) 1 Tab 1 Tab PO DAILY Isosorbide Mononitrate ER (Isosorbide Mononitrate) 60 Mg Tab 60 Mg PO DAILY Furosemide 40 Mg Tab 40 Mg PO DAILY Reported Humalog Inj (Insulin Human Lispro) 1,000 Unit/10 Ml Vial 2-12 Units SQ ACHS Max dose at bedtime:( )units; sugars < 70,(0)units; sugars 150-199,(2)units; sugars 200-249,(4)units; sugars 250-299,(7)units; sugars 300-349,(10)units; sugars more than 349,(12)units. Furosemide 20 Mg Tab 20 Mg PO BID Coumadin (Warfarin) 3 Mg Tab 3 Mg PO DAILY Review of Systems ROS Limitations: Poor Historian, Other: (h/o dementia) General / Constitutional: No: Fever HENT: No: Headaches Cardiovascular: No: Chest Pain or Discomfort Respiratory: Positive: Shortness of Breath Gastrointestinal: No: Abdominal Pain Genitourinary: No: Flank Pain Musculoskeletal: No: Pain Neurologic: No: Weakness Psychiatric: No: Anxiety Hematologic/Lymphatic: No: Lymph Node Enlargement Physical Exam Narrative GENERAL: Elderly male with supplemental oxygen in place in no acute distress no respiratory distress without use of accessory muscles. GCS 14, patient's reported baseline SKIN: Warm and dry. HEAD: Normocephalic. EYES: No scleral icterus. No injection or drainage. NECK: Supple, trachea midline. No JVD or lymphadenopathy. CARDIOVASCULAR: Regular rate and rhythm without murmurs, gallops, or rubs. RESPIRATORY: Breath sounds equal bilaterally few end expiratory wheezes at bases few crackles. No accessory muscle use. GASTROINTESTINAL: Abdomen soft, non-tender, nondistended. MUSCULOSKELETAL: No cyanosis, or edema. BACK: Nontender without obvious deformity. No CVA tenderness. Data Data Last Documented VS Vital Signs Date Time Temp Pulse Resp B/P (MAP) Pulse Ox O2 Delivery O2 Flow Rate FiO2 07/31/17 04:43 83 16 151/63 (92) 95 Nasal Cannula 2.00 07/31/17 03:25 97.9 Orders Orders Complete Blood Count With Diff (07/31/17 03:57) Comprehensive Metabolic Panel (07/31/17 03:57) B-Type Natriuretic Peptide (07/31/17 03:57) Act Partial Throm Time (Ptt) (07/31/17 03:57) Prothrombin Time / Inr (Pt) (07/31/17 03:57) Magnesium (Mg) (07/31/17 03:57) Ckmb (Isoenzyme) Profile (07/31/17 03:57) Troponin I (07/31/17 03:57) Urinalysis - C+S If Indicated (07/31/17 03:57) Iv Access Insert/Monitor (07/31/17 03:57) Electrocardiogram (07/31/17 03:57) Ecg Monitoring (07/31/17 03:57) Oximetry (07/31/17 03:57) Oxygen Administration (07/31/17 03:57) Chest, Single Ap (07/31/17 03:57) Sodium Chloride 0.9% Flush (Ns Flush) (07/31/17 04:00) Albuterol-Ipratropium Neb (Duoneb Neb) (07/31/17 04:00) Nitroglycerin 2% Oint (Nitroglycerin 2% (07/31/17 04:30) Albuterol-Ipratropium Neb (Duoneb Neb) (07/31/17 04:30) Furosemide Inj (Lasix Inj) (07/31/17 04:45) Pantoprazole Inj (Protonix Inj) (07/31/17 05:30) Aspirin Chew (Aspirin Chew) (07/31/17 09:00) Place In Observation (07/31/17 ) Vital Signs (Adult) Q4H (07/31/17 05:28) Activity Bed Rest With Brp (07/31/17 05:28) Alteration Inspector / Telemetry .CONTINUOUS (07/31/17 05:28) Intake + Output AMINATA.QSHIFT (07/31/17 05:28) Notify Dr: Other (07/31/17 05:28) Sodium Chloride 0.9% Flush (Ns Flush) (07/31/17 05:30) Sodium Chloride 0.9% Flush (Ns Flush) (07/31/17 09:00) Basic Metabolic Panel (Bmp) (08/01/17 06:00) Complete Blood Count With Diff (08/01/17 06:00) Creatine Kinase (Cpk) (07/31/17 11:30) Creatine Kinase (Cpk) (07/31/17 17:30) Troponin I (07/31/17 11:30) Troponin I (07/31/17 17:30) Electrocardiogram (07/31/17 11:30) Electrocardiogram (07/31/17 17:30) Resp Oxygen Bret C Titrat 1-4 L (07/31/17 ) Pt Request For Service (07/31/17 05:28) Case Management Consult (07/31/17 05:28) Naloxone Inj (Narcan Inj) (07/31/17 05:30) Furosemide Inj (Lasix Inj) (07/31/17 09:00) Labs Laboratory Tests Test 07/31/17 04:04 07/31/17 05:09 Prothrombin Time 31.8 SEC Prothromb Time International Ratio 3.2 RATIO Activated Partial Thromboplast Time 26.7 SEC Blood Urea Nitrogen 19 MG/DL Creatinine 1.10 MG/DL Random Glucose 91 MG/DL Total Protein 6.0 GM/DL Albumin 2.3 GM/DL Calcium Level 7.7 MG/DL Magnesium Level 1.7 MG/DL Alkaline Phosphatase 99 U/L Aspartate Amino Transf (AST/SGOT) 25 U/L Alanine Aminotransferase (ALT/SGPT) 29 U/L Total Bilirubin 1.0 MG/DL Sodium Level 139 MEQ/L Potassium Level 3.9 MEQ/L Chloride Level 106 MEQ/L Carbon Dioxide Level 27.2 MEQ/L Anion Gap 6 MEQ/L Estimat Glomerular Filtration Rate 64 ML/MIN Total Creatine Kinase 64 U/L Troponin I 0.07 NG/ML B-Type Natriuretic Peptide 2877 PG/ML White Blood Count 5.2 TH/MM3 Red Blood Count 3.09 MIL/MM3 Hemoglobin 9.3 GM/DL Hematocrit 28.8 % Mean Corpuscular Volume 93.4 FL Mean Corpuscular Hemoglobin 30.2 PG Mean Corpuscular Hemoglobin Concent 32.3 % Red Cell Distribution Width 17.4 % Platelet Count 87 TH/MM3 Mean Platelet Volume 8.8 FL Neutrophils (%) (Auto) 87.4 % Lymphocytes (%) (Auto) 6.7 % Monocytes (%) (Auto) 2.3 % Eosinophils (%) (Auto) 2.9 % Basophils (%) (Auto) 0.7 % Neutrophils # (Auto) 4.5 TH/MM3 Lymphocytes # (Auto) 0.4 TH/MM3 Monocytes # (Auto) 0.1 TH/MM3 Eosinophils # (Auto) 0.2 TH/MM3 Basophils # (Auto) 0.0 TH/MM3 CBC Comment AUTO DIFF Differential Comment AUTO DIFF CONFIRMED Platelet Estimate LOW Platelet Morphology Comment ENLARGED Red Cell Morphology Comment NORMAL MDM Medical Decision Making Medical Screen Exam Complete: Yes Emergency Medical Condition: Yes Medical Record Reviewed: Yes Interpretation(s) EKG: Atrial fibrillation controlled ventricular rate with marked T-wave inversion consistent with anterolateral ischemia no acute ST elevation trop: 0.07, mildly elevated Last Impressions Chest X-Ray 07/31/17 0357 Signed Impressions: Service Date/Time: Monday, July 31, 2017 04:13 - CONCLUSION: Slight CHF. K. Garry Zheng MD INR: 3.2, therapeutic BNP: 2877, elevated Differential Diagnosis Dyspnea, COPD, CHF, ACS, UT, PE, pneumonia Narrative Course Patient placed on school lunch monitor with continuous pulse oximetry supplemental oxygen 2 L/min nasal cannula administered and patient ordered DuoNeb updraft 2 as had received a DuoNeb updraft en route and Cymetra 125 mg IV prior to arrival EKG performed and shows patient to be in atrial fibrillation with controlled ventricular rate was markedly deep inverted T waves without ST segment depression concerning for acute anterior lateral ischemia without ST segment elevation Patient administered Nitropaste 1/2 inch to chest wall and chest x-ray results are consistent with CHF and possible left base infiltrate patient given Lasix 20 mg IV patient with poor ejection fraction of 20%; O2 saturations on 2 L/min nasal cannula after updraft treatment 96%; 95% 2l/m nc, 83, 151/63 prior to lasix and nitroglycerin placed on 2 L/M nc. Physician Communication Physician Communication discussed with [facility] service for admission to Dr Rose Diagnosis Primary Impression: CHF (congestive heart failure) Additional Impression: ACS (acute coronary syndrome) Admitting Information Admitting Physician Requests: Admit Dianna Jackson MD Jul 31, 2017 04:19
--- NOTE | 2017-07-31 04:28 | RADRPT ---
EXAM DATE/TIME: 07/31/2017 04:13 [place] COMPARISON: No previous studies available for comparison. INDICATIONS : Shortness of breath MEDICAL HISTORY : Diabetes mellitus type II. Cardiovascular disease. Congestive heart failure. Chronic obstructiv e pulmonary disease. SURGICAL HISTORY : None. ENCOUNTER: Initial ACUITY: 1 day PAIN SCORE: 0/10 LOCATION: Bilateral chest FINDINGS: There is a small right pleural effusion with slight degree of perivascular haziness probably edema. S light cardiomegaly is seen. There are atherosclerotic calcifications of the aorta due to chronic athe rosclerotic disease. Chronic degenerative changes are present in the right shoulder and not changed. CONCLUSION: Slight CHF. Zach Zheng MD on July 31, 2017 at 4:26 Board Certified Radiologist. This report was verified electronically.
[2017-07-31] MEDS ORDERED: NITROGLYCERIN 2% OINT 1 GM PACKET TOPICAL ONE (04:30)
[2017-07-31] MEDS ORDERED: RESP: ALBUTEROL 2.5 MG/IPRATROPIUM 0.5 MG NEB (SCH) NEB ONE (04:30)
[2017-07-31] MEDS ORDERED: FUROSEMIDE 20 MG/2 ML VIAL IV PUSH ONE (04:45)
[2017-07-31 04:50] LABS: CHLORIDE 106 MEQ/L (98-107); SODIUM (NA) 139 MEQ/L (136-145)
[2017-07-31 04:53] LABS: CALCIUM 7.7 MG/DL (8.5-10.1)
[2017-07-31 04:54] LABS: ALBUMIN 2.3 GM/DL (3.4-5.0); BICARBONATE 27.2 MEQ/L (21.0-32.0); BLOOD UREA NITROGEN 19 MG/DL (7-18); GLUCOSE,RANDOM 91 MG/DL (74-106); INTERNATIONAL NORMALIZED RATIO 3.2 RATIO; MAGNESIUM 1.7 MG/DL (1.5-2.5); PROTHROMBIN TIME - PATIENT 31.8 SEC (9.8-11.6)
[2017-07-31 04:57] LABS: ALT (GPT) 29 U/L (12-78); AST (GOT) 25 U/L (15-37); GLOMERULAR FILTRATION RATE 64 ML/MIN (>89)
[2017-07-31 05:00] LABS: ALKALINE PHOSPHATASE 99 U/L (45-117)
[2017-07-31 05:02] LABS: TROPONIN I 0.07 NG/ML (0.02-0.05)
[2017-07-31 05:19] LABS: AUTOMATED NEUTROPHIL # 4.5 TH/MM3 (1.8-7.7); BASOPHIL % 0.7 % (0.0-2.0); EOSINOPHIL # 0.2 TH/MM3 (0-0.4); EOSINOPHIL % 2.9 % (0.0-4.0); HEMATOCRIT 28.8 % (39.0-51.0); HEMOGLOBIN 9.3 GM/DL (13.0-17.0); LYMPH % 6.7 % (9.0-44.0); LYMPHOCYTE # 0.4 TH/MM3 (1.0-4.8); MEAN CELL VOLUME 93.4 FL (80.0-100.0); MEAN CORPUSCULAR HEMOGLOBIN 30.2 PG (27.0-34.0); MEAN CORPUSCULAR HGB CONC 32.3 % (32.0-36.0); MEAN PLATELET VOLUME 8.8 FL (7.0-11.0); MONO % 2.3 % (0.0-8.0); MONOCYTE # 0.1 TH/MM3 (0-0.9); NEUT % 87.4 % (16.0-70.0); PLATELET COUNT 87 TH/MM3 (150-450); RED BLOOD COUNT 3.09 MIL/MM3 (4.50-5.90); RED CELL DISTRIBUTION WIDTH 17.4 % (11.6-17.2); WHITE BLOOD COUNT 5.2 TH/MM3 (4.0-11.0)
[2017-07-31] MEDS ORDERED: NALOXONE HCL 0.4 MG/ML AMP IV PUSH PRN (05:30)
[2017-07-31] MEDS ORDERED: PANTOPRAZOLE SODIUM 40 MG VIAL IV PUSH ONE (05:30)
[2017-07-31] MEDS ORDERED: SODIUM CHLORIDE 0.9% FLUSH 10 ML FLUSH IV FLUSH PRN (05:30)
[2017-07-31] MEDS ORDERED: HUMALOG SQ (05:49)
[2017-07-31 06:04] LABS: BILIRUBIN, URINE NEG (NEG); GLUCOSE,URINE NEG (NEG); KETONE, URINE NEG (NEG); NITRITE,URINE NEG (NEG); URINE LEUKOCYTE ESTERASE NEG (NEG)
[2017-07-31 06:05] LABS: BLOOD, URINE TRACE (NEG); URINE COLOR YELLOW (YELLW/STRAW)
[2017-07-31 06:12] LABS: RBC, URINE 0-3 /hpf (0-3); SQUAMOUS EPITHELIAL CELL URINE 0-5 /hpf (0-5); WBC, URINE 0-2 /hpf (0-5)
[2017-07-31] MEDS ORDERED: FUROSEMIDE 20 MG/2 ML VIAL IV PUSH SCH (09:00)
[2017-07-31] MEDS ORDERED: ASPIRIN 81 MG CHEW TAB CHEW SCH (09:00)
[2017-07-31] MEDS: SODIUM CHLORIDE 0.9% FLUSH 10 ML FLUSH IV FLUSH SCH ×2 (09:05→21:00)
[2017-07-31] MEDS ORDERED: ACETAMINOPHEN 500 MG CPLT PO PRN (10:30)
[2017-07-31] MEDS ORDERED: RESP: ALBUTEROL 2.5 MG/IPRATROPIUM 0.5 MG NEB (PRN) NEB (10:30)
[2017-07-31] MEDS ORDERED: MAGNESIUM HYDROXIDE SUSP 30 ML CUP PO PRN (10:30)
[2017-07-31] MEDS ORDERED: SENNOSIDES 8.6 MG TAB PO PRN (10:30)
[2017-07-31] MEDS ORDERED: LACTULOSE SYRUP 20 GM/30 ML CUP PO PRN (10:30)
[2017-07-31] MEDS ORDERED: BISACODYL 10 MG SUPP RECTAL PRN (10:30)
--- NOTE | 2017-07-31 10:33 | HHI.HP ---
[facility] Chino Adams MD Admission Diagnosis chf; h/o copd Diagnoses: Chief Complaint: Hypoxia, shortness of breath. Travel History International Travel<30 Days: No Contact w/Intl Traveler <30 Da: No Traveled to Known Affected Are: No History of Present Illness Mr. Lazcano is a pleasant 82-year-old male with a history of Alzheimer's dementia , ischemic cardiomyopathy with ejection fraction 20%, atrial fibrillation who presented to the emergency department from [facility] due to shortness of breath and hypoxia. At the rehabilitation, staff found patient with oxygen saturation 84-87% on 2 L of oxygen via nasal cannula. Obtaining history is limited due to patient's underlying dementia. At the time of this interview, however, patient appears to be comfortable on nasal cannula. Denies chest pain, shortness of breath, fever or chills. Chest x-ray shows cardiomegaly and vascular congestion consistent with CHF. His BNP was 2877. I discussed with patient's daughter Norma this morning. She does not know exactly why patient was admitted to the hospital. However she was told that his oxygen saturation was in the 84% range. She reports that patient had 2 heart attacks but software configuration manager recommended against any intervention due to his overall condition. He currently does not have a regular software configuration manager. Patient' s daughter also expressed desire for more comfort care than aggressive care. She understands given his cardiac conditions and dementia, aggressive care would not provide good quality of life. Review of Systems ROS Limitations: Clinical Condition Except as stated in HPI: all other systems reviewed are Neg Past Family Social History Past Medical History Coronary artery disease Ischemic cardiomyopathy Atrial fibrillation Alzheimer's dementia Past Surgical History Surgical history could not be obtained due to patient's dementia Reported Medications Protonix (Pantoprazole Sodium) 20 Mg Tab 20 Mg PO DAILY Coumadin (Warfarin) 4 Mg Tab 4 Mg PO DAILY@1600 Quetiapine (Quetiapine Fumarate) 25 Mg Tab 25 Mg PO DAILY@12,18 Pravachol (Pravastatin) 40 Mg Tab 40 Mg PO DAILY Thera M Plus (Multivitamins/Minerals Therapeutic) 1 Tab 1 Tab PO DAILY Isosorbide Mononitrate ER (Isosorbide Mononitrate) 60 Mg Tab 60 Mg PO DAILY Furosemide 40 Mg Tab 40 Mg PO DAILY Reported Humalog Inj (Insulin Human Lispro) 1,000 Unit/10 Ml Vial 2-12 Units SQ ACHS Max dose at bedtime:( )units; sugars < 70,(0)units; sugars 150-199,(2)units; sugars 200-249,(4)units; sugars 250-299,(7)units; sugars 300-349,(10)units; sugars more than 349,(12)units. 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 Physical Exam Vital Signs Vital Signs Date Time Temp Pulse Resp B/P (MAP) Pulse Ox O2 Delivery O2 Flow Rate FiO2 07/31/17 09:32 07/31/17 07:26 97 Nasal Cannula 1.00 07/31/17 07:26 69 18 97 Nasal Cannula 1.00 07/31/17 07:26 97.5 69 18 134/57 (82) 97 Nasal Cannula 1.00 07/31/17 07:26 97 Nasal Cannula 1.00 07/31/17 05:40 97 Nasal Cannula 2.00 07/31/17 05:32 85 14 160/74 (102) 97 Nasal Cannula 2.00 07/31/17 04:43 83 16 151/63 (92) 95 Nasal Cannula 2.00 07/31/17 04:18 100 Aerosol Mask 07/31/17 04:18 18 100 Aerosol Mask 07/31/17 03:25 97.9 67 18 142/67 (92) 94 07/31/17 03:25 Room Air Physical Exam GENERAL: This is a well-nourished, well-developed patient, in no apparent distress. SKIN: No rashes, ecchymoses or lesions. Warm and dry. HEAD: Atraumatic. Normocephalic. No temporal or scalp tenderness. EYES: Pupils equal round and reactive. No injection or drainage. ENT: Nose without bleeding, purulent drainage or septal hematoma. Airway patent. NECK: Trachea midline. No lymphadenopathy. Supple, nontender, no meningeal signs. CARDIOVASCULAR: Regular rate and rhythm without murmurs, gallops, or rubs. No JVD. Bibasilar crackles noted. RESPIRATORY: Clear to auscultation. Breath sounds equal bilaterally. No wheezes , rales, or rhonchi. GASTROINTESTINAL: Abdomen soft, non-tender, nondistended. No guarding. MUSCULOSKELETAL: Lower extremities is wrapped in Harshal wrap. Appears to have 1+ edema. Tender to palpation NEUROLOGICAL: Awake and alert. Follows commands. Laboratory Laboratory Tests Test 07/31/17 04:04 07/31/17 05:09 07/31/17 05:55 Prothrombin Time 31.8 Prothromb Time International Ratio 3.2 Activated Partial Thromboplast Time 26.7 Blood Urea Nitrogen 19 Creatinine 1.10 Random Glucose 91 Total Protein 6.0 Albumin 2.3 Calcium Level 7.7 Magnesium Level 1.7 Alkaline Phosphatase 99 Aspartate Amino Transf (AST/SGOT) 25 Alanine Aminotransferase (ALT/SGPT) 29 Total Bilirubin 1.0 Sodium Level 139 Potassium Level 3.9 Chloride Level 106 Carbon Dioxide Level 27.2 Anion Gap 6 Estimat Glomerular Filtration Rate 64 Total Creatine Kinase 64 Troponin I 0.07 B-Type Natriuretic Peptide 2877 White Blood Count 5.2 Red Blood Count 3.09 Hemoglobin 9.3 Hematocrit 28.8 Mean Corpuscular Volume 93.4 Mean Corpuscular Hemoglobin 30.2 Mean Corpuscular Hemoglobin Concent 32.3 Red Cell Distribution Width 17.4 Platelet Count 87 Mean Platelet Volume 8.8 Neutrophils (%) (Auto) 87.4 Lymphocytes (%) (Auto) 6.7 Monocytes (%) (Auto) 2.3 Eosinophils (%) (Auto) 2.9 Basophils (%) (Auto) 0.7 Neutrophils # (Auto) 4.5 Lymphocytes # (Auto) 0.4 Monocytes # (Auto) 0.1 Eosinophils # (Auto) 0.2 Basophils # (Auto) 0.0 CBC Comment AUTO DIFF Differential Comment AUTO DIFF CONFIRMED Platelet Estimate LOW Platelet Morphology Comment ENLARGED Red Cell Morphology Comment NORMAL Urine Color YELLOW Urine Turbidity CLEAR Urine pH 6.0 Urine Specific [place] 1.010 Urine Protein TRACE Urine Glucose (UA) NEG Urine Ketones NEG Urine Occult Blood TRACE Urine Nitrite NEG Urine Bilirubin NEG Urine Leukocyte Esterase NEG Urine RBC 0-3 Urine WBC 0-2 Urine Squamous Epithelial Cells 0-5 Urine Bacteria NONE Microscopic Urinalysis Comment CULT NOT INDICATED Result Diagram: 07/31/17 0509 07/31/17 0404 Imaging Last Impressions Chest X-Ray 07/31/17 0357 Signed Impressions: Service Date/Time: Monday, July 31, 2017 04:13 - CONCLUSION: Slight CHF. K. MD Bradly Monroy VTE Risk Assessment Caprini VTE Risk Assessment: Mod/High Risk (score >= 2) Caprini Risk Assessment Model Point Value = 1 Point Value = 2 Point Value = 3 Point Value = 5 Age 41-60 Minor surgery BMI > 25 kg/m2 Swollen legs Varicose veins or History of unexplained or recurrent spontaneous Oral contraceptives or hormone replacement Sepsis (< 1 month) Serious lung disease, including pneumonia (< 1 month) Abnormal pulmonary function Acute myocardial infarction Congestive heart failure (< 1 month) History of inflammatory bowel disease Medical patient at bed rest Age 61-74 Arthroscopic surgery Major open surgery (> 45 min) Laparoscopic surgery (> 45 min) Malignancy Confined to bed (> 72 hours) Immobilizing plaster cast Central venous access Age >= 75 History of VTE Family history of VTE Factor V Leiden Prothrombin [id number] Lupus anticoagulant Anticardiolipin antibodies Elevated serum homocysteine Heparin-induced thrombocytopenia Other congenital or acquired thrombophilia Stroke (< 1 month) Elective arthroplasty Hip, pelvis, or leg fracture Acute spinal cord injury (< 1 month) Prophylaxis Regimen Total Risk Factor Score Risk Level Prophylaxis Regimen 0-1 Low Early ambulation 2 Moderate Order ONE of the following: *Sequential Compression Device (SCD) *Heparin 5000 units SQ BID 3-4 Higher Order ONE of the following medications: *Heparin 5000 units SQ TID *Enoxaparin/Lovenox 40 mg SQ daily (WT < 150 kg, CrCl > 30 mL/min) *Enoxaparin/Lovenox 30 mg SQ daily (WT < 150 kg, CrCl > 10-29 mL/min) *Enoxaparin/Lovenox 30 mg SQ BID (WT < 150 kg, CrCl > 30 mL/min) AND/OR *Sequential Compression Device (SCD) 5 or more Highest Order ONE of the following medications: *Heparin 5000 units SQ TID (Preferred with Epidurals) *Enoxaparin/Lovenox 40 mg SQ daily (WT < 150 kg, CrCl > 30 mL/min) *Enoxaparin/Lovenox 30 mg SQ daily (WT < 150 kg, CrCl > 10-29 mL/min) *Enoxaparin/Lovenox 30 mg SQ BID (WT < 150 kg, CrCl > 30 mL/min) AND *Sequential Compression Device (SCD) Assessment and Plan Problem List: (1) Acute exacerbation of CHF (congestive heart failure) ICD Code: I50.9 - Heart failure, unspecified (2) Ischemic cardiomyopathy ICD Code: I25.5 - Ischemic cardiomyopathy (3) Atrial fibrillation ICD Code: I48.91 - Unspecified atrial fibrillation Status: Acute (4) Dementia of Alzheimer's type with behavioral disturbance ICD Code: G30.8 - Other Alzheimer's disease; F02.81 - Dementia in other diseases classified elsewhere with behavioral disturbance Status: Acute Assessment and Plan Mr. Lazcano is a pleasant 82-year-old male with a history of ischemic cardiomyopathy with ejection fraction 20%, atrial fibrillation, congestive heart failure, Alzheimer's dementia who was sent from [facility] due to hypoxia and shortness of breath. At the rehabilitation, patient's oxygen saturation was around 84-87%. - Acute CHF exacerbation - Systolic congestive heart failure with ejection fraction 20% - Ischemic cardiomyopathy - We will increase Lasix from 20 mg to 40 mg IV twice a day. - Supplemental oxygen to keep O2 saturation above 90%. - DuoNeb when necessary - Patient's home medications does not include beta ignacia or HARSHAL inhibitor. - We'll hold off using beta ignacia at this point due to acute CHF exacerbation. - Given his overall condition and based on discussion with daughter, we'll consult palliative care. - I believe patient would be a candidate for hospice due to overall poor prognosis. - Will hold of getting any Echo or further work up for CHF until patient is evaluated by Palliative care. - If work up desired, consider Limited Echo. Patient should also be eventually on BB, HARSHAL inhibitor, Lasix, Spironolactone. - Coronary artery disease - Atrial fibrillation - Hyperlipidemia - Continue warfarin per pharmacy dosing. INR 3.2 today. - Heart rate is controlled. - Continue pravastatin. - D/C aspirin as patient is on Warfarin. - Alzheimer's dementia - Currently no medications. DVT prophylaxis: Patient was on Warfarin. INR 3.2. Alternate code status. Per patient's daughter, chest compression would be okay. However, no electric shock or intubation. Physician Certification 2 Midnight Certification Type: Admission for Inpatient Services Order for Inpatient Services The services are ordered in accordance with Medicare regulations or non- Medicare payer requirements, as applicable. In the case of services not specified as inpatient-only, they are appropriately provided as inpatient services in accordance with the 2-midnight benchmark. Estimated LOS (days): 2 days is the estimated time the patient will need to remain in the hospital, assuming treatment plan goals are met and no additional complications. Post-Hospital Plan: Home Jenise Adhikari DO Jul 31, 2017 10:33 am
[2017-07-31] MEDS ORDERED: DO NOT ADM ANY ANTICOAGULANT DRUGS OTHER PRN (11:00)
[2017-07-31 12:22] LABS: TROPONIN I 0.06 NG/ML (0.02-0.05)
[2017-07-31 18:22] LABS: TROPONIN I 0.05 NG/ML (0.02-0.05)
--- NOTE | 2017-07-31 18:22 | PD.CONS ---
Consult Service Palliative Care Consult Requested By Dr. Adhikari . Primary Care Physician Chino Adams MD . Reason for Consultation a. To assist with evaluation and management of symptoms including: Confusion , dyspnea b. To assist medical decision maker(s) with: better understanding of current medical conditions; weighing benefits/burdens of medical treatment options; making medical treatment decisions. HPI History of Present Illness This is a very pleasant 82-year-old male with a history of frontal lobe dementia, coronary artery disease status post stent, diabetes mellitus, ischemic cardiomyopathy and atrial fibrillation who was brought from [facility] due to low oxygen saturations and dyspnea. His oxygen saturation was found to be 84-87% recovered on 3 L nasal cannula to 96%. He has history of recurrent pneumonia, suspicious for aspiration. He was treated with Solu-Medrol 125 mg IV and 1 DuoNeb treatment. ED course: * Laboratory: Prothrombin time 31.8, INR 3.2, sodium 139, potassium 3.9, BUN 19 , creatinine 1.10, alkaline phosphatase 99, AST 25, ALT 29, troponin 0 0.07, B natruretic peptide 2877, WBC 5.2, Hgb 9.3, HCT 28.8, PLT 87. * Electrocardiogram: Atrial fibrillation with controlled ventricular rate and marked T-wave inversion consistent with anterolateral ischemia with no acute ST elevation. * Radiology: Chest x-ray shows slight congestive heart failure. This is an elderly male lying in bed in no acute distress with his daughter at bedside. She is the youngest of his 8 children and at this visit he designates her as a healthcare surrogate. She has been his primary decision maker for some time. . Function/Cognitive Trajectory He has been declining for some time. He lives in an [facility] in [place] and has had recurrent hospitalizations for pneumonia. At his last hospitalization he was discharged to [facility] and rehab for short-term rehabilitation prior to returning to his [facility]. . Review of Systems ROS Limitations: Clinical Condition, Poor Historian Constitutional: COMPLAINS OF: Generalized weakness Endocrine: DENIES: Heat/cold intolerance, Polydipsia, Polyuria, Polyphagia Eyes: DENIES: Blurred vision, Diplopia, Eye inflammation, Eye pain, Vision loss , Photosensitivity, Double Vision, Blind spots Ears, nose, mouth, throat: DENIES: Tinnitus, Hearing loss, Vertigo, Nasal discharge, Oral lesions, Throat pain, Hoarseness, Ear Pain, Running Nose, Epistaxis, Sinus Pain, Toothache, Odynophagia Respiratory: COMPLAINS OF: Cough, Shortness of breath Cardiovascular: COMPLAINS OF: Dyspnea on Exertion Gastrointestinal: DENIES: Abdominal pain, Black stools, Bloody stools, Constipation, Diarrhea, Nausea, Vomiting, Difficulty Swallowing, Anorexia, Dyspepsia or heartburn, Excessive gas, Bloating, Vomiting blood Genitourinary: DENIES: Sexual dysfunction, Urinary frequency, Urinary incontinence, Urgency, Hematuria, Dysuria, Nocturia, Penile Discharge, Testicular Pain, Testicular Swelling, Hesitancy, Dribbling, Decreased stream Musculoskeletal: DENIES: Joint pain, Muscle aches, Stiffness, Joint Swelling, Back pain, Neck pain, Decreased range of motion Integumentary: DENIES: Abnormal pigmentation, Nail changes, Pruritus, Rash, Nodules, Tumors, Excessive dryness, Non-healing sores Hematologic/Lymphatics: DENIES: Bruising, Lymphadenopathy, Prolonged bleed w/ proced, History of transfusions Immunologic/Allergic: DENIES: Eczema, Urticaria Neurologic: COMPLAINS OF: Abnormal gait, Poor Balance Psychiatric: COMPLAINS OF: Confusion (Mild) Past Family Social History Coded Allergies: *MDRO Multi-Drug Resistant Organism (Verified Adverse Reaction, Unknown, MRSA, 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 Past Surgical History Cardiac stent placement 7 years ago Strangulated inguinal hernia repair 1-1/2 years ago . Reported Medications Reported Meds & Active Scripts Active Protonix (Pantoprazole Sodium) 20 Mg Tab 20 Mg PO DAILY Coumadin (Warfarin) 4 Mg Tab 4 Mg PO DAILY@1600 Quetiapine (Quetiapine Fumarate) 25 Mg Tab 25 Mg PO DAILY@12,18 Pravachol (Pravastatin) 40 Mg Tab 40 Mg PO DAILY Thera M Plus (Multivitamins/Minerals Therapeutic) 1 Tab 1 Tab PO DAILY Isosorbide Mononitrate ER (Isosorbide Mononitrate) 60 Mg Tab 60 Mg PO DAILY Furosemide 40 Mg Tab 40 Mg PO DAILY Reported Humalog Inj (Insulin Human Lispro) 1,000 Unit/10 Ml Vial 2-12 Units SQ ACHS Max dose at bedtime:( )units; sugars < 70,(0)units; sugars 150-199,(2)units; sugars 200-249,(4)units; sugars 250-299,(7)units; sugars 300-349,(10)units; sugars more than 349,(12)units. Furosemide 20 Mg Tab 20 Mg PO BID Coumadin (Warfarin) 3 Mg Tab 3 Mg PO DAILY . Current Medications Medications (Trade) Dose Ordered Sig/Siva Route Start Time Stop Time Status Last Admin (NS Flush) 2 ml UNSCH PRN IV FLUSH 07/31/17 05:30 (NS Flush) 2 ml BID IV FLUSH 07/31/17 09:00 07/31/17 09:05 (Narcan Inj) 0.4 mg UNSCH PRN IV PUSH 07/31/17 05:30 (Lasix Inj) 40 mg BID@18 IV PUSH 07/31/17 18:00 (Duoneb Neb) 1 ampule Q4HR NEB PRN NEB 07/31/17 10:30 (Pravachol) 40 mg DAILY PO 08/01/17 09:00 (Tylenol) 500 mg Q6H PRN PO 07/31/17 10:30 (Milk Of Magnesia Liq) 30 ml Q12H PRN PO 07/31/17 10:30 (Senokot) 17.2 mg Q12H PRN PO 07/31/17 10:30 (Dulcolax Supp) 10 mg DAILY PRN RECTAL 07/31/17 10:30 (Lactulose Liq) 30 ml DAILY PRN PO 07/31/17 10:30 Pharmacy Profile Note 0 ml @ 0 mls/hr UNSCH OTHER 07/31/17 10:30 Miscellaneous Information ALL NURSING DEPARTME... UNSCH PRN OTHER 07/31/17 11:00 08/01/17 10:59 (Coumadin) 4 mg DAILY@1600 PO 08/01/17 16:00 . Family History Mother at age 90 of COPD. Father in his 80s of natural causes. . Substance Use Tobacco: Heavy smoker greater than 2 packs per day quit 20 years ago. Alcohol: Significant alcohol use, quit 20 years ago. Prescription med abuse: No history of prescription drug abuse. Illicits: No history of illicit drug abuse. . Psychosocial History He was born in [place], [place] and moved to [place] at age 15. 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 He has 8 children. . Spiritual/Cultural Factors He is a nonpracticing Buddhist but would wish to have sacrament of the sick. . Living Will: Completed, but not made available Health Care Surrogate: Copy in medical record Durable Power of Food Truck Caterer: Completed, but not made available Health Care Surrogate(s): Daughter, Norma Lazcano , cell, , work. Documented care wishes: Standard Living Will verbiage per the daughter. . Today's verbally stated goals: Requesting comfort oriented goals. . Family/friends goals: Consistent with the patient's wishes for comfort. . Ethical and Legal Issues None noted. Physical Exam Vital Signs Date Time Temp Pulse Resp B/P (MAP) Pulse Ox O2 Delivery O2 Flow Rate FiO2 07/31/17 16:00 98.4 59 20 160/71 (100) 95 07/31/17 15:49 97 Nasal Cannula 2.00 07/31/17 12:00 96.1 64 20 157/73 (101) 98 07/31/17 10:30 96.9 65 24 150/69 (96) 99 07/31/17 09:32 07/31/17 07:26 97 Nasal Cannula 1.00 07/31/17 07:26 69 18 97 Nasal Cannula 1.00 07/31/17 07:26 97.5 69 18 134/57 (82) 97 Nasal Cannula 1.00 07/31/17 07:26 97 Nasal Cannula 1.00 07/31/17 05:40 97 Nasal Cannula 2.00 07/31/17 05:32 85 14 160/74 (102) 97 Nasal Cannula 2.00 07/31/17 04:43 83 16 151/63 (92) 95 Nasal Cannula 2.00 07/31/17 04:18 100 Aerosol Mask 07/31/17 04:18 18 100 Aerosol Mask 07/31/17 03:25 97.9 67 18 142/67 (92) 94 07/31/17 03:25 Room Air . 07/31/17 08/01/17 19:00 07:00 Intake Total 720 ml Output Total 1550 ml Balance -830 ml Intake Oral 720 ml Output Urine Total 1550 ml # Voids 5 # Bowel Movements 1 . Exam CONSTITUTIONAL/GENERAL: This is an adequately nourished patient, in no apparent distress. TUBES/LINES/DRAINS: PID SKIN: No jaundice, rashes, or lesions. Ecchymoses on upper extremities. No wounds seen anteriorly. Skin temperature appropriate. Not diaphoretic. HEAD: Atraumatic. Normocephalic. EYES: Pupils equal and round and reactive. Extraocular motions intact. No scleral icterus. No injection or drainage. Fundi not examined. ENT: Hearing grossly normal. Nose without bleeding or purulent drainage. Throat without visible erythema, exudates, masses, or lesions. NECK: Trachea midline. Supple, nontender. No palpable thyroid enlargement or nodularity. CARDIOVASCULAR: Regular rate and rhythm without murmurs, gallops, or rubs. No JVD. Peripheral pulses symmetric. RESPIRATORY/CHEST: Symmetric, unlabored respirations. Clear, diminished to auscultation. Breath sounds equal bilaterally. No wheezes, rales, or rhonchi. GASTROINTESTINAL: Abdomen soft, non-tender, nondistended. No hepato-splenomegaly , or palpable masses. No guarding. Bowel sounds present. GENITOURINARY: Without palpable bladder distension. MUSCULOSKELETAL: Extremities without clubbing, cyanosis, or edema. No joint tenderness or effusion noted. No calf tenderness. No mottling or clubbing. LYMPHATICS: No palpable cervical or supraclavicular adenopathy. NEUROLOGICAL: Awake and alert. Motor and sensory grossly within normal limits. Follows commands. Moves all extremities. PSYCHIATRIC: No obvious anxiety/depression. no apparent hallucinations or other psychotic thought process. . Diagnostic Tests Laboratory Laboratory Tests Test 07/31/17 04:04 07/31/17 05:09 07/31/17 05:55 07/31/17 11:55 Prothrombin Time 31.8 SEC (9.8-11.6) Prothromb Time International Ratio 3.2 RATIO Activated Partial Thromboplast Time 26.7 SEC (24.3-30.1) Blood Urea Nitrogen 19 MG/DL (7-18) Creatinine 1.10 MG/DL (0.60-1.30) Random Glucose 91 MG/DL (74-106) Total Protein 6.0 GM/DL (6.4-8.2) Albumin 2.3 GM/DL (3.4-5.0) Calcium Level 7.7 MG/DL (8.5-10.1) Magnesium Level 1.7 MG/DL (1.5-2.5) Alkaline Phosphatase 99 U/L (45-117) Aspartate Amino Transf (AST/SGOT) 25 U/L (15-37) Alanine Aminotransferase (ALT/SGPT) 29 U/L (12-78) Total Bilirubin 1.0 MG/DL (0.2-1.0) Sodium Level 139 MEQ/L (136-145) Potassium Level 3.9 MEQ/L (3.5-5.1) Chloride Level 106 MEQ/L (98-107) Carbon Dioxide Level 27.2 MEQ/L (21.0-32.0) Anion Gap 6 MEQ/L (5-15) Estimat Glomerular Filtration Rate 64 ML/MIN (>89) Total Creatine Kinase 64 U/L (39-308) 54 U/L (39-308) Troponin I 0.07 NG/ML (0.02-0.05) 0.06 NG/ML (0.02-0.05) B-Type Natriuretic Peptide 2877 PG/ML (0-100) White Blood Count 5.2 TH/MM3 (4.0-11.0) Red Blood Count 3.09 MIL/MM3 (4.50-5.90) Hemoglobin 9.3 GM/DL (13.0-17.0) Hematocrit 28.8 % (39.0-51.0) Mean Corpuscular Volume 93.4 FL (80.0-100.0) Mean Corpuscular Hemoglobin 30.2 PG (27.0-34.0) Mean Corpuscular Hemoglobin Concent 32.3 % (32.0-36.0) Red Cell Distribution Width 17.4 % (11.6-17.2) Platelet Count 87 TH/MM3 (150-450) Mean Platelet Volume 8.8 FL (7.0-11.0) Neutrophils (%) (Auto) 87.4 % (16.0-70.0) Lymphocytes (%) (Auto) 6.7 % (9.0-44.0) Monocytes (%) (Auto) 2.3 % (0.0-8.0) Eosinophils (%) (Auto) 2.9 % (0.0-4.0) Basophils (%) (Auto) 0.7 % (0.0-2.0) Neutrophils # (Auto) 4.5 TH/MM3 (1.8-7.7) Lymphocytes # (Auto) 0.4 TH/MM3 (1.0-4.8) Monocytes # (Auto) 0.1 TH/MM3 (0-0.9) Eosinophils # (Auto) 0.2 TH/MM3 (0-0.4) Basophils # (Auto) 0.0 TH/MM3 (0-0.2) CBC Comment AUTO DIFF Differential Comment AUTO DIFF CONFIRMED Platelet Estimate LOW (NORMAL) Platelet Morphology Comment ENLARGED (NORMAL) Red Cell Morphology Comment NORMAL (NORMAL) Urine Color YELLOW (YELLW/STRAW) Urine Turbidity CLEAR (CLEAR) Urine pH 6.0 (5.0-8.5) Urine Specific Mead 1.010 (1.002-1.035) Urine Protein TRACE mg/dL (NEG-TRACE) Urine Glucose (UA) NEG mg/dL (NEG) Urine Ketones NEG mg/dL (NEG) Urine Occult Blood TRACE (NEG) Urine Nitrite NEG (NEG) Urine Bilirubin NEG (NEG) Urine Leukocyte Esterase NEG (NEG) Urine RBC 0-3 /hpf (0-3) Urine WBC 0-2 /hpf (0-5) Urine Squamous Epithelial Cells 0-5 /hpf (0-5) Urine Bacteria NONE /hpf (NONE) Microscopic Urinalysis Comment CULT NOT INDICATED . Result Diagram: 07/31/17 0509 07/31/17 0404 Imaging Last Impressions Chest X-Ray 07/31/17 0357 Signed Impressions: Service Date/Time: Monday, July 31, 2017 04:13 - CONCLUSION: Slight CHF. K. Garry Zheng MD . Patient/Family Conference Present at Family Conference: Spoke with daughter Norma at bedside. She has been patient's primary decision maker as all of her remaining brothers and sisters live out of state. Patient is in agreement with that and did complete a healthcare surrogate form today. They both confirm that their goals are comfort oriented and would not wish resuscitation, CPR or intubation. He will be made a DO NOT RESUSCITATE DO NOT INTUBATE status. . Family Conference Time (mins): 45 Family Conference Location: Bedside Issues Discussed: * Palliative care role, purpose, approach * Additional medical, psychosocial, and spiritual history * Patients general health, functional status, and cognitive changes in the months leading up to the current hospitalization * Patient/family understanding of the current medical problems * Patient/family understanding of prognosis * Patients goals of care as best understood from advance directives and/or conversations and/or values * Current medical treatment options and benefits/burdens of those options * Likely scenarios comparing ongoing aggressive care with a transition to comfort measures only * Questions answered to the best of my ability * Palliative care contact information provided Assessment and Plan Disease Oriented Problem List: (1) Dementia of Alzheimer's type with behavioral disturbance (2) Acute exacerbation of CHF (congestive heart failure) (3) Ischemic cardiomyopathy (4) Atrial fibrillation (5) Diabetes mellitus type II, controlled, with no complications (6) Hypertension Symptom Scale: (1) Confusion 0-10 Scale: Unable to quantify (Baseline mild confusion, memory loss) (2) Dyspnea and respiratory abnormalities 0-10 Scale: Unable to quantify (Intermittently hypoxic, concern for aspiration. ) Pertinent Non-Medical Issues Psychosocial:He was born in [place], [place] and moved to [place] at age 15. 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 He has 8 children. Spiritual: He is a nonpracticing Buddhist but would wish sacrament of the sick. Legal: No legal issues identified. Ethical issues impacting care: No ethical issues identified. . Important Contacts Daughter, Norma Lazcano , cell, , work. . Prognosis His prognosis is guarded. He has had multiple episodes of recurrent pneumonia and is likely aspirating. The family is not in agreement with any artificial feedings or tubes and so would likely transition to hospice and allow patient to eat as he pleased, fully aware that this is likely to cause pneumonia and likely . Family states that they are aware of that and do not wish to curtail his quality of life to sacrifice for quantity. . Code Status: No Code Plan PLAN: Legal decision maker: Patient is mildly confused but can participate in decision-making with his daughterNorma whom he has made his healthcare surrogate. Goals: Comfort oriented. CODE STATUS: DO NOT RESUSCITATE, DO NOT INTUBATE SYMPTOMS: * Confusion: He is mildly confused. He has difficulty with memory and needs to be redirected from time to time. His daughter affirms that this is not a language barrier as he speaks excellent Ukrainian. He appeared to understand and follow the conversation and answer appropriately. This is likely a byproduct of his frontal lobe dementia and will likely worsen over time. * Dyspnea: This is likely multifactorial to include likely aspiration, debility and congestive heart failure. Per his daughter, he has an ejection fraction of approximately 20% and has had 2 recent myocardial infarctions diagnosed at the [facility]. Since he resides in an [facility] in [place], he has not seen his volumetric weigher, Dr. Patino in some time. Would strongly recommend a speech therapy evaluation for both aspiration assessment and cognitive therapy. SUMMARY This is a very pleasant 82-year-old male admitted with recurrent dyspnea, heard to cough frequently during the visit. It is likely that he is aspirating. The family has requested to add hospice services as an additional layer of medical oversight when he returns back to the [facility] in [place]. They do not wish him to return to [facility] for further rehab. They are requesting a visit to be arranged with hospice on Thursday, which is the daughter's only day off to enroll him in hospice. Order will be placed as requested. He is hospice appropriate. Palliative care will continue to follow the patient during hospital course as condition evolves, to assist patient/decision-maker with understanding of their medical conditions, weighing benefits/burdens of treatment options, for clarification of goals of treatment. Additionally will assist with any symptoms of palliative concern. . Time Spent Time Periods: 14: 30-15: 50 Total Floor Time (mins): 75 Face to Face Time (mins): 45 >50% Counseling/Coord of Care: Yes Thank you for the opportunity to participate in the care of Mr. Lazcano. Attestation To help prompt me to consider important information that might be impacting today's encounter and assessment, information from prior notes written by myself or my colleagues may have been "brought forward" into today's note. My signature on this note, however, is an attestation that I personally performed the exam, history, and/or decision-making noted today, and, unless otherwise indicated, the interactions with patient, family, and staff as well as the review of records all occurred today. I also attest that the listed assessment and stated plan reflect my best clinical judgment today based on the combination of historical information, prior notes, and today's exam/ interactions. When time spent is documented, it refers only to time spent today by the signer, or if indicated, combined time spent today by collaborating physician/nurse practitioner. . Lucina Ivy Jul 31, 2017 18:22
[2017-07-31] MEDS: FUROSEMIDE 20 MG/2 ML VIAL IV PUSH SCH (18:42)
[2017-08-01] VITALS (8 sets, daily range): BP systolic 137–161; BP diastolic 67–89; PULSE 59–79; RESP 16–20; TEMP 97.6–98.9; O2SAT 92–99
--- NOTE | 2017-08-01 | EKG ---
Date Performed: 07/31/2017 Time Performed: 04:09:00 PTAGE: 82 years EKG: ATRIAL FIBRILLATION ST DEVIATION AND MARKED T-WAVE ABNORMALITY ABNORMAL ECG PREVIOUS TRACING : 01/14/2017 16.26 Compared to prior tracing, marked T wave abnormality now p resent DOCTOR: Ward Mayberry Interpretating Date/Time 07/31/2017 23:59:02
[2017-08-01 07:15] LABS: BASOPHIL % 0.1 % (0.0-2.0); EOSINOPHIL % 0.1 % (0.0-4.0); HEMATOCRIT 26.2 % (39.0-51.0); HEMOGLOBIN 9.1 GM/DL (13.0-17.0); LYMPH % 6.4 % (9.0-44.0); LYMPHOCYTE # 0.4 TH/MM3 (1.0-4.8); MEAN CELL VOLUME 93.5 FL (80.0-100.0); MEAN CORPUSCULAR HEMOGLOBIN 32.4 PG (27.0-34.0); MEAN CORPUSCULAR HGB CONC 34.6 % (32.0-36.0); MEAN PLATELET VOLUME 9.3 FL (7.0-11.0); MONO % 5.2 % (0.0-8.0); MONOCYTE # 0.3 TH/MM3 (0-0.9); NEUT % 88.2 % (16.0-70.0); PLATELET COUNT 106 TH/MM3 (150-450); RED BLOOD COUNT 2.81 MIL/MM3 (4.50-5.90); RED CELL DISTRIBUTION WIDTH 17.9 % (11.6-17.2); WHITE BLOOD COUNT 6.7 TH/MM3 (4.0-11.0)
[2017-08-01 07:28] LABS: BICARBONATE 31.1 MEQ/L (21.0-32.0); CALCIUM 8.1 MG/DL (8.5-10.1)
[2017-08-01 07:32] LABS: CREATININE 1.2 MG/DL (0.60-1.30)
[2017-08-01] MEDS: SODIUM CHLORIDE 0.9% FLUSH 10 ML FLUSH IV FLUSH SCH ×2 (08:17→21:27)
[2017-08-01] MEDS: PRAVASTATIN SOD 40 MG TAB PO SCH (08:18)
[2017-08-01] MEDS: FUROSEMIDE 20 MG/2 ML VIAL IV PUSH SCH ×2 (08:18→17:05)
--- NOTE | 2017-08-01 08:42 | HHI.PR ---
Subjective Remarks Patient seen and examined today for follow-up on acute systolic congestive heart failure in a patient with severe cardiomyopathy. Patient resting carefully in bed. Denies any new complaints. Denies any chest pain, shortness of breath, difficulty breathing. Palliative care was consulted yesterday secondary to patient's overall condition. Is indicated that family would like hospice consult. Awaiting hospice to evaluate the patient. Objective Vitals Vital Signs Date Time Temp Pulse Resp B/P (MAP) Pulse Ox O2 Delivery O2 Flow Rate FiO2 08/01/17 08:00 97.6 71 20 139/68 (91) 93 08/01/17 05:16 97.8 60 16 137/79 (98) 95 08/01/17 01:29 97.9 59 18 149/79 (102) 96 07/31/17 21:37 98.9 60 20 174/80 (111) 97 07/31/17 21:20 99 Nasal Cannula 2.00 07/31/17 16:00 98.4 59 20 160/71 (100) 95 07/31/17 15:49 97 Nasal Cannula 2.00 07/31/17 12:00 96.1 64 20 157/73 (101) 98 07/31/17 10:30 96.9 65 24 150/69 (96) 99 07/31/17 09:32 I/O 07/31/17 07/31/17 07/31/17 08/01/17 08/01/17 08/01/17 07:00 15:00 23:00 07:00 15:00 23:00 Intake Total 720 ml Output Total 300 ml 1550 ml 300 ml Balance -300 ml -830 ml -300 ml Intake Oral 720 ml Output Urine Total 300 ml 1550 ml 300 ml # Voids 5 # Bowel Movements 1 0 Result Diagram: 08/01/17 0650 08/01/17 0650 Objective Remarks GENERAL: Well-developed, well-nourished, in no acute distress. alert HEENT: Head is normocephalic without any lesions or masses noted. Facial features are symmetric. Eyes: Extraocular muscles are intact. Conjunctivae were clear. NECK: Supple without any masses. Trachea midline no deviation. No JVD, CARDIAC: Regular rhythm, regular rate. S1/S2 are heard. No murmurs gallops or rubs. LUNGS: Clear to auscultation bilaterally. No wheeze, rhonchi or rales. No use of accessory muscles on inspiration or expiration. ABDOMEN: Soft, nontender. Nondistended. Bowel sounds heard in all 4 quadrants. No organomegaly or masses. Negative rebound, negative guarding EXTREMITIES: 1+ pitting edema noted bilateral lower extremities, pulses are equal bilaterally. No cyanosis or clubbing NEUROLOGY: Mood and affect appear appropriate. Cranial nerves II through XII grossly intact. Moving all extremities, speech is clear Urinary Catheter: No Vascular Central Line Catheter: No A/P Assessment and Plan Acute on chronic systolic congestive heart failure Patient with history of severe ischemic cardiomyopathy with ejection fraction 20% Patient with equivocal troponin that have trended to normal. Patient with elevated BNP Patient continue on Lasix 40 mg twice daily Palliative care was consulted due to the patient's overall condition and history. Palliative care indicates patient CODE STATUS is DO NOT RESUSCITATE, DO NOT INTUBATE. Palate care indicates that family wishes to discuss with hospice on Thursday, however there is no indication that they do not want continued appropriate management during this hospitalization We'll start beta ignacia, SWATHI inhibitor, obtain echocardiogram Chronic atrial fibrillation, hyperlipidemia, coronary artery disease Home medications have been continued Patient is on Coumadin, pharmacy consulted for management Palliative care is following the patient They recommended speech therapy for swallow eval by cognition evaluation They have arranged for hospice consultation performed on Thursday DVT prevention Patient anticoagulated on Coumadin with INR 3.2 Discharge Planning Awaiting for family to meet with hospice on Thursday for further discharge planning Leighton Israel Aug 01, 2017 08:42
[2017-08-01] MEDS: LISINOPRIL 5 MG TAB PO SCH (13:49)
[2017-08-01] MEDS: CARVEDILOL 3.125 MG TAB PO SCH ×2 (13:49→21:27)
--- NOTE | 2017-08-01 13:58 | EKG ---
Date Performed: 07/31/2017 Time Performed: 12:54:34 PTAGE: 82 years EKG: ATRIAL FIBRILLATION ST DEVIATION AND MARKED T-WAVE ABNORMALITY, CONSIDER ANTEROLATERAL ISCH EMIA ST DEVIATION AND MODERATE T-WAVE ABNORMALITY, CONSIDER INFERIOR ISCHEMIA Prolonged corrected QT interval ABNORMAL ECG PREVIOUS TRACING : 07/31/2017 04.09 DOCTOR: Todd Orta Interpretating Date/Time 08/01/2017 13:58:14
--- NOTE | 2017-08-01 13:58 | EKG ---
Date Performed: 07/31/2017 Time Performed: 17:42:10 PTAGE: 82 years EKG: ATRIAL FIBRILLATION WITH SLOW VENTRICULAR RESPONSE ST DEVIATION AND MARKED T-WAVE ABNORMALI TY, CONSIDER ANTEROLATERAL ISCHEMIA ST DEVIATION AND MODERATE T-WAVE ABNORMALITY, CONSIDER INFERIOR I SCHEMIA ABNORMAL ECG Prolonged corrected QT interval PREVIOUS TRACING : 07/31/2017 12.54 DOCTOR: Todd Orta Interpretating Date/Time 08/01/2017 13:58:23
[2017-08-01] MEDS ORDERED: WARFARIN SOD 4 MG TAB PO SCH (16:00)
[2017-08-01 17:29] LABS: INTERNATIONAL NORMALIZED RATIO 3.9 RATIO; PROTHROMBIN TIME - PATIENT 39.6 SEC (9.8-11.6)
[2017-08-02 00:42] VITALS: BP 132/76; PULSE 70; RESP 18; TEMP 98; O2SAT 95
[2017-08-02] MEDS: CARVEDILOL 3.125 MG TAB PO SCH (07:30)
[2017-08-02] MEDS: LISINOPRIL 5 MG TAB PO SCH (07:31)
[2017-08-02] MEDS: FUROSEMIDE 20 MG/2 ML VIAL IV PUSH SCH ×2 (07:31→17:07)
[2017-08-02] MEDS: PRAVASTATIN SOD 40 MG TAB PO SCH (07:31)
[2017-08-02] MEDS: SODIUM CHLORIDE 0.9% FLUSH 10 ML FLUSH IV FLUSH SCH (07:32)
[2017-08-02 08:00] VITALS: BP 171/75; PULSE 54; RESP 20; TEMP 96.8; O2SAT 100; O2SAT 95
[2017-08-02 08:01] LABS: INTERNATIONAL NORMALIZED RATIO 2.9 RATIO; PROTHROMBIN TIME - PATIENT 28.8 SEC (9.8-11.6)
--- NOTE | 2017-08-02 08:09 | HHI.PR ---
Subjective Remarks Patient seen and examined today for follow-up on acute exacerbation of congestive heart failure. Patient resting With. Denies any new complaints. Does not appear to have any swelling in his lower extremities. Patient with well compensated CHF at this time. Plans were for family to meet with hospice today, however they did not show up for the appointment and have been unable to reach via phone. Patient clinically stable at this time and compensated. Will plan discharge accordingly. Objective Vitals Vital Signs Date Time Temp Pulse Resp B/P (MAP) Pulse Ox O2 Delivery O2 Flow Rate FiO2 08/02/17 00:42 98.0 70 18 132/76 (94) 95 08/01/17 21:04 98.9 79 16 157/89 (111) 95 08/01/17 20:09 99 Nasal Cannula 2.00 08/01/17 16:00 97.6 62 20 147/67 (93) 99 08/01/17 12:00 97.9 68 20 161/73 (102) 99 08/01/17 08:10 92 Nasal Cannula 2.00 I/O 08/01/17 08/01/17 08/01/17 08/02/17 08/02/17 08/02/17 07:00 15:00 23:00 07:00 15:00 23:00 Intake Total 650 ml Output Total 300 ml 400 ml Balance -300 ml 650 ml -400 ml Intake Oral 650 ml Output Urine Total 300 ml 400 ml # Voids 3 # Bowel Movements 0 0 Result Diagram: 08/01/17 0650 08/01/17 0650 Objective Remarks GENERAL: Well-developed, well-nourished, in no acute distress. alert HEENT: Head is normocephalic without any lesions or masses noted. Facial features are symmetric. Eyes: Extraocular muscles are intact. Conjunctivae were clear. NECK: Supple without any masses. Trachea midline no deviation. No JVD, CARDIAC: Regular rhythm, regular rate. S1/S2 are heard. No murmurs gallops or rubs. LUNGS: Clear to auscultation bilaterally. No wheeze, rhonchi or rales. No use of accessory muscles on inspiration or expiration. ABDOMEN: Soft, nontender. Nondistended. Bowel sounds heard in all 4 quadrants. No organomegaly or masses. Negative rebound, negative guarding EXTREMITIES: 1+ pitting edema noted bilateral lower extremities, pulses are equal bilaterally. No cyanosis or clubbing NEUROLOGY: Mood and affect appear appropriate. Cranial nerves II through XII grossly intact. Moving all extremities, speech is clear Urinary Catheter: No Vascular Central Line Catheter: No A/P Assessment and Plan Acute on chronic systolic congestive heart failure Patient with history of severe ischemic cardiomyopathy with ejection fraction 20% Patient with equivocal troponin that have trended to normal. Patient with elevated BNP Patient continue on Lasix 40 mg twice daily Palliative care was consulted due to the patient's overall condition and history. Palliative care indicates patient CODE STATUS is DO NOT RESUSCITATE, DO NOT INTUBATE. Palate care indicates that family wishes to discuss with hospice on Thursday, however there is no indication that they do not want continued appropriate management during this hospitalization Continue beta ignacia, SWATHI inhibitor, Awaiting echocardiogram for discharge Chronic atrial fibrillation, hyperlipidemia, coronary artery disease Home medications have been continued Patient is on Coumadin, pharmacy consulted for management Palliative care is following the patient They recommended speech therapy for swallow eval by cognition evaluation, still awaiting evaluation Family did not show up for hospice appointment and have been unreachable by phone DVT prevention Patient anticoagulated on Coumadin with INR 2.9 Discharge Planning Discharge planning to senior living facility once seen by speech therapy and echocardiogram Leighton Israel Aug 02, 2017 08:09
[2017-08-02 12:00] VITALS: BP 165/77; PULSE 56; RESP 20; TEMP 98.2; O2SAT 98
[2017-08-02] MEDS ORDERED: LISI-519 PO (12:18)
[2017-08-02] MEDS ORDERED: CARV3.125 PO (12:18)
--- NOTE | 2017-08-02 12:19 | HHI.DCPOC ---
Discharge Care Plan Diagnosis: (1) Acute exacerbation of CHF (congestive heart failure) Goals to Promote Your Health * To prevent worsening of your condition and complications * To maintain your health at the optimal level Directions to Meet Your Goals Take your medications as prescribed Follow your dietary instruction Follow activity as directed Keep your appointments as scheduled Take your immunizations and boosters as scheduled If your symptoms worsen call your PCP, if no PCP go to Urgent Care Center or Emergency Room Smoking is Dangerous to Your Health. Avoid second hand smoke Call the 24-hour hour crisis hotline for domestic abuse at Leighton Israel Aug 02, 2017 12:19
[2017-08-02] MEDS ORDERED: WARFARIN SOD 2 MG TAB PO SCH (16:00)
--- NOTE | 2017-08-02 16:29 | HHI.DS ---
Discharge Summary Admission Date Jul 31, 2017 at 10:33 Discharge Date: Aug 02, 2017 Admitting Diagnosis chf; h/o copd (1) Acute exacerbation of CHF (congestive heart failure) ICD Code: I50.9 - Heart failure, unspecified (2) Ischemic cardiomyopathy ICD Code: I25.5 - Ischemic cardiomyopathy (3) Atrial fibrillation ICD Code: I48.91 - Unspecified atrial fibrillation Status: Acute (4) Dementia of Alzheimer's type with behavioral disturbance ICD Code: G30.8 - Other Alzheimer's disease; F02.81 - Dementia in other diseases classified elsewhere with behavioral disturbance Status: Acute Procedures Echocardiogram Brief History - From Admission Mr. Lazcano is a pleasant 82-year-old male with a history of Alzheimer's dementia , ischemic cardiomyopathy with ejection fraction 20%, atrial fibrillation who presented to the emergency department from [facility] due to shortness of breath and hypoxia. At the rehabilitation, staff found patient with oxygen saturation 84-87% on 2 L of oxygen via nasal cannula. Obtaining history is limited due to patient's underlying dementia. At the time of this interview, however, patient appears to be comfortable on nasal cannula. Denies chest pain, shortness of breath, fever or chills. Chest x-ray shows cardiomegaly and vascular congestion consistent with CHF. His BNP was 2877. I discussed with patient's daughter Norma this morning. She does not know exactly why patient was admitted to the hospital. However she was told that his oxygen saturation was in the 84% range. She reports that patient had 2 heart attacks but military personnel specialist recommended against any intervention due to his overall condition. He currently does not have a regular military personnel specialist. Patient' s daughter also expressed desire for more comfort care than aggressive care. She understands given his cardiac conditions and dementia, aggressive care would not provide good quality of life. CBC/BMP: 08/01/17 0650 08/01/17 0650 Significant Findings Laboratory Tests Test 07/31/17 04:04 07/31/17 05:09 07/31/17 05:55 07/31/17 11:55 Prothrombin Time 31.8 SEC (9.8-11.6) Blood Urea Nitrogen 19 MG/DL (7-18) Total Protein 6.0 GM/DL (6.4-8.2) Albumin 2.3 GM/DL (3.4-5.0) Calcium Level 7.7 MG/DL (8.5-10.1) Estimat Glomerular Filtration Rate 64 ML/MIN (>89) Troponin I 0.07 NG/ML (0.02-0.05) 0.06 NG/ML (0.02-0.05) B-Type Natriuretic Peptide 2877 PG/ML (0-100) Red Blood Count 3.09 MIL/MM3 (4.50-5.90) Hemoglobin 9.3 GM/DL (13.0-17.0) Hematocrit 28.8 % (39.0-51.0) Red Cell Distribution Width 17.4 % (11.6-17.2) Platelet Count 87 TH/MM3 (150-450) Neutrophils (%) (Auto) 87.4 % (16.0-70.0) Lymphocytes (%) (Auto) 6.7 % (9.0-44.0) Lymphocytes # (Auto) 0.4 TH/MM3 (1.0-4.8) Platelet Estimate LOW (NORMAL) Platelet Morphology Comment ENLARGED (NORMAL) Urine Occult Blood TRACE (NEG) Test 07/31/17 17:45 08/01/17 06:50 08/01/17 17:10 08/02/17 07:00 Red Blood Count 2.81 MIL/MM3 (4.50-5.90) Hemoglobin 9.1 GM/DL (13.0-17.0) Hematocrit 26.2 % (39.0-51.0) Red Cell Distribution Width 17.9 % (11.6-17.2) Platelet Count 106 TH/MM3 (150-450) Neutrophils (%) (Auto) 88.2 % (16.0-70.0) Lymphocytes (%) (Auto) 6.4 % (9.0-44.0) Lymphocytes # (Auto) 0.4 TH/MM3 (1.0-4.8) Blood Urea Nitrogen 24 MG/DL (7-18) Random Glucose 136 MG/DL (74-106) Calcium Level 8.1 MG/DL (8.5-10.1) Estimat Glomerular Filtration Rate 58 ML/MIN (>89) Prothrombin Time 39.6 SEC (9.8-11.6) 28.8 SEC (9.8-11.6) Test 08/02/17 10:00 Imaging Last Impressions Chest X-Ray 07/31/17 0357 Signed Impressions: Service Date/Time: Monday, July 31, 2017 04:13 - CONCLUSION: Slight CHF. Zach Zheng MD PE at Discharge GENERAL: Well-developed, well-nourished, in no acute distress. alert HEENT: Head is normocephalic without any lesions or masses noted. Facial features are symmetric. Eyes: Extraocular muscles are intact. Conjunctivae were clear. NECK: Supple without any masses. Trachea midline no deviation. No JVD, CARDIAC: Regular rhythm, regular rate. S1/S2 are heard. No murmurs gallops or rubs. LUNGS: Clear to auscultation bilaterally. No wheeze, rhonchi or rales. No use of accessory muscles on inspiration or expiration. ABDOMEN: Soft, nontender. Nondistended. Bowel sounds heard in all 4 quadrants. No organomegaly or masses. Negative rebound, negative guarding EXTREMITIES: 1+ pitting edema noted bilateral lower extremities, pulses are equal bilaterally. No cyanosis or clubbing NEUROLOGY: Mood and affect appear appropriate. Cranial nerves II through XII grossly intact. Moving all extremities, speech is clear Hospital Course 82-year-old male who recently presented to the emergency department from local nursing facility because of shortness of breath, dyspnea with severe cardiomyopathy ejection fraction 20% was found to have acute systolic congestive heart failure workup emergent department did indicate a BNP of 2877, he was requiring oxygen because of O2 saturations of 84-87%. Due to the patient 's clinical condition and underlying medical issues with cardiomyopathy and dementia as recommended the palate care evaluated the patient. Palate care did see the patient and he was made DO NOT RESUSCITATE and family was wanting to him to convert to hospice care. It was arranged that the family will meet with the service coordinator on Wednesday, August 02, 2017. We'll during the patient's stay he was treated for his congestive heart failure with diuresis. Patient was started on beta ignacia, SWATHI inhibitor for cardioprotection. Patient responded to treatment well. No longer experiencing any shortness of breath, dyspnea. O2 saturation improved where he is at 98% on room air. Family did meet with hospice and is requesting that the patient go to rehabilitation facility in order to get stronger and then returned to the [facility] with hospice care. Patient is clinically stable this time. Will plan discharge back to the halfway facility once arrangements made. Pt Condition on Discharge: Stable Discharge Disposition: Discharge to SNF Discharge Time: > 30 minutes Discharge Instructions DIET: Follow Instructions for: Heart Healthy Diet Activities you can perform: Regular-No Restrictions Follow up Referrals: PCP Follow-up - 1 Week New Medications: Carvedilol (Coreg) 3.125 Mg Tab 3.125 MG PO Q12HR for Blood Pressure Management for 30 Days, TAB Lisinopril (Lisinopril) 5 Mg Tab 2.5 MG PO DAILY for Blood Pressure Management for 30 Days, #15 TAB Continued Medications: Furosemide (Furosemide) 40 Mg Tab 40 MG PO DAILY for health, #30 TAB 0 Refills Insulin Lispro (Human) Inj (Humalog Inj) 1,000 Unit/10 Ml Vial 2-12 UNITS SQ ACHS for Blood Sugar Management, #1 VIAL 0 Refills Max dose at bedtime:( )units; sugars < 70,(0)units; sugars 150-199,(2)units; sugars 200-249,(4)units; sugars 250-299,(7)units; sugars 300-349,(10)units; sugars more than 349,(12)units. Isosorbide Mononitrate ER (Isosorbide Mononitrate ER) 60 Mg Tab 60 MG PO DAILY for health, #30 TAB 0 Refills Multiple Vitamins W/ Minerals (Thera M Plus) 1 Tab 1 TAB PO DAILY for health, #30 TAB 0 Refills Pantoprazole (Protonix) 20 Mg Tab 20 MG PO DAILY for health, #30 TAB 0 Refills Pravastatin (Pravachol) 40 Mg Tab 40 MG PO DAILY for health, #30 TAB 0 Refills Quetiapine (Quetiapine) 25 Mg Tab 25 MG PO DAILY@12,18 for health, #60 TAB 0 Refills Warfarin (Coumadin) 3 Mg Tab 3 MG PO DAILY for Prevent Blood Clot, #30 TAB 0 Refills Warfarin (Coumadin) 4 Mg Tab 4 MG PO DAILY@1600 for health, #30 TAB 0 Refills Discontinued Medications: Furosemide (Furosemide) 20 Mg Tab 20 MG PO BID, #60 TAB 0 Refills Leighton Israel Aug 02, 2017 16:29
--- NOTE | 2017-08-02 16:44 | ECHRPT ---
Indication: HEART FAILURE CONCLUSIONS Normal left ventricular size. Moderate concentric left ventricular hypertrophy. The left ventricular systolic function is normal with an estimated ejection fraction of 60%. The left atrial size is moderately dilated. The right atrial size is moderately dilated. Ewzb-rp-dmbmlxey mitral valve regurgitation. Aortic valve sclerosis is present. Avul-qm-eflsvwnm aortic valve regurgitation. There is moderate tricuspid regurgitation. The estimated pulmonary arterial pressure is 68 mmHg. Mild pulmonary valve regurgitation. . BP: 171 / 75 HR: 54 Rhythm: Sinus MEASUREMENTS (Male / Female) Normal Values Technical Quality:Fair 2D ECHO LV Diastolic Diameter PLAX 5.6 cm 4.2 - 5.9 / 3.9 - 5.3 cm LV Systolic Diameter PLAX 3.9 cm IVS Diastolic Thickness 1.6 cm 0.6 - 1.0 / 0.6 - 0.9 cm LVPW Diastolic Thickness 1.6 cm 0.6 - 1.0 / 0.6 - 0.9 cm LV Relative Wall Thickness 0.6 RV Internal Dim ED PLAX 3.7 cm LVOT Diameter 2.5 cm Aortic Root Diameter 4.2 cm LA Systolic Diameter LX 5.1 cm 3.0 - 4.0 / 2.7 - 3.8 cm M-MODE AV Cusp Separation MM 2.3 cm DOPPLER AV Peak Velocity 122.0 cm/s AV Peak Gradient 6.0 mmHg AV Mean Gradient 3.2 mmHg AV Velocity Time Integral 23.9 cm AI Peak Velocity 379.7 cm/s AI Peak Gradient 57.7 mmHg AI Pressure Half Time 668.7 ms LVOT Peak Velocity 109.5 cm/s LVOT Peak Gradient 4.8 mmHg LVOT Velocity Time Integral 21.2 cm AV Area Cont Eq vti 4.4 cm AV Area Cont Eq pk 4.4 cm Mitral E Point Velocity 66.2 cm/s LV E' Lateral Velocity 8.8 cm/s Mitral E to LV E' Lateral Ratio 7.6 LV E' Septal Velocity 5.3 cm/s Mitral E to LV E' Septal Ratio 12.6 TR Peak Velocity 379.0 cm/s TR Peak Gradient 57.5 mmHg Right Atrial Pressure 10.0 mmHg Pulmonary Artery Systolic Pressu 67.5 mmHg Right Ventricular Systolic Press 67.5 mmHg PV Peak Velocity 57.1 cm/s PV Peak Gradient 1.3 mmHg FINDINGS LEFT VENTRICLE Normal left ventricular size. Moderate concentric left ventricular hypertrophy. The left ventricular systolic function is normal with an estimated ejection fraction of 60%. RIGHT VENTRICLE Normal right ventricular size and systolic function. LEFT ATRIUM The left atrial size is moderately dilated. RIGHT ATRIUM The right atrial size is moderately dilated. ATRIAL SEPTUM The interatrial septum not well visualized. AORTA The aortic root and proximal ascending aorta are normal in size on limited imaging. MITRAL VALVE Tefu-ok-syqzoyar mitral valve regurgitation. AORTIC VALVE Aortic valve sclerosis is present. Upsy-vw-xposlpyx aortic valve regurgitation. TRICUSPID VALVE There is moderate tricuspid regurgitation. The estimated pulmonary arterial pressure is 67.5 mmHg. PULMONARY VALVE Mild pulmonary valve regurgitation. VESSELS The inferior vena cava was not well visualized. PERICARDIUM No pericardial effusion. Ward Mayberry MD, FACC (Electronically Signed) Final Date:02 August 2017 16:43
== END 2017-08-02 18:16 | DRG 292 ==
LOC: PHED 03:21 → PHEDA 05:31 → PH3A 09:50 → OBSVTOIN 10:33
PROVIDERS: ADMIT Hospitalist; ATTEND Hospitalist
DX: I11.0 Hypertensive heart disease with heart failure (principal); F02.81 Dementia in other diseases classified elsewhere, unspecified severity, with behavioral disturbance; G31.09 Other frontotemporal neurocognitive disorder; I48.2 Chronic atrial fibrillation; I50.23 Acute on chronic systolic (congestive) heart failure; I25.5 Ischemic cardiomyopathy; J44.9 Chronic obstructive pulmonary disease, unspecified; G30.9 Alzheimer's disease, unspecified; R09.02 Hypoxemia; I25.10 Atherosclerotic heart disease of native coronary artery without angina pectoris; E78.5 Hyperlipidemia, unspecified; G47.33 Obstructive sleep apnea (adult) (pediatric); K21.9 Gastro-esophageal reflux disease without esophagitis; E11.9 Type 2 diabetes mellitus without complications; Z51.5 Encounter for palliative care; Z66 Do not resuscitate; Z79.01 Long term (current) use of anticoagulants; I25.2 Old myocardial infarction; Z79.4 Long term (current) use of insulin; Z95.5 Presence of coronary angioplasty implant and graft; Z87.01 Personal history of pneumonia (recurrent); Z87.891 Personal history of nicotine dependence; Z86.14 Personal history of Methicillin resistant Staphylococcus aureus infection
CPT/HCPCS: 71045; 80048; 80053; 81001; 82550; 83735; 83880; 84484; 85025; 85610; 85730; 87641; 93005; 93306; 94640; 94664; 99285; C9113; J1940

== ENCOUNTER 2017-11-13 15:23 | Emergency (ER) | payer MEDICARE, OTHER ==
[~2017-11-13] VITALS: Ht 170.2 cm; Wt 80.0 kg
[~2017-11-13 15:23] MED LIST changes: +CARV3.125 PO; -COZA50TA PO; -FLOR250C PO; -FURO20TA PO; +HUMALOG SQ; -HYDR-3798 PO; -LACT PO; -LACT12LO4 TOPICAL; +LISI-519 PO; -LOSA100T PO; -METF1000 PO; -METF500 PO; -SILV1CRE80 TOPICAL; -SPIR25 PO; -SPIR25TA PO; -TRAZ50TA12 PO; -[UNRECOGNIZED DRUG - CODE] TOPICAL
[2017-11-13 17:50] VITALS: BP 157/67; PULSE 54; RESP 16; TEMP 97.6; O2SAT 98
[2017-11-13] MEDS ORDERED: FERR325T18 PO (18:08)
[2017-11-13] MEDS ORDERED: OMEP20TA93 PO (18:08)
[2017-11-13] MEDS ORDERED: ASPI-516 CHEW (18:08)
[2017-11-13] MEDS ORDERED: GLIM1TAB PO (18:08)
[2017-11-13] MEDS ORDERED: DOXY1CAP74 PO (18:08)
[2017-11-13] MEDS ORDERED: LISI10TA3 PO (18:08)
[2017-11-13 18:44] LABS: AUTOMATED NEUTROPHIL # 5.1 TH/MM3 (1.8-7.7); BASOPHIL # 0.1 TH/MM3 (0-0.2); EOSINOPHIL # 0.5 TH/MM3 (0-0.4); EOSINOPHIL % 7.6 % (0.0-4.0); HEMATOCRIT 27.5 % (39.0-51.0); HEMOGLOBIN 9.2 GM/DL (13.0-17.0); LYMPH % 9.1 % (9.0-44.0); LYMPHOCYTE # 0.6 TH/MM3 (1.0-4.8); MEAN CELL VOLUME 90.7 FL (80.0-100.0); MEAN CORPUSCULAR HEMOGLOBIN 30.4 PG (27.0-34.0); MEAN CORPUSCULAR HGB CONC 33.5 % (32.0-36.0); MEAN PLATELET VOLUME 7.9 FL (7.0-11.0); MONO % 10.2 % (0.0-8.0); MONOCYTE # 0.7 TH/MM3 (0-0.9); NEUT % 72.1 % (16.0-70.0); PLATELET COUNT 335 TH/MM3 (150-450); RED BLOOD COUNT 3.03 MIL/MM3 (4.50-5.90); RED CELL DISTRIBUTION WIDTH 15.7 % (11.6-17.2)
[2017-11-13 18:51] LABS: BILIRUBIN, URINE NEG (NEG); BLOOD, URINE NEG (NEG); GLUCOSE,URINE NEG (NEG); HYALINE CAST, URINE 5 /lpf (RARE); KETONE, URINE NEG (NEG); NITRITE,URINE NEG (NEG); PH, URINE 5.5 (5.0-8.5); URINE COLOR YELLOW (YELLW/STRAW); URINE LEUKOCYTE ESTERASE NEG (NEG)
[2017-11-13 19:23] LABS: ALBUMIN 2.6 GM/DL (3.4-5.0); ALT (GPT) 13 U/L (12-78); AST (GOT) 14 U/L (15-37); BICARBONATE 27.1 MEQ/L (21.0-32.0); BLOOD UREA NITROGEN 22 MG/DL (7-18); CALCIUM 8.9 MG/DL (8.5-10.1); CHLORIDE 102 MEQ/L (98-107); CREATININE 1.34 MG/DL (0.60-1.30); GLOMERULAR FILTRATION RATE 51 ML/MIN (>89); GLUCOSE,RANDOM 54 MG/DL (74-106); SODIUM (NA) 137 MEQ/L (136-145)
[2017-11-13 19:33] LABS: ALKALINE PHOSPHATASE 82 U/L (45-117); TOTAL BILIRUBIN ADULT 0.6 MG/DL (0.2-1.0); TOTAL PROTEIN 7.9 GM/DL (6.4-8.2)
[2017-11-13 19:36] LABS: ACETAMINOPHEN LESS THAN 2.0 MCG/ML (10.0-30.0)
--- NOTE | 2017-11-13 21:21 | PD ---
HPI Chief Complaint: Medical Clearance Time Seen by Provider: 18:08 Travel History International Travel<30 days: No Contact w/Intl Traveler<30days: No Traveled to known affect area: No History of Present Illness HPI Patient is an 82-year-old male who is sent from his facility where he lives because he was being violent against staff. Documentation from staff states that he was to be Dior acted, however no official Dior act was filled out. Patient has no complaints at this time. When staff at the facility was called, they were unable to provide any further details. PFSH Past Medical History Atrial Fibrillation: Yes Heart Rhythm Problems: Yes (Afib) Cancer: No Cardiovascular Problems: Yes Chest Pain: Yes Congestive Heart Failure: Yes COPD: Yes Coronary Artery Disease: Yes Dementia: Yes Diabetes: Yes Patient Takes Glucophage: No Diminished Hearing: No Gastrointestinal Disorders: No GERD: Yes Genitourinary: No Headaches: No Hypertension: Yes Insomnia: Yes Musculoskeletal: No Neurologic: Yes Psychiatric: Yes (per patient's daughter, depression) Reproductive: No Respiratory: Yes Integumentary: Yes (BLE SKIN WOUNDS) Seizures: No Sleep Apnea: Yes Triglycerides - High: Yes Influenza Vaccination: Yes Social History Alcohol Use: No Tobacco Use: No Substance Use: No Allergies-Medications (Allergen,Severity, Reaction): Coded Allergies: *MDRO Multi-Drug Resistant Organism (Verified Adverse Reaction, Unknown, MRSA, 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 Reported Meds & Prescriptions Reported Meds & Active Scripts Active Coreg (Carvedilol) 3.125 Mg Tab 3.125 Mg PO Q12HR 30 Days Quetiapine (Quetiapine Fumarate) 25 Mg Tab 25 Mg PO DAILY@ Pravachol (Pravastatin) 40 Mg Tab 40 Mg PO DAILY Thera M Plus (Multivitamins/Minerals Therapeutic) 1 Tab 1 Tab PO DAILY Isosorbide Mononitrate ER (Isosorbide Mononitrate) 60 Mg Tab 60 Mg PO DAILY Furosemide 40 Mg Tab 40 Mg PO DAILY Reported Omeprazole 20 Mg Tab 20 Mg PO DAILY Glimepiride 1 Mg Tab 1 Mg PO DAILY Take with breakfast or first main meal Ferrous Sulfate 325 Mg (65 Mg Iron) Tablet 325 Mg PO TIDPC Lisinopril 10 Mg Tab 20 Mg PO DAILY Doxycycline 40 Mg Cap 100 Mg PO BID Aspirin 81 Mg Chew 81 Mg CHEW DAILY Coumadin (Warfarin) 3 Mg Tab 3 Mg PO DAILY Review of Systems ROS Limitations: Other: (dementia) Physical Exam Narrative GENERAL: Awake and alert, in no acute distress. SKIN: Focused skin assessment warm/dry. Erythema of bilateral lower extremities , weeping of fluid, legs bandaged. HEAD: Atraumatic. Normocephalic. EYES: Pupils equal and round. No scleral icterus. ENT: Mucous membranes pink and moist. NECK: Trachea midline. No JVD. CARDIOVASCULAR: Regular rate and rhythm. No murmur appreciated. RESPIRATORY: No accessory muscle use. Clear to auscultation. Breath sounds equal bilaterally. GASTROINTESTINAL: Abdomen soft, non-tender, nondistended. MUSCULOSKELETAL: No obvious deformities. No clubbing. No cyanosis. No edema. NEUROLOGICAL: Awake and alert. No obvious cranial nerve deficits. Motor grossly within normal limits. Normal speech. PSYCHIATRIC: Appropriate mood and affect; insight and judgment normal. Data Data Last Documented VS Vital Signs Date Time Temp Pulse Resp B/P (MAP) Pulse Ox O2 Delivery O2 Flow Rate FiO2 11/13/17 21:31 70 16 165/70 (101) 95 Room Air 11/13/17 17:50 97.6 Orders Orders Complete Blood Count With Diff (11/13/17 15:47) Comprehensive Metabolic Panel (11/13/17 15:47) Thyroid Stimulating Hormone (11/13/17 15:47) Urinalysis - C+S If Indicated (11/13/17 15:47) Psych Screen (11/13/17 15:47) Drug Screen, Random Urine (11/13/17 15:47) Alcohol (Ethanol) (11/13/17 15:47) Salicylates (Aspirin) (11/13/17 15:47) Tylenol (Acetaminophen) (11/13/17 15:47) Labs Laboratory Tests Test 11/13/17 18:29 White Blood Count 7.0 TH/MM3 Red Blood Count 3.03 MIL/MM3 Hemoglobin 9.2 GM/DL Hematocrit 27.5 % Mean Corpuscular Volume 90.7 FL Mean Corpuscular Hemoglobin 30.4 PG Mean Corpuscular Hemoglobin Concent 33.5 % Red Cell Distribution Width 15.7 % Platelet Count 335 TH/MM3 Mean Platelet Volume 7.9 FL Neutrophils (%) (Auto) 72.1 % Lymphocytes (%) (Auto) 9.1 % Monocytes (%) (Auto) 10.2 % Eosinophils (%) (Auto) 7.6 % Basophils (%) (Auto) 1.0 % Neutrophils # (Auto) 5.1 TH/MM3 Lymphocytes # (Auto) 0.6 TH/MM3 Monocytes # (Auto) 0.7 TH/MM3 Eosinophils # (Auto) 0.5 TH/MM3 Basophils # (Auto) 0.1 TH/MM3 CBC Comment DIFF FINAL Differential Comment Urine Color YELLOW Urine Turbidity CLEAR Urine pH 5.5 Urine Specific [place] 1.009 Urine Protein NEG mg/dL Urine Glucose (UA) NEG mg/dL Urine Ketones NEG mg/dL Urine Occult Blood NEG Urine Nitrite NEG Urine Bilirubin NEG Urine Urobilinogen LESS THAN 2.0 MG/DL Urine Leukocyte Esterase NEG Urine Hyaline Casts 5 /lpf Microscopic Urinalysis Comment CULT NOT INDICATED Blood Urea Nitrogen 22 MG/DL Creatinine 1.34 MG/DL Random Glucose 54 MG/DL Total Protein 7.9 GM/DL Albumin 2.6 GM/DL Calcium Level 8.9 MG/DL Alkaline Phosphatase 82 U/L Aspartate Amino Transf (AST/SGOT) 14 U/L Alanine Aminotransferase (ALT/SGPT) 13 U/L Total Bilirubin 0.6 MG/DL Sodium Level 137 MEQ/L Potassium Level 4.9 MEQ/L Chloride Level 102 MEQ/L Carbon Dioxide Level 27.1 MEQ/L Anion Gap 8 MEQ/L Estimat Glomerular Filtration Rate 51 ML/MIN Thyroid Stimulating Hormone 3rd Gen 1.530 uIU/ML Urine Opiates Screen NEG Acetaminophen Level LESS THAN 2.0 MCG/ML Urine Barbiturates Screen NEG Urine Amphetamines Screen NEG Urine Benzodiazepines Screen NEG Urine Cocaine Screen NEG Urine Cannabinoids Screen NEG Ethyl Alcohol Level LESS THAN 3 MG/DL [facility] Medical Decision Making Medical Screen Exam Complete: Yes Emergency Medical Condition: Yes Medical Record Reviewed: Yes Differential Diagnosis dementia vs electrolyte abnormalities vs dehydration Narrative Course Patient is a 82 year old male sent in from his facility for being violent against staff. He has no medical complaints. Labs sent show no acute abnormalities. Glucose was 54, he was fed. Medically cleared for psychiatric evaluation. Etelvina Landeros MD Nov 13, 2017 21:21
[2017-11-13 21:31] VITALS: BP 165/70; PULSE 70; RESP 16; O2SAT 95
--- NOTE | 2017-11-14 08:57 | PD ---
Physical Exam Date Seen by Provider: Nov 14, 2017 Narrative This patient has been awaiting here overnight for a psych eval. He has dementia. He has now been evaluated by psychiatry and has been cleared for discharge. Data Data Last Documented VS Vital Signs Date Time Temp Pulse Resp B/P (MAP) Pulse Ox O2 Delivery O2 Flow Rate FiO2 11/13/17 21:31 70 16 165/70 (101) 95 Room Air 11/13/17 17:50 97.6 Orders Orders Complete Blood Count With Diff (11/13/17 15:47) Comprehensive Metabolic Panel (11/13/17 15:47) Thyroid Stimulating Hormone (11/13/17 15:47) Urinalysis - C+S If Indicated (11/13/17 15:47) Psych Screen (11/13/17 15:47) Drug Screen, Random Urine (11/13/17 15:47) Alcohol (Ethanol) (11/13/17 15:47) Salicylates (Aspirin) (11/13/17 15:47) Tylenol (Acetaminophen) (11/13/17 15:47) Diet Regular Basic (11/14/17 Breakfast) Ed Discharge Order (11/14/17 08:54) Labs Laboratory Tests Test 11/13/17 18:29 White Blood Count 7.0 TH/MM3 Red Blood Count 3.03 MIL/MM3 Hemoglobin 9.2 GM/DL Hematocrit 27.5 % Mean Corpuscular Volume 90.7 FL Mean Corpuscular Hemoglobin 30.4 PG Mean Corpuscular Hemoglobin Concent 33.5 % Red Cell Distribution Width 15.7 % Platelet Count 335 TH/MM3 Mean Platelet Volume 7.9 FL Neutrophils (%) (Auto) 72.1 % Lymphocytes (%) (Auto) 9.1 % Monocytes (%) (Auto) 10.2 % Eosinophils (%) (Auto) 7.6 % Basophils (%) (Auto) 1.0 % Neutrophils # (Auto) 5.1 TH/MM3 Lymphocytes # (Auto) 0.6 TH/MM3 Monocytes # (Auto) 0.7 TH/MM3 Eosinophils # (Auto) 0.5 TH/MM3 Basophils # (Auto) 0.1 TH/MM3 CBC Comment DIFF FINAL Differential Comment Urine Color YELLOW Urine Turbidity CLEAR Urine pH 5.5 Urine Specific [place] 1.009 Urine Protein NEG mg/dL Urine Glucose (UA) NEG mg/dL Urine Ketones NEG mg/dL Urine Occult Blood NEG Urine Nitrite NEG Urine Bilirubin NEG Urine Urobilinogen LESS THAN 2.0 MG/DL Urine Leukocyte Esterase NEG Urine Hyaline Casts 5 /lpf Microscopic Urinalysis Comment CULT NOT INDICATED Blood Urea Nitrogen 22 MG/DL Creatinine 1.34 MG/DL Random Glucose 54 MG/DL Total Protein 7.9 GM/DL Albumin 2.6 GM/DL Calcium Level 8.9 MG/DL Alkaline Phosphatase 82 U/L Aspartate Amino Transf (AST/SGOT) 14 U/L Alanine Aminotransferase (ALT/SGPT) 13 U/L Total Bilirubin 0.6 MG/DL Sodium Level 137 MEQ/L Potassium Level 4.9 MEQ/L Chloride Level 102 MEQ/L Carbon Dioxide Level 27.1 MEQ/L Anion Gap 8 MEQ/L Estimat Glomerular Filtration Rate 51 ML/MIN Thyroid Stimulating Hormone 3rd Gen 1.530 uIU/ML Salicylates Level LESS THAN 1.7 MG/DL Urine Opiates Screen NEG Acetaminophen Level LESS THAN 2.0 MCG/ML Urine Barbiturates Screen NEG Urine Amphetamines Screen NEG Urine Benzodiazepines Screen NEG Urine Cocaine Screen NEG Urine Cannabinoids Screen NEG Ethyl Alcohol Level LESS THAN 3 MG/DL MDM Supervised Visit with SCOTT: No Diagnosis Primary Impression: Dementia associated with other underlying disease with behavioral disturbance Disposition: 01 DISCHARGE HOME Condition: Stable Alyson Lerner MD Nov 14, 2017 08:57
--- NOTE | 2017-11-14 09:17 | PD ---
History of Present Illness Chief Complaint: Medical Clearance Time Seen by Provider: 08:30 Travel History International Travel<30 Days: No Contact w/Intl Traveler<30days: No Known affected area: No Legal Status Legal Status: Voluntary History of Present Illness: Patient is an 81-year-old male who comes from [facility] . Per report there is no Dior act and he has been sent here voluntarily due to behavioral disturbances. Per record patient was admitted for same on October 26, 2017 when he was residing at [facility] . Cognition is limited. Patient is alert, calm and diffusely confused but cooperative with provider. He confabulates and will deflect questions. He is tangential and circumstantial. He is aware of the of the year but not the date or day of the week. He responds to his name. He does not know the name of the president. When asked why he is at the hospital he responds, "I was not feeling good yesterday , I feel better today I want to go home. ED staff reports that he has been cooperative with no behavioral disturbances. Chart reviewed and discussed with Clarisse RN in ED. Patient is in a hospital gown in Room D40. He is diffusely confused. Mood is euthymic with good range intensity of affect. Speech rate and rhythm are somewhat increased due to his [place]ic/[place] language. He is tangential and circumstantial. He illicits no auditory or visual hallucinations. No delusions. His insight and judgement is poor. Remote and recent recall are impaired. Attention is intermittent . He is able to follow commands. Fund of knowledge is poor. Patient was admitted to [facility] [place] same in October 2016. At that time he was diagnosed with Dementia. At this time, he does not meet admission criteria. It is the recommendation of this provider that the facility place a psychiatric consult to review his current medications for medication management. Thank you for this consult. He does not meet admission criteria, will release patient back to the ED to arrange for transportation back to the facility. Dx: Dementia, with behavioral disturbances PFSH Past Medical History Atrial Fibrillation: Yes Heart Rhythm Problems: Yes (Afib) Cancer: No Cardiovascular Problems: Yes Chest Pain: Yes Congestive Heart Failure: Yes COPD: Yes Coronary Artery Disease: Yes Dementia: Yes Diabetes: Yes Patient Takes Glucophage: No Diminished Hearing: No Gastrointestinal Disorders: No GERD: Yes Genitourinary: No Headaches: No Hypertension: Yes Insomnia: Yes Musculoskeletal: No Neurologic: Yes Psychiatric: Yes (per patient's daughter, depression) Reproductive: No Respiratory: Yes Integumentary: Yes (BLE SKIN WOUNDS) Seizures: No Sleep Apnea: Yes Triglycerides - High: Yes Influenza Vaccination: Yes Psychiatric History Psychiatric History Patient was admitted on 10.26.16 and had a lengthy admission to [facility] [place] disturbances at [facility]. He has been residing at [facility] in [place]. 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 Reported Meds & Prescriptions Reported Meds & Active Scripts Active Coreg (Carvedilol) 3.125 Mg Tab 3.125 Mg PO Q12HR 30 Days Quetiapine (Quetiapine Fumarate) 25 Mg Tab 25 Mg PO DAILY@,18 Pravachol (Pravastatin) 40 Mg Tab 40 Mg PO DAILY Thera M Plus (Multivitamins/Minerals Therapeutic) 1 Tab 1 Tab PO DAILY Isosorbide Mononitrate ER (Isosorbide Mononitrate) 60 Mg Tab 60 Mg PO DAILY Furosemide 40 Mg Tab 40 Mg PO DAILY Reported Omeprazole 20 Mg Tab 20 Mg PO DAILY Glimepiride 1 Mg Tab 1 Mg PO DAILY Take with breakfast or first main meal Ferrous Sulfate 325 Mg (65 Mg Iron) Tablet 325 Mg PO TIDPC Lisinopril 10 Mg Tab 20 Mg PO DAILY Doxycycline 40 Mg Cap 100 Mg PO BID Aspirin 81 Mg Chew 81 Mg CHEW DAILY Coumadin (Warfarin) 3 Mg Tab 3 Mg PO DAILY Mental Status Examination Appearance: Appropriate, Well dressed/well groomed Consciousness: Alert Orientation: Person Motor Activity: Abnormal gait Speech: Unremarkable Language: Perseveration, Other (tangential ) Fund of Knowledge: Poor Attention and Concentration: Inadequate Memory: Impaired Mood: Appropriate Affect: Euthymic Thought Process & Associations: Circumstantial, Disorganized Thought Content: Other (confused) Hallucination Type: None Delusion Type: None Suicidal Ideation: No Suicidal Plan: No Suicidal Intention: No Homicidal Ideation: No Homicidal Plan: No Homicidal Intention: No Insight: Adequate Judgment: Adequate MDM Medical Decision Making Assessment/Plan Patient is an 82 year old male residing at [facility] in [place]. He was sent to the ED due to behavioral disturbances at the facility. While in the ED he has been cooperative and will follow directions. He has dementia and is confused and tangential. He demonstrates no delusions or paranoia. He is euthymic. At the present time patient does not meet criteria for involuntary psychiatric hospitalization. Thank you for the consultation. Based on this assessment I will notify the ED that he does not meet admission criteria and they will assist with arranging his transportation back to the facility. Orders Orders Complete Blood Count With Diff (11/13/17 15:47) Comprehensive Metabolic Panel (11/13/17 15:47) Thyroid Stimulating Hormone (11/13/17 15:47) Urinalysis - C+S If Indicated (11/13/17 15:47) Psych Screen (11/13/17 15:47) Drug Screen, Random Urine (11/13/17 15:47) Alcohol (Ethanol) (11/13/17 15:47) Salicylates (Aspirin) (11/13/17 15:47) Tylenol (Acetaminophen) (11/13/17 15:47) Diet Regular Basic (11/14/17 Breakfast) Results Vital Signs Date Time Temp Pulse Resp B/P (MAP) Pulse Ox O2 Delivery O2 Flow Rate FiO2 11/13/17 21:31 70 16 165/70 (101) 95 Room Air 11/13/17 17:50 97.6 54 16 157/67 (97) 98 Laboratory Tests Test 11/13/17 18:29 White Blood Count 7.0 Red Blood Count 3.03 Hemoglobin 9.2 Hematocrit 27.5 Mean Corpuscular Volume 90.7 Mean Corpuscular Hemoglobin 30.4 Mean Corpuscular Hemoglobin Concent 33.5 Red Cell Distribution Width 15.7 Platelet Count 335 Mean Platelet Volume 7.9 Neutrophils (%) (Auto) 72.1 Lymphocytes (%) (Auto) 9.1 Monocytes (%) (Auto) 10.2 Eosinophils (%) (Auto) 7.6 Basophils (%) (Auto) 1.0 Neutrophils # (Auto) 5.1 Lymphocytes # (Auto) 0.6 Monocytes # (Auto) 0.7 Eosinophils # (Auto) 0.5 Basophils # (Auto) 0.1 CBC Comment DIFF FINAL Differential Comment Urine Color YELLOW Urine Turbidity CLEAR Urine pH 5.5 Urine Specific Cutler 1.009 Urine Protein NEG Urine Glucose (UA) NEG Urine Ketones NEG Urine Occult Blood NEG Urine Nitrite NEG Urine Bilirubin NEG Urine Urobilinogen LESS THAN 2.0 Urine Leukocyte Esterase NEG Urine Hyaline Casts 5 Microscopic Urinalysis Comment CULT NOT INDICATED Blood Urea Nitrogen 22 Creatinine 1.34 Random Glucose 54 Total Protein 7.9 Albumin 2.6 Calcium Level 8.9 Alkaline Phosphatase 82 Aspartate Amino Transf (AST/SGOT) 14 Alanine Aminotransferase (ALT/SGPT) 13 Total Bilirubin 0.6 Sodium Level 137 Potassium Level 4.9 Chloride Level 102 Carbon Dioxide Level 27.1 Anion Gap 8 Estimat Glomerular Filtration Rate 51 Thyroid Stimulating Hormone 3rd Gen 1.530 Salicylates Level LESS THAN 1.7 Urine Opiates Screen NEG Acetaminophen Level LESS THAN 2.0 Urine Barbiturates Screen NEG Urine Amphetamines Screen NEG Urine Benzodiazepines Screen NEG Urine Cocaine Screen NEG Urine Cannabinoids Screen NEG Ethyl Alcohol Level LESS THAN 3 Diagnosis Primary Impression: Dementia associated with other underlying disease with behavioral disturbance Disposition: 01 DISCHARGE HOME Condition: Stable Mira Reyes Nov 14, 2017 09:17
[2017-11-14 10:22] VITALS: BP 181/74; PULSE 55; RESP 18; O2SAT 96
== END 2017-11-14 11:58 | disposition home or self-care (01) ==
LOC: NEPD 15:23
DX: F02.81 Dementia in other diseases classified elsewhere, unspecified severity, with behavioral disturbance (principal); I48.91 Unspecified atrial fibrillation; I11.0 Hypertensive heart disease with heart failure; I50.9 Heart failure, unspecified; E11.9 Type 2 diabetes mellitus without complications; J44.9 Chronic obstructive pulmonary disease, unspecified; I25.10 Atherosclerotic heart disease of native coronary artery without angina pectoris; K21.9 Gastro-esophageal reflux disease without esophagitis; Z79.899 Other long term (current) drug therapy
CPT/HCPCS: 80053; 80307; 81001; 84443; 85025; 99283